=== PATIENT | female | born 1945 | race Caucasian/White ===

== ENCOUNTER 2023-06-22 08:15 | Outpatient (RCR) | payer MEDICARE, SELFPAY | END 2023-06-23 16:17 | disposition home or self-care (01) | LOC: PT 08:15 | PROVIDERS: PCP Family Medicine; Visit Provider Family Medicine | DX: H81.319 Aural vertigo, unspecified ear (principal); R26.89 Other abnormalities of gait and mobility; R26.9 Unspecified abnormalities of gait and mobility | CPT/HCPCS: 97110; 97162 ==

== ENCOUNTER 2023-10-08 06:45 | Emergency (ER) | payer MEDICARE, SELFPAY ==
[2023-10-08 06:48] VITALS: BP 158/71; PULSE 85; TEMP 36.8; O2SAT 97; BMI 28.3
--- OUTSIDE RECORDS SUMMARY | 2023-10-08 07:00 | XMS_ITS | CCD ---
Author Organization [facility] Inform ion Partnership [facility] Care Team Providers Care Project Intern Name Role Phone DR TIARRA GARY Primary Care Unavailable DEIDRA GARCIA Attending DEIDRA Martin Consulting DEIDRA Martin Admitting Unavailable Tiarra GARY Primary Care Physician Deidra Garcia Primary Care Physician [phone] JULIO RANKIN Attending Unavailable JULIO RANKIN Attending Unavailable Tiarra GARY Attending MD Deidra Martin Attending MD Deidra Martin Attending Unavailable MD Deidra Garcia Attending Unavailable MD Deidra Garcia Attending Unavailable MD Deidra Garcia Attending Unavailable MD Deidra Garcia Attending Unavailable Tiarra GARY Attending Unavailable Tiarra GARY Attending Unavailable Tiarra GARY Attending Unavailable Tiarra GARY Admitting Unavailable Ananda Samaniego Attending Unavailable Ananda Samaniego Admitting Unavailable Shawn Wu Attending Unavailable Allergies Allergy Classification Reported Allergen(s) Allergy Type Date of Onset Reaction(s) Facility (2 sources) Ciprofloxacin; Translations: [Cipro] Drug Allergy 6 [facility] Repository (2 sources) Codeine; Translations: [codeine] Drug Allergy 4 [facility] Rep[facility] (16 sources) Latex; Translations: [Latex] Drug allergy (disorder) 3 Eruption of skin (disorder) [facility] Rep[facility] (2 sources) metroNIDAZOLE; Translations: [Flagyl] Drug Allergy 6 [facility] Repository (1 source) Penicillins Drug allergy (disorder) 3 [facility] Rep[facility] (1 source) Sulfonamides (Antibiotic) Drug allergy (disorder) 3 [facility] Rep[facility] (15 sources) Adhesive Tape; Translations: [Tape] Drug allergy rash [facility] (15 sources) Amoxicillin; Translations: [amoxicillin] Drug Allergy Weal (disorder) [facility] (14 sources) Ciprofloxacin; Translations: [ciprofloxacin] Drug Allergy unknown [facility] (14 sources) Codeine; Translations: [codeine] Drug Allergy Pharyngeal swelling (finding) [facility] (14 sources) metroNIDAZOLE; Translations: [metronidazole] Drug Allergy unknown [facility] (15 sources) Morphine; Translations: [morphine] Drug Allergy unknown [facility] (15 sources) Penicillin; Translations: [Penicillin -class of antibiotic- (product)] Drug Allergy Weal (disorder) [facility] (15 sources) Sulfamethoxazole; Translations: [sulfamethoxazole] Drug Allergy Blister (morphologic abnormality) [facility] (15 sources) Sulfamethoxazole / Trimethoprim; Translations: [sulfamethoxazole-tr imethoprim] Drug Allergy Blister (morphologic abnormality) [facility] Medications Current Medications Medication Drug Class(es) Dates Sig (Normalized) Sig (Original) acetaminophen 325 mg / oxyCODONE hydrochloride 5 mg oral tablet (1 source) Opioid Agonist Start: 02-19-2023 End: 02-22-2023 Percocet 5 mg-325 mg oral tablet 1 tab(s), Oral, q6hr as needed for pain for 3 day(s), 15 tab(s), Refill(s) 0, [id number], 160, cm, 02/19/23 9:31:00 EST, Height/Length Dosing, 76.1, kg, 02/19/23 9:31:00 EST, Weight Dosing Start Date: 02/19/23 Stop Date: 02/22/23 Status: Ordered amLODIPine 5 mg oral tablet (14 sources) Dihydropyridine Calcium Channel Jeanna Start: 02-15-2023 take 1 tablet by mouth once daily Norvasc 5 mg Tab 5 mg = 1 tab(s), Oral, Daily, # 90 tab(s), Refills(s) 3, [facility], 160, cm, 02/15/23 8:05:00 EST, Height/Length Dosing, 74.6, kg, 02/15/23 8:05:00 EST, Weight Dosing Start Date: 02/15/23 Status: Ordered Start: 01-11-2022 take 1 tablet by leana th once daily Norvasc 5 mg Tab 5 mg = 1 tab(s), Oral, Daily, # 90 tab(s), Refills(s) 3, Pharmacy: [facility]), 160, cm, 01/11/22 10:59:00 EST, Height/Length Dosing, 72.4, kg, 01/11/22 10:59:00 EST, Weight Dosing Start Date: 01/11/22 Status: Ordered Start: 12-08-2020 take 1 tablet by leana th once daily Norvasc 5 mg Tab 5 mg = 1 tab(s), Oral, Daily, # 90 tab(s), Refills(s) 3, Pharmacy: [facility], 159, cm, 11/30/20 10:50:00 EDT, Height/Length Dosing, 78.8, kg, 11/30/20 10:50:00 EDT, Weight Dosing Start Date: 12/08/20 Status: Ordered aspirin 81 mg oral tablet (14 sources) Platelet Aggregation Inhibitor, Nonsteroidal Anti-inflammatory Drug Start: 07-29-2019 take 1 tablet by mouth once daily aspirin 81 mg oral tablet 81 mg = 1 tab(s), Oral, Daily, Refills(s) 0 Start Date: 07/29/19 Status: Ordered gemfibrozil 600 mg oral tablet (6 sources) Peroxisome Proliferator Receptor alpha Agonist Start: 05-31-2021 End: 05-26-2022 take 1 tablet by mouth twice daily gemfibrozil 600 mg Tab 600 mg = 1 tab(s), Oral, BID, X 90 day(s), # 180 tab(s), Refills(s) 3, Pharmacy: [id number], 160, cm, 05/31/21 12:59:00 EDT, Height/Length Dosing, 74, kg, 05/31/21 12:59:00 EDT, Weight Dosing Start Date: 05/31/21 Stop Date: 05/26/22 Status: Ordered losartan potassium 100 mg oral tablet (14 sources) Angiotensin 2 Receptor Jeanna Start: 02-15-2023 take 1 tablet by mouth once daily losartan 100 mg Tab 100 mg = 1 tab(s), Oral, Daily, # 90 tab(s), Refills(s) 3, Pharmacy: [facility], 160, cm, 02/15/23 8:05:00 EST, Height/Length Dosing, 74.6, kg, 02/15/23 8:05:00 EST, Weight Dosing Start Date: 02/15/23 Status: Ordered Start: 10-18-2022 take 1 tablet by leana th once daily losartan 100 mg Tab 100 mg = 1 tab(s), Oral, Daily, # 90 tab(s), Refills(s) 3, Pharmacy: [facility] ([facility]), 160, cm, 09/18/22 15:42:00 EDT, Height/Length Dosing, 73.6, kg, 09/18/22 15:42:00 EDT, Weight Dosing Start Date: 10/18/22 Status: Ordered Start: 11-07-2021 take 1 tablet by leana th once daily losartan 100 mg Tab 100 mg = 1 tab(s), Oral, Daily, # 90 tab(s), Refills(s) 3, Pharmacy: [facility] ([facility]), 160, cm, 09/13/21 11:11:00 EDT, Height/Length Dosing, 72.9, kg, 09/13/21 11:11:00 EDT, Weight Dosing Start Date: 11/07/21 Status: Ordered Start: 07-06-2020 take 1 tablet by leana once daily losartan 100 mg Tab 100 mg = 1 tab(s), Oral, Daily, # 90 tab(s), Refills(s) 3, [facility], 157, cm, 03/10/20 11:57:00 EST, Height/Length Dosing, 79.3, kg, 03/10/20 11:57:00 EST, Weight Dosing Start Date: 07/06/20 Status: Ordered 24 hr metoprolol succinate 25 mg extended release oral tablet (14 sources) beta-Adrenergic Jeanna Start: 02-15-2023 End: 02-10-2024 take 1 tablet by mouth once daily Toprol XL 25 mg Tab-ER 25 mg = 1 tab(s), Oral, Daily, X 90 day(s), # 90 tab(s), Refills(s) 3, Pharmacy: [facility], 160, cm, 02/15/23 8:05:00 EST, Height/Length Dosing, 74.6, kg, 02/15/23 8:05:00 EST, Weight Dosing Start Date: 02/15/23 Stop Date: 02/10/24 Status: Ordered Start: 05-04-2021 End: 01-06-2023 take 1 tablet by mouth once daily Toprol XL 25 mg Tab-ER 25 mg = 1 tab(s), Oral, Daily, X 90 day(s), # 90 tab(s), Refills(s) 3, Pharmacy: [facility] ([facility]), 160, cm, 01/11/22 10:59:00 EST, Height/Length Dosing, 72.4, kg, 01/11/22 10:59:00 EST, Weight Dosing Start Date: 01/11/22 Stop Date: 01/06/23 Status: Ordered predniSONE 20 mg oral tablet (2 sources) Start: 02-19-2023 End: 02-26-2023 take 3 tablets by mouth once daily predniSONE 20 mg Tab 60 mg = 3 tab(s), Oral, Daily, X 7 day(s), # 21 tab(s), Refills(s) 0, Pharmacy: [id number], 160, cm, 02/19/23 9:31:00 EST, Height/Length Dosing, 76.1, kg, 02/19/23 9:31:00 EST, Weight Dosing Start Date: 02/19/23 Stop Date: 02/26/23 Status: Ordered Start: 09-18-2022 End: 09-23-2022 take 2 tablets by mouth once daily predniSONE 20 mg Tab 40 mg = 2 tab(s), Oral, Daily, X 5 day(s), # 10 tab(s), Refills(s) 0, Pharmacy: [id number], 160, cm, 09/18/22 15:42:00 EDT, Height/Length Dosing, 73.6, kg, 09/18/22 15:42:00 EDT, Weight Dosing Start Date: 09/18/22 Stop Date: 09/23/22 Status: Ordered Problems Problem Classification Problem Date Documented Date Episodic/Chronic Anxiety disorders (17 sources) Generalized anxiety disorder; Translations: [Generalized anxiety disorder] Onset: 08-12-2021 12-09-2019 Chronic Cancer; other and unspecified primary (14 sources) H/O Malignant melanoma 07-12-2020 Episodic Cardiac dysrhythmias (20 sources) Palpitations; Translations: [Sinus tachycardia] Onset: 04-11-2022 07-12-2020 Episodic Chronic kidney disease (20 sources) Chronic kidney disease stage 3; Translations: [Chronic kidney disease, stage 3 (moderate)] Onset: 08-12-2021 03-10-2020 Chronic Comment on above: Added per outpatient CDI policy. Diabetes mellitus without complication (19 sources) Hyperglycemia; Translations: [Hyperglycemia, unspecified] Onset: 09-13-2021 03-10-2020 Episodic Disorders of lipid metabolism (20 sources) Hyperlipidemia; Translations: [Hyperlipidemia, unspecified] Onset: 08-12-2021 03-10-2020 Chronic Esophageal disorders (15 sources) Gastroesophageal reflux disease; Translations: [Gastroesophageal reflux disease without esophagitis] Onset: 07-17-2022 07-22-2018 Chronic Essential hypertension (19 sources) Hypertensive disorder; Translations: [Essential hypertension] Onset: 08-12-2021 03-10-2020 Chronic Heart valve disorders (16 sources) Aortic valve regurgitation; Translations: [Aortic incompetence, non-rheumatic ] Onset: 09-13-2021 12-09-2019 Chronic Heart valve disorders (3 sources) Heart murmur 07-22-2018 Episodic Hypertension with complications and secondary hypertension (2 sources) Chronic kidney disease due to hypertension; Translations: [Hypertensive chronic kidney disease with stage 1 through stage 4 chronic kidney disease, or unspecified chronic kidney disease] Onset: 04-10-2022 Chronic Immunizations and screening for infectious disease (4 sources) Encounter for immunization; Translations: [ENCOUNTER FOR IMMUNIZATION] Onset: 12-29-2020 Episodic Nutritional deficiencies (8 sources) Vitamin D deficiency; Translations: [Vitamin D deficiency, unspecified] Onset: 07-17-2022 Chronic Osteoarthritis (17 sources) Osteoarthritis of knee; Translations: [Bilateral primary osteoarthritis of knee] Onset: 09-13-2021 07-22-2018 Chronic Other bone disease and musculoskeletal deformities (14 sources) Osteopenia 07-22-2018 Episodic Other bone disease and musculoskeletal deformities (1 source) Disorder of bone; Translations: [Other specified disorders of bone density and structure, unspecified site] Onset: 08-12-2021 Episodic Other circulatory disease (14 sources) Respiratory crackles 12-09-2019 Episodic Other nervous system disorders (1 source) Carpal tunnel syndrome of left wrist; Translations: [Carpal tunnel syndrome, left upper limb] Onset: 09-18-2022 Chronic Other nutritional; endocrine; and metabolic disorders (20 sources) Body mass index 30+ - obesity 12-09-2019 Chronic Other nutritional; endocrine; and metabolic disorders (1 source) Obese class I; Translations: [Body mass index (BMI) 30.0-30.9, adult] Onset: 08-12-2021 Chronic Other nutritional; endocrine; and metabolic disorders (1 source) Obesity; Translations: [Other obesity due to excess calories] Onset: 08-12-2021 Chronic Other nutritional; endocrine; and metabolic disorders (5 sources) Overweight in adulthood with body mass index of 25 or more but less than 30; Translations: [Body mass index (BMI) 28.0-28.9, adult] Onset: 09-13-2021 Episodic Other screening for suspected conditions (not mental disorders or infectious disease) (2 sources) Encounter for screening mammogram for malignant neoplasm of breast; Translations: [Screening for malignant neoplasm done] Onset: 08-12-2021 Episodic Other upper respiratory disease (14 sources) Allergic rhinitis 07-22-2018 Chronic Spondylosis; intervertebral disc disorders; other back problems (3 sources) Backache; Translations: [Dorsalgia, unspecified] Onset: 02-19-2023 Episodic Unclassified (14 sources) Patient encounter status 07-12-2020 Results Test Name Value Interpretation Reference Range Facil ity Discharge Note - PTon 2023 Discharge Note - PT [id number] 0D#[id number] Normal [facility] Plan of Care - PT/OT/Speecho n 06-25-2023 Plan of Care - PT/OT/Speech [id number]#1.00TIFF Normal [facility] Ambulatory Visit Summaryon 0 06-21-2023 Ambulatory Visit Summary SHAMA HART :1945 Visit Date:06/21/2023 Ambulatory Visit Instructions Your Diagnosis Dizziness Leg pain Back pain BMI 29.0-29.9,adult Overweight Former smoker Your Care Team Attending Physician - Deidra Garcia MD Primary Care Physician - Deidra Garcia MD This Is Your Medications List Contact prescribing physician if questions or concerns amlodipine (Norvasc 5 mg Tab) aspirin (aspirin 81 mg oral tablet) losartan (losartan 100 mg Tab) metoprolol (Toprol XL 25 mg Tab-ER) Procedures Performed Injection (09/2022), Bilateral extraction of cataracts (2015), Melanoma (2015), splinter removed from bottom left foot (2005), Biopsy of breast (1993), left knee scope, squamous cell cancer removed, Tubal ligation. Discharge Vitals Temperature (Temporal Artery) 37.1 ?C Heart Rate (Peripheral) 76 Respiratory Rate 16 Blood Pressure 118/74 Height 160 cm Height 63 in Weight 75.2 kg Weight 165.44 lb BMI 29.38 What to do next Scheduled Follow-Up Appointments 2023 10:15 AM EDT With: Deidra Garcia MD Where: [facility] [address] [place] [address]- \.br\ Medications\.br\ What How Much When Instructions\.br\ Unchanged amlodipine (Norvasc 5 mg Tab) 1 Tablets By Mouth Every day Contact prescribing physician if questions or concerns \.br\ Unchanged aspirin (aspirin 81 mg oral tablet) 1 Tablets By Mouth Every day Contact prescribing physician if questions or concerns \.br\ Unchanged losartan (losartan 100 mg Tab) 1 Tablets By Mouth Every day Contact prescribing physician if questions or concerns \.br\ Unchanged metoprolol (Toprol XL 25 mg Tab-ER) 1 Tablets By Mouth Every day Duration: 90 Days Contact prescribing physician if questions or concerns \.br\ Allergies\.br\ Bactrim (Blisters)\.br\ Cipro (unknown)\.br\ Flagyl (unknown)\.br\ Latex (Rash)\.br\ Penicillin (Hives)\.br\ Tape (rash)\.br\ amoxicillin (Hives)\.br\ codeine (Swelling of throat)\.br\ morphine (unknown)\.br\ sulfamethoxazole (Blisters)\.br\ Problems\.br\ Ongoing - Any problem that you are currently receiving treatment for.\.br\ Allergic rhinitis\.br\ Aortic insufficiency\.br\ Back pain\.br\ Benign hypertension with chronic kidney disease, stage III\.br\ CKD (chronic kidney disease), stage III\.br\ Dizziness\.br\ Generalized anxiety disorder\.br\ GERD (gastroesophageal reflux disease)\.br\ History of melanoma\.br\ HLD (hyperlipidemia)\. br\ Hyperglycemia\.br\ Leg pain\.br\ Osteoarthritis of knees, bilateral\.br\ Osteopenia\.br\ Palpitations\.br\ Primary hypertension\.br\ Rales\.br\ Screening mammogram, encounter for\.br\ Sinus tachycardia\.br\ Vitamin D deficiency\.br\ Historical - Any problem that you are no longer receiving treatment for.\.br\ BMI 30.0-30.9,adult\.b r\ BMI 31.0-31.9,adult\.b r\ Patient Survey\.br\ You may receive a survey via text or e-mail asking about your office visit. Please share your experience with us by completing your survey. We appreciate your feedback and thank you for choosing us for your care.\.br\ \.br\ [facility] Family Medicine Office/Clini c Noteon 06-21-2023 Family Medicine Office/Clinic Note HPI Staff Shama Yeh is an 78 year old female presenting for acute visit Acute: Bilateral leg pain and this isn't so bad thinks it was more from sitting all winter, now that she's up and moving things are better. but had a dizzy spell last week and has some problems with balance Would like to see if can do the PT for this Pain characteristics: Pain location: legs worse in the morning Intensity:3/10 Onset: couple months ago Medication used: tylenol and stretching and ice History of Present Illness Here because of pain. - Pt states she is starting to feel better with stretching. - Still has some pain. - See staff HPI with dizziness. Review of Systems PHQ Score Initial Depression Screen Score: 0 SCORE Physical Exam Vitals & Measurements T: 37.1 ?C(Temporal Artery) HR: 76(Peripheral) RR: 16 BP: 118/74 SpO2: 97% HT: 63 in HT: 160 cm WT: 75.2 kg WT: 165.44 lb BMI: 29.38 General: alert, no acute distress ENMT: oral mucosa moist, Cardiovascular: regular rate and rhythm, normal peripheral perfusion Respiratory: Lungs CTA, respirations non labored Extremities: no deformity, no trauma Neurological: oriented x 4, LOC appropriate for age, CN II-XII intact, motor strength equal & normal bilaterally, speech normal Abdomen: Soft, Nontender, Non-distended, + BS Assessment/Plan 1. Dizziness (R42: Dizziness and giddiness) - Will do vestibular rehab - Discussed hydration. - Follow up PRN Ordered: methylPREDNISolone, = 1 packet(s), Oral, As Directed, as directed on package labeling, X 6 day(s), # 21 tab(s), Refills(s) 0, [id number], 160, cm, 06/21/23 10:30:00 EDT, Height/Length Dosing, 75.2, kg, 06/21/23 10:30:00 EDT, Weight Dosing 2. Leg pain (M79.606: Pain in leg, unspecified) - Improving. - Trying to get moving more - Will do a steroid diallo if pain does not improve Ordered: methylPREDNISolone, = 1 packet(s), Oral, As Directed, as directed on package labeling, X 6 day(s), # 21 tab(s), Refills(s) 0, [id number], 160, cm, 06/21/23 10:30:00 EDT, Height/Length Dosing, 75.2, kg, 06/21/23 10:30:00 EDT, Weight Dosing 3. Back pain (M54.9: Dorsalgia, unspecified) - Improving. - Will treat as above. - Stretching recommended after the dizziness has gone away. Ordered: methylPREDNISolone, = 1 packet(s), Oral, As Directed, as directed on package labeling, X 6 day(s), # 21 tab(s), Refills(s) 0, Pharmacy: [id number], 160, cm, 06/21/23 10:30:00 EDT, Height/Length Dosing, 75.2, kg, 06/21/23 10:30:00 EDT, Weight Dosing 4. BMI 29.0-29.9,adult (Z68.29: Body mass index [BMI] 29.0-29.9, adult) - BMI education given Ordered: methylPREDNISolone, = 1 packet(s), Oral, As Directed, as directed on package labeling, X 6 day(s), # 21 tab(s), Refills(s) 0, [id number], 160, cm, 06/21/23 10:30:00 EDT, Height/Length Dosing, 75.2, kg, 06/21/23 10:30:00 EDT, Weight Dosing Body Mass Index (BMI) documented 3008F Current tobacco non-user 1036F Depression Screening Negative 3352F Influenza immunization administered or previously received 4274F Most recent diastolic blood pressure <80 mm Hg 3078F Patient screen for fall risk: no falls in last year or 1 fall with no injury in last year 1101F Systolic BP <130 mm Hg (Most Recent) 3074F 5. Overweight (E66.3: Overweight) - Diet and exercise advised Ordered: methylPREDNISolone, = 1 packet(s), Oral, As Directed, as directed on package labeling, X 6 day(s), # 21 tab(s), Refills(s) 0, [id number], 160, cm, 06/21/23 10:30:00 EDT, Height/Length Dosing, 75.2, kg, 06/21/23 10:30:00 EDT, Weight Dosing Body Mass Index (BMI) documented 3008F Current tobacco non-user 1036F Depression Screening Negative 3352F Influenza immunization administered or previously received 4274F Most recent diastolic blood pressure <80 mm Hg 3078F Patient screen for fall risk: no falls in last year or 1 fall with no injury in last year 1101F Systolic BP <130 mm Hg (Most Recent) 3074F 6. Former smoker (Z87.891: Personal history of nicotine dependence) - Please continue to not smoke Ordered: methylPREDNISolone, = 1 packet(s), Oral, As Directed, as directed on package labeling, X 6 day(s), # 21 tab(s), Refills(s) 0, Pharmacy: [id number], 160, cm, 06/21/23 10:30:00 EDT, Height/Length Dosing, 75.2, kg, 04/18/24 10:30:00 EDT, Weight Dosing Body Mass Index (BMI) documented 3008F Current tobacco non-user 1036F Depression Screening Negative 3352F Influenza immunization administered or previously received 4274F Most recent diastolic blood pressure <80 mm Hg 3078F Patient screen for fall risk: no falls in last year or 1 fall with no injury in last year 1101F Systolic BP <130 mm Hg (Most Recent) 3074F 7. Primary hypertension (I10: Essential (primary) hypertension) - At goal - Continue meds as before. Ordered: methylPREDNISolone, = 1 packet(s), Oral, As Directed, as directed on package labeling, X 6 day(s), # 21 (more content not included)... [facility] Comment on above: Result Comment: Elec tronically Signed By: Arsen LIU, Deidra Rajput\.br\Date and Time Signed: 06/21/23 11:00 EDT Patient Educationon 06-21-19 Patient Education Nutrition BMI for Adults What is BMI? Body mass index (BMI) is a number that is calculated from a person's weight and height. BMI can help estimate how much of a person's weight is composed of fat. BMI does not measure body fat directly. Rather, it is an alternative to procedures that directly measure body fat, which can be difficult and expensive. BMI can help identify people who may be at higher risk for certain medical problems. What are BMI measurements used for? BMI is used as a screening tool to identify possible weight problems. It helps determine whether a person is obese, overweight, a healthy weight, or underweight. BMI is useful for: ? Identifying a weight problem that may be related to a medical condition or may increase the risk for medical problems. ? Promoting changes, such as changes in diet and exercise, to help reach a healthy weight. BMI screening can be repeated to see if these changes are working. How is BMI calculated? BMI involves measuring your weight in relation to your height. Both height and weight are measured, and the BMI is calculated from those numbers. This can be done either in [place] or metric measurements. Note that charts and online BMI calculators are available to help you find your BMI quickly and easily without having to do these calculations yourself. To calculate your BMI in [place] measurements: 1. Measure your weight in pounds (lb). 2. Multiply the number of pounds by 703. ? For example, for a person who weighs 180 lb, multiply that number by 703, which equals 126,540. 3. Measure your height in inches. Then multiply that number by itself to get a measurement called inches squared. ? For example, for a person who is 70 inches tall, the inches squared measurement is 70 inches x 70 inches, which equals 4,900 inches squared. 4. Divide the total from step 2 (number of lb x 703) by the total from step 3 (inches squared): 126,540 ? 4,900 = 25.8. This is your BMI. To calculate your BMI in metric measurements: 1. Measure your weight in kilograms (kg). 2. Measure your height in meters (m). Then multiply that number by itself to get a measurement called meters squared. ? For example, for a person who is 1.75 m tall, the meters squared measurement is 1.75 m x 1.75 m, which is equal to 3.1 meters squared. 3. Divide the number of kilograms (your weight) by the meters squared number. In this example: 70 ? 3.1 = 22.6. This is your BMI. What do the results mean? BMI charts are used to identify whether you are underweight, normal weight, overweight, or obese. The following guidelines will be used: ? Underweight: BMI less than 18.5. ? Normal weight: BMI between 18.5 and 24.9. ? Overweight: BMI between 25 and 29.9. ? Obese: BMI of 30 or above. Keep these notes in mind: ? Weight includes both fat and muscle, so someone with a muscular build, such as an athlete, may have a BMI that is higher than 24.9. In cases like these, BMI is not an accurate measure of body fat. ? To determine if excess body fat is the cause of a BMI of 25 or higher, further assessments may need to be done by a health care provider. ? BMI is usually interpreted in the same way for men and women. Where to find more information For more information about BMI, including tools to quickly calculate your BMI, go to these websites: ? Centers for Disease Control and Prevention: www.cdc.gov ? [place] [employer]: www.heart.org ? National Heart, Lung, and [employer]: www.nhlbi.nih.gov Summary ? Body mass index (BMI) is a number that is calculated from a person's weight and height. ? BMI may help estimate how much of a person's weight is composed of fat. BMI can help identify those who may be at higher risk for certain medical problems. ? BMI can be measured using [place] measurements or metric measurements. ? BMI charts are used to identify whether you are underweight, normal weight, overweight, or obese. This information is not intended to replace advice given to you by your health care provider. Make sure you discuss any questions you have with your health care provider. Document Revised: 11/12/2019 Document Reviewed: 09/19/2019 [employer] Patient Education ? 2022 [employer]. [facility] Physician Orderon 06-21-2023 Physician Order [id number] [facility] Pre-Visit Planningon 024 Pre-Visit Planning -- From: Luciana Goins To: Arsen LIU, Deidra Rajput; Sent: 06/20/2023 13:40:19 EDT Subject: Pre-Visit Planning Due Date/Time: 06/20/2023 13:40:00 EDT Caller Name: SHAMA HART; Caller Number: , Ne Dr. Garcia. During a pre-visit planning chart review, I noted the following documentation in the medical record: Current Problem List: HTN, HLD, and Hyperglycemia. Current Medication List: amlodipine, aspirin, losartan, and metoprolol. 05/25/2021 Echo Transthoracic Complete: The aorta is mildly dilated. Aortic root measuring 4.3 cm. Based on your medical judgment, can you please clarify which, if any, of the following conditions are present? I can update the Chronic Problem List with your response if you would like. -Dilated aortic root -Other (please specify): In responding to this request, please exercise your independent professional judgement. The fact that a question is asked does not imply that any particular answer is desired or expected. If you have any questions, please feel free to contact me at extension [phone]. Thank you! Luciana Goins LPN -- From: Deidra Garcia MD To: Briseida Luciana Sharp; Sent: 06/21/2023 12:33:06 EDT Subject: RE: Pre-Visit Planning Caller Name: SHAMA HART; Caller Number: Martha , Dilated aortic root Normal [address] [place] [address] Pre-Visit Planning -- From: Laxmi Goinsissa Aron To: Deidra Garcia MD; Sent: 06/20/2023 12:57:28 EDT Subject: Pre-Visit Planning Due Date/Time: 06/20/2023 12:57:00 EDT Caller Name: SHAMA HART; Caller Number: Martha , Ne Dr. Garcia. During a pre-visit planning chart review, I noted the following documentation in the medical record: Current Problem List: Chronic kidney disease, stage 3. Glomerular filtration rate (GFR): Based on your medical judgment, can you please clarify which, if any, of the following conditions are present? I can update the Chronic Problem List with your response if you would like. -Chronic Kidney Disease Stage 3a (GFR 45-59) -Other (please specify): In responding to this request, please exercise your independent professional judgment. The fact that a question is asked does not imply that any particular answer is desired or expected. If you have any questions, please feel free to contact me at extension [phone]. Thank you! Luciana Goins LPN -Chronic Kidney Disease Stage 3a (GFR 45-59) -- From: Deidra Garcia MD To: Luciana oGins; Sent: 06/21/2023 12:32:26 EDT Subject: RE: Pre-Visit Planning Caller Name: SHAMA HART; Caller Number: , M Normal [address] [facility] CHEMISTRYOrdered By: SYSTEM SYSTEM on 05-01-2023 Albumin [Mass/Vol] 4.1 g/dL Normal 3.3 - 5.0 gm/dL R emisol Chem Anion gap [Moles/Vol] 12 mmol/L Normal 6 - 16 mEq/L Remisol Chem Calcium [Mass/Vol] 9.8 mg/dL Normal 8.9 - 11.1 mg/dL Remisol Chem Chloride [Moles/Vol] 104 mmol/L Normal 101 - 111 mmol/L Remisol Chem CO2 [Moles/Vol] 27 mmol/L Normal 21 - 31 mmol/L Remis ol Chem Creatinine [Mass/Vol] 1.2 mg/dL Normal 0.5 - 1.3 mg/dL Remisol Chem eGFR 46 mL/min/1.73 m2 Low >=59mL/min/1.73 m2 Remisol Chem Glucose [Mass/Vol] 81 mg/dL Normal 55 - 199 mg/dL Re misol Chem Phosphate [Mass/Vol] 3.3 mg/dL Normal 1.9 - 4.6 mg/dL Remisol Chem Potassium [Moles/Vol] 4.8 mmol/L Normal 3.5 - 5.3 mmol/L Remisol Chem Sodium [Moles/Vol] 138 mmol/L Normal 135 - 145 mmol/L Remisol Chem Urea nitrogen [Mass/Vol] 21 mg/dL Normal 5 - 21 mg/dL Remisol Chem Urea nitrogen/Creatinine [Mass ratio] 18 mg/mg Normal 10 - 20 Remisol Chem Consent for Treatmenton 04-06 Consent for Treatment [id number] Normal [facility] Physician Orderon 05-01-2023 Physician Order [id number] Normal [facility] Renal Panelon 05-01-2023 Albumin [Mass/Vol] 4.1 g/dL Normal 3.3-5.0 [facility] Comment on above: Performed By: #### 1 [id number], [id number] #### [facility] [address] [place] [address] Anion gap [Moles/Vol] 12 mmol/L Normal 6-16 [facility] Comment on above: Performed By: #### 1 [id number], [id number] #### [facility] [address] [place] [address] BUN/Creat Ratio 18 No Units Normal 10-20 [facility] Comment on above: Performed By: #### 1 [id number], [id number] #### [facility] [address] [place] [address] Calcium [Mass/Vol] 9.8 mg/dL Normal 8.9-11.1 [facility] Comment on above: Performed By: #### 1 [id number], [id number] #### [facility] [address] [place] [address] Chloride [Moles/Vol] 104 mmol/L Normal 101-111 [facility] Comment on above: Performed By: #### 1 [id number], [id number] #### [facility] [address] [place] [address] CO2 [Moles/Vol] 27 mmol/L Normal 21-31 [facility] Comment on above: Performed By: #### 1 [id number], [id number] #### [facility] [address] [place] [address] Creatinine [Mass/Vol] 1.2 mg/dL Normal 0.5-1.3 [facility] Comment on above: Performed By: #### 1 [id number], [id number] #### [facility] [address] [place] [address] Glucose [Mass/Vol] 81 mg/dL Normal 55-199 [facility] Comment on above: Performed By: #### 1 [id number], [id number] #### [facility] [address] [place] [address] Phosphate [Mass/Vol] 3.3 mg/dL Normal 1.9-4.6 [facility] Comment on above: Performed By: #### 1 [id number], [id number] #### [facility] [address] [place] [address] Potassium [Moles/Vol] 4.8 mmol/L Normal 3.5-5.3 [facility] Comment on above: Performed By: #### 1 [id number], [id number] #### [facility] [address] [place] [address] Sodium [Moles/Vol] 138 mmol/L Normal 135-145 [facility] Comment on above: Performed By: #### 1 [id number], [id number] #### [facility] [address] [place] [address] Urea nitrogen [Mass/Vol] 21 mg/dL Normal 5-21 [facility] Comment on above: Performed By: #### 1 [id number], [id number] #### [facility] [address] [place] [address] eGFRon 05-01-2023 eGFR 46 mL/min/1.73 m2 Low >=59 [facility] Comment on above: Order Comment: Order added by Discern Expert. Performed By: #### 1 [id number], [id number] #### [facility] [address] [place] [address] Family Medicine Office/Clini c Noteon 02-21-2023 Family Medicine Office/Clinic Note Chief Complaint ER follow up (02/19)-for back pain HPI Staff Shama Yeh is a 78 year old presenting for ER follow up ER followup: Patient went to ER 02/19 for back pain [place] [facility] [place] date: 02/19/23 Symptoms the patient presented with: back pain and couldn't walk CT done showed lumbar spondylosis and DDD Current concerns: flu: UTD History of Present Illness Shama Hart is a 78-year-old female who presents today for a follow-up evaluation of back pain. On 02/19/2023, the patient presented to the emergency department due to back pain. A CT scan was performed and a prescription for oxycodone was issued. However, the pharmacist did not dispense the oxycodone due to the patient's documented allergy to CODEINE, which manifests as throat swelling and ocular erythema and edema. The patient has a history of analgesic use, but could not recall the specific medications. She has been self-medicating with Aleve, which has provided some relief. The patient denies experiencing pain today. However, she reported an incident on 02/19/2023 where her knees gave way upon arising from bed, nearly causing a fall. She described the pain as severe. She has a scheduled appointment at a pain management clinic on 03/08/2023, and they have requested a copy of her x-ray results to be faxed to their office. Despite her back pain, she has been able to reposition herself in bed at night. She initiated a steroid regimen on 02/19/2023, with instructions to take 3 doses at 3 in the morning. Today is the first day in 2 weeks that she feels able to engage in activities. Review of Systems PHQ Score Initial Depression Screen Score: 0 SCORE Physical Exam Vitals & Measurements T: 36.7 ?C(Temporal Artery) HR: 80(Peripheral) RR: 18 BP: 142/78 SpO2: 99% HT: 63 in HT: 160 cm WT: 75.0 kg WT: 165 lb BMI: 29.3 General: alert, no acute distress Cardiovascular: regular rate and rhythm, normal peripheral perfusion Respiratory: Lungs CTA, respirations non labored Extremities: no deformity, no trauma Neurological: oriented x 4, LOC appropriate for age, CN II-XII intact, motor strength equal & normal bilaterally, speech normal Assessment/Plan 1. Primary hypertension (I10: Essential (primary) hypertension) Patient initially had elevated blood pressure. We will have the patient rest and relax and see if the blood pressure comes down as the patient's blood pressure improves. No further changes needed. If the patient's blood pressure does not improve, we will increase the Norvasc to 10 mg. Patient will need to follow up in the next month for blood pressure check. 2. Back pain (M54.9: Dorsalgia, unspecified) Resolved at this time. Continue taking the Medrol and if patient wants to get the Percocet, patient can get the Percocet. Discussed the concerns for cross reactivity with codeine and morphine, but patient has had pain meds before without any issues. 3. Hyperglycemia (R73.9: Hyperglycemia, unspecified) There is a concern for the use of steroids. Discussed in detail. We will follow up as needed at her next visit. 4. Overweight with body mass index (BMI) 25.0-29.9 (E66.3: Overweight) BMI education given. Diet and exercise advised. Advised patient. She will follow up with pain management as well for the back pain. Portions of this record may have been created with voice recognition artificial intelligence software, specifically [employer], [employer] and or [employer]. Substitutions may have occurred due to the inherent limitations of voice recognition and artificial intelligence software. ATTESTATION: Documentation services were performed after patient or guardian consented to allow [employer] to record this visit. CECILIA unemployment specialist and provider reviewed before signing. CECILIA: Ling Meza. Follow-up No qualifying data available Patient Education Acute Back Pain, Adult Problem List/Past Medical History Ongoing Allergic rhinitis Aortic insufficiency Back pain Benign hypertension with chronic kidney disease, stage III CKD (chronic kidney disease), stage III Generalized anxiety disorder GERD (gastroesophageal reflux disease) History of melanoma HLD (hyperlipidemia) Hyperglycemia Osteoarthritis of knees, bilateral Osteopenia Palpitations Primary hypertension Rales Screening mammogram, encounter for Sinus tachycardia Vitamin D deficiency Historical BMI 30.0-30.9,adult BMI 31.0-31.9,adult Procedure/Surgical History Injection (09/2022), Bilateral extraction of cataracts (2015), Melanoma (2015), splinter removed from bottom left foot (2005), Biopsy of breast (1993), left knee scope, squamous cell cancer removed, Tubal ligation. Medications aspirin 81 mg oral tablet, 81 mg= 1 tab(s), Oral, Daily losartan 100 mg Tab, 100 mg= 1 tab(s), Oral, Daily, 3 refills Norvasc 5 mg Tab, 5 mg= 1 tab(s), Oral, Daily, 3 refills predniSONE 20 mg Tab, 60 mg= 3 tab(s), Oral, Daily Toprol XL 25 mg Ta (more content not included)... Normal [facility] Comment on above: Result Comment: Elec tronically Signed By: Deidra Garcia MD\.br\Date and Time Signed: 02/21/23 17:22 EST\.br\Electronically Co-Signed By: Ling Meza\.br\Date and Time Co-Signed: 02/20/23 16:57 EST Family Medicine Office/Clinic Note HPI Staff Shama Yeh is an 78 year old female presenting to establish care Establish Care: History: CKD, GERD, HTN, VETO, aortic insuff Last provider: Cookie Last OV; 4 months ago History of any specialists: Dr Ryanne Cerna Any recent labs: 10/20/22 Health Maintenance UTD: Colonoscopy: aged out ( last one with Dr Santos) Mamms: doesn't do them Pap/pelvic: no longer does these flu: given today Acute: having a back problem, has seen dr reece for this in past, had PT for it at [facility] in [place] and once in [place]. was told pinches nerve but not really sure, stretching does help in the mornings for her Current issues/complaints: History of Present Illness Shama Hart is a 78-year-old female who presents today for an evaluation of back pain. The patient indicates overall well-being. His gastroesophageal reflux disease has been stable. He was diagnosed with Vitamin D deficiency by Dr Gary. The patient presents with a history of back pain, previously diagnosed as a radiculopathy. She reports exacerbation of pain in the mornings, making it difficult to get out of bed and walk. She indicates that performing stretches and light walking helps alleviate the pain. Upon waking, she rates her pain as 10 on a scale of 10, which decreases to 5 on the same scale after performing her routine. She also reports taking an aspirin this morning. Past treatments include physical and occupational therapy. She was informed of a pelvic misalignment and recalls needing x-rays during her first to ensure her pelvis had sufficiently opened for natural childbirth. She experienced complications during all 3 of her pregnancies, with each child being born posterior. She attends a senior center in [place] weekly, where she participates in chair exercises that she finds beneficial. She enjoys walking and incorporates it into her daily routine by navigating through her multi-level home, especially during colder weather when she prefers to stay indoors. She has not yet had a Medicare wellness visit and dementia screening this year. Review of Systems PHQ Score Initial Depression Screen Score: 1 SCORE Physical Exam Vitals & Measurements T: 37.2 ?C(Temporal Artery) HR: 62(Peripheral) RR: 14 BP: 122/70 SpO2: 99% HT: 63 in HT: 160 cm WT: 74.6 kg WT: 164.12 lb BMI: 29.14 General: alert, no acute distress Cardiovascular: regular rate and rhythm, normal peripheral perfusion Respiratory: Lungs CTA, respirations non labored Extremities: no deformity, no trauma Neurological: oriented x 4, LOC appropriate for age, CN II-XII intact, motor strength equal & normal bilaterally, speech normal Musculoskeletal: Right lower lumbar paraspinal muscle is very tender to palpation. Assessment/Plan Total time spent preparing for the encounter, evaluating and assessing the patient, documenting the visit, and ordering appropriate follow-up work was 40 minutes. 1. CKD (chronic kidney disease), stage III (N18.3: Chronic kidney disease, stage 3 (moderate)) The patient is stable for last laboratory tests, but we will recheck in 6 months. 2. GERD (gastroesophageal reflux disease) (K21.9: Gastro-esophageal reflux disease without esophagitis) Doing well. No issues at this time. Intermittent. Not on medication at this time. 3. Generalized anxiety disorder (F41.1: Generalized anxiety disorder) This is stable. No concerns at this time. Not on medication. We will continue to monitor. 4. Hypertension (I10: Essential (primary) hypertension) The patient is at goal. We will refill the patient's medications through my name so that patient continues to get medication and refills through me. 5. BMI 29.0-29.9,adult (Z68.29: Body mass index [BMI] 29.0-29.9, adult) BMI education given. 6. Overweight (E66.3: Overweight) Diet and exercise advised. 7. Vitamin D deficiency (E55.9: Vitamin D deficiency, unspecified) The patient takes an over the counter supplement of vitamin D. We will recheck at next laboratory testing. 8. Back pain (M54.9: Dorsalgia, unspecified) Discussed multiple options with the patient. The patient is requesting pain management. We will do pain management to help and if no improvement, we will do physical therapy. We will follow up in 6 months or sooner if back pain is not improving. Encounter for immunization (Z23: Encounter for immunization) ATTESTATION: Portions of this record may have been created with voice recognition artificial intelligence software, specifically [employer], [employer] and or [employer]. Substitutions may have occurred due to the inherent limitations of voice recognition and artificial intelligence software. Documentation services were performed after patient or guardian consented to allow [employer] to record this visit. CECILIA unemployment specialist and provider reviewed before signing. CECILIA: Yanci Sullivan. Follow-up No qualifying data available Patient Education Acute Back Pain, Adul (more content not included)... Normal [facility] Comment on above: Result Comment: Elec tronically Signed By: Deidra Garcia MD\.br\Date and Time Signed: 02/21/23 10:33 EST\.br\Electronically Co-Signed By: Yanci Sullivan\.br\Date and Time Co-Signed: 02/15/23 12:11 EST Family Medicine Office/Clinic Note Chief Complaint Subsequent Medicare Wellness Visit History of Present Illness I was in the office and available for consultation and to provide direct supervision at the time of this visit. I have provided supervision of the care team and have reviewed this chart and office note and agree with the plan of care. Covid-19, MERS, Ebola Screen *Contact With Person With Highly Contagious Disease Like Ebola/MERS/COVID-19 AND Have One or More of the Symptoms Below : Yes *Travel to a Country With Wide-Spread Ebola/MERS/COVID-19 in the Past 21 Days AND Have One or More of the Symptoms Below : Yes Patient Reported Covid-19 Testing : No *Verify Droplet, Contact Precautions for Ebola (Reference for CDC) : Yes *Verify Airborne, Droplet Precautions for MERS/COVID-19 : Yes Jamie Jessu 02/15/2023 9:05 EST Medicare/Medicaid Summary Chief Complaint : Subsequent Medicare Wellness Visit Patient Counseled : Nutrition, Physical activity Height/Length Measured : 160 cm(Converted to: 5 ft 3 in, 62.99 in) Weight Measured : 74.6 kg(Converted to: 164 lb 7 Ounces, 164.465 lb) Body Mass Index Measured : 29.14 kg/m2 Height in Inches : 63 in Weight in Pounds : 164.12 lb Waist Measurement : 94 cm(Converted to: 37 in) Systolic Blood Pressure : 122 mmHg Diastolic Blood Pressure : 70 mmHg Blood Pressure Location : Left arm Blood Pressure Position : Sitting O2 Sat Resting/Exertion Alpha : Resting Peripheral Pulse Rate : 62 bpm SpO2 : 99 % Numeric Rating Pain Score : 5 Jamie Jesus - 02/15/2023 9:28 EST Pain Present : Yes actual or suspected pain Numeric Rating Pain Scale : 5 = Moderate pain Primary Pain Location : Back Jamie Jesus R - 02/15/2023 9:05 EST Patient Preferred Method of Communication Phone Call Hearing and Vision Screening FT FT Whisper Test Comments : no issues or concerns Jamie Jesus R - 02/15/2023 9:05 EST Vision Screen Comments : wears corrective lenses, follows [facility] elizondo Jamie Jesus R - 02/15/2023 9:28 EST Advance Directive FT Advance Directive : Yes Type of Advance Directive : Living will, Medical durable power of defense attorney Patient Wishes to Receive Further Information on Advance Directives : No Organ Donation Consent : No Jamie Jesus R 02/15/2023 9:05 EST Procedures / Surgeries FT - Procedure History (As Of: 02/15/2023 09:32:35 EST) Procedure Dt/Tm: 2015 ; Anesthesia Minutes: 0 ; Procedure Name: Melanoma ; Procedure Minutes: 0 ; Comments: 10/21/2018 17:12 Rafaela aNva RN removed from back region ; Last Reviewed Dt/Tm: 02/15/2023 09:29:40 EST Procedure Dt/Tm: 2005 ; Anesthesia Minutes: 0 ; Procedure Name: splinter removed from bottom left foot ; Procedure Minutes: 0 ; Comments: 10/21/2018 17:14 Rafaela Nava RN 1.5 inch splinter ; Last Reviewed Dt/Tm: 02/15/2023 09:29:40 EST Anesthesia Minutes: 0 ; Procedure Name: squamous cell cancer removed ; Procedure Minutes: 0 ; Comments: 10/21/2018 17:11 Rafaela Nava RN from face ; Last Reviewed Dt/Tm: 02/15/2023 09:29:40 EST Anesthesia Minutes: 0 ; Procedure Name: Tubal ligation ; Procedure Minutes: 0 ; Last Reviewed Dt/Tm: 02/15/2023 09:29:40 EST Procedure Dt/Tm: 1993 ; Anesthesia Minutes: 0 ; Procedure Name: Biopsy of breast ; Procedure Minutes: 0 ; Comments: 10/21/2018 17:13 Rafaela Nava RN benign ; Last Reviewed Dt/Tm: 02/15/2023 09:29:40 EST Procedure Dt/Tm: 2016 ; Anesthesia Minutes: 0 ; Procedure Name: Bilateral extraction of cataracts ; Procedure Minutes: 0 ; Last Reviewed Dt/Tm: 02/15/2023 09:29:40 EST Anesthesia Minutes: 0 ; Procedure Name: left knee scope ; Procedure Minutes: 0 ; Last Reviewed Dt/Tm: 02/15/2023 09:29:40 EST Procedure Dt/Tm: 09/2022 ; Anesthesia Minutes: 0 ; Procedure Name: injection in left hand ; Procedure Minutes: 0 ; Last Reviewed Dt/Tm: 02/15/2023 09:29:40 EST Family History Family History (As Of: 02/15/2023 09:32:35 EST) Father: Relation: Father ; Gender: Male ; ; Age at : 69 Years ; Cause of : [place] Nomenclature: Hyperlipidemia ; Value: Positive Nomenclature: Hypertension ; Value: Positive Nomenclature: Cardiac arrest ; Value: Positive Nomenclature: Heart disease ; Value: Positive Mother: Relation: Mother ; Gender: Female ; ; Age at : 78 Years Nomenclature: Hypertension ; Value: Positive Nomenclature: Stroke ; Value: Positive Nomenclature: Acute myocardial infarction ; Value: Positive Medicare/Medicaid Social History FT Social History (As Of: 02/15/2023 09:32:35 EST) Alcohol: Low Risk 1-2 times per year, 1 drinks/episode average. 2.00 drinks/episode maximum. Household alcohol concerns: No. Comments: 08/12/2021 9:39 - Maribel Donahue LPN: drinks alcohol less then monthly 1-2 drinks 06/29/2020 8:28 - Maribel Donahue LPN: has a drink less then monthly (Last Updated: 02/15/2023 09:08:27 EST by Jamie Jesus) Tobacco: Denies Tobacco Use (more content not included)... Normal [facility] Comment on above: Result Comment: Elec tronically Signed By: Deidra Garcia MD\.br\Date and Time Signed: 02/21/23 10:13 EST\.br\Electronically Co-Signed By: Jamie Jesus\.br\Date and Time Co-Signed: 02/15/23 09:55 EST Physician Referralon 023 Physician Referral [id number] [facility] Ambulatory Visit Summaryon 1 04-23-2022 Ambulatory Visit Summary SHAMA HART :1945 Visit Date:02/20/2023 Ambulatory Visit Instructions Your Diagnosis Primary hypertension Back pain Hyperglycemia Overweight with body mass index (BMI) 25.0-29.9 Your Care Team Attending Physician - Deidra Garcia MD Primary Care Physician - Deidra Garcia MD This Is Your Medications List Contact prescribing physician if questions or concerns amlodipine (Norvasc 5 mg Tab) aspirin (aspirin 81 mg oral tablet) losartan (losartan 100 mg Tab) metoprolol (Toprol XL 25 mg Tab-ER) predniSONE (predniSONE 20 mg Tab) [Image Removed: STOP]Stop taking these medications acetaminophen-oxyco done (Percocet 5 mg-325 mg oral tablet) Procedures Performed Injection (09/2022), Bilateral extraction of cataracts (2015), Melanoma (2015), splinter removed from bottom left foot (2005), Biopsy of breast (1993), left knee scope, squamous cell cancer removed, Tubal ligation. Discharge Vitals Temperature (Temporal Artery) 36.7 ?C Heart Rate (Peripheral) 80 Respiratory Rate 18 Blood Pressure 152/78 Height 160 cm Height 63 in Weight 75.0 kg Weight 165 lb BMI 29.3 What to do next Scheduled Follow-Up Appointments 2023 8:00 AM EDT With: Deidra Garcia MD Where: [facility] Normal [address] [place], [place] [id number]- \.br\ Medications\.br\ What How Much When Instructions\.br\ Unchanged amlodipine (Norvasc 5 mg Tab) 1 Tablets By Mouth Every day Contact prescribing physician if questions or concerns \.br\ Unchanged aspirin (aspirin 81 mg oral tablet) 1 Tablets By Mouth Every day Contact prescribing physician if questions or concerns \.br\ Unchanged losartan (losartan 100 mg Tab) 1 Tablets By Mouth Every day Contact prescribing physician if questions or concerns \.br\ Unchanged metoprolol (Toprol XL 25 mg Tab-ER) 1 Tablets By Mouth Every day Duration: 90 Days Contact prescribing physician if questions or concerns \.br\ Unchanged predniSONE (predniSONE 20 mg Tab) 3 Tablets By Mouth Every day Duration: 7 Days Contact prescribing physician if questions or concerns \.br\ \.br\ What How Much When Why Comments\.br\ Stop Taking acetaminophen-oxyc odone (Percocet 5 mg-325 mg oral tablet) 1 Tablets By Mouth Every 6 hours as needed for as needed for pain Back pain Duration: 3 Days\.br\ Allergies\.br\ Bactrim (Blisters)\.br\ Cipro (unknown)\.br\ Flagyl (unknown)\.br\ Latex (Rash)\.br\ Penicillin (Hives)\.br\ Tape (rash)\.br\ amoxicillin (Hives)\.br\ codeine (Swelling of throat)\.br\ morphine (unknown)\.br\ sulfamethoxazole (Blisters)\.br\ Problems\.br\ Ongoing - Any problem that you are currently receiving treatment for.\.br\ Allergic rhinitis\.br\ Aortic insufficiency\.br\ Back pain\.br\ Benign hypertension with chronic kidney disease, stage III\.br\ CKD (chronic kidney disease), stage III\.br\ Generalized anxiety disorder\.br\ GERD (gastroesophageal reflux disease)\.br\ History of melanoma\.br\ HLD (hyperlipidemia)\. br\ Hyperglycemia\.br\ Osteoarthritis of knees, bilateral\.br\ Osteopenia\.br\ Palpitations\.br\ Primary hypertension\.br\ Rales\.br\ Screening mammogram, encounter for\.br\ Sinus tachycardia\.br\ Vitamin D deficiency\.br\ Historical - Any problem that you are no longer receiving treatment for.\.br\ BMI 30.0-30.9,adult\.b r\ BMI 31.0-31.9,adult\.b r\ Patient Survey\.br\ You may receive a survey via text or e-mail asking about your office visit. Please share your experience with us by completing your survey. We appreciate your feedback and thank you for choosing us for your care.\.br\ Education Materials\.br\ Acute Back Pain, Adult\.br\ Acute back pain is sudden and usually short-lived. It is often caused by an injury to the muscles and tissues in the back. The injury may result from:\.br\ ? \.br\ A muscle, tendon, or ligament getting overstretched or torn. Ligaments are tissues that connect bones to each other. Lifting something improperly can cause a back strain.\.br\ ? \.br\ Wear and tear (degeneration) of the spinal disks. Spinal disks are circular tissue that provide cushioning between the bones of the spine (vertebrae).\.br\ ? \.br\ Twisting motions, such as while playing sports or doing yard work.\.br\ ? \.br\ A hit to the back.\.br\ ? \.br\ Arthritis.\.br\ You may have a physical exam, lab tests, and imaging tests to find the cause of your pain. Acute back pain usually goes away with rest and home care.\.br\ Follow these instructions at home:\.br\ Managing pain, stiffness, and swelling\.br\ ? \.br\ Take iezs-pzw-xbiutrd and prescription medicines only as told by your health care provider. Treatment may include medicines for pain and inflammation that are taken by mouth or applied to the skin, or muscle relaxants.\.br\ ? \.br\ Your health care provider may recommend applying ice during the first 24?48 hours after your pain starts. To do this:\.br\ ? \.br\ Put ice in a plastic bag.\.br\ ? \.br\ Place a towel between your skin and the bag.\.br\ ? \.br\ Leave the ice on for 20 minutes, 2?3 times a day.\.br\ ? \.br\ Remove the ice if your skin turns bright red. This is very important. If you cannot feel pain, heat, or cold, you have a greater risk of damage to the area.\.br\ ? \.br\ If directed, apply heat to the affected area as often as told by your health care provider. Use the heat source that your health care provider recommends, such as a moist heat pack or a heating pad.\.br\ ? \.br\ Place a towel between your skin and the heat source.\.br\ ? \.br\ Leave the heat on for 20?30 minutes.\.br\ ? \.br\ Remove the heat if your skin turns bright red. This is especially important if you are unable to feel pain, heat, or cold. You have a greater risk of getting burned.\.br\ Activity\.br\ \.br\ ? \.br\ Do not stay in bed. Staying in bed for more than 1?2 days can delay your recovery.\.br\ ? \.br\ Sit up and stand up straight. Avoid leaning forward when you sit or hunching over when you stand.\.br\ ? \.br\ If you work at a desk, sit close to it so you do not need to lean over. Keep your chin tucked in. Keep your neck drawn back, and keep your elbows bent at a 90-degree angle (right angle).\.br\ ? \.br\ Sit high and close to the steering wheel when you drive. Add lower back (lumbar) support to your car seat, if needed.\.br\ ? \.br\ Take short walks on even surfaces as soon as you are able. Try to increase the length of time you walk each day.\.br\ ? \.br\ Do not sit, drive, or roof cement and paint maker helper one place for more than 30 minutes at a time. Sitting or standing for long periods of time can put stress on your back.\.br\ ? \.br\ Do not drive or use heavy machinery while taking prescription pain medicine.\.br\ ? \.br\ Use proper lifting techniques. When you bend and lift, use positions that put less stress on your back:\.br\ ? \.br\ Bend your knees.\.br\ ? \.br\ Keep the load close to your body.\.br\ ? \.br\ Avoid twisting.\.br\ ? \.br\ Exercise regularly as told by your health care provider. Exercising helps your back heal faster and helps prevent back injuries by keeping muscles strong and flexible.\.br\ ? \.br\ Work with a physical therapist to make a safe exercise program, as recommended by your health care provider. Do any exercises as told by your physical therapist.\.br\ Lifestyle\.br\ ? \.br\ Maintain a healthy weight. Extra weight puts stress on your back and makes it difficult to have good posture.\.br\ ? \.br\ Avoid activities or situations that make you feel anxious or stressed. Stress and anxiety increase muscle tension and can make back pain worse. Learn ways to manage anxiety and stress, such as through exercise.\.br\ General instructions\.br\ ? \.br\ Sleep on a firm mattress in a comfortable position. Try lying on your side with your knees slightly bent. If you lie on your back, put a pillow under your knees.\.br\ ? \.br\ Keep your head and neck in a straight line with your spine (neutral position) when using electronic equipment like smartphones or pads. To do this:\.br\ ? \.br\ Raise your smartphone or pad to look at it instead of bending your head or neck to look down.\.br\ ? \.br\ Put the smartphone or pad at the level of your face while looking at the screen.\.br\ ? \.br\ Follow your treatment plan as told by your health care provider. This may include:\.br\ ? \.br\ Cognitive or behavioral therapy.\.br\ ? \.br\ Acupuncture or massage therapy.\.br\ ? \.br\ Meditation or yoga.\.br\ Contact a health care provider if:\.br\ ? \.br\ You have pain that is not relieved with rest or medicine.\.br\ ? \.br\ You have increasing pain going down into your legs or buttocks.\.br\ ? \.br\ Your pain hodges [facility] ED Note-Physicianon 02-21-20 ED Note-Physician Basic Information Time Seen: Mani Ayala PA-C 02/19/2023 09:34 Chief Complaint pt reports left lower back pain that radiates into both legs. Pt reports pain has been present for one month, saw PCP who was going to refer to pain mgmt. Has done PT twice and pain keeps re-occuring. no new injuries. History of Present Illness 6-year-old female comes to the ED for evaluation of back pain. The patient states she has been dealing with progressive back pain over the last couple of months. No known trauma to the area. She complains of pain across the low back that time radiates into the hips. No acute weakness. No abdominal pain. No difficulty with bladder or bowel function. No fever, chills, nausea, vomiting. She has seen her PCP and did physical therapy. She is currently moving process of refer to pain management. Review of Systems A 10 point review of systems is negative except as noted above. Medical and Surgical History: Reviewed and noted Social history: Lives at home Tobacco: Denies Physical Exam Vitals & Measurements T: 36.9 ?C(Oral) HR: 63(Monitored) RR: 15 BP: 154/83 SpO2: 96% HT: 160 cm WT: 76.1 kg BMI: 29.73 Nurses notes and vital signs reviewed and patient is not hypoxic. General: The patient appears well, resting comfortably. Skin: Warm, dry. Head: Atraumatic. Neck: No JVD. Eye: Normal conjunctiva. Ears, Nose, Mouth, and Throat: Moist mucous membranes. Cardiovascular: Strong distal pulses. Chest wall: Respiratory: Respirations are nonlabored. Back: Diffuse tenderness over the lumbar region. No bony instability or step-offs. No swelling, ecchymosis or erythema. No area of point tenderness. Full range of motion. No evidence of lower extremity neurovascular compromise. No CVA tenderness noted bilaterally. Musculoskeletal: Normal ROM with no gross deformity. Patient able to ambulate without any significant difficulty. Gastrointestinal: Soft and nontender. Urological: Neurological: Awake and alert. No focal deficits. Follows commands. Psychiatric: Cooperative. Medical Decision Making Patient generalized lumbar back tenderness. She has no evidence of neurovascular compromise. CT scan was obtained, degenerative changes. No acute findings. This is discussed the patient. She is treated prednisone, Percocet, discharged home to follow-up with her PCP. They are currently in process of setting up with pain management for further evaluation and treatment. Patient was encouraged to return to the ED if symptoms worsen or change. Assessment/Plan Back pain (M54.9: Dorsalgia, unspecified) Ordered: acetaminophen-oxyco done, 1 tab(s), Oral, q6hr as needed for pain for 3 day(s), 15 tab(s), Refill(s) 0, [id number], 160, cm, 02/19/23 9:31:00 EST, Height/Length Dosing, 76.1, kg, 02/19/23 9:31:00 EST, Weight Dosing Orders: predniSONE, 60 mg = 3 tab(s), Oral, Daily, X 7 day(s), # 21 tab(s), Refills(s) 0, Pharmacy: [id number], 160, cm, 02/19/23 9:31:00 EST, Height/Length Dosing, 76.1, kg, 02/19/23 9:31:00 EST, Weight Dosing CT Spine Lumbar w/o Contrast Disposition Plan Patient Discharge Condition Disposition: Discharged home Condition: Improved and stable Counseled: Patient and/or family were counseled to workup, results, treatment plan and follow-up recommendations Discharge Prescription List Prescriptions Percocet 5 mg-325 mg oral tablet, 1 tab(s), Oral, q6hr, PRN predniSONE 20 mg Tab, 60 mg= 3 tab(s), Oral, Daily Follow-up With When Contact Information Deidra Garcia In 3 days 02/22/2023 EST Additional Instructions: Patient Education Acute Back Pain, Adult Attestation Patient seen and evaluated by the physician assistant art director. Attending physician was present in the emergency department and supervised care. This visit was performed by both the physician and an APC. I performed all aspects of the MDM as documented. This report was transcribed using voice recognition software. Every effort was made to ensure accuracy, however, inadvertently computerized rail flaw detector operator mistakes may be present. Appropriate healthcare PPE was used in evaluating this patient. The patient was placed in a mask. The healthcare provider was wearing mask, gloves, and utilizing proper hand hygiene. All equipment was properly cleansed. Problem List/Past Medical History Ongoing Allergic rhinitis Aortic insufficiency Back pain Benign hypertension with chronic kidney disease, stage III CKD (chronic kidney disease), stage III Generalized anxiety disorder GERD (gastroesophageal reflux disease) History of melanoma HLD (hyperlipidemia) Hyperglycemia Hypertension Osteoarthritis of knees, bilateral Osteopenia Palpitations Rales Screening mammogram, encounter for Sinus tachycardia Vitamin D deficiency Historical BMI 30.0-30.9,adult BMI 31.0-31.9,adult Procedure/Surgical History Injection (09/2022), Bilateral extraction of cataracts (2015), Melanoma (2016), splinter removed from bottom l (more content not included)... [facility] Comment on above: Result Comment: Elec tronically Signed By: Mani Ayala PA-C\.br\Date and Time Signed: 02/19/23 11:37 EST\.br\Electronically Co-Signed By: Tiarra Redmond DO\.br\Date and Time Co-Signed: 02/20/23 07:14 EST Patient Educationon 02-21-20 23 Patient Education Orthopedics Acute Back Pain, Adult Acute back pain is sudden and usually short-lived. It is often caused by an injury to the muscles and tissues in the back. The injury may result from: ? A muscle, tendon, or ligament getting overstretched or torn. Ligaments are tissues that connect bones to each other. Lifting something improperly can cause a back strain. ? Wear and tear (degeneration) of the spinal disks. Spinal disks are circular tissue that provide cushioning between the bones of the spine (vertebrae). ? Twisting motions, such as while playing sports or doing yard work. ? A hit to the back. ? Arthritis. You may have a physical exam, lab tests, and imaging tests to find the cause of your pain. Acute back pain usually goes away with rest and home care. Follow these instructions at home: Managing pain, stiffness, and swelling ? Take dbgz-agg-mxnjmha and prescription medicines only as told by your health care provider. Treatment may include medicines for pain and inflammation that are taken by mouth or applied to the skin, or muscle relaxants. ? Your health care provider may recommend applying ice during the first 24?48 hours after your pain starts. To do this: ? Put ice in a plastic bag. ? Place a towel between your skin and the bag. ? Leave the ice on for 20 minutes, 2?3 times a day. ? Remove the ice if your skin turns bright red. This is very important. If you cannot feel pain, heat, or cold, you have a greater risk of damage to the area. ? If directed, apply heat to the affected area as often as told by your health care provider. Use the heat source that your health care provider recommends, such as a moist heat pack or a heating pad. ? Place a towel between your skin and the heat source. ? Leave the heat on for 20?30 minutes. ? Remove the heat if your skin turns bright red. This is especially important if you are unable to feel pain, heat, or cold. You have a greater risk of getting burned. Activity ? Do not stay in bed. Staying in bed for more than 1?2 days can delay your recovery. ? Sit up and stand up straight. Avoid leaning forward when you sit or hunching over when you stand. ? If you work at a desk, sit close to it so you do not need to lean over. Keep your chin tucked in. Keep your neck drawn back, and keep your elbows bent at a 90-degree angle (right angle). ? Sit high and close to the steering wheel when you drive. Add lower back (lumbar) support to your car seat, if needed. ? Take short walks on even surfaces as soon as you are able. Try to increase the length of time you walk each day. ? Do not sit, drive, or roof cement and paint maker helper one place for more than 30 minutes at a time. Sitting or standing for long periods of time can put stress on your back. ? Do not drive or use heavy machinery while taking prescription pain medicine. ? Use proper lifting techniques. When you bend and lift, use positions that put less stress on your back: ? Bend your knees. ? Keep the load close to your body. ? Avoid twisting. ? Exercise regularly as told by your health care provider. Exercising helps your back heal faster and helps prevent back injuries by keeping muscles strong and flexible. ? Work with a physical therapist to make a safe exercise program, as recommended by your health care provider. Do any exercises as told by your physical therapist. Lifestyle ? Maintain a healthy weight. Extra weight puts stress on your back and makes it difficult to have good posture. ? Avoid activities or situations that make you feel anxious or stressed. Stress and anxiety increase muscle tension and can make back pain worse. Learn ways to manage anxiety and stress, such as through exercise. General instructions ? Sleep on a firm mattress in a comfortable position. Try lying on your side with your knees slightly bent. If you lie on your back, put a pillow under your knees. ? Keep your head and neck in a straight line with your spine (neutral position) when using electronic equipment like smartphones or pads. To do this: ? Raise your smartphone or pad to look at it instead of bending your head or neck to look down. ? Put the smartphone or pad at the level of your face while looking at the screen. ? Follow your treatment plan as told by your health care provider. This may include: ? Cognitive or behavioral therapy. ? Acupuncture or massage therapy. ? Meditation or yoga. Contact a health care provider if: ? You have pain that is not relieved with rest or medicine. ? You have increasing pain going down into your legs or buttocks. ? Your pain does not improve after 2 weeks. ? You have pain at night. ? You lose weight without trying. ? You have a fever or chills. ? You develop nausea or vomiting. ? You develop abdominal pain. Get help right away if: ? You develop new bowel or bladder control problems. ? You have unusual weakness or numbness in your arms or legs. ? You feel faint. These sym (more content not included)... 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 NOTHING ACUTE OR DESTRUCTIVE IDENTIFIED. EXAM: CT Spine Lumbar w/o Contrast DATE: 02/19/2023 9:47 AM CLINICAL HISTORY: Low back pain extending into both lower extremities. COMPARISON: None available. TECHNIQUE: Spiral imaging was obtained of the lumbar spine, with routine multiplanar reconstructions performed. All CT scans at this facility use dose modulation, iterative reconstruction, and/or weight based dosing when appropriate to reduce radiation dose to as low as reasonably achievable. FINDINGS: The spine is visualized from the T12 through S2 levels, assuming no transitional vertebrae. There is no compression, fracture, worrisome bone destruction, or acute paraspinal soft tissue abnormalities identified. Multilevel degenerative disc disease and hypertrophic facet changes are present, with approximately 3 to 4 mm of retrolisthesis of L1 over L2 and anterolisthesis of L2 over L3. T12-L1: L1-2: Moderate to marked disc space narrowing, mild diffuse disc bulging and mild hypertrophic facet and ligamentum flavum changes, which results in borderline central spinal stenosis and neural foraminal narrowing. L2-3: Moderate to marked disc space narrowing, moderate diffuse disc bulging, and moderate hypertrophic facet and ligamentum flavum changes, which results in moderate to marked central spinal stenosis and neural foraminal narrowing. L3-4: Marked disc space narrowing, mild to moderate posterolateral endplate osteophytosis with associated broad-based disc protrusion, and mild to moderate hypertrophic facet and ligamentum flavum changes, which results in moderate central spinal stenosis and neural foraminal narrowing. Report L4-5: Moderate to marked disc space narrowing, mild posterolateral endplate osteophytosis with associated broad-based disc protrusion, and moderate hypertrophic facet and ligamentum flavum changes, which results in moderate to marked central spinal stenosis and neural foraminal narrowing. L5-1: Mild diffuse disc bulging and moderate hypertrophic facet and ligamentum flavum changes, without central spinal stenosis or neural foraminal narrowing. Visualized sacrum, iliac bodies, and sacroiliac joints: Unremarkable Ordering Provider: Mani Ayala FINAL REPORT Dictated: 02/19/2023 10:27 am Vince Palacios MD Signed (Electronic Signature): 02/19/2023 10:27 am Signed by: Vince Palacios MD Transcribed by: VANITA Technologist: ROYCE [facility] Consent for Treatmenton 02-02 Consent for Treatment [id number] [facility] Discharge Instructionson Discharge Instructions [id number] [facility] ED Clinical Summaryon 2022 ED Clinical Summary [place] [id number] ED Clinical Summary Person Information Name: SHAMA HART ANN Anay/[facility] Age: 78 Years : 1945 Sex: Female Language: Rwandan PCP: Deidra Garcia MD Marital Status: Phone: [phone] Visit Id: Visit Reason: Leg pain-swelling; Back pain; BACK PAIN Speciality: Acuity: 3 Enc Type: Emergency Med Service: Emergency Arrival: 02/19/2023 09:24:07 Discharge: 02/19/2023 11:13:36 LOS: 000 01:49 Checkin: 02/19/2023 09:24:07 Checkout: 02/19/2023 11:13:36 Dispo Type: Home (Routine DC) EVENTS: Event Name Event Status Request Date/Time Start Date/Time Complete Date/Time Arrive Complete 02/19/2023 09:24:07 02/19/2023 09:24:07 02/19/2023 09:24:07 Document Home Meds Request 02/19/2023 09:24:07 Triage Complete 02/19/2023 09:24:07 02/19/2023 09:31:21 02/19/2023 09:31:21 Bed Assign Complete 02/19/2023 09:26:45 02/19/2023 09:26:45 02/19/2023 09:26:45 Dr Exam Complete 02/19/2023 09:26:45 02/19/2023 09:34:36 02/19/2023 09:34:36 RN Exam Complete 02/19/2023 09:26:45 02/19/2023 09:35:31 02/19/2023 09:35:31 Registration Complete 02/19/2023 09:27:24 02/19/2023 09:27:24 02/19/2023 09:27:24 Reg Complete Request 02/19/2023 09:27:24 Reg Bed Request Complete 02/19/2023 09:27:24 02/19/2023 09:27:24 02/19/2023 09:27:24 Registration Request 02/19/2023 09:34:36 Dr Exam Complete 02/19/2023 09:44:23 02/19/2023 09:44:23 02/19/2023 09:44:23 CT Complete 02/19/2023 09:44:32 02/19/2023 09:47:42 02/19/2023 09:59:58 Discharge Complete 02/19/2023 10:57:19 02/19/2023 11:13:40 02/19/2023 11:13:40 Transfer Complete 02/19/2023 11:13:40 02/19/2023 11:13:40 02/19/2023 11:13:40 ADDRESS: [facility] [address] [place] [phone] PHYS DOC NOTES: MEDICAL INFORMATION: Prescriptions Given: New Medications [id number], [address], [place] [phone], [phone] acetaminophen-oxyco done (Percocet 5 mg-325 mg oral tablet) 1 Tablets By Mouth every 6 hours as needed as needed for pain for 3 Days. Refills: 0. predniSONE (predniSONE 20 mg Tab) 3 Tablets By Mouth every day for 7 Days. Refills: 0. Medications to Continue with No Changes Other Medications amlodipine (Norvasc 5 mg Tab) 1 Tablets By Mouth every day. Refills: 3. aspirin (aspirin 81 mg oral tablet) 1 Tablets By Mouth every day. losartan (losartan 100 mg Tab) 1 Tablets By Mouth every day. Refills: 3. metoprolol (Toprol XL 25 mg Tab-ER) 1 Tablets By Mouth every day for 90 Days. Refills: 3. PATIENT EDUCATION INFORMATION: Instructions: Acute Back Pain, Adult Follow up: With: Address: When: Deidra Garcia In 3 days 02/22/2023 DIAGNOSIS: Back pain [facility] ED Patient Education Noteon 02-19-2023 ED Patient Education Note Orthopedics Acute Back Pain, Adult Acute back pain is sudden and usually short-lived. It is often caused by an injury to the muscles and tissues in the back. The injury may result from: ? A muscle, tendon, or ligament getting overstretched or torn. Ligaments are tissues that connect bones to each other. Lifting something improperly can cause a back strain. ? Wear and tear (degeneration) of the spinal disks. Spinal disks are circular tissue that provide cushioning between the bones of the spine (vertebrae). ? Twisting motions, such as while playing sports or doing yard work. ? A hit to the back. ? Arthritis. You may have a physical exam, lab tests, and imaging tests to find the cause of your pain. Acute back pain usually goes away with rest and home care. Follow these instructions at home: Managing pain, stiffness, and swelling ? Take jukz-kih-urclium and prescription medicines only as told by your health care provider. Treatment may include medicines for pain and inflammation that are taken by mouth or applied to the skin, or muscle relaxants. ? Your health care provider may recommend applying ice during the first 24?48 hours after your pain starts. To do this: ? Put ice in a plastic bag. ? Place a towel between your skin and the bag. ? Leave the ice on for 20 minutes, 2?3 times a day. ? Remove the ice if your skin turns bright red. This is very important. If you cannot feel pain, heat, or cold, you have a greater risk of damage to the area. ? If directed, apply heat to the affected area as often as told by your health care provider. Use the heat source that your health care provider recommends, such as a moist heat pack or a heating pad. ? Place a towel between your skin and the heat source. ? Leave the heat on for 20?30 minutes. ? Remove the heat if your skin turns bright red. This is especially important if you are unable to feel pain, heat, or cold. You have a greater risk of getting burned. Activity ? Do not stay in bed. Staying in bed for more than 1?2 days can delay your recovery. ? Sit up and stand up straight. Avoid leaning forward when you sit or hunching over when you stand. ? If you work at a desk, sit close to it so you do not need to lean over. Keep your chin tucked in. Keep your neck drawn back, and keep your elbows bent at a 90-degree angle (right angle). ? Sit high and close to the steering wheel when you drive. Add lower back (lumbar) support to your car seat, if needed. ? Take short walks on even surfaces as soon as you are able. Try to increase the length of time you walk each day. ? Do not sit, drive, or roof cement and paint maker helper one place for more than 30 minutes at a time. Sitting or standing for long periods of time can put stress on your back. ? Do not drive or use heavy machinery while taking prescription pain medicine. ? Use proper lifting techniques. When you bend and lift, use positions that put less stress on your back: ? Bend your knees. ? Keep the load close to your body. ? Avoid twisting. ? Exercise regularly as told by your health care provider. Exercising helps your back heal faster and helps prevent back injuries by keeping muscles strong and flexible. ? Work with a physical therapist to make a safe exercise program, as recommended by your health care provider. Do any exercises as told by your physical therapist. Lifestyle ? Maintain a healthy weight. Extra weight puts stress on your back and makes it difficult to have good posture. ? Avoid activities or situations that make you feel anxious or stressed. Stress and anxiety increase muscle tension and can make back pain worse. Learn ways to manage anxiety and stress, such as through exercise. General instructions ? Sleep on a firm mattress in a comfortable position. Try lying on your side with your knees slightly bent. If you lie on your back, put a pillow under your knees. ? Keep your head and neck in a straight line with your spine (neutral position) when using electronic equipment like smartphones or pads. To do this: ? Raise your smartphone or pad to look at it instead of bending your head or neck to look down. ? Put the smartphone or pad at the level of your face while looking at the screen. ? Follow your treatment plan as told by your health care provider. This may include: ? Cognitive or behavioral therapy. ? Acupuncture or massage therapy. ? Meditation or yoga. Contact a health care provider if: ? You have pain that is not relieved with rest or medicine. ? You have increasing pain going down into your legs or buttocks. ? Your pain does not improve after 2 weeks. ? You have pain at night. ? You lose weight without trying. ? You have a fever or chills. ? You develop nausea or vomiting. ? You develop abdominal pain. Get help right away if: ? You develop new bowel or bladder control problems. ? You have unusual weakness or numbness in your arms or legs. ? You feel faint. These sym (more content not included)... [facility] ED Patient Summaryon 023 ED Patient Summary [place] [id number] Patient Discharge Instructions Person Information Name: SHAMA HART Age: 78 Years Arrival Date: 02/19/2023 09:24:07 Discharge Diagnosis: Back pain Primary Care Physician: Deidra Garcia MD Provider Information Primary Provider: Tiarra Redmond DO Advanced Needle Maker:Mani Ayala PA-C The exam and treatment you received in the Emergency Department were for an urgent problem and are not intended as complete care. It is important that you follow up with a doctor, nurse practitioner, or physician?s assistant art director for ongoing care. If your symptoms become worse or you do not improve as expected and you are unable to reach your usual health care provider, you should return to the Emergency Department. We are available 24 hours a day. SHAMA HART has been given the following list of patient education materials, prescriptions and follow-up instructions: Follow-up Instructions: With: Address: When: Deidra Garcia In 3 days 02/22/2023 In the event that this physician does not participate in your insurance network, please consult with your insurance company to find a nearby participating provider. Patient Education Materials: Acute Back Pain, Adult A MESSAGE TO ALL PATIENTS REGARDING OPIOIDS PRESCRIPTION OPIOIDS: WHAT YOU NEED TO KNOW Prescription opioids can be used to help relieve ioaebtik-px-fkckao pain and are often prescribed following a surgery or injury, or for certain health conditions. These medications can be an important part of the treatment but also come with serious risks. It is important to work with your healthcare provider to make sure you are getting the safest, most effective care. WHAT ARE THE RISKS AND SIDE EFFECTS OF OPIOID USE? Prescription opioids carry serious risks of addiction and overdose, especially with prolonged use. An opioid overdose, often marked by slowed breathing, can cause sudden . The use of prescription opioids can have a number of side effects as well, even when taken as directed: ? Tolerance?meaning you might need to take more of the medication for the same pain relief ? Physical dependence?meaning you have symptoms of withdrawal when a medication is stopped ? Increased sensitivity to pain ? Constipation ? Nausea, vomiting, and dry mouth ? Sleepiness and dizziness ? Confusion ? Depression ? Low levels of testosterone that can result in lower sex drive, energy, and strength ? Itching and sweating RISKS ARE GREATER WITH: ? History of drug misuse, substance use disorder, or overdose ? Mental health conditions (such as depression or anxiety) ? Sleep apnea ? Older age (65 years and older) ? Avoid alcohol while taking prescription opioids. Also, unless specifically advised by your health care provider, medications to avoid include: ? Benzodiazepines (such as Xanax or Valium) ? Muscle relaxants (such as Soma or Flexeril) ? Hypnotics (such as Ambien or Lunesta) ? Other prescription opioids KNOW YOUR OPTIONS Talk to your health care provider about ways to manage your pain that don?t involve prescription opioids. Some of these options may actually work better and have fewer risks and side effects. Options may include: ? Pain relievers such as acetaminophen, ibuprofen, and naproxen ? Some medication that are also used for depression or seizures ? Physical therapy and exercise ? Cognitive behavioral therapy, a psychological, goal-directed approach, in which patients learn how to modify physical, behavioral, and emotional triggers of pain and stress. IF YOU ARE PRESCRIBED OPIOIDS FOR PAIN: ? Never take opioids in greater amounts or more often than prescribed. ? Follow up with your primary health care provider. o Work together to create a plan on how to manage your pain. o Talk about ways to help manage your pain that don?t involve prescription opioids. o Talk about any and all concerns and side effects. ? Help prevent misuse and abuse o Never sell or share prescription opioids. o Never use another person?s prescription opioids. ? Store prescription opioids in a secure place and out of reach of others (this may include visitors, children, friends, and family). ? Safely dispose of unused prescription opioids: Find your community drug take-back program or your pharmacy mail-back program, or flush them down the toilet, following guidance from the Food and Drug Administration (www.fda.gov/Drugs/ ResourcesForYou). ? Visit www.cdc.gov/drugove rdose to learn about the risks of opioids abuse and overdose. ? If you believe you may be struggling with addiction, tell your health body care manager and ask for guidance or call [facility] National Helpline at 3-335-123-AYWH. a Source: [place] Department of Health and Human Services/Center for Disease Control & Prevention [place] (more content not included)... [facility] Ambulatory Visit Summaryon 1 04-18-2022 Ambulatory Visit Summary SHAMA HART :1945 Visit Date:02/15/2023 Ambulatory Visit Instructions Your Diagnosis Annual visit for general adult medical examination without abnormal findings GERD (gastroesophageal reflux disease) Generalized anxiety disorder HLD (hyperlipidemia) Osteopenia Hypertension CKD (chronic kidney disease), stage III Vitamin D deficiency Tests Performed BD Bone Density DEXA -- Results Pending -- Please visit your patient portal for your results or contact your primary care physician. Your Care Team Attending Physician - Deidra Garcia MD Primary Care Physician - Deidra Garcia MD This Is Your Medications List amlodipine (Norvasc 5 mg Tab) aspirin (aspirin 81 mg oral tablet) losartan (losartan 100 mg Tab) metoprolol (Toprol XL 25 mg Tab-ER) Procedures Performed Injection (09/2022), Bilateral extraction of cataracts (2016), Melanoma (2016), splinter removed from bottom left foot (2005), Biopsy of breast (1993), left knee scope, squamous cell cancer removed, Tubal ligation. Discharge Vitals Heart Rate (Peripheral) 62 Blood Pressure 122/70 Height 160 cm Height 63 in Weight 74.6 kg Weight 164.12 lb BMI 29.14 What to do next Scheduled Follow-Up Appointments 2023 8:00 AM EDT With: Deidra Garcia MD Where: [facility] Invalid Interpretation Code [address] [place] [address]- \.br\ You Need to Complete the Following\.br\ Comprehensive Metabolic Panel, Blood, Routine collect, 02/15/23, Order for future visit, Lab Collect, Hypertension [facility] Ambulatory Visit Summary SHAMA HART ANN :1945 Visit Date:02/15/2023 Ambulatory Visit Instructions Your Diagnosis CKD (chronic kidney disease), stage III GERD (gastroesophageal reflux disease) Generalized anxiety disorder Hypertension BMI 29.0-29.9,adult Overweight Vitamin D deficiency Back pain Your Care Team Attending Physician - Deidra Garcia MD. Primary Care Physician - Deidra Garcia MD This Is Your Medications List amlodipine (Norvasc 5 mg Tab) aspirin (aspirin 81 mg oral tablet) losartan (losartan 100 mg Tab) metoprolol (Toprol XL 25 mg Tab-ER) Procedures Performed Injection (09/2022), Bilateral extraction of cataracts (2016), Melanoma (2016), splinter removed from bottom left foot (2005), Biopsy of breast (1993), left knee scope, squamous cell cancer removed, Tubal ligation. Discharge Vitals Temperature (Temporal Artery) 37.2 ?C Heart Rate (Peripheral) 62 Respiratory Rate 14 Blood Pressure 122/70 Height 160 cm Height 63 in Weight 74.6 kg Weight 164.12 lb BMI 29.14 What to do next Scheduled Follow-Up Appointments 2023 8:00 AM EDT With: Deidra Garcia MD Where: [facility] Consent for Flu Vaccineon Consent for Flu Vaccine [id number] #[id number] [facility] Patient Educationon 02-16-20 23 Patient Education Caregiving Fall Prevention in the Home, Adult Falls can cause injuries and affect people of all ages. There are many simple things that you can do to make your home safe and to help prevent falls. Ask for help when making these changes, if needed. What actions can I take to prevent falls? General instructions ? Use good lighting in all rooms. Replace any light bulbs that burn out, turn on lights if it is dark, and use night-lights. ? Place frequently used items in npck-ab-gzymj places. Lower the shelves around your home if necessary. ? Set up furniture so that there are clear paths around it. Avoid moving your furniture around. ? Remove throw rugs and other tripping hazards from the floor. ? Avoid walking on wet floors. ? Fix any uneven floor surfaces. ? Add color or contrast paint or tape to grab bars and handrails in your home. Place contrasting color strips on the first and last steps of staircases. ? When you use a stepladder, make sure that it is completely opened and that the sides and supports are firmly locked. Have someone hold the ladder while you are using it. Do not climb a closed stepladder. ? Know where your pets are when moving through your home. What can I do in the bathroom? ? Keep the floor dry. Immediately clean up any water that is on the floor. ? Remove soap buildup in the tub or shower regularly. ? Use nonskid mats or decals on the floor of the tub or shower. ? Attach bath mats securely with double-sided, nonslip rug tape. ? If you need to sit down while you are in the shower, use a plastic, nonslip stool. ? Install grab bars by the toilet and in the tub and shower. Do not use towel bars as grab bars. What can I do in the bedroom? ? Make sure that a bedside light is easy to reach. ? Do not use oversized bedding that reaches the floor. ? Have a firm chair that has side arms to use for getting dressed. What can I do in the kitchen? ? Clean up any spills right away. ? If you need to reach for something above you, use a sturdy step stool that has a grab bar. ? Keep electrical cables out of the way. ? Do not use floor faroese or wax that makes floors slippery. If you must use wax, make sure that it is non-skid floor wax. What can I do with my stairs? ? Do not leave any items on the stairs. ? Make sure that you have a light switch at the top and the bottom of the stairs. Have them installed if you do not have them. ? Make sure that there are handrails on both sides of the stairs. Fix handrails that are broken or loose. Make sure that handrails are as long as the staircases. ? Install non-slip stair treads on all stairs in your home. ? Avoid having throw rugs at the top or bottom of stairs, or secure the rugs with carpet tape to prevent them from moving. ? Choose a carpet design that does not hide the edge of steps on the stairs. ? Check any carpeting to make sure that it is firmly attached to the stairs. Fix any carpet that is loose or worn. What can I do on the outside of my home? ? Use bright outdoor lighting. ? Regularly repair the edges of walkways and driveways and fix any cracks. ? Remove high doorway thresholds. ? Trim any shrubbery on the main path into your home. ? Regularly check that handrails are securely fastened and in good repair. Both sides of all steps should have handrails. ? Install guardrails along the edges of any raised decks or porches. ? Clear walkways of debris and clutter, including tools and rocks. ? Have leaves, snow, and ice cleared regularly. ? Use sand or salt on walkways during winter months. ? In the garage, clean up any spills right away, including grease or oil spills. What other actions can I take? ? Wear closed-toe shoes that fit well and support your feet. Wear shoes that have rubber soles or low heels. ? Use mobility aids as needed, such as canes, walkers, scooters, and crutches. ? Review your medicines with your health care provider. Some medicines can cause dizziness or changes in blood pressure, which increase your risk of falling. Talk with your health care provider about other ways that you can decrease your risk of falls. This may include working with a physical therapist or certified athletic trainer to improve your strength, balance, and endurance. Where to find more information ? Centers for Disease Control and Prevention, [place]: www.cdc.gov ? National Crane on Aging: www.blanco.nih.gov Contact a health care provider if: ? You are afraid of falling at home. ? You feel weak, drowsy, or dizzy at home. ? You fall at home. Summary ? There are many simple things that you can do to make your home safe and to help prevent falls. ? Ways to make your home safe include removing tripping hazards and installing grab bars in the bathroom. ? Ask for help when making these changes in your home. This information is not intended to replace advice given to you by your health ca (more content not included)... [facility] Patient Education Nutrition BMI for Adults What is BMI? Body mass index (BMI) is a number that is calculated from a person's weight and height. BMI can help estimate how much of a person's weight is composed of fat. BMI does not measure body fat directly. Rather, it is an alternative to procedures that directly measure body fat, which can be difficult and expensive. BMI can help identify people who may be at higher risk for certain medical problems. What are BMI measurements used for? BMI is used as a screening tool to identify possible weight problems. It helps determine whether a person is obese, overweight, a healthy weight, or underweight. BMI is useful for: ? Identifying a weight problem that may be related to a medical condition or may increase the risk for medical problems. ? Promoting changes, such as changes in diet and exercise, to help reach a healthy weight. BMI screening can be repeated to see if these changes are working. How is BMI calculated? BMI involves measuring your weight in relation to your height. Both height and weight are measured, and the BMI is calculated from those numbers. This can be done either in [place] ([place] or metric measurements. Note that charts and online BMI calculators are available to help you find your BMI quickly and easily without having to do these calculations yourself. To calculate your BMI in [place] measurements: 1. Measure your weight in pounds (lb). 2. Multiply the number of pounds by 703. ? For example, for a person who weighs 180 lb, multiply that number by 703, which equals 126,540. 3. Measure your height in inches. Then multiply that number by itself to get a measurement called inches squared. ? For example, for a person who is 70 inches tall, the inches squared measurement is 70 inches x 70 inches, which equals 4,900 inches squared. 4. Divide the total from step 2 (number of lb x 703) by the total from step 3 (inches squared): 126,540 ? 4,900 = 25.8. This is your BMI. To calculate your BMI in metric measurements: 1. Measure your weight in kilograms (kg). 2. Measure your height in meters (m). Then multiply that number by itself to get a measurement called meters squared. ? For example, for a person who is 1.75 m tall, the meters squared measurement is 1.75 m x 1.75 m, which is equal to 3.1 meters squared. 3. Divide the number of kilograms (your weight) by the meters squared number. In this example: 70 ? 3.1 = 22.6. This is your BMI. What do the results mean? BMI charts are used to identify whether you are underweight, normal weight, overweight, or obese. The following guidelines will be used: ? Underweight: BMI less than 18.5. ? Normal weight: BMI between 18.5 and 24.9. ? Overweight: BMI between 25 and 29.9. ? Obese: BMI of 30 or above. Keep these notes in mind: ? Weight includes both fat and muscle, so someone with a muscular build, such as an athlete, may have a BMI that is higher than 24.9. In cases like these, BMI is not an accurate measure of body fat. ? To determine if excess body fat is the cause of a BMI of 25 or higher, further assessments may need to be done by a health care provider. ? BMI is usually interpreted in the same way for men and women. Where to find more information For more information about BMI, including tools to quickly calculate your BMI, go to these websites: ? Centers for Disease Control and Prevention: www.cdc.gov ? [place] Heart Association: www.heart.org ? National Heart, Lung, and Blood Crane: www.nhlbi.nih.gov Summary ? Body mass index (BMI) is a number that is calculated from a person's weight and height. ? BMI may help estimate how much of a person's weight is composed of fat. BMI can help identify those who may be at higher risk for certain medical problems. ? BMI can be measured using [place] measurements or metric measurements. ? BMI charts are used to identify whether you are underweight, normal weight, overweight, or obese. This information is not intended to replace advice given to you by your health care provider. Make sure you discuss any questions you have with your health care provider. Document Revised: 11/12/2019 Document Reviewed: 09/19/2019 [employer] Patient Education ? 2022 [employer] Orthopedics Acute Back Pain, Adult Acute back pain is sudden and usually short-lived. It is often caused by an injury to the muscles and tissues in the back. The injury may result from: ? A muscle, tendon, or ligament getting overstretched or torn. Ligaments are tissues that connect bones to each other. Lifting something improperly can cause a back strain. ? Wear and tear (degeneration) of the spinal disks. Spinal disks are circular tissue that provide cushioning between the bones of the spine (vertebrae). ? Twisting motions, such as while playing sports or doing yard work. ? A hit to the back. ? Arthritis. You may have a physical exam, lab tests, and imaging tests to find t (more content not included)... [facility] Ambulatory Visit Summaryon 0 10-24-2022 Ambulatory Visit Summary SHAMA HART :1945 Visit Date:10/24/2022 Ambulatory Visit Instructions Your Diagnosis Benign hypertension with chronic kidney disease, stage III CKD (chronic kidney disease), stage III HLD (hyperlipidemia) Hyperglycemia Generalized anxiety disorder Vitamin D deficiency BMI 29.0-29.9,adult Your Care Team Attending Physician - Tiarra GARY MD Primary Care Physician - Tiarra GARY MD This Is Your Medications List Contact prescribing physician if questions or concerns amlodipine (Norvasc 5 mg Tab) aspirin (aspirin 81 mg oral tablet) losartan (losartan 100 mg Tab) metoprolol (Toprol XL 25 mg Tab-ER) Procedures Performed Injection (09/2022), Bilateral extraction of cataracts (2015), Melanoma (2015), splinter removed from bottom left foot (2005), Biopsy of breast (1993), left knee scope, squamous cell cancer removed, Tubal ligation. Discharge Vitals Heart Rate (Peripheral) 64 Respiratory Rate 18 Blood Pressure 150/86 Height 63 in Height 160 cm Weight 164.12 lb Weight 74.6 kg BMI 29.14 What to do next Scheduled Follow-Up Appointments Sunday 9:30 AM EDT With: Where: [facility] Invalid Interpretation Code [address], [place] [address]- \.br\ You Need to Schedule the Following Appointments\.br\ Follow Up with COOKIE LIU, ERIKA Hines When: In 3 months\.br\ Where:\.br\ [facility] [address], [address]br\ [place] [address].br\ \.br\ You Need to Complete the Following\.br\ CBC w/ Auto Diff, Blood, Routine collect, 10/24/22, Order for future visit, Lab Collect, Benign hypertension with chronic kidney disease, stage III [facility] Family Medicine Office/Clini c Noteon 10-24-2022 Family Medicine Office/Clinic Note Chief Complaint 3 month f/u meds --- Pt comes in for 3 month f/u. Pt offers up no complaints at this time. Is seeing Dr. Chavez for her left hand. History of Present Illness Here for med follow up She is feeling well. No concerns today. She has htn and denies CP or SOB. She has CKD and avoids NSAIDs Review of Systems PHQ Score Initial Depression Screen Score: 1 Physical Exam Vitals & Measurements HR: 64(Peripheral) RR: 18 BP: 150/86 SpO2: 97% HT: 63 in HT: 160 cm WT: 74.6 kg WT: 164.12 lb BMI: 29.14 General: Well developed, well nourished, in no acute distress Eyes: Pupils equal, round, and reactive to light. Conjunctivae and sclerae normal, and extraocular movements intact Ears: TM clear, grossly normal hearing Nose: No deformity, discharge, inflammation, or lesions Mouth: MMM. Oropharynx and posterior pharynx without lesions or exudates. Tongue WNL Neck: Neck supple. No lymphadenopathy. Trachea midline. No thyroid, masses, tenderness, or enlargement noted. No bruit. Lungs: Normal respiratory effort and clear to auscultation Cardio: RRR, 2/6 murmur Abdomen: Soft, non-distended, non-tender Musculoskeletal: No joint swelling or synovitis noted Extremity: No clubbing, cyanosis or edema. Neurologic: CN 2-12 intact, no focal motor or sensory defects noted. Skin: No rashes, ulcerations, or suspicious lesions Mental Status: Alert and oriented x3. Normal mood and affect Assessment/Plan 1. Benign hypertension with chronic kidney disease, stage III (I12.9: Hypertensive chronic kidney disease with stage 1 through stage 4 chronic kidney disease, or unspecified chronic kidney disease) stay on amlodipine, losartan and metoprolol BP is high today will hold on any change for now Ordered: CBC w/ Auto Diff 2. CKD (chronic kidney disease), stage III (N18.3: Chronic kidney disease, stage 3 (moderate)) lab is stable avoid NSAIDs Ordered: CBC w/ Auto Diff Comprehensive Metabolic Panel 3. HLD (hyperlipidemia) (E78.5: Hyperlipidemia, unspecified) She does not want Rx 4. Hyperglycemia (R73.9: Hyperglycemia, unspecified) glucose 98 keep on diet 5. Generalized anxiety disorder (F41.1: Generalized anxiety disorder) improved 6. Vitamin D deficiency (E55.9: Vitamin D deficiency, unspecified) stay on D 3 Ordered: Vitamin D 25 Hydroxy 7. BMI 29.0-29.9,adult (Z68.29: Body mass index [BMI] 29.0-29.9, adult) The standard range for ages 18 and older is >=18.5 and < 25 kg/m2. Your BMI today was above this range, this falls in the overweight to obese category and there are medical benefits to weight loss. We can offer counselling, referral, and/or medical support in addressing this problem. Your BMI and weight management will be followed at subsequent visits. Follow-up With When Contact Information COOKIE LIU, ERIKA Hines In 3 months [facility] [address], [place] [address]- Additional Instructions: Patient Education Hypertension, Adult, [id number] Problem List/Past Medical History Ongoing Allergic rhinitis Aortic insufficiency Benign hypertension with chronic kidney disease, stage III CKD (chronic kidney disease), stage III Generalized anxiety disorder GERD (gastroesophageal reflux disease) History of melanoma HLD (hyperlipidemia) Hyperglycemia Hypertension Osteoarthritis of knees, bilateral Osteopenia Palpitations Rales Screening mammogram, encounter for Sinus tachycardia Vitamin D deficiency Historical BMI 30.0-30.9,adult BMI 31.0-31.9,adult Procedure/Surgical History Injection (09/2022), Bilateral extraction of cataracts (2015), Melanoma (2015), splinter removed from bottom left foot (2005), Biopsy of breast (1993), left knee scope, squamous cell cancer removed, Tubal ligation. Medications aspirin 81 mg oral tablet, 81 mg= 1 tab(s), Oral, Daily losartan 100 mg Tab, 100 mg= 1 tab(s), Oral, Daily, 3 refills Norvasc 5 mg Tab, 5 mg= 1 tab(s), Oral, Daily, 3 refills Toprol XL 25 mg Tab-ER, 25 mg= 1 tab(s), Oral, Daily, 3 refills Allergies Bactrim (Blisters) Cipro (unknown) Flagyl (unknown) Latex (Rash) Penicillin (Hives) Tape (rash) amoxicillin (Hives) codeine (Swelling of throat) morphine (unknown) sulfamethoxazole (Blisters) Social History Alcohol - Low Risk, 08/12/2021 Substance Abuse - Denies Substance Abuse, 06/29/2020 Tobacco - Denies Tobacco Use, 10/22/2018 Former smoker, quit more than 30 days ago Tobacco Use:. Never Smokeless Tobacco Use:. Cigarettes, 10/24/2022 Family History Acute myocardial infarction: Mother. Cardiac arrest: Father. Heart disease: Father. Hyperlipidemia: Father. Hypertension: Mother and Father. Stroke: Mother. Immunizations Vaccine Date Status Comments influenza virus vaccine, inactivated 2022 Recorded influenza virus vaccine, inactivated 2021 Given SARS-CoV-2 (COVID-19) mRNA-[id number] vaccine 12/29/2020 Recorded SARS-CoV-2 (C (more content not included)... Normal [facility] Comment on above: Result Comment: Elec tronically Signed By: COOKIE LIU, Tiarra Walls.sherri\Date and Time Signed: 10/24/22 15:17 EDT Patient Educationon 10-25-19 Patient Education Cardiovascular Hypertension, Adult Hypertension is another name for high blood pressure. High blood pressure forces your heart to work harder to pump blood. This can cause problems over time. There are two numbers in a blood pressure reading. There is a top number (systolic) over a bottom number (diastolic). It is best to have a blood pressure that is below 120/80. What are the causes? The cause of this condition is not known. Some other conditions can lead to high blood pressure. What increases the risk? Some lifestyle factors can make you more likely to develop high blood pressure: ? Smoking. ? Not getting enough exercise or physical activity. ? Being overweight. ? Having too much fat, sugar, calories, or salt (sodium) in your diet. ? Drinking too much alcohol. Other risk factors include: ? Having any of these conditions: ? Heart disease. ? Diabetes. ? High cholesterol. ? Kidney disease. ? Obstructive sleep apnea. ? Having a family history of high blood pressure and high cholesterol. ? Age. The risk increases with age. ? Stress. What are the signs or symptoms? High blood pressure may not cause symptoms. Very high blood pressure (hypertensive crisis) may cause: ? Headache. ? Fast or uneven heartbeats (palpitations). ? Shortness of breath. ? Nosebleed. ? Vomiting or feeling like you may vomit (nauseous). ? Changes in how you see. ? Very bad chest pain. ? Feeling dizzy. ? Seizures. How is this treated? ? This condition is treated by making healthy lifestyle changes, such as: ? Eating healthy foods. ? Exercising more. ? Drinking less alcohol. ? Your doctor may prescribe medicine if lifestyle changes do not help enough and if: ? Your top number is above 130. ? Your bottom number is above 80. ? Your personal target blood pressure may vary. Follow these instructions at home: Eating and drinking ? If told, follow the DASH eating plan. To follow this plan: ? Fill one half of your plate at each meal with fruits and vegetables. ? Fill one fourth of your plate at each meal with whole grains. Whole grains include whole-wheat pasta, brown rice, and whole-grain bread. ? Eat or drink low-fat dairy products, such as skim milk or low-fat yogurt. ? Fill one fourth of your plate at each meal with low-fat (lean) proteins. Low-fat proteins include fish, chicken without skin, eggs, beans, and tofu. ? Avoid fatty meat, cured and processed meat, or chicken with skin. ? Avoid pre-made or processed food. ? Limit the amount of salt in your diet to less than 1,500 mg each day. ? Do not drink alcohol if: ? Your doctor tells you not to drink. ? You are , may be , or are planning to become . ? If you drink alcohol: ? Limit how much you have to: ? 0?1 drink a day for women. ? 0?2 drinks a day for men. ? Know how much alcohol is in your drink. In the [place] one drink equals one 12 oz bottle of beer (355 mL), one 5 oz glass of wine (148 mL), or one 1? oz glass of hard liquor (44 mL). Lifestyle ? Work with your doctor to stay at a healthy weight or to lose weight. Ask your doctor what the best weight is for you. ? Get at least 30 minutes of exercise that causes your heart to beat faster (aerobic exercise) most days of the week. This may include walking, swimming, or biking. ? Get at least 30 minutes of exercise that strengthens your muscles (resistance exercise) at least 3 days a week. This may include lifting weights or doing Pilates. ? Do not smoke or use any products that contain nicotine or tobacco. If you need help quitting, ask your doctor. ? Check your blood pressure at home as told by your doctor. ? Keep all follow-up visits. Medicines ? Take [id number] and prescription medicines only as told by your doctor. Follow directions carefully. ? Do not skip doses of blood pressure medicine. The medicine does not work as well if you skip doses. Skipping doses also puts you at risk for problems. ? Ask your doctor about side effects or reactions to medicines that you should watch for. Contact a doctor if: ? You think you are having a reaction to the medicine you are taking. ? You have headaches that keep coming back. ? You feel dizzy. ? You have swelling in your ankles. ? You have trouble with your vision. Get help right away if: ? You get a very bad headache. ? You start to feel mixed up (confused). ? You feel weak or numb. ? You feel faint. ? You have very bad pain in your: ? Chest. ? Belly (abdomen). ? You vomit more than once. ? You have trouble breathing. These symptoms may be an emergency. Get help right away. Call 911. ? Do not wait to see if the symptoms will go away. ? Do not drive yourself to the hospital. Summary ? Hypertension is another name for high blood pressure. ? High blood pressure forces your heart to work harder to pump blood. ? For m (more content not included)... Normal [facility] CHEMISTRYOrdered By: SYSTEM SYSTEM on 10-20-2022 Albumin [Mass/Vol] 3.8 g/dL Normal 3.3 - 5.0 gm/dL [facility] Albumin/Globulin [Mass ratio] 1.1 {ratio} Normal 1.1 - 2.2 [facility] ALP [Catalytic activity/Vol] 70 [iU]/d Normal 21 - 98 Int._Unit/L [facility] ALT No additional P-5'-P [Catalytic activity/Vol] 15 [iU]/d Normal 6 - 46 Int._Unit/L [facility] Anion gap [Moles/Vol] 10 mmol/L Normal 6 - 16 mEq/L [facility] AST [Catalytic activity/Vol] 20 [iU]/d Normal 5 - 43 Int._Unit/L [facility] Bilirubin [Mass/Vol] 0.8 mg/dL Normal 0.0 - 1.1 mg/dL [facility] Calcium [Mass/Vol] 9.4 mg/dL Normal 8.9 - 11.1 mg/dL [facility] Chloride [Moles/Vol] 105 mmol/L Normal 101 - 111 mmol/L [facility] CO2 [Moles/Vol] 28 mmol/L Normal 21 - 31 mmol/L [facility] Creatinine [Mass/Vol] 1.1 mg/dL Normal 0.5 - 1.3 mg/dL [facility] GFR/1.73 sq M.predicted among non-blacks MDRD (S/P/Bld) [Vol rate/Area] 51 mL/min/1.73 m2 Low >=59mL/min/1.73 m2 [facility] [place] S Globulin (S) [Mass/Vol] 3.4 g/dL Normal 1.4 - 4.0 gm/dL [facility] [place] [facility] Glucose [Mass/Vol] 98 mg/dL Normal 55 - 199 mg/dL [facility] Potassium [Moles/Vol] 4.0 mmol/L Normal 3.5 - 5.3 mmol/L [facility] Protein [Mass/Vol] 7.2 g/dL Normal 6.0 - 7.8 gm/dL [facility] Remisol Sodium [Moles/Vol] 139 mmol/L Normal 135 - 145 mmol/L [facility] Urea nitrogen [Mass/Vol] 24 mg/dL High 5 - 21 mg/dL [facility] Urea nitrogen/Creatinine [Mass ratio] 22 mg/mg High 10 - 20 [facility] CMPon 10-20-2022 Albumin [Mass/Vol] 3.8 g/dL Normal 3.3-5.0 [facility] Comment on above: Performed By: #### 2 [id number] #### [facility] [address] [place] [address] Albumin/Globulin (S) [Mass conc ratio] 1.1 Normal 1.1-2.2 [facility] Comment on above: Performed By: #### 2 [id number], [id number] #### [facility] [address] [place] [address] ALP [Catalytic activity/Vol] 70 Int._Unit/L Normal 21-98 [facility] Comment on above: Performed By: #### 2 [id number], [id number] #### [facility] [address] [place] [address] ALT No additional P-5'-P [Catalytic activity/Vol] 15 Int._Unit/L Normal 6-46 [facility] Comment on above: Performed By: #### 2 [id number], [id number] #### [facility] [address] [place] [address] Anion gap [Moles/Vol] 10 mmol/L Normal 6-16 [facility] Comment on above: Performed By: #### 2 [id number], [id number] #### [facility] [address] [place] [address] AST [Catalytic activity/Vol] 20 Int._Unit/L Normal 5-43 [facility] Comment on above: Performed By: #### 2 [id number], [id number] #### [facility] [address] [place] [address] Bilirubin [Mass/Vol] 0.8 mg/dL Normal 0.0-1.1 [facility] Comment on above: Performed By: #### 2 [id number], [id number] #### [facility] [address] [place] [address] Calcium [Mass/Vol] 9.4 mg/dL Normal 8.9-11.1 [facility] Comment on above: Performed By: #### 2 [id number], [id number] #### [facility] [address] [place] [address] Chloride [Moles/Vol] 105 mmol/L Normal 101-111 [facility] Comment on above: Performed By: #### 2 [id number], [id number] #### [facility] [address] [place] [address] CO2 [Moles/Vol] 28 mmol/L Normal 21-31 [facility] Comment on above: Performed By: #### 2 [id number], [id number] #### [facility] [address] [place] [address] Creatinine [Mass/Vol] 1.1 mg/dL Normal 0.5-1.3 [facility] Comment on above: Performed By: #### 2 [id number], [id number] #### [facility] [address] [place] [address] Globulin (S) [Mass/Vol] 3.4 g/dL Normal 1.4-4.0 [facility] Comment on above: Performed By: #### 2 [id number], [id number] #### [facility] [address] [place] [address] Glucose [Mass/Vol] 98 mg/dL Normal 55-199 [facility] Comment on above: Result Comment: If t his glucose result represents a fasting glucose, interpretation should refer to the following reference range: 55-99 mg/dL Performed By: #### 2 [id number], [id number] #### [facility] [address] [place] [address] Potassium [Moles/Vol] 4.0 mmol/L Normal 3.5-5.3 [facility] Comment on above: Performed By: #### 2 [id number], [id number] #### [facility] [address] [place] [address] Protein [Mass/Vol] 7.2 g/dL Normal 6.0-7.8 [facility] Comment on above: Performed By: #### 2 [id number], [id number] #### [facility] [address] [place] [address] Sodium [Moles/Vol] 139 mmol/L Normal 135-145 [facility] Comment on above: Performed By: #### 2 [id number], [id number] #### [facility] [address] [place] [address] Urea nitrogen [Mass/Vol] 24 mg/dL High 5-21 [facility] Comment on above: Performed By: #### 2 [id number], [id number] #### [facility] [address] [place] [address] Urea nitrogen/Creatinine [Mass ratio] 22 No Units High 10-20 [facility] Comment on above: Performed By: #### 2 [id number], [id number] #### [facility] [address] [place] [address] Consent for Treatmenton 10-03 Consent for Treatment [id number] Normal [facility] eGFRon 10-20-2022 GFR/1.73 sq M.predicted among non-blacks MDRD (S/P/Bld) [Vol rate/Area] 51 mL/min/1.73 m2 Low >=59 [facility] Comment on above: Order Comment: Order added by Discern Expert. Result Comment: Patient Financial Counselor vignesh kidney disease could be indicated at eGFR's of less than 60 mL/min/1.73m2. Kidney failure is indicated at less than 15 mL/min/1.73m2. Performed By: #### 2 [id number], [id number] #### [facility] [address] [place] [address] Laboratory - Chemistry and C hemistry - challengeOrdered By: SYSTEM SYSTEM on 01-17-2022 Albumin [Mass/Vol] 4.3 g/dL Normal 3.3 - 5.0 gm/dL [facility] Albumin/Globulin [Mass ratio] 1.3 {ratio} Normal 1.1 - 2.2 [facility] ALP [Catalytic activity/Vol] 80 [iU]/d Normal 21 - 98 Int._Unit/L [facility] ALT No additional P-5'-P [Catalytic activity/Vol] 16 [iU]/d Normal 6 - 46 Int._Unit/L [facility] Anion gap [Moles/Vol] 11 mmol/L Normal 6 - 16 mEq/L [facility] AST [Catalytic activity/Vol] 17 [iU]/d Normal 5 - 43 Int._Unit/L [facility] Bilirubin [Mass/Vol] 1.1 mg/dL Normal 0.0 - 1.1 mg/dL [facility] Calcium [Mass/Vol] 9.3 mg/dL Normal 8.9 - 11.1 mg/dL [facility] Chloride [Moles/Vol] 105 mmol/L Normal 101 - 111 mmol/L [facility] Cholesterol [Mass/Vol] 237 mg/dL High 120 - 200 mg/dL [facility] Cholesterol in HDL [Mass/Vol] 64 mg/dL Invalid Interpretation Code [facility] Cholesterol in LDL [Mass/Vol] 139 mg/dL High <=129mg/dL [facility] Cholesterol in VLDL [Mass/Vol] 26 mg/dL Normal 7 - 40 mg/dL [facility] CO2 [Moles/Vol] 27 mmol/L Normal 21 - 31 mmol/L [facility] Creatinine [Mass/Vol] 1.2 mg/dL Normal 0.5 - 1.3 mg/dL [facility] GFR/1.73 sq M.predicted among blacks MDRD (S/P/Bld) [Vol rate/Area] 53 mL/min/1.73 m2 Low >=59mL/min/1.73 m2 [facility] Chem S GFR/1.73 sq M.predicted among non-blacks MDRD (S/P/Bld) [Vol rate/Area] 43 mL/min/1.73 m2 Low >=59mL/min/1.73 m2 [facility] [place] S Globulin (S) [Mass/Vol] 3.2 g/dL Normal 1.4 - 4.0 gm/dL [facility] Glucose [Mass/Vol] 97 mg/dL Normal 55 - 199 mg/dL [facility] Potassium [Moles/Vol] 4.4 mmol/L Normal 3.5 - 5.3 mmol/L [facility] Protein [Mass/Vol] 7.5 g/dL Normal 6.0 - 7.8 gm/dL F [facility] Remisol Sodium [Moles/Vol] 139 mmol/L Normal 135 - 145 mmol/L [facility] Triglyceride [Mass/Vol] 130 mg/dL Normal <=149mg/dL [facility] Urea nitrogen [Mass/Vol] 26 mg/dL High 5 - 21 mg/dL [facility] Urea nitrogen/Creatinine [Mass ratio] 22 mg/mg High 10 - 20 [facility] Laboratory - Hematology and Cell countsOrdered By: SYSTEM SYSTEM on 01-17-2022 Basophils/100 WBC (Bld) 1.2 % Normal 0.0 - 2.0 % [facility] Basophils/Leukocyte s Auto (Bld) [Pure # fraction] 0.1 E9/L Normal 0.0 - 0.2 E9/L [facility] Eosinophils/100 WBC (Bld) 3.4 % Normal 0.0 - 8.0 % [facility] Eosinophils/Leukocy karla Auto (Bld) [Pure # fraction] 0.2 E9/L Normal 0.0 - 0.5 E9/L [facility] Lymphocytes/100 WBC (Bld) 31.1 % Normal 14.0 - 50.0 % [facility] Lymphocytes/Leukocy karla Auto (Bld) [Pure # fraction] 1.7 E9/L Normal 1.0 - 4.0 E9/L [facility] Monocytes/100 WBC (Bld) 6.5 % Normal 4.0 - 14.0 % [facility] Monocytes/Leukocyte s Auto (Bld) [Pure # fraction] 0.4 E9/L Normal 0.2 - 1.0 E9/L [facility] Neutrophils/100 WBC (Bld) 57.8 % Normal 36.0 - 75.0 % [facility] Neutrophils/Leukocy karla Auto (Bld) [Pure # fraction] 3.3 E9/L Normal 2.0 - 7.5 E9/L [facility] [place] [place] [facility] Laboratory - Hematology and Cell countsOrdered By: Domonique Reno on 01-17-2022 Erythrocyte distribution width (RBC) [Ratio] 13.9 % Normal 10.9 - 14.2 % [facility] Hematocrit (Bld) [Volume fraction] 40.8 % Normal 34.0 - 46.0 % [facility] Hemoglobin (Bld) [Mass/Vol] 13.7 g/dL Normal 12.0 - 16.0 gm/dL [facility] MCH (RBC) [Entitic mass] 29.2 pg Normal 27.0 - 34.0 pg [facility] MCHC (RBC) [Mass/Vol] 33.5 g/dL Normal 31.4 - 36.0 gm/dL [facility] MCV (RBC) [Entitic vol] 87.1 fL Normal 80.0 - 100.0 fL [facility] Platelet mean volume (Bld) [Entitic vol] 8.3 fL Normal 6.4 - 10.8 fL [facility] Platelets (Bld) [#/Vol] 218.0 E9/L Normal 150.0 - 500.0 E9/L [facility] RBC (Bld) [#/Vol] 4.7 E12/L Normal 4.3 - 5.9 E12/L [facility] WBC corrected for nucl RBC Auto (Bld) [#/Vol] 5.6 E9/L Normal 4.0 - 11.0 E9/L [facility] [place] [facility] - Hematology and Cell countsOrdered By: aGbriela Mirza on 01-17-2022 HbA1c (Bld) [Mass fraction] 5.7 % Normal <=5.9% [facility] [place] CHEMISTRYOrdered By: SYSTEM SYSTEM on 07-14-2021 Albumin [Mass/Vol] 3.7 g/dL Normal 3.3 - 5.0 gm/dL [facility] Remisol Anion gap [Moles/Vol] 10 mmol/L Normal 6 - 16 mEq/L [facility] [place] Calcium [Mass/Vol] 9.1 mg/dL Normal 8.9 - 11.1 mg/dL [facility] Remisol Chloride [Moles/Vol] 106 mmol/L Normal 101 - 111 mmol/L [facility] [place] Remisol CO2 [Moles/Vol] 24 mmol/L Normal 21 - 31 mmol/L [facility] [place] [place] Remisol Creatinine [Mass/Vol] 1.3 mg/dL Normal 0.5 - 1.3 mg/dL [facility] Remisol GFR/1.73 sq M.predicted among blacks MDRD (S/P/Bld) [Vol rate/Area] 48 mL/min/1.73 m2 Low >=59mL/min/1.73 m2 [facility] [place] [place] Chem S GFR/1.73 sq M.predicted among non-blacks MDRD (S/P/Bld) [Vol rate/Area] 40 mL/min/1.73 m2 Low >=59mL/min/1.73 m2 [facility] [place] Chem S Glucose [Mass/Vol] 101 mg/dL Normal 55 - 199 mg/dL [facility] Remisol Phosphate [Mass/Vol] 3.3 mg/dL Normal 1.9 - 4.6 mg/dL [facility] Potassium [Moles/Vol] 4.2 mmol/L Normal 3.5 - 5.3 mmol/L [facility] Sodium [Moles/Vol] 136 mmol/L Normal 135 - 145 mmol/L [facility] [place] [place] [facility] Urea nitrogen [Mass/Vol] 21 mg/dL Normal 5 - 21 mg/dL [facility] [place] Urea nitrogen/Creatinine [Mass ratio] 16 mg/mg Normal 10 - 20 [facility] Vital Signs Date Time Vital Sign Value Performing Clinician Facility 02-19-2023 10:33-0500 Diastolic blood pressure 83 mm[Hg] [facility] 02-19-2023 10:33-0500 Heart rate 63 /min [facility] 02-19-2023 10:33-0500 Mean blood pressure 107 mm[Hg] [facility] 02-19-2023 10:33-0500 Respiratory rate 15 /min [facility] 02-19-2023 10:33-0500 SaO2% (BldA) [Mass fraction] 96 % [facility] 02-19-2023 10:33-0500 Systolic blood pressure 154 mm[Hg] [facility] 02-19-2023 09:28-0500 Body temperature 98.42 [degF] [facility] 02-19-2023 09:28-0500 Diastolic blood pressure 88 mm[Hg] [facility] 02-19-2023 09:28-0500 Heart rate 71 /min [facility] 02-19-2023 09:28-0500 Respiratory rate 16 /min [facility] 02-19-2023 09:28-0500 SaO2% (BldA) [Mass fraction] 99 % [facility] 02-19-2023 09:28-0500 Systolic blood pressure 167 mm[Hg] [facility] 10-24-2022 14:52-0400 Diastolic blood pressure 86 mm[Hg] Tiarra GARY [facility] 10-24-2022 14:52-0400 Mean blood pressure 107 mm[Hg] Tiarra GARY [facility] 10-24-2022 14:52-0400 Systolic blood pressure 150 mm[Hg] Tiarra GARY [facility] 10-24-2022 14:41-0400 Blood Pressure Location Tiarra GARY [facility] 10-24-2022 14:41-0400 Diastolic blood pressure 92 mm[Hg] Tiarra GARY [facility] 10-24-2022 14:41-0400 Heart rate 64 /min Tiarra GARY [facility] 10-24-2022 14:41-0400 Respiratory rate 18 /min Tiarra GARY [facility] 10-24-2022 14:41-0400 SaO2% (BldA) [Mass fraction] 97 % Tiarra GARY [facility] 10-24-2022 14:41-0400 Systolic blood pressure 160 mm[Hg] Tiarra GARY [facility] 09-18-2022 15:36-0400 Blood Pressure Location Adrienjohn Rose [facility] 09-18-2022 15:36-0400 Body temperature 98.06 [degF] Adrien Rose [facility] 09-18-2022 15:36-0400 Diastolic blood pressure 62 mm[Hg] Adrien Rose [facility] 09-18-2022 15:36-0400 Heart rate 64 /min Adrien Rose [facility] 09-18-2022 15:36-0400 Respiratory rate 16 /min Adrien Rose [facility] 09-18-2022 15:36-0400 SaO2% (BldA) [Mass fraction] 96 % Adrien Rose [facility] 09-18-2022 15:36-0400 Systolic blood pressure 128 mm[Hg] Adrien Rose [facility] 07-17-2022 15:28-0400 Blood Pressure Location Tiarra GARY [facility] 07-17-2022 15:28-0400 Body temperature 97.88 [degF] Tiarra COOKIE [facility] 07-17-2022 15:28-0400 Diastolic blood pressure 76 mm[Hg] Tiarra GARY [facility] 07-17-2022 15:28-0400 Heart rate 70 /min Tiarra GARY [facility] 07-17-2022 15:28-0400 Systolic blood pressure 138 mm[Hg] Tiarra GARY [facility] 04-11-2022 14:04-0500 Blood Pressure Location Tiarra COOKIE [facility] 04-11-2022 14:04-0500 Body temperature 98.06 [degF] Tiarra GARY [facility] 04-11-2022 14:04-0500 Diastolic blood pressure 82 mm[Hg] Tiarra GARY [facility] 04-11-2022 14:04-0500 Heart rate 68 /min Tiarra GARY [facility] 04-11-2022 14:04-0500 SaO2% (BldA) [Mass fraction] 98 % Tiarra GARY [facility] 04-11-2022 14:04-0500 Systolic blood pressure 132 mm[Hg] Tiarra GARY [facility] 01-11-2022 11:00-0500 Diastolic blood pressure 76 mm[Hg] Tiarra GARY [facility] 01-11-2022 11:00-0500 Mean blood pressure 102 mm[Hg] Tiarra GARY [facility] 01-11-2022 10:53-0500 Blood Pressure Location Tiarra GARY [facility] 01-11-2022 10:53-0500 Body temperature 98.24 [degF] Tiarra GARY [facility] 01-11-2022 10:53-0500 Diastolic blood pressure 80 mm[Hg] Tiarra GARY [facility] 01-11-2022 10:53-0500 Heart rate 54 /min Tiarra GARY [facility] 01-11-2022 10:53-0500 SaO2% (BldA) [Mass fraction] 99 % Tiarra GARY [facility] 01-11-2022 10:53-0500 Systolic blood pressure 154 mm[Hg] Tiarra GARY [facility] 09-13-2021 11:03-0400 Blood Pressure Location Tiarra GARY [facility] 09-13-2021 11:03-0400 Body temperature 98.06 [degF] Tiarra GARY [facility] 09-13-2021 11:03-0400 Diastolic blood pressure 78 mm[Hg] Tiarra GARY [facility] 09-13-2021 11:03-0400 Heart rate 65 /min Tiarra GARY [facility] 09-13-2021 11:03-0400 SaO2% (BldA) [Mass fraction] 96 % Tiarra GARY [facility] 09-13-2021 11:03-0400 Systolic blood pressure 138 mm[Hg] Tiarra GARY [facility] 08-12-2021 08:18-0400 Blood Pressure Location Tiarra GARY [facility] 08-12-2021 08:18-0400 Body temperature 97.88 [degF] Tiarra GARY [facility] 08-12-2021 08:18-0400 Diastolic blood pressure 80 mm[Hg] Tiarra GARY [facility] 08-12-2021 08:18-0400 Heart rate 61 /min Tiarra GARY [facility] 08-12-2021 08:18-0400 Systolic blood pressure 130 mm[Hg] Tiarra GARY [facility] 05-31-2021 12:58-0400 Blood Pressure Location Miguel Angel Cerna [facility] 05-31-2021 12:58-0400 Diastolic blood pressure 69 mm[Hg] Miguel Angel Cerna [facility] 05-31-2021 12:58-0400 Heart rate 65 /min Miguel Angel Cerna [facility] 05-31-2021 12:58-0400 Respiratory rate 18 /min Miguel Angel Cerna [facility] 05-31-2021 12:58-0400 SaO2% (BldA) [Mass fraction] 98 % Miguel Angel Cerna [facility] 05-31-2021 12:58-0400 Systolic blood pressure 113 mm[Hg] Miguel Angel Cerna [facility] Encounters Encounter Date Encounter Type Care Provider Facility Start: 06-21-2023 End: 06-21-2023 ambulatory MD Deidra Garcia [facility] Start: 05-23-2023 End: 05-23-2023 ambulatory JULIOWILBER RANKIN Not Available Start: 05-01-2023 End: 05-01-2023 ambulatory Ananda [place] [place]: 05-01-2023 End: 05-01-2023 Patient encounter procedure Ananda Taoa [facility] Start: 02-20-2023 End: 02-20-2023 ambulatory MD Deidra Garcia [facility] Start: 02-19-2023 End: 02-19-2023 Emergency department patient visit Shawn Wu [facility] Start: 02-15-2023 End: 02-15-2023 ambulatory MD Deidra Garcia Facility[facility] Start: 02-15-2023 End: 02-15-2023 ambulatory MD Deidra Garcia Facility:[facility] Start: 01-31-2023 End: 01-31-2023 ambulatory JULIO RANKIN Not Available Start: 11-29-2022 ambulatory Tiarra GARY Facility: [facility] Start: 11-10-2022 ambulatory Tiarra GARY Facility:[facility] Start: 10-24-2022 End: 10-24-2022 ambulatory Tiarra GARY Facility:[facility] Start: 10-24-2022 End: 10-24-2022 Patient encounter procedure Tiarra GARY [facility] Start: 10-20-2022 End: 10-20-2022 ambulatory Tiarra GARY [place] [place]: 10-20-2022 End: 10-20-2022 Patient encounter procedure Tiarra GARY [facility] Start: 09-18-2022 End: 09-18-2022 Patient encounter procedure Adrien Rose [facility] Start: 07-17-2022 End: 07-17-2022 Patient encounter procedure Tiarra GARY [facility] Start: 04-11-2022 End: 04-11-2022 Patient encounter procedure Tiarra GARY [facility] Start: 01-17-2022 End: 01-17-2022 Patient encounter procedure Tiarra GARY [facility] Start: 01-11-2022 End: 01-11-2022 Patient encounter procedure Tiarra GARY [facility] Start: 09-13-2021 End: 09-13-2021 Patient encounter procedure Tiarra GARY [facility] Start: 08-12-2021 End: 08-12-2021 Patient encounter procedure Tiarra GARY [facility] Start: 08-12-2021 End: 08-12-2021 Well adult monitoring check done Tiarra GARY [facility] Start: 07-14-2021 End: 07-14-2021 Patient encounter procedure Ananda Samaniego [facility] Start: 05-31-2021 End: 05-31-2021 Patient encounter procedure Miguel Angel Cerna [facility] Start: 12-29-2020 End: 12-30-[address] TIARRA GARY Facility:[facility] Procedures Date Procedure Procedure Detail Performing Clinician Start: 09-02-2022 Injection - action (qualifier value) Tiarra GARY Start: 03-05-2015 Bilateral extraction of cataracts Miguel Angel Nehemiah Start: 03-05-2015 Malignant melanoma, 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) Miguel Angel Nehemiah Comment on above: removed from back re gion Start: 03-05-2005 splinter removed fro m bottom left foot 2 Miguel Angel Nehemiah Comment on above: 1.5 inch splinter Start: 03-05-1993 Biopsy of breast Miguel Angel Nehemiah Comment on above: benign left knee scope Miguel Angel kwon 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 Miguel Angel Nehemiah Comment on above: from face Plan of Treatment Date Care Activity Detail Author Start: 02-19-2024 ambulatory Ambulatory Facility:[facility] Start: 12-20-2023 ambulatory Ambulatory Facility:[facility] Immunizations Immunization Date Immunization Notes Care Provider Fa jessie 02-15-2023 influenza, injectabl e, quadrivalent, preservative free Astrit Bryce [facility] 2022 influenza virus vacc ine, unspecified formulation Adrien oRse [facility] 2021 influenza, high dose seasonal, preservative-free Miguel Angel Nehemiah [facility] 12-29-2020 SARS-CoV-2 (COVID-19 ) mRNA-1273 vaccine Tiarra GARY [facility] 04-28-2020 COVID-19, mRNA, LNP- S, PF, 100 mcg or 50 mcg dose; Translations: [Moderna COVID-19 Vaccine] Miguel Angel Cerna [facility] Comment on above: Reason for Medicatio n: Other (see comment) 03-31-2020 COVID-19, mRNA, LNP- S, PF, 100 mcg or 50 mcg dose; Translations: [Moderna COVID-19 Vaccine] Miguel Angel Cerna [facility] Comment on above: Reason for Medicatio n: Other (see comment) 12-09-2019 influenza, high dose seasonal, preservative-free Miguel Angel Cerna [facility] 12-24-2018 influenza virus vacc ine, unspecified formulation Tiarra GARY [facility] 12-21-2018 influenza virus vacc ine, unspecified formulation Miguel Angel Cerna [facility] 01-01-2018 influenza virus vacc ine, unspecified formulation Miguel Angel Cerna [facility] 06-26-2017 pneumococcal polysaccharide vaccine, 23 valent Miguel Angel Cerna [facility] 12-14-2016 influenza virus vacc ine, unspecified formulation Tiarra GARY [facility] 03-06-2016 pneumococcal conjuga te vaccine, 13 valent Miguel Angel Cerna [facility] 03-01-2016 pneumococcal polysaccharide vaccine, 23 valent Tiarra GARY [facility] 12-28-2015 influenza virus vacc ine, unspecified formulation Tiarra GARY [facility] Payers Date Payer Category Payer Unknown [id number] 2008 Medicare [id number] 1959 Self-pay 1943 Unknown [id number] 2.16.84 [id number] 1943 Unknown [id number] 1943 Unknown [id number] 2.16.8 [id number] 1943 Unknown [id number] 2.16.8 [id number] 1943 Unknown [id number] 2.16.8 [id number] 1943 Unknown [id number] 2.16.8 [id number] 1943 Unknown [id number] 2.16.8 [id number] 1943 Unknown [id number] 2.16.8 [id number] 1943 Unknown [id number] 2.16.8 [id number] 1943 Unknown [id number] 2.16.8 [id number] 1943 Unknown [id number] 2.16.8 [id number] 1943 Unknown [id number] 2.16.8 [id number] 1943 Unknown [id number] 2.16.8 [id number] 1943 Unknown [id number] 2.16.8 [id number] Unknown [id number] 2.16.84 [id number] Social History Date Type Detail Facility Start: 05-24-2021 End: 02-15-2023 Tobacco smoking status Ex-smoker (finding) [facility] Comment on above: quit 35yrs. ago quit about 30 yrs ag o quit in 1989 Tobacco smoking status Never [facility] Comment on above: quit 35yrs. ago quit about 30 yrs ag o quit in 1989 Sex Assigned At Female [facility] Functional Status Date Assessment Result Facility 02-19-2023 Functional Status N/A [facility] 10-24-2022 Functional Status N/A [facility] 09-18-2022 Functional Status N/A [facility] 07-17-2022 Functional Status N/A [facility] 04-11-2022 Functional Status N/A [facility] 01-11-2022 Functional Status N/A [facility] 09-13-2021 Functional Status N/A [facility] Clinical Notes 08-12-2021 to 02-19-2023 LaboratoryLaboratoryRadiologyLaboratoryRadiologyLaboratoryRadiologyLaboratoryRad iologyLaboratoryRadiologyLaboratoryRadiologyLaboratoryLaboratoryLaboratoryLabora tory Note Date & Type Note Facility 02-19-2023 Hospital Discharge instructions Patient Education 02/19/2023 11:13:41 Acute Back Pain, Adult Acute Back Pain, Adult Acute back pain is sudden and usually short-lived. It is often caused by an injury to the muscles and tissues in the back. The injury may result from: A muscle, tendon, or ligament getting overstretched or torn. Ligaments are tissues that connect bones to each other. Lifting something improperly can cause a back strain. Wear and tear (degeneration) of the spinal disks. Spinal disks are circular tissue that provide cushioning between the bones of the spine (vertebrae). Twisting motions, such as while playing sports or doing yard work. A hit to the back. Arthritis. You may have a physical exam, lab tests, and imaging tests to find the cause of your pain. Acute back pain usually goes away with rest and home care. Follow these instructions at home: Managing pain, stiffness, and swelling Take vzdb-pcf-xnkhuva and prescription medicines only as told by your health care provider. Treatment may include medicines for pain and inflammation that are taken by mouth or applied to the skin, or muscle relaxants. Your health care provider may recommend applying ice during the first 24 48 hours after your pain starts. To do this: ?Put ice in a plastic bag. ?Place a towel between your skin and the bag. ?Leave the ice on for 20 minutes, 2 3 times a day. ?Remove the ice if your skin turns bright red. This is very important. If you cannot feel pain, heat, or cold, you have a greater risk of damage to the area. If directed, apply heat to the affected area as often as told by your health care provider. Use the heat source that your health care provider recommends, such as a moist heat pack or a heating pad. ?Place a towel between your skin and the heat source. ?Leave the heat on for 20 30 minutes. ?Remove the heat if your skin turns bright red. This is especially important if you are unable to feel pain, heat, or cold. You have a greater risk of getting burned. Activity Do not stay in bed. Staying in bed for more than 1 2 days can delay your recovery. Sit up and stand up straight. Avoid leaning forward when you sit or hunching over when you stand. ?If you work at a desk, sit close to it so you do not need to lean over. Keep your chin tucked in. Keep your neck drawn back, and keep your elbows bent at a 90-degree angle (right angle). ?Sit high and close to the steering wheel when you drive. Add lower back (lumbar) support to your car seat, if needed. Take short walks on even surfaces as soon as you are able. Try to increase the length of time you walk each day. Do not sit, drive, or roof cement and paint maker helper one place for more than 30 minutes at a time. Sitting or standing for long periods of time can put stress on your back. Do not drive or use heavy machinery while taking prescription pain medicine. Use proper lifting techniques. When you bend and lift, use positions that put less stress on your back: ?Bend your knees. ?Keep the load close to your body. ?Avoid twisting. Exercise regularly as told by your health care provider. Exercising helps your back heal faster and helps prevent back injuries by keeping muscles strong and flexible. Work with a physical therapist to make a safe exercise program, as recommended by your health care provider. Do any exercises as told by your physical therapist. Lifestyle Maintain a healthy weight. Extra weight puts stress on your back and makes it difficult to have good posture. Avoid activities or situations that make you feel anxious or stressed. Stress and anxiety increase muscle tension and can make back pain worse. Learn ways to manage anxiety and stress, such as through exercise. General instructions Sleep on a firm mattress in a comfortable position. Try lying on your side with your knees slightly bent. If you lie on your back, put a pillow under your knees. Keep your head and neck in a straight line with your spine (neutral position) when using electronic equipment like smartphones or pads. To do this: ?Raise your smartphone or pad to look at it instead of bending your head or neck to look down. ?Put the smartphone or pad at the level of your face while looking at the screen. Follow your treatment plan as told by your health care provider. This may include: ?Cognitive or behavioral therapy. ?Acupuncture or massage therapy. ?Meditation or yoga. Contact a health care provider if: You have pain that is not relieved with rest or medicine. You have increasing pain going down into your legs or buttocks. Your pain does not improve after 2 weeks. You have pain at night. You lose weight without trying. You have a fever or chills. You develop nausea or vomiting. You develop abdominal pain. Get help right away if: You develop new bowel or bladder control problems. You have unusual weakness or numbness in your arms or legs. You feel faint. These symptoms may represent a serious problem that is an emergency. Do not wait to see if the symptoms will go away. Get medical help right away. Call your local emergency services (911 in the [place] Do not drive yourself to the hospital. Summary Acute back pain is sudden and usually short-lived. Use proper lifting techniques. When you bend and lift, use positions that put less stress on your back. Take hgkg-oah-tjeafnn and prescription medicines only as told by your health care provider, and apply heat or ice as told. This information is not intended to replace advice given to you by your health care provider. Make sure you discuss any questions you have with your health care provider. Document Revised: 05/13/2021 Document Reviewed: 05/13/2021 [employer] Patient Education 2022 [employer]. Follow Up Care 02/19/2023 09:25:55 With:Deidra Garcia Address:Unknown When:02/22/2023 10:57:15 [facility] 10-24-2022 Hospital Discharge instructions Patient Education 10/24/2022 15:05:51 Hypertension, Adult, Luht-ef-Ljuk Hypertension, Adult Hypertension is another name for high blood pressure. High blood pressure forces your heart to work harder to pump blood. This can cause problems over time. There are two numbers in a blood pressure reading. There is a top number (systolic) over a bottom number (diastolic). It is best to have a blood pressure that is below 120/80. What are the causes? The cause of this condition is not known. Some other conditions can lead to high blood pressure. What increases the risk? Some lifestyle factors can make you more likely to develop high blood pressure: Smoking. Not getting enough exercise or physical activity. Being overweight. Having too much fat, sugar, calories, or salt (sodium) in your diet. Drinking too much alcohol. Other risk factors include: Having any of these conditions: ?Heart disease. ?Diabetes. ? High cholesterol. ?Kidney disease. ?Obstructive sleep apnea. Having a family history of high blood pressure and high cholesterol. Age. The risk increases with age. Stress. What are the signs or symptoms? High blood pressure may not cause symptoms. Very high blood pressure (hypertensive crisis) may cause: Headache. Fast or uneven heartbeats (palpitations). Shortness of breath. Nosebleed. Vomiting or feeling like you may vomit (nauseous). Changes in how you see. Very bad chest pain. Feeling dizzy. Seizures. How is this treated? This condition is treated by making healthy lifestyle changes, such as: ?Eating healthy foods. ?Exercising more. ?Drinking less alcohol. Your doctor may prescribe medicine if lifestyle changes do not help enough and if: ?Your top number is above 130. ?Your bottom number is above 80. Your personal target blood pressure may vary. Follow these instructions at home: Eating and drinking If told, follow the DASH eating plan. To follow this plan: ?Fill one half of your plate at each meal with fruits and vegetables. ?Fill one fourth of your plate at each meal with whole grains. Whole grains include whole-wheat pasta, brown rice, and whole-grain bread. ?Eat or drink low-fat dairy products, such as skim milk or low-fat yogurt. ?Fill one fourth of your plate at each meal with low-fat (lean) proteins. Low-fat proteins include fish, chicken without skin, eggs, beans, and tofu. ?Avoid fatty meat, cured and processed meat, or chicken with skin. ?Avoid pre-made or processed food. Limit the amount of salt in your diet to less than 1,500 mg each day. Do not drink alcohol if: ?Your doctor tells you not to drink. ?You are , may be , or are planning to become . If you drink alcohol: ?Limit how much you have to: ?0 1 drink a day for women. ?0 2 drinks a day for men. ?Know how much alcohol is in your drink. In the [place] one drink equals one 12 oz bottle of beer (355 mL), one 5 oz glass of wine (148 mL), or one 1 oz glass of hard liquor (44 mL). Lifestyle Work with your doctor to stay at a healthy weight or to lose weight. Ask your doctor what the best weight is for you. Get at least 30 minutes of exercise that causes your heart to beat faster (aerobic exercise) most days of the week. This may include walking, swimming, or biking. Get at least 30 minutes of exercise that strengthens your muscles (resistance exercise) at least 3 days a week. This may include lifting weights or doing Pilates. Do not smoke or use any products that contain nicotine or tobacco. If you need help quitting, ask your doctor. Check your blood pressure at home as told by your doctor. Keep all follow-up visits. Medicines Take iwwy-ltk-qgygexy and prescription medicines only as told by your doctor. Follow directions carefully. Do not skip doses of blood pressure medicine. The medicine does not work as well if you skip doses. Skipping doses also puts you at risk for problems. Ask your doctor about side effects or reactions to medicines that you should watch for. Contact a doctor if: You think you are having a reaction to the medicine you are taking. You have headaches that keep coming back. You feel dizzy. You have swelling in your ankles. You have trouble with your vision. Get help right away if: You get a very bad headache. You start to feel mixed up (confused). You feel weak or numb. You feel faint. You have very bad pain in your: ?Chest. ?Belly (abdomen). You vomit more than once. You have trouble breathing. These symptoms may be an emergency. Get help right away. Call 911. Do not wait to see if the symptoms will go away. Do not drive yourself to the hospital. Summary Hypertension is another name for high blood pressure. High blood pressure forces your heart to work harder to pump blood. For most people, a normal blood pressure is less than 120/80. Making healthy choices can help lower blood pressure. If your blood pressure does not get lower with healthy choices, you may need to take medicine. This information is not intended to replace advice given to you by your health care provider. Make sure you discuss any questions you have with your health care provider. Document Revised: 12/08/2021 Document Reviewed: 12/08/2021 [employer] Patient Education 2022 [employer]. Follow Up Care 07/17/2022 16:04:34 With:COOKIE LIU, Tiarra Tate, [facility] Address: [facility] [address] [place] [address], [place] [address]- When:Within 3 Month(s) [facility] 09-18-2022 Hospital Discharge instructions Patient Education 09/18/2022 16:14:38 Carpal Tunnel Syndrome, Oxvx-rz-Vmmh Carpal Tunnel Syndrome Carpal tunnel syndrome is a condition that causes pain, weakness, and numbness in your hand and arm. Numbness is when you cannot feel an area in your body. The carpal tunnel is a narrow area that is on the palm side of your wrist. Repeated wrist motion or certain diseases may cause swelling in the tunnel. This swelling can pinch the main nerve in the wrist. This nerve is called the median nerve. What are the causes? This condition may be caused by: Moving your hand and wrist over and over again while doing a task. Injury to the wrist. Arthritis. A sac of fluid (cyst) or abnormal growth (tumor) in the carpal tunnel. Fluid buildup during . Use of tools that vibrate. Sometimes the cause is not known. What increases the risk? The following factors may make you more likely to have this condition: Having a job that makes you do these things: ?Move your hand over and over again. ?Work with tools that vibrate, such as drills or zavala. Being a woman. Having diabetes, obesity, thyroid problems, or kidney failure. What are the signs or symptoms? Symptoms of this condition include: A tingling feeling in your fingers. Tingling or loss of feeling in your hand. Pain in your entire arm. This pain may get worse when you bend your wrist and elbow for a long time. Pain in your wrist that goes up your arm to your shoulder. Pain that goes down into your palm or fingers. Weakness in your hands. You may find it hard to grab and hold items. You may feel worse at night. How is this treated? This condition may be treated with: Lifestyle changes. You will be asked to stop or change the activity that caused your problem. Doing exercises and activities that make bones, muscles, and tendons stronger (physical therapy). Learning how to use your hand again (occupational therapy). Medicines for pain and swelling. You may have injections in your wrist. A wrist splint or brace. Surgery. Follow these instructions at home: If you have a splint or brace: Wear the splint or brace as told by your doctor. Take it off only as told by your doctor. Loosen the splint if your fingers: ?Tingle. ?Become numb. ?Turn cold and blue. Keep the splint or brace clean. If the splint or brace is not waterproof: ?Do not let it get wet. ?Cover it with a watertight covering when you take a bath or a shower. Managing pain, stiffness, and swelling If told, put ice on the painful area: If you have a removable splint or brace, remove it as told by your doctor. Put ice in a plastic bag. Place a towel between your skin and the bag. Leave the ice on for 20 minutes, 2 3 times per day. Do not fall asleep with the cold pack on your skin. Take off the ice if your skin turns bright red. This is very important. If you cannot feel pain, heat, or cold, you have a greater risk of damage to the area. Move your fingers often to reduce stiffness and swelling. General instructions Take tszr-hqp-pxbjsjo and prescription medicines only as told by your doctor. Rest your wrist from any activity that may cause pain. If needed, talk with your boss at work about changes that can help your wrist heal. Do exercises as told by your doctor, physical therapist, or occupational therapist. Keep all follow-up visits. Contact a doctor if: You have new symptoms. Medicine does not help your pain. Your symptoms get worse. Get help right away if: You have very bad numbness or tingling in your wrist or hand. Summary Carpal tunnel syndrome is a condition that causes pain in your hand and arm. It is often caused by repeated wrist motions. Lifestyle changes and medicines are used to treat this problem. Surgery may help in very bad cases. Follow your doctor's instructions about wearing a splint, resting your wrist, keeping follow-up visits, and calling for help. This information is not intended to replace advice given to you by your health care provider. Make sure you discuss any questions you have with your health care provider. Document Revised: 07/01/2020 Document Reviewed: 07/01/2020 [employer] Patient Education 2022 [employer]. Follow Up Care 09/18/2022 14:23:53 With:COOKIE LIU, Tiarra Tate, MED Address: [facility] [address], [place] [address]- When: Unknown [facility] 07-17-2022 Hospital Discharge instructions Patient Education 07/17/2022 15:54:47 Hypertension, Adult, Hbvk-wu-Brun Hypertension, Adult Hypertension is another name for high blood pressure. High blood pressure forces your heart to work harder to pump blood. This can cause problems over time. There are two numbers in a blood pressure reading. There is a top number (systolic) over a bottom number (diastolic). It is best to have a blood pressure that is below 120/80. What are the causes? The cause of this condition is not known. Some other conditions can lead to high blood pressure. What increases the risk? Some lifestyle factors can make you more likely to develop high blood pressure: Smoking. Not getting enough exercise or physical activity. Being overweight. Having too much fat, sugar, calories, or salt (sodium) in your diet. Drinking too much alcohol. Other risk factors include: Having any of these conditions: ?Heart disease. ?Diabetes. ? High cholesterol. ?Kidney disease. ?Obstructive sleep apnea. Having a family history of high blood pressure and high cholesterol. Age. The risk increases with age. Stress. What are the signs or symptoms? High blood pressure may not cause symptoms. Very high blood pressure (hypertensive crisis) may cause: Headache. Fast or uneven heartbeats (palpitations). Shortness of breath. Nosebleed. Vomiting or feeling like you may vomit (nauseous). Changes in how you see. Very bad chest pain. Feeling dizzy. Seizures. How is this treated? This condition is treated by making healthy lifestyle changes, such as: ?Eating healthy foods. ?Exercising more. ?Drinking less alcohol. Your doctor may prescribe medicine if lifestyle changes do not help enough and if: ?Your top number is above 130. ?Your bottom number is above 80. Your personal target blood pressure may vary. Follow these instructions at home: Eating and drinking If told, follow the DASH eating plan. To follow this plan: ?Fill one half of your plate at each meal with fruits and vegetables. ?Fill one fourth of your plate at each meal with whole grains. Whole grains include whole-wheat pasta, brown rice, and whole-grain bread. ?Eat or drink low-fat dairy products, such as skim milk or low-fat yogurt. ?Fill one fourth of your plate at each meal with low-fat (lean) proteins. Low-fat proteins include fish, chicken without skin, eggs, beans, and tofu. ?Avoid fatty meat, cured and processed meat, or chicken with skin. ?Avoid pre-made or processed food. Limit the amount of salt in your diet to less than 1,500 mg each day. Do not drink alcohol if: ?Your doctor tells you not to drink. ?You are , may be , or are planning to become . If you drink alcohol: ?Limit how much you have to: ?0 1 drink a day for women. ?0 2 drinks a day for men. ?Know how much alcohol is in your drink. In the [place] one drink equals one 12 oz bottle of beer (355 mL), one 5 oz glass of wine (148 mL), or one 1 oz glass of hard liquor (44 mL). Lifestyle Work with your doctor to stay at a healthy weight or to lose weight. Ask your doctor what the best weight is for you. Get at least 30 minutes of exercise that causes your heart to beat faster (aerobic exercise) most days of the week. This may include walking, swimming, or biking. Get at least 30 minutes of exercise that strengthens your muscles (resistance exercise) at least 3 days a week. This may include lifting weights or doing Pilates. Do not smoke or use any products that contain nicotine or tobacco. If you need help quitting, ask your doctor. Check your blood pressure at home as told by your doctor. Keep all follow-up visits. Medicines Take wefg-fxo-oozrsih and prescription medicines only as told by your doctor. Follow directions carefully. Do not skip doses of blood pressure medicine. The medicine does not work as well if you skip doses. Skipping doses also puts you at risk for problems. Ask your doctor about side effects or reactions to medicines that you should watch for. Contact a doctor if: You think you are having a reaction to the medicine you are taking. You have headaches that keep coming back. You feel dizzy. You have swelling in your ankles. You have trouble with your vision. Get help right away if: You get a very bad headache. You start to feel mixed up (confused). You feel weak or numb. You feel faint. You have very bad pain in your: ?Chest. ?Belly (abdomen). You vomit more than once. You have trouble breathing. These symptoms may be an emergency. Get help right away. Call 911. Do not wait to see if the symptoms will go away. Do not drive yourself to the hospital. Summary Hypertension is another name for high blood pressure. High blood pressure forces your heart to work harder to pump blood. For most people, a normal blood pressure is less than 120/80. Making healthy choices can help lower blood pressure. If your blood pressure does not get lower with healthy choices, you may need to take medicine. This information is not intended to replace advice given to you by your health care provider. Make sure you discuss any questions you have with your health care provider. Document Revised: 12/08/2021 Document Reviewed: 12/08/2021 [employer] Patient Education 2022 [employer]. Follow Up Care 04/11/2022 14:31:46 With:COOKIE LIU, ERIKA Hines Address: [facility] [address], [place] [address]- When:Within 3 Month(s) [facility] 04-11-2022 Hospital Discharge instructions Patient Education 04/11/2022 14:21:13 Hypertension, Adult, Unwq-fy-Lubi Hypertension, Adult Hypertension is another name for high blood pressure. High blood pressure forces your heart to work harder to pump blood. This can cause problems over time. There are two numbers in a blood pressure reading. There is a top number (systolic) over a bottom number (diastolic). It is best to have a blood pressure that is below 120/80. Healthy choices can help lower your blood pressure, or you may need medicine to help lower it. What are the causes? The cause of this condition is not known. Some conditions may be related to high blood pressure. What increases the risk? Smoking. Having type 2 diabetes mellitus, high cholesterol, or both. Not getting enough exercise or physical activity. Being overweight. Having too much fat, sugar, calories, or salt (sodium) in your diet. Drinking too much alcohol. Having long-term (chronic) kidney disease. Having a family history of high blood pressure. Age. Risk increases with age. Race. You may be at higher risk if you are . Gender. Men are at higher risk than women before age 45. After age 65, women are at higher risk than men. Having obstructive sleep apnea. Stress. What are the signs or symptoms? High blood pressure may not cause symptoms. Very high blood pressure (hypertensive crisis) may cause: ?Headache. ?Feelings of worry or nervousness (anxiety). ?Shortness of breath. ?Nosebleed. ?A feeling of being sick to your stomach (nausea). ?Throwing up (vomiting). ?Changes in how you see. ?Very bad chest pain. ?Seizures. How is this treated? This condition is treated by making healthy lifestyle changes, such as: ?Eating healthy foods. ?Exercising more. ?Drinking less alcohol. Your health care provider may prescribe medicine if lifestyle changes are not enough to get your blood pressure under control, and if: ?Your top number is above 130. ?Your bottom number is above 80. Your personal target blood pressure may vary. Follow these instructions at home: Eating and drinking If told, follow the DASH eating plan. To follow this plan: ?Fill one half of your plate at each meal with fruits and vegetables. ?Fill one fourth of your plate at each meal with whole grains. Whole grains include whole-wheat pasta, brown rice, and whole-grain bread. ?Eat or drink low-fat dairy products, such as skim milk or low-fat yogurt. ?Fill one fourth of your plate at each meal with low-fat (lean) proteins. Low-fat proteins include fish, chicken without skin, eggs, beans, and tofu. ?Avoid fatty meat, cured and processed meat, or chicken with skin. ?Avoid pre-made or processed food. Eat less than 1,500 mg of salt each day. Do not drink alcohol if: ?Your doctor tells you not to drink. ?You are , may be , or are planning to become . If you drink alcohol: ?Limit how much you use to: ?0 1 drink a day for women. ?0 2 drinks a day for men. ?Be aware of how much alcohol is in your drink. In the [place] one drink equals one 12 oz bottle of beer (355 mL), one 5 oz glass of wine (148 mL), or one 1 oz glass of hard liquor (44 mL). Lifestyle Work with your doctor to stay at a healthy weight or to lose weight. Ask your doctor what the best weight is for you. Get at least 30 minutes of exercise most days of the week. This may include walking, swimming, or biking. Get at least 30 minutes of exercise that strengthens your muscles (resistance exercise) at least 3 days a week. This may include lifting weights or doing Pilates. Do not use any products that contain nicotine or tobacco, such as cigarettes, e-cigarettes, and chewing tobacco. If you need help quitting, ask your doctor. Check your blood pressure at home as told by your doctor. Keep all follow-up visits as told by your doctor. This is important. Medicines Take ichx-mqa-riaeipa and prescription medicines only as told by your doctor. Follow directions carefully. Do not skip doses of blood pressure medicine. The medicine does not work as well if you skip doses. Skipping doses also puts you at risk for problems. Ask your doctor about side effects or reactions to medicines that you should watch for. Contact a doctor if you: Think you are having a reaction to the medicine you are taking. Have headaches that keep coming back (recurring). Feel dizzy. Have swelling in your ankles. Have trouble with your vision. Get help right away if you: Get a very bad headache. Start to feel mixed up (confused). Feel weak or numb. Feel faint. Have very bad pain in your: ?Chest. ?Belly (abdomen). Throw up more than once. Have trouble breathing. Summary Hypertension is another name for high blood pressure. High blood pressure forces your heart to work harder to pump blood. For most people, a normal blood pressure is less than 120/80. Making healthy choices can help lower blood pressure. If your blood pressure does not get lower with healthy choices, you may need to take medicine. This information is not intended to replace advice given to you by your health care provider. Make sure you discuss any questions you have with your health care provider. Document Released: 08/07/2008 Document Revised: 10/30/2018 Document Reviewed: 10/30/2018 [employer] Patient Education 2020 [employer]. Follow Up Care 01/11/2022 11:18:36 With:COOKIE LIU, Tiarra Tate, MED Address: [facility] [address], [place] [address]- When:Within 3 Month(s) [facility] 01-11-2022 Hospital Discharge instructions Patient Education 01/11/2022 11:10:30 Hypertension, Adult, Ztoj-cw-Kigh Hypertension, Adult Hypertension is another name for high blood pressure. High blood pressure forces your heart to work harder to pump blood. This can cause problems over time. There are two numbers in a blood pressure reading. There is a top number (systolic) over a bottom number (diastolic). It is best to have a blood pressure that is below 120/80. Healthy choices can help lower your blood pressure, or you may need medicine to help lower it. What are the causes? The cause of this condition is not known. Some conditions may be related to high blood pressure. What increases the risk? Smoking. Having type 2 diabetes mellitus, high cholesterol, or both. Not getting enough exercise or physical activity. Being overweight. Having too much fat, sugar, calories, or salt (sodium) in your diet. Drinking too much alcohol. Having long-term (chronic) kidney disease. Having a family history of high blood pressure. Age. Risk increases with age. Race. You may be at higher risk if you are . Gender. Men are at higher risk than women before age 45. After age 65, women are at higher risk than men. Having obstructive sleep apnea. Stress. What are the signs or symptoms? High blood pressure may not cause symptoms. Very high blood pressure (hypertensive crisis) may cause: ?Headache. ?Feelings of worry or nervousness (anxiety). ?Shortness of breath. ?Nosebleed. ?A feeling of being sick to your stomach (nausea). ?Throwing up (vomiting). ?Changes in how you see. ?Very bad chest pain. ?Seizures. How is this treated? This condition is treated by making healthy lifestyle changes, such as: ?Eating healthy foods. ?Exercising more. ?Drinking less alcohol. Your health care provider may prescribe medicine if lifestyle changes are not enough to get your blood pressure under control, and if: ?Your top number is above 130. ?Your bottom number is above 80. Your personal target blood pressure may vary. Follow these instructions at home: Eating and drinking If told, follow the DASH eating plan. To follow this plan: ?Fill one half of your plate at each meal with fruits and vegetables. ?Fill one fourth of your plate at each meal with whole grains. Whole grains include whole-wheat pasta, brown rice, and whole-grain bread. ?Eat or drink low-fat dairy products, such as skim milk or low-fat yogurt. ?Fill one fourth of your plate at each meal with low-fat (lean) proteins. Low-fat proteins include fish, chicken without skin, eggs, beans, and tofu. ?Avoid fatty meat, cured and processed meat, or chicken with skin. ?Avoid pre-made or processed food. Eat less than 1,500 mg of salt each day. Do not drink alcohol if: ?Your doctor tells you not to drink. ?You are , may be , or are planning to become . If you drink alcohol: ?Limit how much you use to: ?0 1 drink a day for women. ?0 2 drinks a day for men. ?Be aware of how much alcohol is in your drink. In the [place] one drink equals one 12 oz bottle of beer (355 mL), one 5 oz glass of wine (148 mL), or one 1 oz glass of hard liquor (44 mL). Lifestyle Work with your doctor to stay at a healthy weight or to lose weight. Ask your doctor what the best weight is for you. Get at least 30 minutes of exercise most days of the week. This may include walking, swimming, or biking. Get at least 30 minutes of exercise that strengthens your muscles (resistance exercise) at least 3 days a week. This may include lifting weights or doing Pilates. Do not use any products that contain nicotine or tobacco, such as cigarettes, e-cigarettes, and chewing tobacco. If you need help quitting, ask your doctor. Check your blood pressure at home as told by your doctor. Keep all follow-up visits as told by your doctor. This is important. Medicines Take edkd-xww-beizqel and prescription medicines only as told by your doctor. Follow directions carefully. Do not skip doses of blood pressure medicine. The medicine does not work as well if you skip doses. Skipping doses also puts you at risk for problems. Ask your doctor about side effects or reactions to medicines that you should watch for. Contact a doctor if you: Think you are having a reaction to the medicine you are taking. Have headaches that keep coming back (recurring). Feel dizzy. Have swelling in your ankles. Have trouble with your vision. Get help right away if you: Get a very bad headache. Start to feel mixed up (confused). Feel weak or numb. Feel faint. Have very bad pain in your: ?Chest. ?Belly (abdomen). Throw up more than once. Have trouble breathing. Summary Hypertension is another name for high blood pressure. High blood pressure forces your heart to work harder to pump blood. For most people, a normal blood pressure is less than 120/80. Making healthy choices can help lower blood pressure. If your blood pressure does not get lower with healthy choices, you may need to take medicine. This information is not intended to replace advice given to you by your health care provider. Make sure you discuss any questions you have with your health care provider. Document Released: 08/07/2008 Document Revised: 10/30/2018 Document Reviewed: 10/30/2018 [employer] Patient Education 2020 [employer] Follow Up Care 09/13/2021 11:30:16 With:COOKIE LIU, Tiarra Tate, ERIKA Address: [facility] [address] [facility] [address] [place] [address]- When:Within 3 Month(s) [facility] 09-13-2021 Hospital Discharge instructions Patient Education 09/13/2021 11:21:57 Hypertension, Adult, Wesm-jq-Ufjm Hypertension, Adult Hypertension is another name for high blood pressure. High blood pressure forces your heart to work harder to pump blood. This can cause problems over time. There are two numbers in a blood pressure reading. There is a top number (systolic) over a bottom number (diastolic). It is best to have a blood pressure that is below 120/80. Healthy choices can help lower your blood pressure, or you may need medicine to help lower it. What are the causes? The cause of this condition is not known. Some conditions may be related to high blood pressure. What increases the risk? Smoking. Having type 2 diabetes mellitus, high cholesterol, or both. Not getting enough exercise or physical activity. Being overweight. Having too much fat, sugar, calories, or salt (sodium) in your diet. Drinking too much alcohol. Having long-term (chronic) kidney disease. Having a family history of high blood pressure. Age. Risk increases with age. Race. You may be at higher risk if you are . Gender. Men are at higher risk than women before age 45. After age 65, women are at higher risk than men. Having obstructive sleep apnea. Stress. What are the signs or symptoms? High blood pressure may not cause symptoms. Very high blood pressure (hypertensive crisis) may cause: ?Headache. ?Feelings of worry or nervousness (anxiety). ?Shortness of breath. ?Nosebleed. ?A feeling of being sick to your stomach (nausea). ?Throwing up (vomiting). ?Changes in how you see. ?Very bad chest pain. ?Seizures. How is this treated? This condition is treated by making healthy lifestyle changes, such as: ?Eating healthy foods. ?Exercising more. ?Drinking less alcohol. Your health care provider may prescribe medicine if lifestyle changes are not enough to get your blood pressure under control, and if: ?Your top number is above 130. ?Your bottom number is above 80. Your personal target blood pressure may vary. Follow these instructions at home: Eating and drinking If told, follow the DASH eating plan. To follow this plan: ?Fill one half of your plate at each meal with fruits and vegetables. ?Fill one fourth of your plate at each meal with whole grains. Whole grains include whole-wheat pasta, brown rice, and whole-grain bread. ?Eat or drink low-fat dairy products, such as skim milk or low-fat yogurt. ?Fill one fourth of your plate at each meal with low-fat (lean) proteins. Low-fat proteins include fish, chicken without skin, eggs, beans, and tofu. ?Avoid fatty meat, cured and processed meat, or chicken with skin. ?Avoid pre-made or processed food. Eat less than 1,500 mg of salt each day. Do not drink alcohol if: ?Your doctor tells you not to drink. ?You are , may be , or are planning to become . If you drink alcohol: ?Limit how much you use to: ?0 1 drink a day for women. ?0 2 drinks a day for men. ?Be aware of how much alcohol is in your drink. In the [place] one drink equals one 12 oz bottle of beer (355 mL), one 5 oz glass of wine (148 mL), or one 1 oz glass of hard liquor (44 mL). Lifestyle Work with your doctor to stay at a healthy weight or to lose weight. Ask your doctor what the best weight is for you. Get at least 30 minutes of exercise most days of the week. This may include walking, swimming, or biking. Get at least 30 minutes of exercise that strengthens your muscles (resistance exercise) at least 3 days a week. This may include lifting weights or doing Pilates. Do not use any products that contain nicotine or tobacco, such as cigarettes, e-cigarettes, and chewing tobacco. If you need help quitting, ask your doctor. Check your blood pressure at home as told by your doctor. Keep all follow-up visits as told by your doctor. This is important. Medicines Take jlds-nwt-yuwygrb and prescription medicines only as told by your doctor. Follow directions carefully. Do not skip doses of blood pressure medicine. The medicine does not work as well if you skip doses. Skipping doses also puts you at risk for problems. Ask your doctor about side effects or reactions to medicines that you should watch for. Contact a doctor if you: Think you are having a reaction to the medicine you are taking. Have headaches that keep coming back (recurring). Feel dizzy. Have swelling in your ankles. Have trouble with your vision. Get help right away if you: Get a very bad headache. Start to feel mixed up (confused). Feel weak or numb. Feel faint. Have very bad pain in your: ?Chest. ?Belly (abdomen). Throw up more than once. Have trouble breathing. Summary Hypertension is another name for high blood pressure. High blood pressure forces your heart to work harder to pump blood. For most people, a normal blood pressure is less than 120/80. Making healthy choices can help lower blood pressure. If your blood pressure does not get lower with healthy choices, you may need to take medicine. This information is not intended to replace advice given to you by your health care provider. Make sure you discuss any questions you have with your health care provider. Document Released: 08/07/2008 Document Revised: 10/30/2018 Document Reviewed: 10/30/2018 [employer] Patient Education 2020 [employer]. Follow Up Care 05/24/2021 12:23:59 With:COOKIE LIU, Tiarra Tate, MED Address: [facility] [address] [facility] [address] [place] [address]- When:Within 3 Month(s) [facility] 08-12-2021 Hospital Discharge instructions Patient Education 08/12/2021 09:50:43 Mammogram Mammogram A mammogram is a low energy X-ray of the breasts that is done to check for abnormal changes. This procedure can screen for and detect any changes that may indicate breast cancer. Mammograms are regularly done on women. A man may have a mammogram if he has a lump or swelling in his breast. A mammogram can also identify other changes and variations in the breast, such as: Inflammation of the breast tissue (mastitis). An infected area that contains a collection of pus (abscess). A fluid-filled sac (cyst). Fibrocystic changes. This is when breast tissue becomes denser, which can make the tissue feel rope-like or uneven under the skin. Tumors that are not cancerous (benign). Tell a health care provider: About any allergies you have. If you have breast implants. If you have had previous breast disease, biopsy, or surgery. If you are . If you are younger than age 25. If you have a family history of breast cancer. Whether you are or may be . What are the risks? Generally, this is a safe procedure. However, problems may occur, including: Exposure to radiation. Radiation levels are very low with this test. The results being misinterpreted. The need for further tests. The inability of the mammogram to detect certain cancers. What happens before the procedure? Schedule your test about 1 2 weeks after your menstrual period if you are still menstruating. This is usually when your breasts are the least tender. If you have had a mammogram done at a different facility in the past, get the mammogram X-rays or have them sent to your current exam facility. The new and old images will be compared. Wash your breasts and underarms on the day of the test. Do not wear deodorants, perfumes, lotions, or powders anywhere on your body on the day of the test. Remove any jewelry from your neck. Wear clothes that you can change into and out of easily. What happens during the procedure? You will undress from the waist up and put on a gown that opens in the front. You will roof cement and paint maker helper front of the X-ray machine. Each breast will be placed between two plastic or glass plates. The plates will compress your breast for a few seconds. Try to stay as relaxed as possible during the procedure. This does not cause any harm to your breasts and any discomfort you feel will be very brief. X-rays will be taken from different angles of each breast. The procedure may vary among health care providers and hospitals. What happens after the procedure? The mammogram will be examined by a specialist (radiologist). You may need to repeat certain parts of the test, depending on the quality of the images. This is commonly done if the radiologist needs a better view of the breast tissue. You may resume your normal activities. It is up to you to get the results of your procedure. Ask your health care provider, or the department that is doing the procedure, when your results will be ready. Summary A mammogram is a low energy X-ray of the breasts that is done to check for abnormal changes. A man may have a mammogram if he has a lump or swelling in his breast. If you have had a mammogram done at a different facility in the past, get the mammogram X-rays or have them sent to your current exam facility in order to compare them. Schedule your test about 1 2 weeks after your menstrual period if you are still menstruating. For this test, each breast will be placed between two plastic or glass plates. The plates will compress your breast for a few seconds. Ask when your test results will be ready. Make sure you get your test results. This information is not intended to replace advice given to you by your health care provider. Make sure you discuss any questions you have with your health care provider. Document Released: 02/16/2001 Document Revised: 10/10/2018 Document Reviewed: 10/10/2018 [employer] Patient Education 2020 [employer]. 08/12/2021 09:50:35 Osteopenia Osteopenia Osteopenia is a loss of thickness (density) inside of the bones. Another name for osteopenia is low bone mass. Mild osteopenia is a normal part of aging. It is not a disease, and it does not cause symptoms. However, if you have osteopenia and continue to lose bone mass, you could develop a condition that causes the bones to become thin and break more easily (osteoporosis). You may also lose some height, have back pain, and have a stooped posture. Although osteopenia is not a disease, making changes to your lifestyle and diet can help to prevent osteopenia from developing into osteoporosis. What are the causes? Osteopenia is caused by loss of calcium in the bones. Bones are constantly changing. Old bone cells are continually being replaced with new bone cells. This process builds new bone. The mineral calcium is needed to build new bone and maintain bone density. Bone density is usually highest around age 35. After that, most people's bodies cannot replace all the bone they have lost with new bone. What increases the risk? You are more likely to develop this condition if: You are older than age 50. You are a woman who went through menopause early. You have a long illness that keeps you in bed. You do not get enough exercise. You lack certain nutrients (malnutrition). You have an overactive thyroid gland (hyperthyroidism). You smoke. You drink a lot of alcohol. You are taking medicines that weaken the bones, such as steroids. What are the signs or symptoms? This condition does not cause any symptoms. You may have a slightly higher risk for bone breaks (fractures), so getting fractures more easily than normal may be an indication of osteopenia. How is this diagnosed? Your health care provider can diagnose this condition with a special type of X-ray exam that measures bone density (dual-energy X-ray absorptiometry, DEXA). This test can measure bone density in your hips, spine, and wrists. Osteopenia has no symptoms, so this condition is usually diagnosed after a routine bone density screening test is done for osteoporosis. This routine screening is usually done for: Women who are age 65 or older. Men who are age 70 or older. If you have risk factors for osteopenia, you may have the screening test at an earlier age. How is this treated? Making dietary and lifestyle changes can lower your risk for osteoporosis. If you have severe osteopenia that is close to becoming osteoporosis, your health care provider may prescribe medicines and dietary supplements such as calcium and vitamin D. These supplements help to rebuild bone density. Follow these instructions at home: Take yexz-[id number] and prescription medicines only as told by your health care provider. These include vitamins and supplements. Eat a diet that is high in calcium and vitamin D. ?Calcium is found in dairy products, beans, salmon, and leafy green vegetables like spinach and broccoli. ?Look for foods that have vitamin D and calcium added to them (fortified foods), such as orange juice, cereal, and bread. Do 30 or more minutes of a weight-bearing exercise every day, such as walking, jogging, or playing a sport. These types of exercises strengthen the bones. Take precautions at home to lower your risk of falling, such as: ?Keeping rooms well-lit and free of clutter, such as cords. ?Installing safety rails on stairs. ?Using rubber mats in the bathroom or other areas that are often wet or slippery. Do not use any products that contain nicotine or tobacco, such as cigarettes and e-cigarettes. If you need help quitting, ask your health care provider. Avoid alcohol or limit alcohol intake to no more than 1 drink a day for non women and 2 drinks a day for men. One drink equals 12 oz of beer, 5 oz of wine, or 1 oz of hard liquor. Keep all follow-up visits as told by your health care provider. This is important. Contact a health care provider if: You have not had a bone density screening for osteoporosis and you are: ?A woman, age 65 or older. ?A man, age 70 or older. You are a postmenopausal woman who has not had a bone density screening for osteoporosis. You are older than age 50 and you want to know if you should have bone density screening for osteoporosis. Summary Osteopenia is a loss of thickness (density) inside of the bones. Another name for osteopenia is low bone mass. Osteopenia is not a disease, but it may increase your risk for a condition that causes the bones to become thin and break more easily (osteoporosis). You may be at risk for osteopenia if you are older than age 50 or if you are a woman who went through early menopause. Osteopenia does not cause any symptoms, but it can be diagnosed with a bone density screening test. Dietary and lifestyle changes are the first treatment for osteopenia. These may lower your risk for osteoporosis. This information is not intended to replace advice given to you by your health care provider. Make sure you discuss any questions you have with your health care provider. Document Released: 11/28/2017 Document Revised: 02/01/2018 Document Reviewed: 11/28/2017 [employer] Patient Education 2020 [employer] 08/12/2021 09:50:30 High Cholesterol High Cholesterol High cholesterol is a condition in which the blood has high levels of a white, waxy, fat-like substance (cholesterol). The human body needs small amounts of cholesterol. The liver makes all the cholesterol that the body needs. Extra (excess) cholesterol comes from the food that we eat. Cholesterol is carried from the liver by the blood through the blood vessels. If you have high cholesterol, deposits (plaques) may build up on the henson of your blood vessels (arteries). Plaques make the arteries narrower and stiffer. Cholesterol plaques increase your risk for heart attack and stroke. Work with your health care provider to keep your cholesterol levels in a healthy range. What increases the risk? This condition is more likely to develop in people who: Eat foods that are high in animal fat (saturated fat) or cholesterol. Are overweight. Are not getting enough exercise. Have a family history of high cholesterol. What are the signs or symptoms? There are no symptoms of this condition. How is this diagnosed? This condition may be diagnosed from the results of a blood test. If you are older than age 20, your health care provider may check your cholesterol every 4 6 years. You may be checked more often if you already have high cholesterol or other risk factors for heart disease. The blood test for cholesterol measures: Bad cholesterol (LDL cholesterol). This is the main type of cholesterol that causes heart disease. The desired level for LDL is less than 100. Good cholesterol (HDL cholesterol). This type helps to protect against heart disease by cleaning the arteries and carrying the LDL away. The desired level for HDL is 60 or higher. Triglycerides. These are fats that the body can store or burn for energy. The desired number for triglycerides is lower than 150. Total cholesterol. This is a measure of the total amount of cholesterol in your blood, including LDL cholesterol, HDL cholesterol, and triglycerides. A healthy number is less than 200. How is this treated? This condition is treated with diet changes, lifestyle changes, and medicines. Diet changes This may include eating more whole grains, fruits, vegetables, nuts, and fish. This may also include cutting back on red meat and foods that have a lot of added sugar. Lifestyle changes Changes may include getting at least 40 minutes of aerobic exercise 3 times a week. Aerobic exercises include walking, biking, and swimming. Aerobic exercise along with a healthy diet can help you maintain a healthy weight. Changes may also include quitting smoking. Medicines Medicines are usually given if diet and lifestyle changes have failed to reduce your cholesterol to healthy levels. Your health care provider may prescribe a statin medicine. Statin medicines have been shown to reduce cholesterol, which can reduce the risk of heart disease. Follow these instructions at home: Eating and drinking If told by your health care provider: Eat chicken (without skin), fish, veal, shellfish, ground turkey breast, and round or loin cuts of red meat. Do not eat fried foods or fatty meats, such as hot dogs and salami. Eat plenty of fruits, such as apples. Eat plenty of vegetables, such as broccoli, potatoes, and carrots. Eat beans, peas, and lentils. Eat grains such as barley, rice, couscous, and bulgur wheat. Eat pasta without cream sauces. Use skim or nonfat milk, and eat low-fat or nonfat yogurt and cheeses. Do not eat or drink whole milk, cream, ice cream, egg yolks, or hard cheeses. Do not eat stick margarine or tub margarines that contain trans fats (also called partially hydrogenated oils). Do not eat saturated tropical oils, such as coconut oil and palm oil. Do not eat cakes, cookies, crackers, or other baked goods that contain trans fats. General instructions Exercise as directed by your health care provider. Increase your activity level with activities such as gardening, walking, and taking the stairs. Take cdwy-rzh-mrgkwcv and prescription medicines only as told by your health care provider. Do not use any products that contain nicotine or tobacco, such as cigarettes and e-cigarettes. If you need help quitting, ask your health care provider. Keep all follow-up visits as told by your health care provider. This is important. Contact a health care provider if: You are struggling to maintain a healthy diet or weight. You need help to start on an exercise program. You need help to stop smoking. Get help right away if: You have chest pain. You have trouble breathing. This information is not intended to replace advice given to you by your health care provider. Make sure you discuss any questions you have with your health care provider. Document Released: 02/19/2006 Document Revised: 02/22/2018 Document Reviewed: 08/19/2016 [employer] Patient Education 2020 [employer] 08/12/2021 09:50:29 High Triglycerides Eating Plan High Triglycerides Eating Plan Triglycerides are a type of fat in the blood. High levels of triglycerides can increase your risk of heart disease and stroke. If your triglyceride levels are high, choosing the right foods can help lower your triglycerides and keep your heart healthy. Work with your health care provider or a diet and retrieval specialist (dietitian) to develop an eating plan that is right for you. What are tips for following this plan? General guidelines Lose weight, if you are overweight. For most people, losing 5 10 lbs (2 5 kg) helps lower triglyceride levels. A weight-loss plan may include. ?30 minutes of exercise at least 5 days a week. ?Reducing the amount of calories, sugar, and fat you eat. Eat a wide variety of fresh fruits, vegetables, and whole grains. These foods are high in fiber. Eat foods that contain healthy fats, such as fatty fish, nuts, seeds, and olive oil. Avoid foods that are high in added sugar, added salt (sodium), saturated fat, and trans fat. Avoid low-fiber, refined carbohydrates such as white bread, crackers, noodles, and white rice. Avoid foods with partially hydrogenated oils (trans fats), such as fried foods or stick margarine. Limit alcohol intake to no more than 1 drink a day for non women and 2 drinks a day for men. One drink equals 12 oz of beer, 5 oz of wine, or 1 oz of hard liquor. Your health care provider may recommend that you drink less depending on your overall health. Reading food labels Check food labels for the amount of saturated fat. Choose foods with no or very little saturated fat. Check food labels for the amount of trans fat. Choose foods with no trans fat. Check food labels for the amount of cholesterol. Choose foods low in cholesterol. Ask your dietitian how much cholesterol you should have each day. Check food labels for the amount of sodium. Choose foods with less than 140 milligrams (mg) per serving. Shopping Buy dairy products labeled as nonfat (skim) or low-fat (1%). Avoid buying processed or prepackaged foods. These are often high in added sugar, sodium, and fat. Cooking Choose healthy fats when cooking, such as olive oil or canola oil. Cook foods using lower fat methods, such as baking, broiling, boiling, or grilling. Make your own sauces, dressings, and marinades when possible, instead of buying them. Store-bought sauces, dressings, and marinades are often high in sodium and sugar. Meal planning Eat more home-cooked food and less restaurant, buffet, and fast food. Eat fatty fish at least 2 times each week. Examples of fatty fish include salmon, trout, mackerel, tuna, and crisostomo. If you eat whole eggs, do not eat more than 3 egg yolks per week. What foods are recommended? The items listed may not be a complete list. Talk with your dietitian about what dietary choices are best for you. Grains Whole wheat or whole grain breads, crackers, cereals, and pasta. Unsweetened oatmeal. Bulgur. Barley. Quinoa. Brown rice. Whole wheat flour tortillas. Vegetables Fresh or frozen vegetables. Low-sodium canned vegetables. Fruits All fresh, canned (in natural juice), or frozen fruits. Meats and other protein foods Skinless chicken or turkey. Ground chicken or turkey. Lean cuts of pork, trimmed of fat. Fish and seafood, especially salmon, trout, and crisostomo. Egg whites. Dried beans, peas, or lentils. Unsalted nuts or seeds. Unsalted canned beans. Natural peanut or almond butter. Dairy Low-fat dairy products. Skim or low-fat (1%) milk. Reduced fat (2%) and low-sodium cheese. Low-fat ricotta cheese. Low-fat cottage cheese. Plain, low-fat yogurt. Fats and oils Tub margarine without trans fats. Light or reduced-fat mayonnaise. Light or reduced-fat salad dressings. Avocado. Safflower, olive, sunflower, soybean, and canola oils. What foods are not recommended? The items listed may not be a complete list. Talk with your dietitian about what dietary choices are best for you. Grains White bread. White (regular) pasta. White rice. Cornbread. Bagels. Pastries. Crackers that contain trans fat. Vegetables Creamed or fried vegetables. Vegetables in a cheese sauce. Fruits Sweetened dried fruit. Canned fruit in syrup. Fruit juice. Meats and other protein foods Fatty cuts of meat. Ribs. Chicken wings. Mancuso. Sausage. Bologna. Salami. Chitterlings. Fatback. Hot dogs. Bratwurst. Packaged lunch meats. Dairy Whole or reduced-fat (2%) milk. Jsyx-[id number]. Cream cheese. Full-fat or sweetened yogurt. Full-fat cheese. Nondairy creamers. Whipped toppings. Processed cheese or cheese spreads. Cheese curds. Beverages Alcohol. Sweetened drinks, such as soda, lemonade, fruit drinks, or punches. Fats and oils Butter. Stick margarine. Lard. Shortening. Ghee. Mancuso fat. Tropical oils, such as coconut, palm kernel, or palm oils. Sweets and desserts Keshena syrup. Sugars. Honey. Molasses. Candy. Jam and jelly. Syrup. Sweetened cereals. Cookies. Pies. Cakes. Donuts. Muffins. Ice cream. Condiments Store-bought sauces, dressings, and marinades that are high in sugar, such as ketchup and barbecue sauce. Summary High levels of triglycerides can increase the risk of heart disease and stroke. Choosing the right foods can help lower your triglycerides. Eat plenty of fresh fruits, vegetables, and whole grains. Choose low-fat dairy and lean meats. Eat fatty fish at least twice a week. Avoid processed and prepackaged foods with added sugar, sodium, saturated fat, and trans fat. If you need suggestions or have questions about what types of food are good for you, talk with your health care provider or a dietitian. This information is not intended to replace advice given to you by your health care provider. Make sure you discuss any questions you have with your health care provider. Document Released: 12/07/2004 Document Revised: 02/01/2018 Document Reviewed: 04/24/2017 [employer] Patient Education 2020 [employer] 08/12/2021 09:50:09 DASH Eating Plan DASH Eating Plan DASH stands for Dietary Approaches to Stop Hypertension. The DASH eating plan is a healthy eating plan that has been shown to reduce high blood pressure (hypertension). It may also reduce your risk for type 2 diabetes, heart disease, and stroke. The DASH eating plan may also help with weight loss. What are tips for following this plan? General guidelines Avoid eating more than 2,300 mg (milligrams) of salt (sodium) a day. If you have hypertension, you may need to reduce your sodium intake to 1,500 mg a day. Limit alcohol intake to no more than 1 drink a day for non women and 2 drinks a day for men. One drink equals 12 oz of beer, 5 oz of wine, or 1 oz of hard liquor. Work with your health care provider to maintain a healthy body weight or to lose weight. Ask what an ideal weight is for you. Get at least 30 minutes of exercise that causes your heart to beat faster (aerobic exercise) most days of the week. Activities may include walking, swimming, or biking. Work with your health care provider or diet and retrieval specialist (dietitian) to adjust your eating plan to your individual calorie needs. Reading food labels Check food labels for the amount of sodium per serving. Choose foods with less than 5 percent of the Daily Value of sodium. Generally, foods with less than 300 mg of sodium per serving fit into this eating plan. To find whole grains, look for the word whole as the first word in the ingredient list. Shopping Buy products labeled as low-sodium or no salt added. Buy fresh foods. Avoid canned foods and premade or frozen meals. Cooking Avoid adding salt when cooking. Use salt-free seasonings or herbs instead of table salt or sea salt. Check with your health care provider or pharmacist before using salt substitutes. Do not cassidy foods. Cook foods using healthy methods such as baking, boiling, grilling, and broiling instead. Cook with heart-healthy oils, such as olive, canola, soybean, or sunflower oil. Meal planning Eat a balanced diet that includes: ?5 or more servings of fruits and vegetables each day. At each meal, try to fill half of your plate with fruits and vegetables. ?Up to 6 8 servings of whole grains each day. ?Less than 6 oz of lean meat, poultry, or fish each day. A 3-oz serving of meat is about the same size as a deck of cards. One egg equals 1 oz. ?2 servings of low-fat dairy each day. ?A serving of nuts, seeds, or beans 5 times each week. ?Heart-healthy fats. Healthy fats called Malinta-3 fatty acids are found in foods such as flaxseeds and coldwater fish, like sardines, salmon, and mackerel. Limit how much you eat of the following: ?Canned or prepackaged foods. ?Food that is high in trans fat, such as fried foods. ?Food that is high in saturated fat, such as fatty meat. ?Sweets, desserts, sugary drinks, and other foods with added sugar. ?Full-fat dairy products. Do not salt foods before eating. Try to eat at least 2 vegetarian meals each week. Eat more home-cooked food and less restaurant, buffet, and fast food. When eating at a restaurant, ask that your food be prepared with less salt or no salt, if possible. What foods are recommended? The items listed may not be a complete list. Talk with your dietitian about what dietary choices are best for you. Grains Whole-grain or whole-wheat bread. Whole-grain or whole-wheat pasta. Brown rice. Oatmeal. Quinoa. Bulgur. Whole-grain and low-sodium cereals. Michelle bread. Low-fat, low-sodium crackers. Whole-wheat flour tortillas. Vegetables Fresh or frozen vegetables (raw, steamed, roasted, or grilled). Low-sodium or reduced-sodium tomato and vegetable juice. Low-sodium or reduced-sodium tomato sauce and tomato paste. Low-sodium or reduced-sodium canned vegetables. Fruits All fresh, dried, or frozen fruit. Canned fruit in natural juice (without added sugar). Meat and other protein foods Skinless chicken or turkey. Ground chicken or turkey. Pork with fat trimmed off. Fish and seafood. Egg whites. Dried beans, peas, or lentils. Unsalted nuts, nut butters, and seeds. Unsalted canned beans. Lean cuts of beef with fat trimmed off. Low-sodium, lean deli meat. Dairy Low-fat (1%) or fat-free (skim) milk. Fat-free, low-fat, or reduced-fat cheeses. Nonfat, low-sodium ricotta or cottage cheese. Low-fat or nonfat yogurt. Low-fat, low-sodium cheese. Fats and oils Soft margarine without trans fats. Vegetable oil. Low-fat, reduced-fat, or light mayonnaise and salad dressings (reduced-sodium). Canola, safflower, olive, soybean, and sunflower oils. Avocado. Seasoning and other foods Herbs. Spices. Seasoning mixes without salt. Unsalted popcorn and pretzels. Fat-free sweets. What foods are not recommended? The items listed may not be a complete list. Talk with your dietitian about what dietary choices are best for you. Grains Baked goods made with fat, such as croissants, muffins, or some breads. Dry pasta or rice meal packs. Vegetables Creamed or fried vegetables. Vegetables in a cheese sauce. Regular canned vegetables (not low-sodium or reduced-sodium). Regular canned tomato sauce and paste (not low-sodium or reduced-sodium). Regular tomato and vegetable juice (not low-sodium or reduced-sodium). Pickles. Olives. Fruits Canned fruit in a light or heavy syrup. Fried fruit. Fruit in cream or butter sauce. Meat and other protein foods Fatty cuts of meat. Ribs. Fried meat. Mancuso. Sausage. Bologna and other processed lunch meats. Salami. Fatback. Hotdogs. Bratwurst. Salted nuts and seeds. Canned beans with added salt. Canned or smoked fish. Whole eggs or egg yolks. Chicken or turkey with skin. Dairy Whole or 2% milk, cream, and [id number]. Whole or full-fat cream cheese. Whole-fat or sweetened yogurt. Full-fat cheese. Nondairy creamers. Whipped toppings. Processed cheese and cheese spreads. Fats and oils Butter. Stick margarine. Lard. Shortening. Ghee. Mancuso fat. Tropical oils, such as coconut, palm kernel, or palm oil. Seasoning and other foods Salted popcorn and pretzels. Onion salt, garlic salt, seasoned salt, table salt, and sea salt. Worcestershire sauce. Tartar sauce. Barbecue sauce. Teriyaki sauce. Soy sauce, including reduced-sodium. Steak sauce. Canned and packaged gravies. Fish sauce. Oyster sauce. Cocktail sauce. Horseradish that you find on the shelf. Ketchup. Mustard. Meat flavorings and tenderizers. Bouillon cubes. Hot sauce and Tabasco sauce. Premade or packaged marinades. Premade or packaged taco seasonings. Relishes. Regular salad dressings. Where to find more information: National Heart, Lung, and Blood [employer]: www.nhlbi.nih.gov [place] Heart Association: www.heart.org Summary The DASH eating plan is a healthy eating plan that has been shown to reduce high blood pressure (hypertension). It may also reduce your risk for type 2 diabetes, heart disease, and stroke. With the DASH eating plan, you should limit salt (sodium) intake to 2,300 mg a day. If you have hypertension, you may need to reduce your sodium intake to 1,500 mg a day. When on the DASH eating plan, aim to eat more fresh fruits and vegetables, whole grains, lean proteins, low-fat dairy, and heart-healthy fats. Work with your health care provider or diet and retrieval specialist (dietitian) to adjust your eating plan to your individual calorie needs. This information is not intended to replace advice given to you by your health care provider. Make sure you discuss any questions you have with your health care provider. Document Released: 02/08/2012 Document Revised: 02/01/2018 Document Reviewed: 02/12/2017 [employer] Patient Education 2020 [employer]. 08/12/2021 09:50:07 BMI for Adults BMI for Adults Body mass index (BMI) is a number that is calculated from a person's weight and height. BMI may help to estimate how much of a person's weight is composed of fat. BMI can help identify those who may be at higher risk for certain medical problems. How is BMI used with adults? BMI is used as a screening tool to identify possible weight problems. It is used to check whether a person is obese, overweight, healthy weight, or underweight. How is BMI calculated? BMI measures your weight and compares it to your height. This can be done either in [place] or metric measurements. Note that charts are available to help you find your BMI quickly and easily without having to do these calculations yourself. To calculate your BMI in [place] measurements, your health care provider will: 1.Measure your weight in pounds (lb). 2.Multiply the number of pounds by 703. For example, for a person who weighs 180 lb, multiply that number by 703, which equals 126,540. 3.Measure your height in inches (in). Then multiply that number by itself to get a measurement called inches squared. For example, for a person who is 70 in tall, the inches squared measurement is 70 in x 70 in, which equals 4900 inches squared. 4.Divide the total from Step 2 (number of lb x 703) by the total from Step 3 (inches squared): 126,540 4900 = 25.8. This is your BMI. To calculate your BMI in metric measurements, your health care provider will: 1.Measure your weight in kilograms (kg). 2.Measure your height in meters (m). Then multiply that number by itself to get a measurement called meters squared. For example, for a person who is 1.75 m tall, the meters squared measurement is 1.75 m x 1.75 m, which is equal to 3.1 meters squared. 3.Divide the number of kilograms (your weight) by the meters squared number. In this example: 70 3.1 = 22.6. This is your BMI. How is BMI interpreted? To interpret your results, your health care provider will use BMI charts to identify whether you are underweight, normal weight, overweight, or obese. The following guidelines will be used: Underweight: BMI less than 18.5. Normal weight: BMI between 18.5 and 24.9. Overweight: BMI between 25 and 29.9. Obese: BMI of 30 and above. Please note: Weight includes both fat and muscle, so someone with a muscular build, such as an athlete, may have a BMI that is higher than 24.9. In cases like these, BMI is not an accurate measure of body fat. To determine if excess body fat is the cause of a BMI of 25 or higher, further assessments may need to be done by a health care provider. BMI is usually interpreted in the same way for men and women. Why is BMI a useful tool? BMI is useful in two ways: Identifying a weight problem that may be related to a medical condition, or that may increase the risk for medical problems. Promoting lifestyle and diet changes in order to reach a healthy weight. Summary Body mass index (BMI) is a number that is calculated from a person's weight and height. BMI may help to estimate how much of a person's weight is composed of fat. BMI can help identify those who may be at higher risk for certain medical problems. BMI can be measured using [place] measurements or metric measurements. To interpret your results, your health care provider will use BMI charts to identify whether you are underweight, normal weight, overweight, or obese. This information is not intended to replace advice given to you by your health care provider. Make sure you discuss any questions you have with your health care provider. Document Released: 10/31/2004 Document Revised: 02/01/2018 Document Reviewed: 01/02/2018 [employer] Patient Education [employer]. [facility] Primary Care Evaluation + Plan note Future Appointments Appointment Date:08/12/2021 09:30:00 AM Scheduled Provider: Location:[facility] Appointment Type:FM Medicare Wellness Subsequent Appointment Date:09/13/2021 11:00:00 AM Scheduled Provider:Tiarra GARY MD Location:[facility] Appointment Type:FM Open Appointment Date:12/01/2021 01:30:00 PM Scheduled Provider:Radha ESPITIA CNP [facility] Type:Cardiology Follow Up ([facility]) Future Scheduled TestsLipid Panel 05/04/21Lipid Panel 06/27/21 [facility] Evaluation + Plan note Future Appointments Appointment Date:09/13/2021 11:00:00 AM Scheduled Provider:Tiarra GARY MD Location:[facility] Appointment Type:FM Open Appointment Date:12/01/2021 01:30:00 PM Scheduled Provider:Radha ESPITIA CNP [facility] Appointment Type:Cardiology Follow Up (FT) Appointment Date:08/04/2022 09:30:00 AM Scheduled Provider: Location:[facility] Appointment Type:FM Medicare Wellness Subsequent Future Scheduled TestsLipid Panel 05/04/Lipid Panel 06/27/21BD Bone Density DEXA 08/12/21MA Mamm Screen w/CAD if perf and 3D Kalyan 08/12/21 [facility] Primary Care Evaluation + Plan note Future Appointments Appointment Date:12/01/2021 01:30:00 PM Scheduled Provider:Radha ESPITIA CNP [facility] Appointment Type:Cardiology Follow Up (FT) Appointment Date:12/26/2021 03:20:00 PM Scheduled Provider:Tiarra GARY MD Location:[facility] Appointment Type: Open Appointment Date:08/04/2022 09:30:00 AM Scheduled Provider: Location:[facility] Appointment Type: Medicare Wellness Subsequent Future Scheduled [id number] 7CBC w/ Auto Diff 09/13/21Comprehensive Metabolic Panel 7/22Lipid Panel 3/2/22Lipid Panel 7/02/23Lipid Panel 4/22BD Bone Density DEXA 08/12/21MA Mamm Screen w/CAD if perf and 3D Kalyan 08/12/21 [facility] Evaluation + Plan note Future Appointments Appointment Date:04/11/2022 02:00:00 PM Scheduled Provider:Tiarra GARY MD Location:[facility] Appointment Type: Open Appointment Date:08/04/2022 09:30:00 AM Scheduled Provider: Location:[facility] Appointment Type: Medicare Wellness Subsequent Future Scheduled [id number] 09/13/21CBC w/ Auto Diff 09/13/21Comprehensive Metabolic Panel 7/22Lipid Panel 3/2/22Lipid Panel 7/02/23Lipid Panel 4BD Bone Density DEXA 08/12/21MA Mamm Screen w/CAD if perf and 3D Kalyan 08/12/21 [facility] Primary Care Evaluation + Plan note Future Appointments Appointment Date:04/11/2022 02:00:00 PM Scheduled Provider:Tiarra GARY MD Location:[facility] Appointment Type: Open Appointment Date:08/04/2022 09:30:00 AM Scheduled Provider: Location:[facility] Appointment Type: Medicare Wellness Subsequent Future Scheduled TestsLipid Panel 3/2/22Lipid Panel 4//22BD Bone Density DEXA 08/12/21MA Mamm Screen w/CAD if perf and 3D Kalyan 08/12/21 [facility] Evaluation + Plan note Future Appointments Appointment Date:07/17/2022 03:20:00 PM Scheduled Provider:Tiarra GARY MD Location:[facility] Appointment Type: Open Appointment Date:08/04/2022 09:30:00 AM Scheduled Provider: Location:[facility] Appointment Type: Medicare Wellness Subsequent Future Scheduled [id number] 04/11/22PTH Intact 04/11/22Urinalysis 04/11/22Vitamin D 25 Hydroxy 04/11/22CBC w/ Auto Diff 04/11/22Comprehensive Metabolic Panel 04/11/22Lipid Panel 05/04/21Lipid Panel 06/27/21Lipid Panel 04/11/22Phosphorus Level 04/11/22BD Bone Density DEXA 08/12/21MA Mamm Screen w/CAD if perf and 3D Kalyan 08/12/21 [facility] Evaluation + Plan note Future Appointments Appointment Date:08/04/2022 09:30:00 AM Scheduled Provider: Location:[facility] Appointment Type: Medicare Wellness Subsequent Appointment Date:10/24/2022 02:40:00 PM Scheduled Provider:Tiarra GARY MD Location:[facility] Appointment Type: Open Future Scheduled TestsComprehensive Metabolic Panel 07/17/22BD Bone Density DEXA 08/12/21MA Mamm Screen w/CAD if perf and 3D Kalyan 08/12/21 [facility] Primary Care Evaluation + Plan note Future Appointments Appointment Date:10/24/2022 02:40:00 PM Scheduled Provider:Tiarra GARY MD Location:[facility] Appointment Type: Open Future Scheduled TestsComprehensive Metabolic Panel 07/17/22 [facility] Evaluation + Plan note Future Appointments Appointment Date:10/24/2022 02:40:00 PM Scheduled Provider:Tiarra GARY MD Location:[facility] Appointment Type:FM Open Appointment Date:11/29/2022 09:30:00 AM Scheduled Provider: Location:[facility] Appointment Type: Medicare Wellness Subsequent [facility] Evaluation + Plan note Future Appointments Appointment Date:11/29/2022 09:30:00 AM Scheduled Provider: Location:[facility] Appointment Type: Medicare Wellness Subsequent Appointment Date:02/15/2023 08:40:00 AM Scheduled Provider:Tiarra GARY MD Location:[facility] Appointment Type: Open Future Scheduled TestsVitamin D 25 Hydroxy 822/23CBC w/ Auto Diff 10/24/22Comprehensive Metabolic Panel 10/24/22 [facility] Evaluation + Plan note Future Appointments Appointment Date:02/20/2023 03:40:00 PM Scheduled Provider:Deidra Garcia MD Location:[facility] Appointment Type: ER/Hospital Follow Up Appointment Date:08/23/2023 08:00:00 AM Scheduled Provider:Deidra Garcia MD Location:[facility] Appointment Type: Open Appointment Date:02/19/2024 11:00:00 AM Scheduled Provider: Location:[facility] Appointment Type: Medicare Wellness Subsequent Future Scheduled TestsVitamin D 25 Hydroxy 02/15/23Vitamin D 25 Hydroxy 8/22/23CBC w/ Auto Diff 10/24/22Comprehensive Metabolic Panel 02/15/23Comprehensive Metabolic Panel 10/24/22 [facility] Evaluation + Plan note Future Appointments Appointment Date:08/23/2023 10:15:00 AM Scheduled Provider:Deidra Garcia MD Location:[facility] Appointment Type: Open Appointment Date:02/19/2024 11:00:00 AM Scheduled Provider: Location:[facility] Appointment Type:FM Medicare Wellness Subsequent Future Scheduled TestsVitamin D 25 Hydroxy 02/15/23Vitamin D 25 Hydroxy 8/22/23CBC w/ Auto Diff 10/24/Comprehensive Metabolic Panel 02/15/23Comprehensive Metabolic Panel 10/24/22 [facility] Hospital course Narrative No data available for this section [facility] Hospital Discharge instructions No data available for this section [facility] Progress note No data available for this section [facility] Reason for referral (narrative) Referred by: Tiarra GARY MD [facility] Reason for referral (narrative) , Pt has seen Dr. Reece in the past for hip pain/arthritis Referred by: Milton NUNES, Adrien Salinas [facility] Summary Purpose Family History No Family History Records Found No data available for this section No data available for this section No Family History Records FoundNo Family History Records Found Advance Directives No Advanced Directives Records FoundNo Advanced Directives Records FoundNo Advanced Directives Records Found Additional Source Comments INFORMATION SOURCE (unrecogn ized section and content) DATE CREATED AUTHOR 01/17/2021 [facility] DATE CREATED AUTHOR AUTHOR'S ORGANIZ ATION 05/24/2023 [facility] EPIC DATE CREATED AUTHOR AUTHOR'S ORGANIZ ATION 10/04/2023 [facility] Care Team (unrecognized sect ion and content) Personnel Name: Tiarra GARY MD Address[address] Personnel Name: Tiarra GARY MD Address: Address: [place] [address], [address] Personnel Name: Tiarra GARY MD Address: Address: [place] [address] Personnel Name: Tiarra GARY MD Address: [facility] [place] [address] [facility] [address] Personnel Name: Tiarra GARY MD Address: Address[facility] [place] [address] [facility] [address] Personnel Name: Tiarra GARY MD Address: Address: [place] [address], [facility] A [address] Personnel Name: Tiarra GARY MD Address: Address: [place] [address], [facility] A [address] Personnel Name: Tiarra GARY MD Address: Address: [place] [address], [facility] A [address] Personnel Name: Tiarra GARY MD Address: Address: [address] Personnel Name: Deidra Garcia MD Address: Address: [facility] [place], [place] [address] Personnel Name: Deidra Garcia MD Address: Address[facility] FOR RECORDS PERTAINING TO PATIENTS WHO ARE OR HAVE BEEN ENROLLED IN A CHEMICAL DEPENDENCY/SUBSTANCEABUSE PROGRAM, SOME INFORMATION MAY BE OMITTED. This clinical summary was aggregated from multiple sources. Caution should be exercised in using it in the provision of clinical care. This summary normalizes information from multiple sources, and as a consequence, information in this document may materially change the coding, format and clinical context of patient data. In addition, data may be omitted in some cases. CLINICAL DECISIONS SHOULD BE BASED ON THE PRIMARY CLINICAL RECORDS. [facility] [employer] [facility]. provides no warranty or guarantee of the accuracy or completeness of information in this document.
--- NOTE | 2023-10-08 07:16 | ED_ITS ---
HPI HPI - General Adult General Chief complaint: Extremity Problem, Nontraumatic Stated complaint: RT HAND FINGER SWELLING Time Seen by Provider: 10/08/23 07:01 Source: patient Mode of arrival: walk-in History of Present Illness HPI narrative: 78-year-old female to the emergency department chief complaint of infection in her third digit on the right hand. Patient reports she gets her nails done every 6 weeks. She got them done approximately 2 weeks ago. After that she noticed some pain and some swelling in the lateral nail fold. She reports no discharge. She now has a small growth in the nail fold which is painful and occasionally bleeds. Related Data Home Medications ?Medication ?Instructions ?Recorded ?Confirmed amlodipine 5 mg tablet 5 mg PO DAILY 10/08/23 10/08/23 losartan 100 mg tablet 100 mg PO DAILY 10/08/23 10/08/23 meloxicam 7.5 mg tablet 7.5 mg PO DAILY 10/08/23 10/08/23 metoprolol succinate 25 mg 25 mg PO Q12H 10/08/23 10/08/23 tablet,extended release 24 hr Previous Rx's ?Medication ?Instructions ?Recorded doxycycline monohydrate 100 mg 100 mg PO BID 7 days #14 caps 10/08/23 capsule Allergies Allergy/AdvReac Type Severity Reaction Status Date / Time Latex, Natural Rubber AdvReac Severe Rash Verified 10/08/23 06:52 Penicillins AdvReac Severe Anaphylaxis Verified 10/08/23 06:51 Sulfa (Sulfonamide AdvReac Severe UNKNOWN Verified 10/08/23 06:52 Antibiotics) Opioid HPI Opioid Management Most Recent Opioid Data: No Data to Display Review of Systems ROS Status of ROS 10 or more systems reviewed and unremark able except as noted in history and below Exam Narrative Exam Narrative: VITALS: I have reviewed the triage vital signs. GENERAL: Well developed, well appearing adult in no acute distress. NEURO: Alert and oriented. Moves all extremities. Face is symmetric and expressive. Right hand: Skin is similar color and temperature to contralateral extremity. Radial pulses intact. The lateral fold of the fourth digit has a small pyogenic granuloma. There is no swelling about the finger otherwise, redness or warmth. There is no discrete abscess paronychia or felon appreciated. She does have an artificial nail in place SKIN: Warm and dry. Normal turgor. No rash or lesions appreciated. PSYCH: Mood, affect, and interaction is appropriate to the setting. Constitutional Vital Signs, click to edit/add: Last Vital Signs Temp 98.3 F 10/08/23 06:48 Pulse 85 10/08/23 06:48 Resp 16 10/08/23 06:48 BP 158/71 H 10/08/23 06:48 Pulse Ox 97 10/08/23 06:48 O2 Del Method Room Air 10/08/23 06:48 Course Vital Signs Vital signs: Vital Signs Temperature 98.3 F 10/08/23 06:48 Pulse Rate 85 10/08/23 06:48 Respiratory Rate 16 10/08/23 06:48 Blood Pressure 158/71 H 10/08/23 06:48 Pulse Oximetry 97 10/08/23 06:48 Oxygen Delivery Method Room Air 10/08/23 06:48 Temperature 98.3 F 10/08/23 06:48 Pulse Rate 85 10/08/23 06:48 Respiratory Rate 16 10/08/23 06:48 Blood Pressure 158/71 H 10/08/23 06:48 Pulse Oximetry 97 10/08/23 06:48 Oxygen Delivery Method Room Air 10/08/23 06:48 Medical Decision Making MDM Narrative Medical decision making narrative: 78-year-old female to the emergency department chief complaint of nail fold lesion. She has pyogenic granuloma, likely reactive to a subacute or chronic infectious process; complication of manicure. Patient reports that she has many allergies but does not keep a list with her. After review of what she can remember we will choose doxycycline. She is given a follow-up with a hand surgeon to excise the pyogenic granuloma. Return precautions were discussed. All questions were answered. The patient was discharged home. Medical Records Medical records reviewed: Yes I reviewed the patient's medical records Discharge Plan Discharge Stand Alone Forms: Portal Instructions Chief Complaint: Extremity Problem, Nontraumatic Clinical Impression: Granuloma, pyogenic Patient Disposition: Home, Self-Care Time of Disposition Decision: 07:12 Condition: Good Mode of Transportation: Private Vehicle Prescriptions / Home Meds: New doxycycline monohydrate 100 mg capsule 100 mg PO BID 7 Days Qty: 14 0RF No Action amlodipine 5 mg tablet 5 mg PO DAILY meloxicam 7.5 mg tablet 7.5 mg PO DAILY metoprolol succinate 25 mg tablet extended release 24 hr 25 mg PO Q12H losartan 100 mg tablet 100 mg PO DAILY Print Language: Armenian Instructions: Janeth (ED) Additional Instructions: Call the office of your primary care doctor to arrange for follow-up within the above-stated timeframe. Your ED visit was focused on your acute issue and does not replace primary care. You should review your labs, imaging, and diagnoses from this ED visit with your primary care physician. There may be non-emergent/ incidental findings that need further evaluation. You should review your vital signs including blood pressure with your PCP. If you were prescribed medications you should discuss possible side-effects and drug interactions with your pharmacist. Call 911 or go to the nearest Emergency Department if you develop any new or worsening symptoms. Referrals: CHERELLE HUNG [Physician] - 1 week (hand surgeon for evaluation of nail fold pyogenic granuloma) DEIDRA GARCIA [Primary Care Provider] - 1 week
== END 2023-10-08 07:21 | disposition home or self-care (01) ==
PROVIDERS: Emergency Provider Student in an Organized Health Care Education/Training Program; PCP Family Medicine
DX: L98.0 Pyogenic granuloma (principal)
CPT/HCPCS: 99283

== ENCOUNTER 2024-02-09 07:10 | Emergency (ER) | payer MEDICARE, SELFPAY ==
[2024-02-09 07:14] VITALS: BP 152/88; PULSE 100; TEMP 36.7; O2SAT 97; BMI 28.3
--- NOTE | 2024-02-09 07:24 | XR_ITS ---
The [address] [address] Patient Name: HARJIT HART MRN: [id number] date: 1945 Sex: F Assigned Patient Location: ER Current Patient Location: Accession/Order Number: [id number] Exam Date: 02/09/2024 07:45 Report Date: 02/09/2024 08:49 At the request of: MARIAH ANGELO Procedure: XR chest 1V EXAMINATION: XR chest 1V REASON FOR EXAM: Cough, shortness of breath. COMPARISON: 06/09/2016. TECHNIQUE: Single projection. FINDINGS: Heart size and mediastinal contours are stable and within normal limits. There is atherosclerotic calcification of thoracic aortic arch. No pneumothorax, edema, focal infiltrate or pleural effusion. XR/XR chest 1V IMPRESSION: No acute or focal cardiopulmonary findings. Electronically authenticated by: SHONNA OCAMPO Date: 02/09/2024 08:49
[2024-02-09 07:35] VITALS: O2SAT 95
--- NOTE | 2024-02-09 07:40 | ED_ITS ---
HPI - URI/Sore Throat General Chief Complaint: Upper Respiratory Infection Stated Complaint: URTI COMPLAINTS Time Seen by Provider: 02/09/24 07:17 History of Present Illness HPI Narrative: 79-year-old female presents to the emergency department for a 6-day history of cough. She has been coughing up a small amount of yellow phlegm. No known fever and no hemoptysis. She was not getting better and it got worse in the last 2 days so she came in here. She quit smoking 40 years ago and has no history of asthma or COPD. Related Data Home Medications ?Medication ?Instructions ?Recorded ?Confirmed amlodipine 5 mg tablet 5 mg PO DAILY 10/08/23 10/08/23 losartan 100 mg tablet 100 mg PO DAILY 10/08/23 10/08/23 meloxicam 7.5 mg tablet 7.5 mg PO DAILY 10/08/23 10/08/23 metoprolol succinate 25 mg 25 mg PO Q12H 10/08/23 10/08/23 tablet,extended release 24 hr Previous Rx's ?Medication ?Instructions ?Recorded doxycycline monohydrate 100 mg 100 mg PO BID 7 days #14 caps 10/08/23 capsule azithromycin 250 mg tablet See Rx Instructions PO .COMPLEX #6 02/09/24 (Zithromax Z-Amos) tabs benzonatate 100 mg capsule 100 mg PO TID PRN cough #20 caps 02/09/24 Allergies Allergy/AdvReac Type Severity Reaction Status Date / Time Latex, Natural Rubber AdvReac Severe Rash Verified 02/09/24 07:18 Penicillins AdvReac Severe Anaphylaxis Verified 02/09/24 07:18 Sulfa (Sulfonamide AdvReac Severe UNKNOWN Verified 02/09/24 07:18 Antibiotics) Review of Systems ROS Narrative A ten point review of systems is negative except as noted above. PFSH PFSH Social History Little interest or pleasure in doing things: not at all Feeling down, depressed, or hopeless: not at all Exam Narrative Exam Narrative: Nurses note and vital signs reviewed and patient is not hypoxic. General: The patient appears well and in no apparent distress. Patient is resting comfortably on cart. Skin: Warm, dry, no pallor noted. There is no rash noted. Head: Normocephalic, atraumatic Eye: Normal conjunctiva, no drainage Ears, Nose, Mouth, and Throat: oral mucosa is moist. Nares patent. Cardiovascular: Regular Rate and Rhythm Respiratory: Patient is in no distress, no accessory muscle use, lungs are clear to auscultation, no wheezing, rales or rhonchi. Good air movement present Back: non-tender GI: Soft and nontender Musculoskeletal: The patient has no evidence of calf tenderness, no pitting edema, symmetrical pulses noted bilaterally Neurological: A&O, normal speech Psychiatric: Cooperative Constitutional Vital Signs, click to edit/add: Last Vital Signs Temp 98.1 F 02/09/24 07:14 Pulse 100 H 02/09/24 07:14 Resp 20 02/09/24 07:14 BP 152/88 H 02/09/24 07:14 Pulse Ox 95 02/09/24 07:35 O2 Del Method Room Air 02/09/24 07:35 Course Vital Signs Vital signs: Vital Signs Temperature 98.1 F 02/09/24 07:14 Pulse Rate 100 H 02/09/24 07:14 Respiratory Rate 20 02/09/24 07:14 Blood Pressure 152/88 H 02/09/24 07:14 Pulse Oximetry 97 02/09/24 07:14 Oxygen Delivery Method Room Air 02/09/24 07:14 Temperature 98.1 F 02/09/24 07:14 Pulse Rate 100 H 02/09/24 07:14 Respiratory Rate 20 02/09/24 07:14 Blood Pressure 152/88 H 02/09/24 07:14 Pulse Oximetry 95 02/09/24 07:35 Oxygen Delivery Method Room Air 02/09/24 07:35 MDM - URI/Sore Throat MDM Narrative Medical decision making narrative: Chest x-ray, COVID, and influenza test are negative. She is prescribed Z ithromax and Tessalon. Treatment diagnosis and follow-up were discussed with the patient. This patient is at risk for pneumonia. Differential Diagnosis Differential diagnosis: Likely upper respiratory infection, viral infection, influenza and other (COVID, pneumonia) Lab Data Attestation: I reviewed the patient's lab results. Labs: Lab Results 02/09/24 Range/Units 07:30 Influenza Type A Ag Negative Influenza Type B Ag Negative SARS-CoV-2 Ag (CV2AG) Negative (NEGATIVE) Imaging Data Chest x-ray: Radiologist's impression: ITS Impressions Chest X-Ray 02/09/24 07:24 IMPRESSION: No acute or focal cardiopulmonary findings Electronically authenticated by: SHONNA OCAMPO Date: 02/09/2024 08:22 Discharge Plan Discharge Chief Complaint: Upper Respiratory Infection Clinical Impression: Upper respiratory infection Patient Disposition: Home, Self-Care Time of Disposition Decision: 08:30 Condition: Good Mode of Transportation: Private Vehicle Prescriptions / Home Meds: New azithromycin [Zithromax Z-Amos] 250 mg tablet See Rx Instructions .ROUTE .COMPLEX Qty: 6 0RF Rx Instructions: For 250 mg dose pack: take 500 mg today (day 1), then 250 mg for 4 days (days 2-5) benzonatate 100 mg capsule 100 mg PO TID PRN (Reason: cough) Qty: 20 0RF No Action amlodipine 5 mg tablet 5 mg PO DAILY meloxicam 7.5 mg tablet 7.5 mg PO DAILY metoprolol succinate 25 mg tablet extended release 24 hr 25 mg PO Q12H losartan 100 mg tablet 100 mg PO DAILY doxycycline monohydrate 100 mg capsule 100 mg PO BID 7 Days Qty: 14 0RF Print Language: Mongolian Instructions: Upper Respiratory Infection (ED) Referrals: DEIDRA GARCIA [Primary Care Provider] - 1 week
[2024-02-09 08:20] LABS: Influenza Virus A Antigen Negative; Influenza Virus B Antigen Negative; Internal Control Within Normal Limits; SARS-CoV-2 Ag NEGATIVE (NEGATIVE)
== END 2024-02-09 08:40 | disposition home or self-care (01) ==
PROVIDERS: Emergency Provider Emergency Medicine; PCP Family Medicine
DX: J06.9 Acute upper respiratory infection, unspecified (principal); Z87.891 Personal history of nicotine dependence
CPT/HCPCS: 71045; 87804; 87811; 99284

== ENCOUNTER 2025-03-02 12:18 | Outpatient (OUT) | payer MEDICARE, SELFPAY ==
--- OUTSIDE RECORDS SUMMARY | 2025-03-02 12:23 | XMS_ITS | Continuity of Care Document ---
Author Organization [facility] Address [address] [place] [address] Phone [phone] Problems Active Problems Provider Date Hypertensive heart and chron ic kidney disease without heart failure, with stage 1 through stage 4 chronic kidney disease, or unspecified chronic kidney disease Ananda Samaniego MD Onset: 09/19/2017 Chronic kidney disease stage 3 Ananda Samaniego MD Onset: 09/19/2017 Acquired renal cystic disease Ananda Samaniego MD O nset: 03/08/2018 Chronic kidney disease stage 3A Fabiola Montgomery Onset: 07/19/2021 Family History Date Family Member(s) Observation Comments Father Hypertension Father due to GA ( ) Father 69 Father Hyperlipidemia Father Heart Disease Mother due to CVA,GA (Dece ased) Mother Hypertension Mother 78 Mother CVA - Cerebrovas cular Accident Due To Cerebral Artery Occlusion Social History Type Date Description Comments Sex Female Occupation Retired ETOH Use Denies alcohol use Tobacco Use Start: Unknown End: Unknown Patient is a former smoker Recreational Drug Use Denies Drug Use Smoking Status Reviewed: 05/26/24 Patient is a former smoker Results Test Acquired Date Facility Test Result H/L Range N ote .Hemoglobin And Hematocrit 02/18/2025 [facility] [address] [place] [address] [phone].Hemoglobin Blood14.6.Mcnhgmvwaz22.6.Urine Protein/Creat. Random 02/18/2025[facility] [phone].Urine Protein Qfzaoq44.7.Urine Creatinine Jcptfs22.8.Urine Prot/Creat Ratio12.60.Renal Panel-lab moo/quest02/18/2025[facility] [address] [place] [address] [phone].Albumin4.4.Calcium9.6.Carbon Itsmpuk61.Rwuonjyi142.Phosphorus3.0 .Potassium4.4.Lqbcsr877.BUN20.OPH11Bgfy66.Creatinine-LC1.2.Chgzdflxz64/17/[address] [address] [phone].Magnesium2.3.Hemoglobin And Lnfffqrxyi63/22/2025[address] [address]22 [phone].Hemoglobin Blood14.1.Vopxcbxzrc37.0.Sowoxjqzd93/22/20[address] [address] [phone].Magnesium2.2.Renal Panel (FT)10/24/20[address] [address] [phone].Albumin4.1.Calcium9.2.Ujxxlfxq547.Jekali542.Potassium4.5Carbon Dioxide-Unspec Boxb84Ednorqqoch QN Serum/Plasma4.0BUN - Urea Nitrogen Mol/Vol26 .Creatinine-LC1.4Urine Protein+Creatinine W/Rat10/24/20[address] [address] [phone] Protein Random W/O Creat5.3Urine Creatine QN Smtbwk39.6 .Otbyldsvz98/12/[address] [address] [phone].Magnesium2.2.Renal Panel-lab moo/quest05/14/20[address] [address] [phone].Albumin4.3.Calcium9.4.Carbon Txmxphr13.Ammbvrus402.Phosphorus3.2 .Potassium4.6.Pjztmg020.BUN26.GFR Tckixipja82Ohcn47.Creatinine-LC1.3.Urine Protein/Creat. Vmqmiy7705/14/20[address] [address] [phone].Urine Protein Random4.6.Urine Creatinine Qmuhhu96.4.Urine Prot/Creat Ratio9.90.Urine Protein/Creat. Zxosva4311/08/2023[facility] [phone].Urine Protein Random6.7.Urine Creatinine Wneiub50.3.Urine Prot/Creat Ratio12.80.Ua11/08/2023[facility] [phone] AppearanceclearUa Bilirubin-Ua Blood-Ua Colorlt yellowUa Glucose-Ua Ketones-Ua Leuko-Ua Nitrite-Ua PH Test Strip6.0Ua Protein-Ua Source clean catchUa Specific Gravity1.014Ua Urobilinogen-.Hemoglobin And Hematocrit 11/08/2023[facility] [phone].Hemoglobin Blood13.0.Uicciijnmt64.4.Renal Panel11/08/2023[facility] [phone].Albumin4.0.Calcium9.4.Carbon Qrqwjqm36.Lgclyqbg577.Phosphorus3.2 .Potassium4.4.Xkcxte784.BUN27.GFR Pilqssmge84.Creatinine-LC1.2.Renal Panel 05/01/20[address] [address] [phone].Albumin4.1.Calcium9.8.Carbon Mlcamgo05.Dfruehkd915.Phosphorus3.3 .Potassium4.8.Wcumne088.BUN21.Creatinine-LC1.2.GFR Hnrpwmcgx73Clfw72.Renal Panel 06/20/[address] [address] [phone].Albumin3.9.Calcium9.3.Carbon Unixzok97.Rualcrwd745.Phosphorus3.2 .Potassium4.4.Qixcdm769.BUN19.Creatinine-LC1.2.GFR Urrvwhwpk19Egvt79.Renal Panel 07/14/202[address] [address] [phone].Albumin3.7.Calcium9.1.Carbon Lvpwxze76.Nwpmaing426.Phosphorus3.3 .Potassium4.2.Juhtfn199.BUN21.Creatinine-LC1.3Creatinine Ser1.3.CHO71Osrc37JWN 05/19/2020[facility] [address] [place] [address] [phone]:MCNC:PT:BLD:QN:101 mg/vT17-4751Sfsj Nitrogen:MCNC:PT:Ser/Plas:QN:19 mg/dL5-21Creatinine:MCNC:PT:Ser/Plas:QN:1.1 mg/dL0.5-1.3Urea Nitrogen/Creatinine:Mrto:PT:Ser/Plas:QN:17 XqGduxh95-95 Calcium:MCNC:PT:Ser/Plas:QN:9.6 mg/dL8.9-11.1Sodium:SCNC:PT:Ser/Plas:QN:139 mmol/F163-293Vzodonujc:SCNC:PT:Ser/Plas:QN:4.1 mmol/L3.5-5.3 Chloride:SCNC:PT:Ser/Plas:QN:108 mmol/L023-036Lmjdqx Dioxide:SCNC:PT:Ser/Plas:QN:23 mmol/U43-78Xghkw Gap:SCNC:PT:Ser/Plas:QN:12 mEq/L 6-48Tdkv6305/19/[address] [address] [phone] Filtration Rate/1.73 SQ M.Predicted.Non Black:Arvrat:PT:Ser/Plas/BLD:QN:Creatinine-BasedFormula (MDRD)48 mL/min/1.73m2 Low>=592Glomerular Filtration Rate/1.73 SQ M.Predicted.Black:Arvrat:PT:Ser/Plas/BLD:QN:Creatinine-Based Formula (MDRD)58 mL/min/1.41h3Bla>=984Yxqmnoj09/17/2021[facility] [address] [place] [address] [phone] gm/dL3.3-5.36Oevsbmcqrj12/17/[address] [address] [phone] mg/dL1.9-4.65.Renal Panel10/13/[address] 320[address]85 [phone].Albumin3.7.Calcium8.9.Carbon Gugpzto56.Osrvpyfi928.Creatinine-LC 1.3.Phosphorus3.0.Hvejvb612.BUN20.GFR-OC02Agsm54.Potassium4.1.Renal Panel 04/08/[address] [address] [phone].Albumin3.8.Calcium8.9.Carbon Bevggwd84.Eynabgot048.Creatinine-LC 1.1.Phosphorus3.6.Wekljl354.BUN29.GFR-FP03Idzc46.Potassium4.0.Renal Panel 10/04/[address] [address] [phone].Albumin3.9.Calcium9.2.Carbon Vfodjhb40.Ctazumds846.Creatinine-LC 1.3.Phosphorus2.8.Tqnidl998.BUN20.GFR-GO61Mmpe36.Potassium4.4.Creatinine-MC 03/01/[address] [address] [phone].Creatinine-LC1.1.GFR Ejzvcbpqr86Bpwz59.Renal Panel - 03/01/[address] [address] [phone].Albumin3.7.Calcium9.0.Carbon Xusglmj74.Phosphorus3.4.Potassium4.4 .Fzjycr040.BUN25.Acypttes161Zphc53/05/[address] [address] [phone] Renal Retroperitonealno hydronephrosisRenal Panel09/14/[address] [address] [phone].Albumin3.9.Calcium9.1.Carbon Ghcmoqo93.Rcailjth848.Creatinine-LC 1.1.Phosphorus3.6.Potassium3.9.Fbkqxs085.BUN23.GFR-AW01Exyy97.Urinalysis-Routine 09/14/[address] [address] [phone] Specific Gravity1.020Ua PH Test Strip5.5Ua ColorYELLOWUa AppearanceCLEARUa WBC0-5Ua ProteinNEGUa GlucoseNEGUa KetonesNEGUa BilirubinNEGUa Urobilinogen0.2Ua NitriteNEGUa Occult BloodNEG.Free Light Gchcse3509/14/[address] [address] [phone] Light Chains QN Ser17.4Lambda Light Chain QN Ser13.2.Urine Protein/Creat. Wfmdfq2009/14/[address] [address] [phone].Urine Protein Random<6.0.Urine Creatinine Gqzubk932.5.Complement Total (CH50)09/14/[address] [address] [phone].Complement Total (CH50)>60.Complement C309/14/[address] [address] [phone].Complement C3142.Lyzz-Jsfxzkgrvt-9 AB09/14/[address] [address] [phone].Esyk-Noftzifzxm-5 AB<3.5.Anti-Myeloperoxidase Abs09/14/[address] [address] [phone].Anti-Myeloperoxidase Abs<9.0.Immunofixation-Urine09/14/[address] [address] [phone].Immunofixation-UrineNO MONOCLONALITC.Immunofixation-Serum 09/14/[address] [address] [phone].Immunofixation-SerumNO MONOCLONALITC.Complement C409/14/2017 [facility] [address] [place] [address] [phone].Complement C425.Mxewldbxi33/13/2018[facility] [address] [place] [address] [phone].Rfdxmhdri97Xazn82/28/2018[facility]ound, RenalBILAT CORTICAL ATROP.Complement C405/18/2017[facility] [phone].Complement C424.Complement Total (CH50)05/18/2017[facility] [phone].Complement Total (CH50)>60.CRP (High Sensitivity)05/18/2017 [facility] [phone].CRP (High Sensitivity)<0.5.Kaitlynn AB Screen-Screen Only-lc05/18/2017 [facility] [phone].Kaitlynn AB Screen-Screen Only-lcNEG.CMP05/18/2017[facility] [phone].Albumin3.9.Alt17.Calcium9.5.Carbon Hxywdpr92.Jhoijkdj546 .Creatinine-LC1.2.Glucose Serum97.Alkaline Phos87.Potassium4.6.Protein-Total7.6 .Ghtvrh089.Ast20.BUN22.GFR Bslgqhuqh76Rmkx02.Hemoglobin And Wtzbekaekz38/16/2018 [facility] [phone].Hemoglobin Blood13.9.Rwwxdoiawk25.7.Complement C305/18/2017 [facility] [phone].Complement C3143.Hepatitis C03[facility] [phone].Hepatitis CNEG.GFR Fbgwysmym93/20/2017[facility] [phone].GFR Ibguvqbye92Olyi01.GFR Bmjeekvjq55/11/2017[facility] [phone].GFR Wrezwgqch67Tdsv64.CMP11/05/2013[facility] [phone].Albumin4.1.Alt28.Calcium9.4.Carbon Ismkkis57.0.Supnxqra271 .Creatinine-LC1.00.Glucose Reitd085.Alkaline Phos95.Potassium4.5.Protein-Total 7.4.Sjbrun971.Ast28.BUN22.0.GFR Cbksuwnmy08Jykn23 1 If this glucose resu lt represents a fasting glucose, interpretation should refer to the following reference range: 55-99 mg/dL 2Chronic kidney disease could be indicated at eGFR's of less than 60 mL/min/1.73m2. Kidney failure is indicated at less than 15 mL/min/1.73m2. 3eGFR is race adjusted. AA=. [facility] [address] [place] [address] 5[facility] [address] [place] [address] Encounters Type Date Location Provider Dx Diagnosis Office Visit 02/24/2025 10:00a [facility] Sandra Barton NP I13.10 Hyp hrt & chr k dny dis w/o hrt fail, w stg 1-4/unsp chr kdny N18.32 Chronic kidney disea se, stage 3b Office Visit 05/26/2024 3:00p [facility] Fransisca Kimball NP-C I13.10 Hyp hrt & chr kdny dis w/o hrt fail, w stg 1-4/unsp chr kdny N18.32 Chronic kidney disea se, stage 3b Office Visit 11/16/2023 1:40p [facility] Fransisca Kimball, STEPHANE-C I13.10 Hyp hrt & chr kdny dis w/o hrt fail, w stg 1-4/unsp chr kdny N18.31 Chronic kidney disea se, stage 3a Office Visit 05/04/2023 2:30p [facility] Fransisca Kimball, STEPHANE-C I13.10 Hyp hrt & chr kdny dis w/o hrt fail, w stg 1-4/unsp chr kdny N18.31 Chronic kidney disea se, stage 3a Office Visit 06/26/2022 2:30p [facility] Fabiola Montgomery I13.10 Hyp hrt & chr kdny dis w/o hrt fail, w stg 1-4/unsp chr kdny N18.32 Chronic kidney disea se, stage 3b Office Visit 07/19/2021 9:30a [facility] Fabiola Montgomery I13.10 Hyp hrt & chr kdny dis w/o hrt fail, w stg 1-4/unsp chr kdny N18.31 Chronic kidney disea se, stage 3a Office Visit 05/26/2020 1:00p [facility] Ananda smith MD I13.10 Hyp hrt & chr kdny dis w/o hrt fail, w stg 1-4/unsp chr kdny N18.31 Chronic kidney disea se, stage 3a Office Visit 10/16/2019 3:20p [facility] Aron Ordonez I13.10 Hyp hrt & chr kdny dis w/o hrt fail, w stg 1-4/unsp chr kdny N18.3 Chronic kidney disea se, stage 3 (moderate) Office Visit 04/10/2019 2:40p [facility] Aron Ordonez I13.10 Hyp hrt & chr kdny dis w/o hrt fail, w stg 1-4/unsp chr kdny N18.3 Chronic kidney disea se, stage 3 (moderate) Office Visit 10/11/2018 2:20p [facility] Aron Ordonez I13.10 Hyp hrt & chr kdny dis w/o hrt fail, w stg 1-4/unsp chr kdny N18.3 Chronic kidney disea se, stage 3 (moderate) Office Visit 03/08/2018 10:20a [facility] Ananda Samaniego MD I13.10 Hyp hrt & chr kdny dis w/o hrt fail, w stg 1-4/unsp chr kdny N18.3 Chronic kidney disea se, stage 3 (moderate) Office Visit 09/19/2017 3:10p [facility] Aron Ordonez I13.10 Hyp hrt & chr kdny dis w/o hrt fail, w stg 1-4/unsp chr kdny N18.3 Chronic kidney disea se, stage 3 (moderate) N28.1 Cyst of kidney, acqu ired Office Visit 07/31/2017 2:40p [facility] Aron Ordonez I13.10 Hyp hrt & chr kdny dis w/o hrt fail, w stg 1-4/unsp chr kdny N18.3 Chronic kidney disea se, stage 3 (moderate) Assessments Date Code Description Provider 02/24/2025 I13.10 Hypertensive hea rt and chronic kidney disease without heart failure, with stage 1 through stage 4 chronic kidney disease, or unspecified chronic kidney disease Sandra Barton, STEPHANE 02/24/2025 N18.32 Chronic kidney disease, lena dawson 3b Sandra Barton, STEPHANE 05/26/2024 I13.10 Hypertensive hea rt and chronic kidney disease without heart failure, with stage 1 through stage 4 chronic kidney disease, or unspecified chronic kidney disease Zara Kimball NP-C 05/26/2024 N18.32 Chronic kidney disease, lena dawson 3b Zara Kimball NP-C 11/16/2023 I13.10 Hypertensive hea rt and chronic kidney disease without heart failure, with stage 1 through stage 4 chronic kidney disease, or unspecified chronic kidney disease Zara Kimball NP-C 11/16/2023 N18.31 Chronic kidney disease, lena dawson 3a Zara Kimball NP-C 05/04/2023 I13.10 Hypertensive hea rt and chronic kidney disease without heart failure, with stage 1 through stage 4 chronic kidney disease, or unspecified chronic kidney disease Zara Kimball NP-C 05/04/2023 N18.31 Chronic kidney disease, lena dawson 3a Zara Kimball NP-C 06/26/2022 I13.10 Hypertensive hea rt and chronic kidney disease without heart failure, with stage 1 through stage 4 chronic kidney disease, or unspecified chronic kidney disease Fabiola Montgomery 06/26/2022 N18.32 Chronic kidney disease, lena e 3b Fabiola Montgomery 07/19/2021 I13.10 Hypertensive hea rt and chronic kidney disease without heart failure, with stage 1 through stage 4 chronic kidney disease, or unspecified chronic kidney disease Fabiola Montgomery 07/19/2021 N18.31 Chronic kidney disease, lena e 3a Fabiola Montgomery 05/26/2020 I13.10 Hypertensive hea rt and chronic kidney disease without heart failure, with stage 1 through stage 4 chronic kidney disease, or unspecified chronic kidney disease Ananda Samaniego MD 05/26/2020 N18.31 Chronic kidney disease, basil Samaniego MD 10/16/2019 I13.10 Hypertensive hea rt and chronic kidney disease without heart failure, with stage 1 through stage 4 chronic kidney disease, or unspecified chronic kidney disease Ananda Samaniego MD 10/16/2019 N18.3 Chronic kidney disease, stag e 3 (moderate) Ananda Samaniego MD 04/10/2019 I13.10 Hypertensive hea rt and chronic kidney disease without heart failure, with stage 1 through stage 4 chronic kidney disease, or unspecified chronic kidney disease Ananda Samaniego MD 04/10/2019 N18.3 Chronic kidney disease, stag e 3 (moderate) Ananda Samaniego MD 10/11/2018 I13.10 Hypertensive hea rt and chronic kidney disease without heart Ananda Samaniego MD 10/11/2018 N18.3 Chronic kidney disease, stag e 3 (moderate) Ananda Samaniego MD 03/08/2018 I13.10 Hypertensive hea rt and chronic kidney disease without heart Ananda Samaniego MD 03/08/2018 N18.3 Chronic kidney disease, stag e 3 (moderate) Ananda Samaniego MD 09/19/2017 I13.10 Hypertensive hea rt and chronic kidney disease without heart failure, with stage 1 through stage 4 chronic kidney disease, or unspecified chronic kidney disease Ananda Samaniego MD 09/19/2017 N18.3 Chronic kidney disease, stag e 3 (moderate) Ananda Samaniego MD 09/19/2017 N28.1 Cyst of kidney, acquired Meka Samaniego MD 07/31/2017 I13.10 Hypertensive hea rt and chronic kidney disease without heart failure, with stage 1 through stage 4 chronic kidney disease, or unspecified chronic kidney disease Ananda Samaniego MD 07/31/2017 N18.3 Chronic kidney disease, stag e 3 (moderate) Ananda Samaniego MD
--- OUTSIDE RECORDS SUMMARY | 2025-03-02 12:23 | XMS_ITS | Clinical Summary ---
Author Organization [facility] Address [address] [place] [address] Care Team Providers Care Medical Insurance Coder Name Role Phone Trevon Gary MD Primary Care Provider [phone] Allergies Active AllergyReactionsCriticalityNoted EifuWhoaiyajGjjbrydzfhn14/15/2025 Other Reaction(s): Hives Ppiklnwgbtzgc08/15/2025 Other Reaction(s): unknown Yqjffoj2709/22/2022 Other Reaction(s): Unknown Other Reaction(s): Swelling of throat GhynhArqxLhp86/21/2023 Other Reaction(s): Unknown Oyjgcivrhbbnp23/15/2025 Other Reaction(s): unknown Dgymncpx46/15/2025 Other Reaction(s): unknown Penicillin G003/19/2024 Other Reaction(s): Hives Pifzaaeqrte91/21/2023 Other Reaction(s): Unknown Sulfa Ewecnjyugri29/21/2023 Other Reaction(s): Unknown Sulfamethoxazole-Jltbxnnraorm37/15/2025 Other Reaction(s): Blisters Wound Dressing Oikxnpby83/15/2025 Other Reaction(s): rash Medications MedicationSigDispense QuantityRefillsLast FilledStart DateEnd DateStatus amLODIPine (Norvasc) 5 MG tablet 08/17/2022ctive losartan (Cozaar) 100 MG tablet 08/17/2022ctive metoprolol succinate XL (Toprol-XL) 25 MG 24 hr tablet 08/17/2022ctive Active Problems ProblemNoted DateDiagnosed DateOsteoarthritis of knee09/22/2022 Encounters DateTypeDepartmentCare AevyEcdnnzvmepx21/05/2025 1:15 PM ESTOffice Visit [facility] [address] [place] [id number] RyanneBrandan, DO Primary osteoarthritis of left knee (Primary Dx)01/07/2025amboo flowsheet [facility] [address] [place] [address] AlexusBrandan louisDO 01/07/2025Travelfrom Last 3 Months Family History Medical HistoryRelationNameCommentsHeart diseaseFatherHeart diseaseMotherStroke MotherMelanomaNeg HxRelationNameStatusCommentsFatherDeceasedMotherDeceased Social History Tobacco UseTypesPacks/DayYears UsedDateSmoking Tobacco: FormerCigarettes Smokeless Tobacco: NeverAlcohol UseStandard Drinks/WeekCommentsNot Currently0 (1 standard drink = 0.6 oz pure alcohol)caffeine: 1-2 cups per dayComments UnknownSex and Gender InformationValueDate RecordedSex Assigned at BirthNot on fileLegal VshTvxzxy72/15/2023 6:44 PM EDTGender IdentityNot on fileSexual OrientationNot on file Last Filed Vital Signs Vital SignReadingTime TakenCommentsBlood Eqvzflhh773/8202 12:00 PM EST Pulse--Efxliybjgwj48.6 ??C (97.9 ??F)11/03/2022 9:25 AM EDTRespiratory Rate-- Oxygen Saturation--Inhaled Oxygen Concentration--Ixuvut19.5 kg (162 lb) 01/07/2025 1:16 PM KGMMsidje730 cm (5' 3 )01/07/2025 1:16 PM ESTBody Mass Index 28.7103/09/2024 1:16 PM EST Plan of Treatment DateTypeDepartmentCare Team (Latest Contact Info)Icipavaafqu79/13/2026 2:20 PM ESTOffice Visit [facility] [address] [place] [address] Ning Denney MD [address] [place] [address] Health MaintenanceDue DateLast DoneCommentsPneumococcal Vaccine: 65+ Years Xanuxrpsu77/24/2018, 03/06/2016, 03/01/2016Influenza WwccwddEmyhhbejo88/26/2025, 11/20/2023, 02/15/2023, Additional history exists Insurance Care Teams Team MemberRelationshipSpecialtyStart DateEnd Date Trevon Gary MD [address] [place] [address] PCP - GeneralInternal Medicine09/22/22
--- OUTSIDE RECORDS SUMMARY | 2025-03-02 12:33 | XMS_ITS | CCD ---
Author Organization [facility] CliniSywv Care Team Providers Care Glove Tagger Name Role Phone DR TIARRA GARY Primary Care Unavailable DEIDRA GARCIA Attending Unavailable DEIDRA GARCIA Consulting Unavailable DEIDRA GARCIA Admitting Unavailable Tiarra GARY Primary Care Physician Deidra Garcia Primary Care Physician Akkina, Ananda Attending Unavailable Akkina, Ananda Admitting Unavailable Akkina, Ananda Attending Unavailable Akkina, Ananda Admitting Unavailable Deidra Garcia Attending Unavailable Deidra Garcia Attending Unavailable Deidra Garcia Attending Unavailable Deidra Garcia Attending Unavailable STEVEABRAHAM HUTTON Attending Unavailable Akkina, Ananda Attending Unavailable Akkina, Ananda Admitting Unavailable Tiarra Gary MD Primary Care Provider [phone] Deidra Garcia Admitting Unavailable Deidra Garcia Attending Unavailable Deidra Garcia Attending Unavailable STEVEABRAHAM Attending Unavailable Akkina, Ananda Attending Unavailable Akkina, Ananda Admitting Unavailable Deidra Garcia Attending Unavailable Deidra Garcia Admitting Unavailable Deidra Garcia Attending Unavailable Deidra Garcia Attending Unavailable Akkina, Ananda Attending Unavailable Akkina, Ananda Admitting Unavailable Akkina, Ananda Attending Unavailable Akkina, Ananda Admitting Unavailable Akkina, Ananda Attending Unavailable Akkina, Ananda Admitting Unavailable ABRAHAM WILSON Attending Unavailable Tiarra Gary MD Primary Care Provider [phone] SRAVAN NICHOLAS Attending Unavailable POCOSJOHN Referring Unavailable POCOS, JOHN Santiago Attending Unavailable POCOSJOHN Referring Unavailable POCOS, JOHN Santiago Attending Unavailable POCOSJOHN Referring Unavailable POCOS, JOHN Santiago Attending Unavailable POCOS, JOHN Santiago Referring Unavailable POCOS, JOHN Santiago Attending Unavailable CHUCHO, LULI L Attending Unavailable JOHN PARIS Attending Unavailable JOHN PARIS Referring Unavailable Allergies Allergy ClassificationReported Allergen(s)Allergy TypeDate of OnsetReaction(s) Facility (5 sources)Ciprofloxacin; Translations: [Cipro]Drug Jqianyq52-03-7196Eeg [facility] Repository (5 sources)Codeine; Translations: [codeine]Drug Nzrzccs69-43-7969Ydv [facility] Repository (20 sources)Latex; Translations: [Latex]Drug allergy (disorder)01-23-2013 Eruption of skin (disorder)[facility] Repository (5 sources)metroNIDAZOLE; Translations: [Flagyl]Drug Nbpmlcp18-09-8115Smd [facility] Repository (1 source)PenicillinsDrug allergy (disorder)76-69-8495Bjq [facility] Repository (1 source)Sulfonamides (Antibiotic)Drug allergy (disorder)51-87-5961Ata [facility] Repository (20 sources)Adhesive Tape; Translations: [Tape]Drug allergyAden[facility] ([facility])Amoxicillin; Translations: [amoxicillin]Drug Aorazre08-02-6007Wwpb (disorder)[facility] (20 sources)Ciprofloxacin; Translations: [ciprofloxacin]Drug Avpeksd62-84-1305 [facility] (20 sources)Codeine; Translations: [codeine]Drug Zuiqpda66-23-1962Dpkakjotiw swelling (finding)[facility] (20 sources)metroNIDAZOLE; Translations: [metronidazole]Drug Xwjykeq12-10-6853 [facility] (20 sources)Morphine; Translations: [morphine]Drug Tklqeuw56-24-4755xoijagq [facility] (20 sources)Penicillin; Translations: [Penicillin -class of antibiotic- (product)]Drug AllergyWeal (disorder)[facility] (20 sources)Sulfamethoxazole; Translations: [sulfamethoxazole]Drug Allergy Blister (morphologic abnormality)[facility] (20 sources)Sulfamethoxazole / Trimethoprim; Translations: [sulfamethoxazole-trimethoprim]Drug Vkynkxb32-07-0829Iclsfhd (morphologic abnormality)[facility] (18 sources)LatexAllergy to ynxjpzidq89-40-4514[facility] (18 sources)PenicillinsDrug Ebstepe54-08-8277HJGB [facility] (18 sources)Sulfonamides (Antibiotic)Drug Vcwbhfr40-12-1577FWQQ [facility] (17 sources)Penicillin GDrug Ngbersi36-59-9114UQPI [facility] (17 sources)Wound Dressing AdhesiveDrug Uodbsxy76-82-1825LHBL [facility] Medications Current Medications MedicationDrug Class(es)DatesSig (Normalized)Sig (Original)acetaminophen 325 mg / oxyCODONE hydrochloride 5 mg oral tablet (1 source)Opioid AgonistStart: 02-19-2023 End: 22-54-6445Ymibxljs 5 mg-325 mg oral tablet 1 tab(s), Oral, q6hr as needed for pain for 3 day(s), 15 tab(s), Refill(s) 0, [facility]/pharmacy #[id number], 160, cm, 02/19/23 9:31:00 EST, Height/Length Dosing, 76.1, kg, 02/19/23 9:31:00 EST, Weight Dosing Start Date: 02/19/23 Stop Date: 02/22/23 Status: OrderedamLODIPine 5 mg oral tablet (20 sources)Dihydropyridine Calcium Channel BlockerStart: 54-71-0424tuRKKMVauz (Norvasc) 5 MG tablet 08/17/2022 ActiveStart: 16-78-6450itkk 1 tablet by mouth once dailyNorvasc 5 mg Tab 5 mg = 1 tab(s), Oral, Daily, # 90 tab(s), Refills(s) 3, Pharmacy: [facility], 159, cm, 11/30/20 10:50:00 EDT, Height/Length Dosing, 78.8, kg, 11/30/20 10:50:00 EDT, WeightDosing Start Date: 12/08/20 Status: Orderedaspirin 81 mg oral tablet (17 sources)Platelet Aggregation Inhibitor, Nonsteroidal Anti-inflammatory Drug Start: 91-02-5795gana 1 tablet by mouth once dailyaspirin 81 mg oral tablet 81 mg = 1 tab(s), Oral, Daily, Refills(s) 0 Start Date: 07/29/19 Status: Ordered doxycycline monohydrate 100 mg oral capsule (1 source)Tetracycline-class DrugStart: 17-63-6173vbyd 1 capsule by mouth twice dailydoxycycline monohydrate 100 mg oral capsule TAKE 1 CAPSULE BY MOUTH TWICE A DAY FOR 7 DAYS Start Date: 10/11/23 Status: Orderedfluticasone propionate 0.05 mg/actuat metered dose nasal spray (1 source)CorticosteroidStart: 99-43-9200cepqofvehnb Nasal 0.05 mg/inh [place] See Instructions, 48 mL, Refill(s) 1, SPRAY 2 SPRAYS INTO EACH NOSTRIL DAILY, [facility], 160, cm, 02/19/24 11:02:00 EST, Height/Length Dosing, 73.7, kg, 02/19/24 11:02:00 EST, Weight Dosing Start Date: 03/12/24 Status: Ordered gemfibrozil 600 mg oral tablet (6 sources)Peroxisome Proliferator Receptor alpha AgonistStart: 05-31-2021 End: 87-98-7986puas 1 tablet by mouth twice dailygemfibrozil 600 mg Tab 600 mg = 1 tab(s), Oral, BID, X 90 day(s), # 180 tab(s), Refills(s) 3, Pharmacy: [facility]/pharmacy #[id number], 160, cm, 05/31/21 12:59:00 EDT, Height/Length Dosing, 74, kg, 05/31/21 12:59:00 EDT, Weight Dosing Start Date: 05/31/21 Stop Date: 05/26/22 Status: Orderedlosartan potassium 100 mg oral tablet (20 sources)Angiotensin 2 Receptor BlockerStart: 66-08-0322oozlibmf (Cozaar) 100 MG tablet 08/17/2022 ActiveStart: 56-88-9122umgn 1 tablet by mouth once daily losartan 100 mg Tab 100 mg = 1 tab(s), Oral, Daily, # 90 tab(s), Refills(s) 3, Pharmacy: [facility], 157, cm, 03/10/20 11:57:00 EST, Height/Length Dosing, 79.3, kg, 03/10/20 11:57:00 EST, Weight Dosing Start Date: 07/06/20 Status: Dyiekhu73 hr metoprolol succinate 25 mg extended release oral tablet (20 sources)beta-Adrenergic BlockerStart: 02-15-2023 End: 55-76-8235euce 1 tablet by mouth once dailyToprol XL 25 mg Tab-ER 25 mg = 1 tab(s), Oral, Daily, X 90 day(s), # 90 tab(s), Refills(s) 3, Pharmacy: [facility], 160, cm, 10/11/23 13:51:00 EDT, Height/Length Dosing, 74.1, kg, 10/11/23 13:51:00 EDT, Weight Dosing Start Date: 12/10/23 Stop Date: 12/04/24 Status: OrderedStart: 15-94-3511ryavdoyqzi succinate XL (Toprol-XL) 25 MG 24 hr tablet 08/17/2022 ActiveStart: 05-04-2021 End: 61-80-1426kbjm 1 tablet by mouth once dailyToprol XL 25 mg Tab-ER 25 mg = 1 tab(s), Oral, Daily, X 90 day(s), # 90 tab(s), Refills(s) 3, Pharmacy: [facility] ([facility]), 160, cm, 01/11/22 10:59:00 EST, Height/Length Dosing, 72.4, kg, 01/11/22 10:59:00 EST, Weight Dosing Start Date: 01/11/22 Stop Date: 01/06/23 Status: OrderedpredniSONE 20 mg oral tablet (10 sources)Start: 02-19-2023 End: 46-95-7900cplt 3 tablets by mouth once dailypredniSONE 20 mg Tab 60 mg = 3 tab(s), Oral, Daily, X 7 day(s), # 21 tab(s), Refills(s) 0, Pharmacy: [facility]/pharmacy #[id number], 160, cm, 02/19/23 9:31:00 EST, Height/Length Dosing, 76.1, kg, 02/19/23 9:31:00 EST, Weight Dosing Start Date: 02/19/23 Stop Date: 02/26/23 Status: OrderedStart: 09-18-2022 End: 88-09-1358iuzl 2 tablets by mouth once dailypredniSONE 20 mg Tab 40 mg = 2 tab(s), Oral, Daily, X 5 day(s), # 10 tab(s), Refills(s) 0, Pharmacy: [facility]/pharmacy #[id number], 160, cm, 09/18/22 15:42:00 EDT, Height/Length Dosing, 73.6, kg, 09/18/22 15:42:00 EDT, Weight Dosing Start Date: 09/18/22 Stop Date: 09/23/22 Status: Ordered End: 03-21-1201akxgagVXEK (Deltasone) 20 MG tablet Take by mouth. 09/17/2024 Discontinued (Therapy completed) Completed/Discontinued Medications MedicationDrug Class(es)DatesSig (Normalized)Sig (Original)betamethasone 3 mg/ml / betamethasone acetate 3 mg/ml injectable suspension (4 sources)CorticosteroidStart: 09-17-2024 End: 04-83-5792yxcrplxybwjhv acetate-betamethasone sodium phosphate (Celestone) injection 1 mLStart: 09-17-2024 End: mL, Intra-articular, Once PRN Procedure, Starting on Sun09/17/24 at 0958, For 1 dose2 ml sodium hyaluronate 8.4 mg/ml prefilled syringe (8 sources)Start: 11-26-2024 End: 86-99-7926plxysl hyaluronate (Gelsyn-3) injection 2 mLStart: 11-26-2024 End: mL, Intra-articular, Once PRN Procedure, Starting on Sun11/26/24 at 1316, For 1 doseStart: 11-19-2024 End: 50-70-4636flfvlm hyaluronate (Gelsyn-3) injection 2 mLStart: 11-19-2024 End: mL, Intra-articular, Once PRN Procedure, Starting on Sun11/19/24 at 1255, For 1 doseStart: 11-12-2024 End: 89-03-9771tukbaj hyaluronate (Gelsyn-3) injection 2 mLStart: 11-12-2024 End: mL, Intra-articular, Once PRN Procedure, Starting on Sun11/12/24 at 1054, For 1 dosemeloxicam 7.5 mg oral tablet (8 sources)Nonsteroidal Anti-inflammatory DrugStart: 09-23-2021 End: 58-71-7858tbitxciwx (Mobic) 7.5 MG tablet 1 (one) time each day at the same time. 09/23/2021 09/17/2024 Discontinued (Therapy completed) Problems Problem ClassificationProblemDateDocumented DateEpisodic/ChronicAnxiety disorders (20 sources)Generalized anxiety disorder; Translations: [Generalized anxiety disorder]Onset: 698060-17-2879YtkwjlzOsjkcp; peripheral; and visceral artery aneurysms (3 sources)Aortic root ybtewjkafe48-95-5383QknikjhLbnxxh; other and unspecified primary (17 sources)H/O Malignant ofcuyrpz01-58-1203LopfqztnJkjtdte dysrhythmias (20 sources)Palpitations; Translations: [Sinus tachycardia]Onset: 04-11-2022 61-81-3034BsquqdhkCgjhowt kidney disease (20 sources)Chronic kidney disease stage 3; Translations: [Chronic kidney disease, stage 3 (moderate)]Onset: 452548-52-9718MrxpncbJuebanh on above: Added per outpatient CDI policy.added per 06/20/2023 query response.Conditions associated with dizziness or vertigo (3 sources)Eswyzsmiv77-04-7895SmxdvpndSdfxzlpw mellitus without complication (20 sources)Hyperglycemia; Translations: [Hyperglycemia, unspecified]Onset: 655790-06-3385FuekiheiZhczbhqeq of lipid metabolism (20 sources)Hyperlipidemia; Translations: [Hyperlipidemia, unspecified]Onset: 868123-69-3777LraoghbZmlpqkioch disorders (18 sources)Gastroesophageal reflux disease; Translations: [Gastroesophageal reflux disease without esophagitis]Onset: 404266-59-6941AqtxbulFnfwtcobs hypertension (20 sources)Hypertensive disorder; Translations: [Essential hypertension]Onset: 074885-36-0593WcwkntrQuhwo valve disorders (19 sources)Aortic valve regurgitation; Translations: [Aortic incompetence, non- rheumatic ]Onset: 661969-98-4868JqsadlpWiibi valve disorders (3 sources)Heart nqjjyx30-00-4275JerfhymnCowfywyurnuh with complications and secondary hypertension (2 sources)Chronic kidney disease due to hypertension; Translations: [Hypertensive chronic kidney disease withstage 1 through stage 4 chronic kidney disease, or unspecified chronic kidney disease]Onset: 82-25-7074Czpnfyk Immunizations and screening for infectious disease (4 sources)Encounter for immunization; Translations: [ENCOUNTER FOR IMMUNIZATION]Onset: 11-21-1337UykwosqpYthmsdatw of skin (4 sources)History of malignant melanoma of the skin; Translations: [Personal history of malignant melanoma ofskin]61-28-6934ObbkbeerEeqybkzeh of unspecified nature or uncertain behavior (2 sources)Neoplastic disease; Translations: [Neoplasm of unspecified behavior of bone, soft tissue, and skin]15-32-7653RqldizkkUvdnjobvtuj deficiencies (11 sources)Vitamin D deficiency; Translations: [Vitamin D deficiency, unspecified]Onset: 29-64-8049AjdgaboRsiifblmtnwweg (20 sources)Osteoarthritis of knee; Translations: [Bilateral primary osteoarthritis of knee]Onset: 433941-82-3894IiipiyoUcymh and unspecified benign neoplasm (2 sources)Melanocytic nevus of trunk; Translations: [Melanocytic nevi of trunk] 82-85-9085MifklufbKesah and unspecified benign neoplasm (2 sources)Senile angioma; Translations: [Hemangioma of skin and subcutaneous tissue]47-83-7830IoxzzmdlBuwot bone disease and musculoskeletal deformities (17 sources)Lykpdmqxrv52-17-9413XjiiiwxjXwxnb bone disease and musculoskeletal deformities (1 source)Disorder of bone; Translations: [Other specified disorders of bone density and structure, unspecified site]Onset: 65-39-9135JegpqilsLjotq circulatory disease (14 sources)Respiratory hfgvlpqa35-99-1372XfpojqjeZgjvb connective tissue disease (3 sources)Pain in lower bioz00-87-5791PwksiwzhDvoxq nervous system disorders (1 source)Carpal tunnel syndrome of left wrist; Translations: [Carpal tunnel syndrome, left upper limb]Onset: 93-01-3197JvsluteKzixj non-epithelial cancer of skin (4 sources)History of squamous cell carcinoma of skin; Translations: [Personal history of other malignant neoplasm of skin]04-80-8254OpgtbbrxMwodx non- traumatic joint disorders (2 sources)Pain in right knee; Translations: [Pain in joint, lower leg] 67-37-2418WpsmyqwaPhfyn non-traumatic joint disorders (4 sources)Pain in left knee; Translations: [Pain in joint, lower leg]09-17-2024 EpisodicOther nutritional; endocrine; and metabolic disorders (20 sources)Body mass index 30+ - oznlirn82-73-7701XjiereyIqqmm nutritional; endocrine; and metabolic disorders (1 source)Obese class I; Translations: [Body mass index (BMI) 30.0-30.9, adult] Onset: 85-18-5203ZjxrvexGrvsi nutritional; endocrine; and metabolic disorders (1 source)Obesity; Translations: [Other obesity due to excess calories]Onset: 57-48-3614YzgmgkvIhndn nutritional; endocrine; and metabolic disorders (6 sources)Overweight in adulthood with body mass index of 25 or more but less than 30; Translations: [Body mass index (BMI) 28.0-28.9, adult]Onset: 09-13-2021 EpisodicOther screening for suspected conditions (not mental disorders or infectious disease) (2 sources)Encounter for screening mammogram for malignant neoplasm of breast; Translations: [Screening for malignant neoplasm done]Onset: 22-00-7957Cmfvitjc Other skin disorders (2 sources)Inflamed seborrheic keratosis; Translations: [Inflamed seborrheic keratosis]18-26-6217DtwiulrrKgbhj skin disorders (4 sources)Seborrheic keratosis; Translations: [Other seborrheic keratosis] 23-14-8649MhzgbmpgFhesh skin disorders (4 sources)Lentiginosis; Translations: [Other melanin hyperpigmentation] 41-22-3379RllizssbKnopa skin disorders (2 sources)Actinic keratosis; Translations: [Actinic keratosis]09-09-2024 EpisodicOther upper respiratory disease (17 sources)Allergic egmdbaxn71-95-8390PpbpygxMukvsognhbx; intervertebral disc disorders; other back problems (6 sources)Backache; Translations: [Dorsalgia, unspecified]Onset: 02-19-2023 EpisodicUnclassified (17 sources)Patient encounter aoectu39-27-0703Ozzxuorqtbyx (2 sources)Right knee pain, unspecified xjqlhzikev38-96-2243 Results Test NameValueInterpretationReference RangeFacilityL Inj/Asp: L kneeon 06-53-7435Jqrda A Pocos, DO 11/28/2024 7:52 AM L Inj/Asp: L knee on 11/26/2024 1:16 PM Indications: pain Details: 22 G needle Medications: 2 mL sodium hyaluronate 16.8 MG/2ML [facility] HealthcareNOMS HealthcareL Inj/Asp: L kneeon 78-99-0134Pzrnz A Pocos, DO 11/19/2024 1:17 PM L Inj/Asp: L knee on 11/19/2024 12:55 PM Indications: pain Details: 22 G needle Medications: 2 mL sodium hyaluronate 16.8 MG/2ML [facility] HealthcareNo Panel Informationon 54-08-8597Zauknd Uhl, [place] 11/17/2024 7:35 AM L Inj/Asp: L knee on 11/12/2024 10:54 AM Indications: pain Details: 22 G needle Medications: 2 mL sodium hyaluronate 16.8 MG/2ML [facility] HealthcareHct & Hgbon 52-22-5079Rfjofdczhu (Bld) [Volume fraction]42.0 %Vwizdg32.0-46.0[facility] HospitalComment on above: Performed By: #### [id number] #### [facility] [address] [place] [address]Dosyxqawnp (Bld) [Mass/Vol]14.1 g/jZSwyude88.0-16.0[facility] HospitalComment on above:Performed By: #### [id number] #### [facility] [address], [place] [address]Bcgqefirpnp 90-26-4910Boccvbyhb [Mass/Vol]2.2 mg/dLNormal 1.3-2.4FFairfield Medical CenterComment on above:Performed By: #### [id number] #### [facility] [address], [place] [address]Yvcpq Panelon 15-86-3631Qclgitinw [Mass/Vol]4.0 mg/dLNormal 1.9-4.6FFairfield Medical CenterComment on above:Performed By: #### [id number] #### [facility] [address], [place] [address]Ypeaalv [Mass/Vol]4.1 g/dLNormal3.3-5.0[facility]'S HospitalComment on above:Performed By: #### [id number] #### [facility] [address], [place] [address]Bfkdy gap [Moles/Vol]13 mmol/LNormal6-16[facility]S HospitalComment on above:Performed By: #### [id number] #### [facility] [address], [place] [address]NUH/Creat Ratio19 No MhpbgJyjrae01-63XhgpfgDayton Children'S HospitalComment on above:Performed By: #### [id number] #### [facility] [address], [place] [address]Ywtyhua [Mass/Vol]9.2 mg/dLNormal8.9-11.1FFairfield Medical CenterComment on above:Performed By: #### [id number] #### [facility] [address], [place] [address]Uzparmhq [Moles/Vol]106 mmol/YTnbqop591-745ZcbiodDayton Children'S HospitalComment on above:Performed By: #### [id number] #### [facility] [address], [place] [address]SP6 [Moles/Vol]25 mmol/UJiihmu14-74IpijsoDayton Children'S Hospital Comment on above:Performed By: #### [id number] #### [facility] [address], [place] [address]Nmgygyzwta [Mass/Vol]1.4 mg/dLHigh0.5-1.3FFairfield Medical CenterComment on above:Performed By: #### [id number] #### [facility] [address], [place] [address]Qauvwxg [Mass/Vol]99 mg/pCWlbobp17-751IufaisDayton Children'S HospitalComment on above:Performed By: #### [id number] #### [facility] [address], [place] [address]Nleodhdog [Moles/Vol]4.5 mmol/LNormal3.5-5.3[facility] HospitalComment on above:Performed By: #### [id number] #### [facility] [address], [place] [address]Tswoby [Moles/Vol]139 mmol/QJzbblx603-888FjltxwDayton Children'S HospitalComment on above:Performed By: #### [id number] #### [facility] [address], [place] [address]Xzds nitrogen [Mass/Vol]26 mg/dLHigh5-21Day[facility]'S HospitalComment on above:Performed By: #### [id number] #### [facility] [address], [place] [address]A Protein/Creat Ratioon 10-24-2024U Skdtftzzqe25.6 mg/dLInvalid Interpretation CodeDayton Children'S HospitalComment on above:Performed By: #### [id number] #### [facility] [address], [place] [address]B Prot/Creat Ratio8.70 mg/gm CrNormal.00-200.00[facility]'S HospitalComment on above:Performed By: #### [id number] #### [facility] [address], [place] [address]Ci Total Protein5.3 mg/dLInvalid Interpretation [facility] HospitalComment on above:Performed By: #### [id number] #### [facility] [address], [place] [address]dZORip 90-86-7545eFWR29 mL/min/1.73 m2Low>=59Day[facility] Children'S HospitalComment on above:Order Comment: Order added by Discern Expert. Performed By: #### [id number] #### [facility] [address], [place] [address]Sk Panel Informationon 62-38-0109Wqtjvp Uhl, [place] 09/18/2024 3:59 PM L Inj/Asp: R knee on 09/17/2024 9:58 AM Indications: pain Details: 22 G needle Medications: 1 mL betamethasone acetate-betamethasone sodium phosphate 6 (3-3) MG/ML [facility]No Panel Informationon 54-67-1843HPZLEastern [facility] Type of biopsy: tangential Informed consent: discussed and consent obtained Informed consent comment: The risks and benefits of the biopsy were discussed. Risks include but are not limited to bleeding, infection, scarring, pain, and nerve damage. An opportunity to ask questions prior to the procedure was permitted and all questions were answered. Patient was prepped and draped in usual sterile fashion: area cleansed with alcohol. Anesthesia: the lesion was anesthetized in a standard fashion Anesthetic: 1% lidocaine w/ epinephrine 1-100,000 buffered w/ 8.4% NaHCO3 Instrument used: DermaBlade Hemostasis achieved with: electrodesiccation Outcome: patient tolerated procedure well Outcome comment: The specimen was placed in a prelabeled formalin container to be sent for pathology Post-procedure details: sterile dressing applied and wound care instructions given Post-procedure details comment: Emphasized need to contact clinic for any signs of infection, uncontrollable bleeding, or complications. Dressing type: bandage Additional details: Photo taken Amount of lidocaine used: 2.0 [facility] HospitalAmbulatory Visit Summaryon 20-18-8639Ukjjvgjuek Visit SummaryAmbulatory Visit Summary SHAMA HART :1945 Visit Date:06/19/2024 Ambulatory Visit Instructions Your Diagnosis Stage 3a chronic kidney disease (CKD) Allergic rhinitis GERD (gastroesophageal reflux disease) Primary hypertension Overweight (BMI 25.0-29.9) Former smoker BMI 29.0-29.9,adult Your Care Team Attending Physician - Deidra Garcia MD Primary Care Physician - Deidra Garcia MD This Is Your Medications List amlodipine (Norvasc 5 mg Tab) aspirin (aspirin 81 mg oral tablet) fluticasone nasal (fluticasone Nasal 0.05 mg/inh [place]) losartan (losartan 100 mg Tab) metoprolol (Toprol XL 25 mg Tab-ER) Procedures Performed Injection (09/2022), Bilateral extraction of cataracts (2015), Melanoma (2015), splinter removed from bottom left foot (2005), Biopsy of breast (1993), left knee scope, squamous cell cancer removed, Tubal ligation. Discharge Vitals Temperature (Tympanic) 36.8 ???C Heart Rate (Peripheral) 74 Respiratory Rate 18 Blood Pressure 114/72 Height 160 cm Height 63 in Weight 74.8 kg Weight 164.906 lb BMI 29.22 What to do next Scheduled Follow-Up Appointments 2024 7:00 AM EDT With: Arsen LIU, Deidra Rajput Where: [address] [id number]- Sunday 8:00 AM EST With: Where: [address] [address]- Medications What How Much When Instructions Unchanged amlodipine (Norvasc 5 mg Tab) 1 Tablets By Mouth Every day Unchanged aspirin (aspirin 81 mg oral tablet) 1 Tablets By Mouth Every day Unchanged fluticasone nasal (fluticasone Nasal 0.05 mg/ inh [place]) See instructions SPRAY 2 SPRAYS INTO EACH NOSTRIL DAILY Unchanged losartan (losartan 100 mg Tab) 1 Tablets By Mouth Every day Unchanged metoprolol (Toprol XL 25 mg Tab-ER) 1 Tablets By Mouth Every day Duration: 90 Days Allergies Bactrim (Blisters) Cipro (unknown) Flagyl (unknown) Latex (Rash) Penicillin (Hives) Tape (rash) amoxicillin (Hives) codeine (Swelling of throat) morphine (unknown) sulfamethoxazole (Blisters) Problems Ongoing - Any problem that you are currently receiving treatment for. Allergic rhinitis Aortic insufficiency Back pain Benign hypertension with chronic kidney disease, stage III BMI 29.0-29.9,adult Dilated aortic root Dizziness Former smoker Generalized anxiety disorder GERD (gastroesophageal reflux disease) History of melanoma HLD (hyperlipidemia) Hyperglycemia Leg pain Osteoarthritis of knees, bilateral Osteopenia Overweight (BMI 25.0-29.9) Palpitations Primary hypertension Screening mammogram, encounter for Sinus tachycardia Stage 3a chronic kidney disease (CKD) Vitamin D deficiency Historical - Any problem that you are no longer receiving treatment for. BMI 30.0-30.9,adult BMI 31.0-31.9,adult CKD (chronic kidney disease), stage III Patient Survey You may receive a survey via text or e-mail asking about your office visit. Please share your experience with us by completing your survey. We appreciate your feedback and thank you for choosing us for your care. Education Materials BMI for Adults Body mass index (BMI) is a number found using a person's weight and height. BMI can help tell how much of a person's weight is made up of fat. BMI does not measure body fat directly. It is used instead of tests that directly measure body fat, which can be difficult and expensive. What are BMI measurements used for? BMI is useful to: ??? Find out if your weight puts you at higher risk for medical problems. ??? Help recommend changes, such as in diet and exercise. This can help you reach a healthy weight. BMIscreening can be done again to see if these changes are working. How is BMI calculated? Your height and weight are measured. The BMI is found from those numbers. This can be done with U.S. or metric measurements. Note that charts and online BMI calculators are available to help you findyour BMI quickly and easily without doing these calculations. To calculate your BMI in U.S. measurements: 1. Measure your weight in pounds (lb). 2. Multiply the number of pounds by 703. ??? So, for an adult who weighs 150 lb, multiply that number by 703: 150 x 703, which equals 105,450. 3. Measure your height in inches. Then multiply that number by itself to get a measurement called inches squared. ??? So, for an adult who is 70 inches tall, the inches squared measurement is 70 inches x 70 inches, which equals 4,900 inches squared. 4. Divide the total from step 2 (number of lb x 703) by the total from step 3 (inches squared): 105,450 ??? 4,900 = 21.5. This is your BMI. To calculate your BMI in metric measurements: 1. Measure your weight in kilograms (kg). ?? (more content not included)...[facility] Medicine Office/Clinic Noteon [id number] Medicine Office/Clinic NoteFaathol hospital Medicine Office/Clinic Note Chief Complaint 6m follow up The patient presents for follow-up of chronic kidney disease and hypertension management. HPI Staff 6m follow up Patient is here for follow up on hypertension. How often are you checking your blood pressure? _ occasionally What are your average readings? _ 135/88 Yearly BMP: _ BUN: 26 mg/dL High (05/14/24 11:24:00) Calcium Lvl: 9.4 mg/dL (05/14/24:24:00) Chloride: 104 mmol/L (05/14/24:24:00) CO2: 27 mmol/L (05/14/24:24:00) Creatinine: 1.3 mg/dL (05/14/24:24:00) eGFR: 41 mL/min/1.73 m2 Low (05/14/24::) Glucose Lvl: 95 mg/dL (05/14/24:24:00) Potassium Lvl: 4.6 mmol/L (05/14/24:24:) Sodium Lvl: 138 mmol/L (05/14/24:24:00) No refills needed at this time. History of Present Illness - The patient is an 79-year-old female presenting with follow-up for CKD and hypertension. - Renal function declined from stage IIIA to IIIB possibly due to dehydration. - Regular ship's captain visits with normal urine sample evaluations. - Blood pressure lower than typical, possibly requiring medication adjustment. - History as a former smoker; currently no cholesterol management needed. - Regular follow-ups with ship's captain approximately every six months. - Monitoring of blood pressure with potential for medication adjustment. - Discussion of personal health management regarding past smoking habits. Review of Systems PHQ Score Initial Depression Screen Score: 0 SCORE Physical Exam Vitals & Measurements T: 36.8 ???C(Tympanic) HR: 74(Peripheral) RR: 18 BP: 114/72 SpO2: 98% HT: 160 cm HT: 63 in WT: 164.906 lb WT: 74.8 kg BMI: 29.22 General: alert, no acute distress ENMT: oral mucosa moist Cardiovascular: Regular rate and rhythm, normal peripheral perfusion Respiratory: Lungs clear to auscultation, respirations non labored Extremities: no deformity, no trauma, Neurological: oriented x 4, level of consciousness appropriate for age, CN II- XII intact, motor strength equal & normal bilaterally, speech normal Abdomen: Soft, Non-tender, Non-distended, + Bowel sounds Assessment/Plan 1. Stage 3a chronic kidney disease (CKD) (N18.31: Chronic kidney disease, stage 3a) - Monitor renal function; ensure hydration; follow ship's captain advice. Ordered: Body Mass Index (BMI) documented 3008F Current tobacco non-user 1036F Depression Screening Negative 3352F Discharge medications reconciled with current medications in outpatient record 1111F Influenza immunization status assessed 1030F Medication list documented in medical record 1159F Most recent diastolic blood pressure <80 mm Hg 3078F Patient screen for fall risk: no falls in last year or 1 fall with no injury in last year 1101F Review of all meds by a prescribing practitioner or clinical pharmacist documented in EHR 1160F Systolic BP <130 mm Hg (Most Recent) 3074F 2. Allergic rhinitis (J30.9: Allergic rhinitis, unspecified) - Continue Flonase as prescribed. 3. GERD (gastroesophageal reflux disease) (K21.9: Gastro-esophageal reflux disease without esophagitis) No issues. Well controlled with out meds 4. Primary hypertension (I10: Essential (primary) hypertension) - Regularly check blood pressure; consider medication adjustment if needed. 5. Overweight (BMI 25.0-29.9) (E66.3: Overweight) Diet and exercise advised 6. Former smoker (Z87.891: Personal history of nicotine dependence) Please continue to not smoke. 7. BMI 29.0-29.9,adult (Z68.29: Body mass index [BMI] 29.0-29.9, adult) BMI education added. Orders: losartan, 100 mg = 1 tab(s), Oral, Daily, # 90 tab(s), Refills(s) 3, Pharmacy: [facility],160, cm, 06/19/24 10:14:00 EDT, Height/Length Dosing, 74.8, kg, 06/19/24 10:14:00 EDT, Weight Dosing - 79-year-old female with history of CKD stage IIIA presenting for follow-up. - Renal function decline likely due to recent dehydration. - Hypertension adequately controlled; blood pressure lower than expected. During our visit, we reviewed the patient's recent lab results which indicated a decline in renal function, potentially attributed to dehydration. I discussed the importance of maintaining hydration and stressed regular follow-ups with her ship's captain, Dr. Gilbert, to monitor her CKD progress. We also reviewed her blood pressure readings, which have been lower than usual. I communicated a plan to keep track of these readings and mentioned the possibility of adjusting her antihypertensive medication if low readings persist. The patient has a history of smoking but is not currently concerned with cholesterol management or GERD symptoms. We also agreed on the continued use of Flonase for her allergic rhinitis. Follow-up No qualifying data available Patient Education BMI for Adults BMI for Adults Problem List/Past Medical History Ongoing Allergic rhinitis Aortic insufficiency Back pain Benign hypertension with chronic kidney (more content not included)...Normal [facility] HospitalComment on above:Result Comment: Electronically Signed By: Arsen LIU, Deidra Robledo.br\Date and Time Signed: 06/19/24 10:35 EDT CHEMISTRYOrdered By: SYSTEM SYSTEM on [id number]/Creatinine (U) [Ratio] 9.90 mg/gm CrNormal0.00 - 200.00 mg/gm CrRemisol ChemAlbumin [Mass/Vol]4.3 g/dL Normal3.3 - 5.0 gm/dLRemisol ChemAnion gap [Moles/Vol]12 mmol/LNormal6 - 16 mEq/LRemisol ChemCalcium [Mass/Vol]9.4 mg/dLNormal8.9 - 11.1 mg/dLRemisol Chem Chloride [Moles/Vol]104 mmol/LFizdky202 - 111 mmol/LRemisol ChemCO2 [Moles/Vol] 27 mmol/BSpfzgm48 - 31 mmol/LRemisol ChemCreatinine [Mass/Vol]1.3 mg/dLNormal0.5 - 1.3 mg/dLRemisol FpiqjNDK06 mL/min/1.73 m2Low>=59mL/min/1.73 r1Qhfcphg Chem Glucose [Mass/Vol]95 mg/aFXkibdh85 - 199 mg/dLRemisol ChemMagnesium [Mass/Vol] 2.2 mg/dLNormal1.3 - 2.4 mg/dLRemisol ChemPhosphate [Mass/Vol]3.2 mg/dLNormal1.9 - 4.6 mg/dLRemisol ChemPotassium [Moles/Vol]4.6 mmol/LNormal3.5 - 5.3 mmol/L Remisol ChemSodium [Moles/Vol]138 mmol/GIgvwlq897 - 145 mmol/LRemisol ChemUrea nitrogen [Mass/Vol]26 mg/dLHigh5 - 21 mg/dLRemisol ChemUrea nitrogen/Creatinine [Mass ratio]20 mg/caUccgze25 - 20Remisol ChemMagnesiumon 77-10-3057Usagscnis [Mass/Vol]2.2 mg/dLNormal1.3-2.4FFairfield Medical CenterComment on above: Performed By: #### [id number] #### [facility] [address], [place] [address]Os Panel InformationOrdered By: SYSTEM SYSTEM on 05-14-2024U Ojbjoxpyvv75.4 mg/dLInvalid Interpretation CodeRemisol ChemUr Total Protein4.6 mg/dLInvalid Interpretation CodeRemisol ChemRenal Panelon [id number] [Mass/Vol]4.3 g/dLNormal3.3-5.0[facility] HospitalComment on above: Performed By: #### [id number] #### [facility] [address], [place] [address]Ytwid gap [Moles/Vol]12 mmol/LNormal6-16[facility] HospitalComment on above:Performed By: #### [id number] #### [facility] [address], [place] [address]Hoykunp [Mass/Vol]9.4 mg/dLNormal8.9-11.1FFairfield Medical CenterComment on above:Performed By: #### [id number] #### [facility] [address], [place] [address]Ehnmwguw [Moles/Vol]104 mmol/MYplifh798-171ExnqzyDayton Children'S HospitalComment on above:Performed By: #### [id number] #### [facility] [address], [place] [address]WJ0 [Moles/Vol]27 mmol/VWuvnbi84-80KuskesDayton Children'S Hospital Comment on above:Performed By: #### [id number] #### [facility] [address], [place] [address]Phehelhufx [Mass/Vol]1.3 mg/dLNormal0.5-1.3FFairfield Medical CenterComment on above:Performed By: #### [id number] #### [facility] [address], [place] [address]Xzrugpi [Mass/Vol]95 mg/rOIrbjns63-302ThzvptDayton Children'S HospitalComment on above:Performed By: #### [id number] #### [facility] [address], [place] [address]Ubjskvcde [Mass/Vol]3.2 mg/dLNormal1.9-4.6FFairfield Medical CenterComment on above:Performed By: #### [id number] #### [facility] [address], [place] [address]Nbperkoyj [Moles/Vol]4.6 mmol/LNormal3.5-5.3FFairfield Medical CenterComment on above:Performed By: #### [id number] #### [facility] [address], [place] [address]Imdvtj [Moles/Vol]138 mmol/FBnymnw318-753KcqejiDayton Children'S HospitalComment on above:Performed By: #### [id number] #### [facility] [address], [place] [address]Gvky nitrogen [Mass/Vol]26 mg/dLHigh5-21[facility] HospitalComment on above:Performed By: #### [id number] #### [facility] [address], [place] [address]Netl nitrogen/Creatinine [Mass ratio]20 No EkvtgQinwmf35-82 [facility] HospitalComment on above:Performed By: #### [id number] #### [facility] [address], [place] [address]X Creatinineon 05-14-2024U Oifgeidlli49.4 mg/dLInvalid Interpretation CodeAtrium Health Carolinas Medical Centerus Medical CenterComment on above:Performed By: #### [id number] #### [facility] [address], [place] [address]Ecpmaigjh By: #### [id number] #### [facility] [address], [place] [address]I Proteinon 60-13-6027Jr Total Protein4.6 mg/dLInvalid Interpretation [facility] HospitalComment on above:Performed By: #### [id number] #### [facility] [address], [place] [address]Xfwthjrzs By: #### [id number] #### [facility] [address], [place] [address]K Protein/Creat Ratioon 37-29-4204Yperhlg/Creatinine (U) [Ratio]9.90 mg/gm CrNormal.00-200.00[facility]S HospitalComment on above: Performed By: #### [id number] #### [facility] [address], [place] [address]pEDFqv 86-80-0748uFOF45 mL/min/1.73 m2Low>=59Day[facility]'S HospitalComment on above:Order Comment: Order added by Discern Expert. Performed By: #### [id number] #### [facility] [address], [place] [address]Kv Panel Informationon 22-19-2070LCWX HealthcareAmbulatory Visit Summaryon 89-56-2199Xibelawkml Visit SummaryAmbulatory Visit Summary SHAMA HART :1945 Visit Date:02/19/2024 Ambulatory Visit Instructions Your Diagnosis Encounter for subsequent annual wellness visit (AWV) in Medicare patient Stage 3a chronic kidney disease (CKD) Dilated aortic root Benign hypertension with chronic kidney disease, stage III HLD (hyperlipidemia) Family history of diabetes mellitus Primary hypertension Overweight Your Care Team Attending Physician - Deidra Garcia MD Primary Care Physician - Deidra Garcia MD This Is Your Medications List amlodipine (Norvasc 5 mg Tab) aspirin (aspirin 81 mg oral tablet) fluticasone nasal (Flonase 0.05 mg/inh Derry) losartan (losartan 100 mg Tab) metoprolol (Toprol XL 25 mg Tab-ER) Procedures Performed Injection (09/2022), Bilateral extraction of cataracts (2015), Melanoma (2015), splinter removed from bottom left foot (2005), Biopsy of breast (1993), left knee scope, squamous cell cancer removed, Tubal ligation. Discharge Vitals Heart Rate (Peripheral) 67 Blood Pressure 138/76 Height 160.0 cm Height 63 in Weight 73.7 kg Weight 162.48 lb BMI 28.79 What to do next Scheduled Follow-Up Appointments 2024 10:15 AM EDT With: Arsen LIU, Deidra Rajput Where: [address] [id number]- Sunday 8:00 AM EST With: Where: [address] [address]- Medications What How Much When Why Instructions Unchanged amlodipine (Norvasc 5 mg Tab) 1 Tablets By Mouth Every day Unchanged aspirin (aspirin 81 mg oral tablet) 1 Tablets By Mouth Every day Unchanged fluticasone nasal (Flonase 0.05 mg/ inh Derry) 2 Sprays Nasal Inhalation Every day RecentURI each nostril Unchanged losartan (losartan 100 mg Tab) 1 Tablets By Mouth Every day Unchanged metoprolol (Toprol XL 25 mg Tab-ER) 1 Tablets By Mouth Every day Duration: 90 Days Allergies Bactrim (Blisters) Cipro (unknown) Flagyl (unknown) Latex (Rash) Penicillin (Hives) Tape (rash) amoxicillin (Hives) codeine (Swelling of throat) morphine (unknown) sulfamethoxazole (Blisters) Problems Ongoing - Any problem that you are currently receiving treatment for. Allergic rhinitis Aortic insufficiency Back pain Benign hypertension with chronic kidney disease, stage III BMI 28.0-28.9,adult Dilated aortic root Dizziness Generalized anxiety disorder GERD (gastroesophageal reflux disease) History of melanoma HLD (hyperlipidemia) Hyperglycemia Leg pain Osteoarthritis of knees, bilateral Osteopenia Palpitations Primary hypertension Screening mammogram, encounter for Sinus tachycardia Stage 3a chronic kidney disease (CKD) Vitamin D deficiency Historical - Any problem that you are no longer receiving treatment for. BMI 30.0-30.9,adult BMI 31.0-31.9,adult CKD (chronic kidney disease), stage III Patient Survey You may receive a survey via text or e-mail asking about your office visit. Please share your experience with us by completing your survey. We appreciate your feedback and thank you for choosing us for your care. Education Materials Exercising to Lose Weight Getting regular exercise is important for everyone. It is especially important if you are overweight. Being overweight increases your risk of heart disease, stroke, diabetes, high blood pressure, andseveral types of cancer. Exercising, and reducing the calories you consume, can help you lose weight and improve fitness and health. Exercise can be moderate or vigorous intensity. To lose weight, most people need to do a certain amount of moderate or vigorous-intensity exercise each week. How can exercise affect me? You lose weight when you exercise enough to burn more calories than you eat. Exercise also reduces body fat and builds muscle. The more muscle you have, the more calories you burn. Exercise also: ??? Improves mood. ??? Reduces stress and tension. ??? Improves your overall fitness, flexibility, and endurance. ??? Increases bone strength. Moderate-intensity exercise Moderate-intensity exercise is any activity that gets you moving enough to burn at least three times more energy (calories) than if you were sitting. Examples of moderate exercise include: ??? Walking a mile in 15 minutes. ??? Doing light yard work. ??? Biking at an easy pace. Most people should get at least 150 minutes of moderate-intensity exercise a week to maintain theirbody weight. Vigorous-intensity exercise Vigorous-intensity exercise is any activity that gets you moving enough to burn at least six times more calories than if you were sitting. When you exercise at this intensity, you should be working hard enough that you are not able to carry on a conversation. Examples (more content not included)...[facility] Medicine Office/Clinic Noteon [id number] Medicine Office/Clinic NoteFaathol hospital Medicine Office/Clinic Note Chief Complaint Subsequent Medicare Wellness Review of Systems PHQ Score Initial Depression Screen Score: 0 SCORE Physical Exam Vitals & Measurements HR: 67(Peripheral) BP: 138/76 SpO2: 97% HT: 160.0 cm HT: 63 in WT: 73.7 kg WT: 162.48 lb BMI: 28.79 Assessment/Plan 1. Encounter for subsequent annual wellness visit (AWV) in Medicare patient (Z00.00: Encounter for general adult medical examination without abnormal findings) The patient was given a customized and personalized print out of all the current AHRQ USPSTF???s recommendations for preventative services and all current CDC recommended immunizations, relevant riskrecommendations and the following patient brochures were given. Reviewed Medicare Prevention Services checklist. [facility] [place] Prevention and home safety screening reviewed. Patient denies any falls in last 12 months, voices no worry about falling. Exhibits no problems with sitting, standing or ambulation. Patient aware with keeping walk way area free of clutter to prevent tripping and/or falling. [place] Advance Directives reviewed. Documents are present in chart. Patient denies any problems with ADL???s and Instrumental ADL???s. Cognitive screening completed with memory and clock face drawing. Clock drawing not done correctly.Patient did recited 3/3 memory words correctly. Immunization record reviewed, discussed Shingrix vaccine with educational handout and availability.2 COVID vaccines have been administered, with 1 Booster received. Allergies and medications reviewed and up to date. No concerns with taking medication as prescribed. Reviewed OTC medications, medication list up to date. Blood tests were reviewed: Blood work is UTD. No concerns with bowel/ bladder. Colonoscopy screening is no longer done due to age. Reviewed pain symptoms: patient denies pain. Reviewed all outside providers that patient follows. Last visit summary notes available in chart and/or have been requested. Patient declines any signs or symptoms of depression at this time. 8 minutes spent with screening and documentation. PHQ2 screening score 0. Patient drinks alcohol monthly or less1-2 drinks, denies concerns. 8 minutes spent with screening and documentation. Audit score 1. Follow up scheduled with PCP,06/19/2024 AWV has been scheduled, 02/18/2025 Medicare provides yearly screening for alcohol and depression concerns. This is completed during our Medicare wellness visit for those who do not have a current diagnosis of depression or concerns with alcohol use. I spent a total of 17 minutes on this date of service which included preparing to see the patient, face to face patient care, completing clinical documentation, obtaining and/or reviewing separately obtained history, counseling and educating the patient with handouts. Explanations were provided with reviewing questionnaires. AUDIT risk assessment screening completed, risk score (1)with patient denying concerns with use. Completed PHQ-2 risk assessment for depression with risk score (0), negative findings. Patient has been reminded to notify the provider if there would be a change or concerns with symptoms with fear, unable to sleep, worrying too much or feeling down and/or sad with lost of interest with daily activities. Will continue to monitor with screening yearly during Medicare wellness visits. 2. Stage 3a chronic kidney disease (CKD) (N18.31: Chronic kidney disease, stage 3a) Reviewed health kidney nutritional handout with importance of preventing strain on the kidneys. Monitor sodium intake daily, educational handout reviewed and provided to assist the patient with a better understanding which types of food, including frozen foods, canned food and fast foods. Work towards a dietary intake with low potassium foods and limit protein intake. Reminded importance to avoidNSAID use and monitor for swelling in the body. Continue to monitor BP with importance of keeping under control with repeated blood work to be ordered as directed with PCP. 3. Dilated aortic root (I77.810: Thoracic aortic ectasia) Patient follows pcp as directed. 4. Benign hypertension with chronic kidney disease, stage III (I12.9: Hypertensive chronic kidney disease with stage 1 through stage 4 chronic kidney disease, or unspecified chronic kidney disease) see #7 and #2. 5. HLD (hyperlipidemia) (E78.5: Hyperlipidemia, unspecified) Reviewed healthy lifestyle with low fat diet and exercise regimen. When you are overweight our bodyproduces more lipids. Risk also increases with family history of hyperlipidemia and with monitoringalcohol use and avoid smoking. Pt voices understanding with importance of monitoring dietary intaketo reduce risk factors associated with CVA. Patient uses diet control. Will continue to follow up with office visits with updated labs as directed. 6. Family history of diabetes mellitus (Z83.3: Family history of diabetes mellitus) Patient screened for diabetes with (more content not included)...[facility] CenterComment on above:Result Comment: Electronically Signed By: Heena Peterson\.br\Date and Time Signed: 02/19/24 13:31 EST\.br\Electronically Co-Signed By: Augusta Hart.br\Date and Time Co-Signed: 02/19/24 13:03 ESTAmbulatory Visit Summaryon [id number] Visit Summary Ambulatory Visit Summary TANNERSHAMABLANE :1945 Visit Date:02/15/2024 Ambulatory Visit Instructions Your Diagnosis Recent URI Former smoker BMI 28.0-28.9,adult Overweight (BMI 25.0-29.9) Your Care Team Attending Physician - ABRAHAM WILSON CNP Primary Care Physician - Deidra Garcia MD [...] cancer removed, Tubal ligation. Discharge Vitals Temperature (Oral) 36.7 ???C Heart Rate (Peripheral) 72 Respiratory Rate 16 Blood Pressure 150/88 Height 160.0 cm Height 63 in Weight 74.1 kg Weight 163.362 lb BMI 28.95 What to do next Scheduled Follow-Up Appointments Sunday 11:00 AM EST With: Where: [address] [phone]- 2024 10:15 AM EDT With: Deidra Garcia MD Where: [address] [address]- Medications What How Much When Instructions Unchanged amlodipine (Norvasc 5 mg Tab) 1 Tablets By Mouth Every day Unchanged aspirin (aspirin 81 mg oral tablet) 1 Tablets By Mouth Every day Unchanged losartan (losartan 100 mg Tab) 1 Tablets By Mouth Every day Unchanged metoprolol (Toprol XL 25 mg Tab-ER) 1 Tablets By Mouth Every day Duration: 90 Days Allergies Bactrim (Blisters) Cipro (unknown) Flagyl (unknown) Latex (Rash) Penicillin (Hives) Tape (rash) amoxicillin (Hives) codeine (Swelling of throat) morphine (unknown) sulfamethoxazole (Blisters) Problems Ongoing - Any problem that you are currently receiving treatment for. Allergic rhinitis Aortic insufficiency Back pain Benign hypertension with chronic kidney disease, stage III Dilated aortic root Dizziness Generalized anxiety disorder GERD (gastroesophageal reflux disease) History of melanoma HLD (hyperlipidemia) Hyperglycemia Leg pain Osteoarthritis of knees, bilateral Osteopenia Palpitations Primary hypertension Screening mammogram, encounter for Sinus tachycardia Stage 3a chronic kidney disease (CKD) Vitamin D deficiency Historical - Any problem that you are no longer receiving treatment for. BMI 30.0-30.9,adult BMI 31.0-31.9,adult CKD (chronic kidney disease), stage III Patient Survey You may receive a survey via text or e-mail asking about your office visit. Please share your experience with us by completing your survey. We appreciate your feedback and thank you for choosing us for your care. [facility] Medicine Office/Clinic Noteon [phone] Medicine Office/Clinic NoteN[facility]/Clinic Note HPI Staff Blane is an 79 year old female presenting for ER follow up ER followup: Hospital: [place] Visit date: 02/09/24 Symptoms the patient presented with: cough for 6 days Dxed with URI, txed with zpak 250mg and tessalong perles 100mg- Finished Sunday Chest xray clear Current concerns: she still has her head cold but chest pain feels much better History of Present Illness 79 [address] patient of Dr. Garcia presents today for an ED f/u from 02/09/2024 where she was diagnosedwith a URI. She was prescribed a Z-pack and tessalon perles.She reports she feels 90% better. She completed the Z-Amos on Sunday as well as the Tessalon Perles. She is afebrile today in the office at 36.7. She reports she has been using Coricidin HBP for congestion. She has no additional concerns. Review of Systems PHQ Score Initial Depression Screen Score: 0 SCORE Constitutional: no fever, no chills, no sweats, no weakness Skin: no Jaundice, no rash, no lesions, nopetechiae ENMT: no ear pain, no sore throat, no congestion, no hoarseness Respiratory: no shortness of breath, no cough, no orthopnea, no wheezing Cardiovascular: no chest pain, no palpitations, no edema Gastrointestinal: no nausea, no vomiting, no diarrhea, no GI bleeding Genitourinary: no dysuria, no hematuria, no discharge, no pain Musculoskeletal: no back pain, no trauma Neurologic: no headache, no dizziness, no numbness, no weakness Psychiatric: no sleeping problems, no irritability, no mood swings/depression. Heme/Lymph: no bleeding tendency, no bruising tendency, no petechiae, no swollen nodes Allergy/Immunologic: no seasonal allergies, no food allergies, no recurrent infections, no impairedimmunity Additional ROS info: Except as noted in the above Review of Systems and in the History of Present Illness all other systems have been reviewed and are negative or noncontributory. Physical Exam Vitals & Measurements T: 36.7 ???C(Oral) HR: 72(Peripheral) RR: 16 BP: 150/88 SpO2: 98% HT: 63 in HT: 160.0 cm WT: 74.1 kg WT: 163.362 lb BMI: 28.95 General: alert, no acute distress ENMT: TM's clear, oral mucosa moist, no pharyngeal erythema or exudate; mild maxillary tenderness Cardiovascular: regular rate and rhythm, normal peripheral perfusion Respiratory: Lungs CTA, respirations non labored Extremities: no deformity, no trauma Neurological: oriented x 4, LOC appropriate for age, CN II-XII intact, motor strength equal & normal bilaterally, sensation equal & normal bilaterally, speech normal Assessment/Plan 1. Recent URI (J06.9: Acute upper respiratory infection, unspecified) Completed the Z-pack and tessalon perles Discussed with patient nasal congestion and cough can linger. Ordered: fluticasone nasal, 2 spray(s), Nasal, Daily, 16 gram, Refill(s) 0, each nostril, [facility]/pharmacy #[id number], 160, cm, 02/15/24 9:26:00 EST, Height/Length Dosing, 74.1, kg, 02/15/24 9:26:00 EST, Weight Dosing 2. Former smoker (Z87.891: Personal history of nicotine dependence) Encourage to continue with a non-smoker 3. BMI 28.0-28.9,adult (Z68.28: Body mass index [BMI] 28.0-28.9, adult) The standard range for ages 18 and older is >=18.5 and < 25 kg/m2. Your BMI today was above this range, this falls in the overweight to obese category and there are medical benefits to weight loss. We can offer counselling, referral, and/or medical support in addressing this problem. Your BMIand weight management will be followed at subsequent visits. 4. Overweight (BMI 25.0-29.9) (E66.3: Overweight) The standard range for ages 18 and older is >=18.5 and < 25 kg/m2. Your BMI today was above this range, this falls in the overweight to obese category and there are medical benefits to weight loss. We can offer counselling, referral, and/or medical support in addressing this problem. Your BMIand weight management will be followed at subsequent visits. Discussed CCM with patient- patient declined Follow-up No qualifying data available Patient Education Cough, Adult, Qleo-ar-Kxtl Problem List/Past Medical History Ongoing Allergic rhinitis Aortic insufficiency Back pain Benign hypertension with chronic kidney disease, stage III Dilated aortic root Dizziness Generalized anxiety disorder GERD (gastroesophageal reflux disease) History of melanoma HLD (hyperlipidemia) Hyperglycemia Leg pain Osteoarthritis of knees, bilateral Osteopenia Palpitations Primary hypertension Screening mammogram, encounter for Sinus tachycardia Stage 3a chronic kidney disease (CKD) Vitamin D deficiency Historical BMI 30.0-30.9,adult BMI 31.0-31.9,adult CKD (chronic kidney disease), stage III Procedure/Surgical History Injection (09/2022), Bilateral extraction of cataracts (2015), Melanoma (2015), splinter removed from bottom left foot (2005), Biopsy of breast (1993), left knee scope, squamous cell cancer removed, Tubal ligation. Medications aspiri (more content not included)...[facility] CenterComment on above:Result Comment: Electronically Signed By: ABRAHAM WILSON CNP\.sherri\Date and Time Signed: 02/15/24 10:32 ESTCHEMISTRYOrdered By: SYSTEM SYSTEM on [id number] [Mass/Vol]4.2 g/dLNormal3.3 - 5.0 gm/dLRemisol Chem Albumin/Globulin [Mass ratio]1.4 {ratio}Normal1.1 - 2.2Remisol ChemALP [Catalytic activity/Vol]87 [iU]/vTbxehy89 - 98 Int._Unit/LRemisol ChemALT No additional P-5'-P [Catalytic activity/Vol]13 [iU]/dNormal6 - 46 Int._Unit/L Remisol ChemAnion gap [Moles/Vol]13 mmol/LNormal6 - 16 mEq/LRemisol ChemAST [Catalytic activity/Vol]18 [iU]/dNormal5 - 43 Int._Unit/LRemisol ChemBilirubin [Mass/Vol]0.6 mg/dLNormal0.0 - 1.1 mg/dLRemisol ChemCalcium [Mass/Vol]9.8 mg/dL Normal8.9 - 11.1 mg/dLRemisol ChemChloride [Moles/Vol]105 mmol/JGmkbsp451 - 111 mmol/LRemisol ChemCholesterol [Mass/Vol]240 mg/wENmas566 - 200 mg/dLRemisol Chem Cholesterol in HDL [Mass/Vol]64 mg/dLInvalid Interpretation CodeRemisol Chem Comment on above:Result Comment: '>= 60 LOW RISK' '<= 40 HIGH RISK'Cholesterol in LDL [Mass/Vol]138 mg/dLHigh<=129mg/dLRemisol ChemCholesterol in VLDL [Mass/Vol]47 mg/dLHigh7 - 40 mg/dLRemisol ChemCO2 [Moles/Vol]25 mmol/XQpgoqu84 - 31 mmol/LRemisol ChemCreatinine [Mass/Vol]1.2 mg/dLNormal0.5 - 1.3 mg/dLRemisol WjncvUUH63 mL/min/1.73 m2Low>=59mL/min/1.73 m2 Remisol ChemGlobulin (S) [Mass/Vol]2.9 g/dLNormal1.4 - 4.0 gm/dLRemisol Chem Glucose [Mass/Vol]87 mg/mRBcsxff37 - 199 mg/dLRemisol ChemPotassium [Moles/Vol] 4.7 mmol/LNormal3.5 - 5.3 mmol/LRemisol ChemProtein [Mass/Vol]7.1 g/dLNormal6.0 - 7.8 gm/dLRemisol ChemSodium [Moles/Vol]138 mmol/POlzdpw670 - 145 mmol/LRemisol ChemTriglyceride [Mass/Vol]233 mg/dLHigh<=149mg/dLRemisol ChemUrea nitrogen [Mass/Vol]25 mg/dLHigh5 - 21 mg/dLRemisol ChemUrea nitrogen/Creatinine [Mass ratio]21 mg/haLqvu62 - 20Remisol ChemCHEMISTRYOrdered By: Law Nassar on 09-62-8052WsL6x (Bld) [Mass fraction]5.9 %Normal<=5.9%[facility] ChemAutoSSCMPon 03-39-6714Ppgbcpq [Mass/Vol]4.2 g/dLNormal3.3-5.0[facility] Comment on above:Performed By: #### [id number] #### [facility] [address], [place] [address]Uuawxwr/Globulin (S) [Mass conc ratio]1.6Zsaiyn8.1-2.2FFairfield Medical CenterComment on above:Performed By: #### [id number] #### [facility] [address], [place] [address]XLA [Catalytic activity/Vol]87 Int._Unit/SAsqhzf85-77DwuwvlDayton Children'S HospitalComment on above:Performed By: #### [id number] #### [facility] [address], [place] [address]CKV No additional P-5'-P [Catalytic activity/Vol]13 Int._Unit/L Normal6-46[facility]S HospitalComment on above:Performed By: #### [id number] #### [facility] [address], [place] [address]Ydifg gap [Moles/Vol]13 mmol/LNormal6-16[facility] HospitalComment on above:Performed By: #### [id number] #### [facility] [address], [place] [address]AKS [Catalytic activity/Vol]18 Int._Unit/LNormal5-43[facility] HospitalComment on above:Performed By: #### [id number] #### [facility] [address], [place] [address]Xfxtrrsqs [Mass/Vol]0.6 mg/dLNormal0.0-1.1FFairfield Medical CenterComment on above:Performed By: #### [id number] #### [facility] [address], [place] [address]Lgximro [Mass/Vol]9.8 mg/dLNormal8.9-11.1FFairfield Medical CenterComment on above:Performed By: #### [id number] #### [facility] [address], [place] [address]Wnhckjkf [Moles/Vol]105 mmol/ZHmmbdg461-015IbcvckDayton Children'S HospitalComment on above:Performed By: #### [id number] #### [facility] [address], [place] [address]EY8 [Moles/Vol]25 mmol/CChauqz73-57TrymoaDayton Children'S Hospital Comment on above:Performed By: #### [id number] #### [facility] [address], [place] [address]Eqzlelsoeu [Mass/Vol]1.2 mg/dLNormal0.5-1.3FFairfield Medical CenterComment on above:Performed By: #### [id number] #### [facility] [address], [place] [address]Pggbehna (S) [Mass/Vol]2.9 g/dLNormal1.4-4.0[facility] HospitalComment on above:Performed By: #### [id number] #### [facility] [address], [place] [address]Wnvpaga [Mass/Vol]87 mg/wHTwppot74-853HtfobmDayton Children'S HospitalComment on above:Performed By: #### [id number] #### [facility] [address], [place] [address]Hdrhmsewy [Moles/Vol]4.7 mmol/LNormal3.5-5.3FFairfield Medical CenterComment on above:Performed By: #### [id number] #### [facility] [address], [place] [address]Snmkulx [Mass/Vol]7.1 g/dLNormal6.0-7.8[facility] HospitalComment on above:Performed By: #### [id number] #### [facility] [address], [place] [address]Zfjkzy [Moles/Vol]138 mmol/IZtyueq544-409TxvcfzDayton Children'S HospitalComment on above:Performed By: #### [id number] #### [facility] [address], [place] [address]Kwpl nitrogen [Mass/Vol]25 mg/dLHigh5-21[facility] HospitalComment on above:Performed By: #### [id number] #### [facility] [address], [place] [address]Coxs nitrogen/Creatinine [Mass ratio]21 No JfvlgIvbk24-75ClonqxDayton Children'S HospitalComment on above:Performed By: #### [id number] #### [facility] [address], [place] [address]MfoI0lvf 73-91-7966NvT0u (Bld) [Mass fraction]5.9 %Normal<=5.9 [facility] HospitalComment on above:Performed By: #### [id number] #### [facility] [address], [place] [address]Jscol Panelon 96-66-6393Wtfuuusnmef [Mass/Vol]240 mg/dLHigh 120-200Day[facility]S HospitalComment on above:Performed By: #### [id number] #### [facility] [address], [place] [address]Btpdadmpbco in HDL [Mass/Vol]64 mg/dLInvalid Interpretation CodeDayton Children'S HospitalComment on above:Result Comment: '>= 60 LOW RISK' '<= 40 HIGH RISK'Performed By: #### [id number] #### [facility] [address], [place] [address]Kwcjqsefcpm in LDL [Mass/Vol]138 mg/dLHigh<=129Day[facility]'S HospitalComment on above:Performed By: #### [id number] #### [facility] [address], [place] [address]Tzypybzrkog in VLDL [Mass/Vol]47 mg/dLHigh7-40[facility]'S HospitalComment on above:Performed By: #### [id number] #### [facility] [address], [place] [address]Ixhqecmnovll [Mass/Vol]233 mg/dLHigh<=149Day[facility] Children'S HospitalComment on above:Performed By: #### [id number] #### [facility] [address], [place] [address]oRFHyf 26-12-0470kYLQ12 mL/min/1.73 m2Low>=59Day[facility] Children'S HospitalComment on above:Performed By: #### [id number] #### [facility] [address], [place] [address]Wypodrkleh Visit Summaryon 60-73-3230Uirrvlanpb Visit Summary Ambulatory Visit Summary SHAMA HART :1945 Visit Date:12/20/2023 Ambulatory Visit Instructions Your Diagnosis Primary hypertension Stage 3a chronic kidney disease (CKD) Dilated aortic root BMI 29.0-29.9,adult Over weight Former smoker Vitamin D deficiency Hyperglycemia HLD (hyperlipidemia) Generalized anxiety disorder Other specified disorders of bone density and structure, unspecified site Your Care Team Attending Physician - Deidra [...] cancer removed, Tubal ligation. Discharge Vitals Temperature (Oral) 36.7 ?C Heart Rate (Peripheral) 66 Respiratory Rate 16 Blood Pressure 122/82 Height 160 cm Height 63 in Weight 75.4 kg Weight 165.88 lb BMI 29.45 What to do next Scheduled Follow-Up Appointments Sunday 11:00 AM EST With: Where: [address] [address]24 10:15 AM EDT With: Arsen LIU, Deidra Rajput Where: [address] [address]- Medications What How Much When Instructions Unchanged amlodipine (Norvasc 5 mg Tab) 1 Tablets By Mouth Every day Unchanged aspirin (aspirin 81 mg oral tablet) 1 Tablets By Mouth Every day Unchanged losartan (losartan 100 mg Tab) 1 Tablets By Mouth Every day Unchanged metoprolol (Toprol XL 25 mg Tab-ER) 1 Tablets By Mouth Every day Duration: 90 Days Medications and Immunizations Administered Given influenza, unspecified formulation, Allergies Bactrim (Blisters) Cipro (unknown) Flagyl (unknown) Latex (Rash) Penicillin (Hives) Tape (rash) amoxicillin (Hives) codeine (Swelling of throat) morphine (unknown) sulfamethoxazole (Blisters) Problems Ongoing - Any problem that you are currently receiving treatment for. Allergic rhinitis Aortic insufficiency Back pain Benign hypertension with chronic kidney disease, stage III Dilated aortic root Dizziness Generalized anxiety disorder GERD (gastroesophageal reflux disease) History of melanoma HLD (hyperlipidemia) Hyperglycemia Leg pain Osteoarthritis of knees, bilateral Osteopenia Palpitations Primary hypertension Screening mammogram, encounter for Sinus tachycardia Stage 3a chronic kidney disease (CKD) Vitamin D deficiency Historical - Any problem that you are no longer receiving treatment for. BMI 30.0-30.9,adult BMI 31.0-31.9,adult CKD (chronic kidney disease), stage III Patient Survey You may receive a survey via text or e-mail asking about your office visit. Please share your experience with us by completing your survey. We appreciate your feedback and thank you for choosing us for your care. [facility] Medicine Office/Clinic Noteon [phone] Medicine Office/Clinic NoteNashoba [facility] Medicine Office/Clinic Note Chief Complaint The patient presents for routine evaluation and management of cardiovascular and metabolic conditions. HPI Staff Shama Hutton is an 78 year old female presenting for 6 month follow up htn, ckd Patient is here for follow up on hypertension. How often are you checking your blood pressure? occasionally What are your average readings? 125/80's Yearly BMP: 11/08/23 flu: done 11/20/23 questions/concerns: hasn't had yearly labs and wondered if you'd order those History of Present Illness The patient is an 78-year-old female presenting for an annual follow-up appointment to manage her chronic health conditions. She has a known history of a dilated aortic root, initially diagnosed approximately three years ago following a comprehensive cardiovascular evaluation. The condition was confirmed during a detailed cardiac investigation that included imaging studies, though specifics of the imaging (e.g., echocardiogram) were not explicitly mentioned in this visit. Her cardiovascular history includes essential hypertension, which is being managed with medications such as amlodipine, losartan, and metoprolol. During today's visit, she reports occasional palpitations with occurrences de scribed as brief and lasting only a few seconds. Evaluation of her palpitations previously includedextensive cardiovascular testing about three years ago. Psychiatrically, she has a past diagnosis of generalized anxiety disorder, which has improved over time, particularly after dealing with significant emotional events such as the loss of her spouse. She remains clinically stable in this regard. The patient also has a background of hyperlipidemia andVitamin D deficiency; both are managed pharmacologically, although specific medication details are not provided. She has osteopenia, for which she currently takes a multivitamin. Presently, she is not experiencing significant acid reflux symptoms due to dietary modifications. The patient quit smoking in the past and reports good compliance with her current medication regimen. She did not report any new symptoms directly related to her chronic conditions during this visit.Social history reveals that she travels frequently, recently visiting [place] with a family member. Lifestyle factors include moderating physical activities aligned with her age and maintaining a supportive family interaction network. Review of Systems PHQ Score Initial Depression Screen Score: 0 SCORE Physical Exam Vitals & Measurements T: 36.7 ?C(Oral) HR: 66(Peripheral) RR: 16 BP: 122/82 SpO2: 100% HT: 63 in HT: 160 cm WT: 75.4 kg WT: 165.88 lb BMI: 29.45 General: alert, no acute distress ENMT: oral mucosa moist Cardiovascular: Regular rate and rhythm, normal peripheral perfusion Respiratory: Lungs clear to auscultation, respirations non labored Extremities: no deformity, no trauma Neurological: oriented x 4, level of consciousness appropriate for age, CN II- XII intact, motor strength equal & normal bilaterally, speech normal Abdomen: Soft, Non-tender, Non-distended, + Bowel sounds Assessment/Plan 1. Primary hypertension (I10: Essential (primary) hypertension) Blood pressure control remains essential, with existing medications including amlodipine, losartan,and metoprolol. Regular monitoring and adjustment of treatment are advised based on routine assessments. Ordered: Body Mass Index (BMI) documented 3008F Comprehensive Metabolic Panel Current tobacco non-user 1036F Depression Screening Negative 3352F HgbA1c Influenza immunization administered or previously received 4274F Lipid Panel Most recent diastolic blood pressure 80-89 mm Hg 3079F Patient screen for fall risk: no falls in last year or 1 fall with no injury in last year 1101F Systolic BP <130 mm Hg (Most Recent) 3074F 2. Stage 3a chronic kidney disease (CKD) (N18.31: Chronic kidney disease, stage 3a) Will check. Labs ordered. Ordered: Body Mass Index (BMI) documented 3008F Comprehensive Metabolic Panel Current tobacco non-user 1036F Depression Screening Negative 3352F HgbA1c Influenza immunization administered or previously received 4274F Lipid Panel Most recent diastolic blood pressure 80-89 mm Hg 3079F Patient screen for fall risk: no falls in last year or 1 fall with no injury in last year 1101F Systolic BP <130 mm Hg (Most Recent) 3074F 3. Dilated aortic root (I77.810: Thoracic aortic ectasia) Continued monitoring of the aortic root dilation is advised. Past comprehensive cardiovascular assessment suggests periodic follow-up to monitor for any progression of the condition. Currently, no further intervention is needed based on stable symptomatology. Reviewed testing. Ordered: Body Mass Index (BMI) documented 3008F Comprehensive Metabolic Panel Current tobacco non-user 1036F Depression Screening Negative 3352F HgbA1c Influenza immunization administered or previously received 4274F Lipid Panel (more content not included)...[facility] Comment on above:Result Comment: Electronically Signed By: Arsen LIU, Deidra E.\.br\Date and Time Signed: 12/20/23 11:15 EDTPTH Intacton 11-09-2023 Parathyrin.intact [Mass/Vol]45 pg/mLInvalid Interpretation Kxxr52-69Luarfu [facility] HospitalComment on above:Result Comment: Performed at: [facility] [address] [id number] PhD Jose FernandezPerformed By: #### [id number] #### [facility] [address], [place] [address]GIMVIDSAGItajfdh By: SYSTEM SYSTEM on 00-97-592359- hydroxyvitamin D3 [Mass/Vol]26.3 ng/mLLow30.0 - 100.0 ng/mLRemisol ChemAlbumin [Mass/Vol]4.0 g/dLNormal3.3 - 5.0 gm/dLRemisol ChemAnion gap [Moles/Vol]11 mmol/LNormal6 - 16 mEq/LRemisol ChemCalcium [Mass/Vol]9.4 mg/dLNormal8.9 - 11.1 mg/dLRemisol ChemChloride [Moles/Vol]106 mmol/XIzdigi962 - 111 mmol/LRemisol ChemCO2 [Moles/Vol]26 mmol/SIlppbc46 - 31 mmol/LRemisol ChemCreatinine [Mass/Vol]1.2 mg/dLNormal0.5 - 1.3 mg/dLRemisol BimamKFB44 mL/min/1.73 m2Low >=59mL/min/1.73 x3Hbgxoch ChemGlucose [Mass/Vol]99 mg/eHItvtno94 - 199 mg/dL Remisol ChemPhosphate [Mass/Vol]3.2 mg/dLNormal1.9 - 4.6 mg/dLRemisol Chem Potassium [Moles/Vol]4.4 mmol/LNormal3.5 - 5.3 mmol/LRemisol ChemSodium [Moles/Vol]139 mmol/WRaglrr348 - 145 mmol/LRemisol ChemUrea nitrogen [Mass/Vol] 27 mg/dLHigh5 - 21 mg/dLRemisol ChemUrea nitrogen/Creatinine [Mass ratio]22 mg/ziCmsq32 - 20Remisol ChemProtein/Creatinine (U) [Ratio]12.80 mg/gm CrNormal 0.00 - 200.00 mg/gm CrRemisol ChemHEMATOLOGYOrdered By: SYSTEM SYSTEM on 76-33-3365Opepqnklaj (Bld) [Volume fraction]39.4 %Hjhxwt92.0 - 46.0 %Remisol HemeHemoglobin (Bld) [Mass/Vol]13.0 g/fGMdmuxa37.0 - 16.0 gm/dLRemisol HemeHct & Hgbon 13-59-2409Gbebtnwvfq (Bld) [Volume fraction]39.4 %Jkamlq16.0-46.0[facility] HospitalComment on above:Performed By: #### [id number] #### [facility] [address], [place] [address]Ebzzsmfcxf (Bld) [Mass/Vol]13.0 g/rYQcqdfr04.0-16.0[facility] HospitalComment on above:Performed By: #### [id number] #### [facility] [address], [place] [address]Gf Panel InformationOrdered By: SYSTEM SYSTEM on 11-08-2023U Tllhjfoygr67.3 mg/dLInvalid Interpretation CodeRemisol ChemUr Total Protein6.7 mg/dLInvalid Interpretation CodeRemisol ChemRenal Panelon 10-85-5525Ytgldkt [Mass/Vol]4.0 g/dLNormal3.3-5.0[facility] HospitalComment on above: Performed By: #### [id number] #### [facility] [address], [place] [address]Rywpy gap [Moles/Vol]11 mmol/LNormal6-16[facility] HospitalComment on above:Performed By: #### [id number] #### [facility] [address], [place] [address]Pkhqcqp [Mass/Vol]9.4 mg/dLNormal8.9-11.1FFairfield Medical CenterComment on above:Performed By: #### [id number] #### [facility] [address], [place] [address]Lvqrefrb [Moles/Vol]106 mmol/ZDzrrir797-462AsjtveDayton Children'S HospitalComment on above:Performed By: #### [id number] #### [facility] [address], [place] [address]MM8 [Moles/Vol]26 mmol/QNiabsx91-12AppfegDayton Children'S Hospital Comment on above:Performed By: #### [id number] #### [facility] [address], [place] [address]Wgyskvvutk [Mass/Vol]1.2 mg/dLNormal0.5-1.3FFairfield Medical CenterComment on above:Performed By: #### [id number] #### [facility] [address], [place] [address]Cnkbbjj [Mass/Vol]99 mg/fXTxkrvy97-138ZahqxjDayton Children'S HospitalComment on above:Performed By: #### [id number] #### [facility] [address], [place] [address]Mdsnbvzzd [Mass/Vol]3.2 mg/dLNormal1.9-4.6FFairfield Medical CenterComment on above:Performed By: #### [id number] #### [facility] [address], [place] [address]Dibfzjpoe [Moles/Vol]4.4 mmol/LNormal3.5-5.3FFairfield Medical CenterComment on above:Performed By: #### [id number] #### [facility] [address], [place] [address]Yuqias [Moles/Vol]139 mmol/ENltdxo868-985IunnzcDayton Children'S HospitalComment on above:Performed By: #### [id number] #### [facility] [address], [place] [address]Zrhm nitrogen [Mass/Vol]27 mg/dLHigh5-21[facility]S HospitalComment on above:Performed By: #### [id number] #### [facility] [address], [place] [address]Erpb nitrogen/Creatinine [Mass ratio]22 No CvmzpQthv73-79XbthsqDayton Children'S HospitalComment on above:Performed By: #### [id number] #### [facility] [address], [place] [address]U Protein/Creat Ratioon 29-96-9140Wisdlrf/Creatinine (U) [Ratio]12.80 mg/gm CrNormal.00-200.00[facility]'S HospitalComment on above:Performed By: #### [id number] #### [facility] [address], [place] [address]F Gviuaptnlh72.3 mg/dLInvalid Interpretation [facility] HospitalComment on above:Performed By: #### [id number] #### [facility] [address] [place] [id number] By: #### [id number] #### [facility] [address], [place] [address]Lg Total Protein6.7 mg/dLInvalid Interpretation [facility] HospitalComment on above:Performed By: #### [id number] #### [facility] [address], [place] [address]Kbxwaumsu By: #### [id number] #### [facility] [address] [place] [address]KE with Cult Rflxon [id number] Ql (U)NegativeNormal NegativeDayton Children'S HospitalComment on above:Performed By: #### [id number] #### [facility] [address], [place] [address]Wfblhqu (U)ClearNormalClearDayton Children'S HospitalComment on above:Performed By: #### [id number] #### [facility] [address], [place] [address]Lnmap (U)Light-YellowNormalYellowDayton Children'S Hospital Comment on above:Result Comment: Microscopic readings are only performed on those samples that meet specific criteria set forth by [facility].Performed By: #### [id number] #### [facility] [address], [place] [address]Gbqggkr Ql (U)NegativeNormalNegProMedica Toledo Hospital Comment on above:Performed By: #### [id number] #### [facility] [address] [place] [address]Ksoblslcqz Auto test strip (U) [Mass/Vol]NegativeNormalNegative [facility] HospitalComment on above:Performed By: #### [id number] #### [facility] [address] [place] [address]Scvjegr Auto test strip Ql (U)NegativeNormalNegProMedica Toledo HospitalComment on above:Performed By: #### [id number] #### [facility] [address] [place] [address]Ophachkix esterase Auto test strip Ql (U)NegativeNormalNegative [facility] HospitalComment on above:Performed By: #### [id number] #### [facility] [address] [place] [address]Rlgptdh Auto test strip Ql (U)NegativeNormalNegProMedica Toledo HospitalComment on above:Performed By: #### [id number] #### [facility] [address] [place] [address]21sW (U)6.0 [pH]Invalid Interpretation Code5.0-9.0[facility]'S HospitalComment on above:Performed By: #### [id number] #### [facility] [address], [place] [address]Emgphbv Ql (U)NegativeNormalNegProMedica Toledo Hospital Comment on above:Performed By: #### [id number] #### [facility] [address], [place] [address]Yhnwzbin gravity (U) [Rel density]1.014Invalid Interpretation Code1.005-1.030[facility]'S HospitalComment on above:Performed By: #### [id number] #### [facility] [address], [place] [address]Rlsllxwxfghf (U) [Mass/Vol]NegativeNormalNegativeDayton Children'S HospitalComment on above:Performed By: #### [id number] #### [facility] [address], [place] [address]Xdon of Urine collection methodClean CatchNormalDayton Children'S HospitalComment on above:Performed By: #### [id number] #### [facility] [address], [place] [address]GDCSAIFCEJDpvplui By: SYSTEM SYSTEM on 61-44-9343Jhpnlhbvq Ql (U)NegativeNormalNegativemg/dLTULSA SPINE & [facility] UA Auto SSClarity (U)Clear (11/08/23 11:25 AM)NormalClearFBRISTOW MEDICAL [facility]ENTER – [facility]OW UA Auto SSColor (U)Light-Yellow 1 (11/08/23 11:25 AM)NormalYellowTULSA SPINE & SPECIALTY [facility] [place] UA Auto SSComment on above:Interpretive Data: Microscopic readings are only performed on those samples that meet specific criteria set forth by [facility].Glucose Ql (U) NegativeNormalNegativemg/dLTULSA SPINE & SPECIALTY [facility] [place] UA Auto SSHemoglobin Auto test strip (U) [Mass/Vol]NegativeNormalNegativemg/dLFT UA Auto SSKetones Auto test strip Ql (U)NegativeNormalNegativemg/dLFT UA Auto SSLeukocyte esterase Auto test strip Ql (U)NegativeNormalNegativeLeu/uLFT UA Auto SSNitrite Auto test strip Ql (U) NegativeNormalNegativemg/dLTULSA SPINE & SPECIALTY [facility] [place] UA Auto SSpH (U)6.0 *NA* (11/08/23 11:25 AM)Invalid Interpretation Code5.0 - 9.0FT UA Auto SSProtein Ql (U)NegativeNormalNegativemg/dLFT UA Auto SSSpecific gravity (U) [Rel density] 1.014 *NA* (11/08/23 11:25 AM)Invalid Interpretation Code1.005 - 1.030FT UA Auto SS Urobilinogen (U) [Mass/Vol]NegativeNormalNegativemg/dLTULSA SPINE & SPECIALTY [facility] [place] UA Auto SSURINALYSIS Ordered By: Amina Arredondo on [id number] Spec DescClean Catch (11/08/23 11:25 AM)NormalTULSA SPINE & SPECIALTY HOSPITAL [facility] UA Auto SSVitamin D 25 Hydroxyon - hydroxyvitamin D3 [Mass/Vol]26.3 ng/mLLow30.0-100.0[facility] Comment on above:Performed By: #### [id number] #### [facility] [address], [place] [address]fRFQrv 13-15-7660tSAF97 mL/min/1.73 m2Low>=59Day[facility] Children'S HospitalComment on above:Order Comment: Order added by Discern Expert. Performed By: #### [id number] #### [facility] [address], [place] [address]Cqexlhogpc Visit Summaryon [id number] Visit Summary Ambulatory Visit Summary SHAMA HART :1945 Visit Date:10/11/2023 Ambulatory Visit Instructions Your Diagnosis Pyogenic granuloma Former smoker BMI 28.0-28.9,adult Your Care Team Attending Physician - ABRAHAM WILSON CNP Primary Care Physician - Deidra Garcia MD This Is Your Medications List amlodipine (Norvasc 5 mg Tab) aspirin (aspirin 81 mg oral tablet) doxycycline (doxycycline monohydrate 100 mg oral capsule) losartan (losartan 100 mg Tab) metoprolol (Toprol XL 25 mg Tab-ER) Procedures Performed Injection (09/2022), Bilateral extraction of cataracts (2015), Melanoma (2015), splinter removed from bottom left foot (2005), Biopsy of breast (1993), left knee scope, squamous cell cancer removed, Tubal ligation. Discharge Vitals Temperature (Temporal Artery) 36.4 ?C Heart Rate (Peripheral) 78 Respiratory Rate 18 Blood Pressure 122/84 Height 160.0 cm Height 63 in Weight 74.1 kg Weight 163.02 lb BMI 28.95 What to do next Scheduled Follow-Up Appointments 2023 10:15 AM EDT With: Deidra Garcia MD Where: [address] [address]- Sunday 11:00 AM EST With: Where: [address] [address]- Someone Will Contact You Regarding These Appointments [facility] External Ambulatory Referral, Service not offered at [facility], Other Referral, 10/11/23 14:19:00 EDT, Pyogenic granuloma Medications What How Much When Instructions Unchanged amlodipine (Norvasc 5 mg Tab) 1 Tablets By Mouth Every day Unchanged aspirin (aspirin 81 mg oral tablet) 1 Tablets By Mouth Every day Unchanged doxycycline (doxycycline monohydrate 100 mg oral capsule) TAKE 1 CAPSULE BY MOUTH TWICE ADAY FOR 7 DAYS Unchanged losartan (losartan 100 mg Tab) 1 Tablets By Mouth Every day Unchanged metoprolol (Toprol XL 25 mg Tab-ER) 1 Tablets By Mouth Every day Duration: 90 Days Allergies Bactrim (Blisters) Cipro (unknown) Flagyl (unknown) Latex (Rash) Penicillin (Hives) Tape (rash) amoxicillin (Hives) codeine (Swelling of throat) morphine (unknown) sulfamethoxazole (Blisters) Problems Ongoing - Any problem that you are currently receiving treatment for. Allergic rhinitis Aortic insufficiency Back pain Benign hypertension with chronic kidney disease, stage III Dilated aortic root Dizziness Generalized anxiety disorder GERD (gastroesophageal reflux disease) History of melanoma HLD (hyperlipidemia) Hyperglycemia Leg pain Osteoarthritis of knees, bilateral Osteopenia Palpitations Primary hypertension Screening mammogram, encounter for Sinus tachycardia Stage 3a chronic kidney disease (CKD) Vitamin D deficiency Historical - Any problem that you are no longer receiving treatment for. BMI 30.0-30.9,adult BMI 31.0-31.9,adult CKD (chronic kidney disease), stage III Patient Survey You may receive a survey via text or e-mail asking about your office visit. Please share your experience with us by completing your survey. We appreciate your feedback and thank you for choosing us for your care. Education Materials Pyogenic Granuloma Pyogenic granuloma is a growth (lesion) that forms on the skin or on the mucous membranes of the mouth. This type of lesion is a lump of very red tissue that bleeds easily, is usually a single lesion, and most often affects: ? The head and neck. ? The mucous membranes of the mouth or tongue. ? The upper body. ? The hands and feet. A pyogenic granuloma usually measures about 0.2 inches (0.5 cm), but lesions can be smaller or larger. This condition does not spread from person to person (is not contagious). The lesion is noncancerous (benign). What are the causes? The cause of pyogenic granulomas is unknown, but the lesions commonly occur after a minor injury, such as pricking your skin or biting your lip or tongue. A mound of tiny blood vessels (capillaries) forms to create a lesion. Sometimes the lesions occur without an injury. What increases the risk? You are more likely to develop this condition if: ? You are . ? You are a child or young adult. ? You take certain medicines, including: ? Medicines for acne. ? control pills. ? Some medicines used to treat cancer, HIV, or AIDS. What are the signs or symptoms? The main symptom of this condition is a raised or lumpy lesion that is very red. Your lesion may also: ? Have a crusty, broken, and irritated (ulcerated) surface. ? Bleed easily. ? Be slightly sore. How is this diagnosed? This condition is diagnosed based on your symptoms and medical history, especially if you recently had an injury. You may also have: ? A physical exam. ? A small piece of your granuloma removed (more content not included)...[facility] Medicine Office/Clinic Noteon 60-77-0945[facility] NoteN[facility] HPI Staff Blane is an 78 year old female presenting for ER follow up ER records requested 10/08 Arsen patient ER followup: Hospital: [place] Visit date: 10/08/23 Symptoms the patient presented with: infected finger Dxed with pyogenic granuloma, treated with doxycycline 100mg bid for 7 days. started this on Sundaywith no problems Current concerns: She just needs this looked at, still swollen,she said she needs a referral for a hand surgeon. History of Present Illness 78 [address] patient of Dr. Garcia presents today for f/u to ED for pyogenic granuloma. She was given a RX for doxycycline 100 mg one po BID x 7 days. She reports she has been taking the medication as prescribed. She states earlier today she used some antibiotic cream on the area and covered it with abandaid and it felt a lot better. She reports she will need a refill to a hand specialist or a general surgeon. She reports this is why she is here today. Review of Systems PHQ Score Initial Depression Screen Score: 0 SCORE Constitutional: no fever, no chills, no sweats, no weakness Skin: no Jaundice, no rash, no lesions, nopetechiae Respiratory: no shortness of breath, no cough, no orthopnea, no wheezing Cardiovascular: no chest pain, no palpitations, no edema Musculoskeletal: no back pain, no trauma Neurologic: no headache, no dizziness, no numbness, no weakness Psychiatric: no sleeping problems, no irritability, no mood swings/depression. Additional ROS info: Except as noted in the above Review of Systems and in the History of Present Illness all other systems have been reviewed and are negative or noncontributory. Physical Exam Vitals & Measurements T: 36.4 ?C(Temporal Artery) HR: 78(Peripheral) RR: 18 BP: 122/84 SpO2: 96% HT: 63 in HT: 160.0 cm WT: 74.1 kg WT: 163.02 lb BMI: 28.95 General: alert, no acute distress Skin: warm, dry Head: no trauma, normocephalic Neck: Trachea midline, no adenopathy, no tenderness Eye: normal conjunctiva, sclera clear Cardiovascular: regular rate and rhythm, normal peripheral perfusion Respiratory: Lungs CTA, respirations non labored Extremities: no deformity, no trauma; right hand ringer finger- area erythematous, and tender to palpation Neurological: oriented x 4, LOC appropriate for age speech normal Psychiatric: cooperative, affect appropriate for age, normal judgement, normal psychiatric thoughts. Assessment/Plan 1. Pyogenic granuloma (L98.0: Pyogenic granuloma) Encouraged to complete the antibiotic as ordered May soak the finger in epsom salt Referral sent for Dr. Domonique Glasgow at [facility]. Ordered: [facility] External Ambulatory Referral 2. Former smoker (Z87.891: Personal history of nicotine dependence) Encouraged to continue as a non-smoker 3. BMI 28.0-28.9,adult (Z68.28: Body mass index [BMI] 28.0-28.9, adult) The standard range for ages 18 and older is >=18.5 and < 25 kg/m2. Your BMI today was above this range, this falls in the overweight to obese category and there are medical benefits to weight loss. We can offer counselling, referral, and/or medical support in addressing this problem. Your BMIand weight management will be followed at subsequent visits. Follow-up No qualifying data available Patient Education Pyogenic Granuloma Problem List/Past Medical History Ongoing Allergic rhinitis Aortic insufficiency Back pain Benign hypertension with chronic kidney disease, stage III Dilated aortic root Dizziness Generalized anxiety disorder GERD (gastroesophageal reflux disease) History of melanoma HLD (hyperlipidemia) Hyperglycemia Leg pain Osteoarthritis of knees, bilateral Osteopenia Palpitations Primary hypertension Screening mammogram, encounter for Sinus tachycardia Stage 3a chronic kidney disease (CKD) Vitamin D deficiency Historical BMI 30.0-30.9,adult BMI 31.0-31.9,adult CKD (chronic kidney disease), stage III Procedure/Surgical History Injection (09/2022), Bilateral extraction of cataracts (2015), Melanoma (2015), splinter removed from bottom left foot (2005), Biopsy of breast (1993), left knee scope, squamous cell cancer removed, Tubal ligation. Medications aspirin 81 mg oral tablet, 81 mg= 1 tab(s), Oral, Daily doxycycline monohydrate 100 mg oral capsule losartan 100 mg Tab, 100 mg= 1 [...] Social History Alcohol - Low Risk, 08/12/2021 1-2 times per year, 1 drinks/episode average. 2.00 drinks/episode maximum. Household alcohol concerns: No., 02/15/2023 Substance Abuse - Denies Substance Abuse, 06/29/2020 Tobacc (more content not included)...[facility] CenterComment on above:Result Comment: Electronically Signed By: ABRAHAM WILSON CNP\.sherri\Date and Time Signed: 08/08/24 14:32 EDTDischarge Note - PTon 51-08-8460Msemwvtfv Note - [id number]#1.00TIFProMedica Fostoria Community HospitalPlan of Care - PT/OT/Speechon 31-88-3622Cczu of Care - PT/OT/[id number]#1.00TIFProMedica Fostoria Community HospitalAmbulatory Visit Summaryon [id number] Visit Summary SHAMA HART :1945 Visit Date:06/21/2023 [...] AM EDT With: Deidra Garcia MD Where: [facility] [address] [address]- \.br\ Medications\.br\ What How Much When Instructions\.br\ [...] (gastroesophageal reflux disease)\.br\ History of melanoma\.br\ HLD (hyperlipidemia)\.br\ Hyperglycemia\.br\ Leg pain\.br\ Osteoarthritis of knees, bilateral\.br\ Osteopenia\.br\ Palpitations\.br\ Primary hypertension\.br\ Rales\.br\ Screening mammogram, encounter for\.br\ Sinus tachycardia\.br\ Vitamin D deficiency\.br\ Historical - Any problem that you are no longer receiving treatment for.\.br\ BMI 30.0-30.9,adult\.br\ BMI 31.0-31.9,adult\.br\ Patient Survey\.br\ You may receive a survey via text or e-mail asking about your office visit. Please share your experience with us by completing your survey. We appreciate your feedback and thank you for choosing us for your care.\.br\ \.br\[facility] Medicine Office/Clinic Noteon [id number] Medicine Office/Clinic NoteHPI Staff Shama Hutton is an 78 year old female presenting [...] Pain location: legs worse in the morning Intensity:05/12 Onset: couple months ago Medication used: tylenol [...] day(s), # 21 tab(s), Refills(s) 0, Pharmacy: [facility]/pharmacy #[id number], 160, cm, 06/21/23 10:30:00 EDT, Height/Length Dosing, 75.2, kg, 06/21/23 10:30:00 EDT, Weight Dosing 2. Leg pain (M79.606: Pain in leg, unspecified) - Improving. - Trying to get moving more - Will do a steroid amos if pain does not improve Ordered: methylPREDNISolone, = 1 packet(s), Oral, As Directed, as directed on package labeling, X 6 day(s), # 21 tab(s), Refills(s) 0, Pharmacy: [facility]/pharmacy #[id number], 160, cm, 06/21/23 10:30:00 EDT, Height/Length Dosing, 75.2, kg, 06/21/23 10:30:00 EDT, Weight Dosing 3. Back pain (M54.9: Dorsalgia, unspecified) - Improving. - Will treat as above. - Stretching recommended after the dizziness has gone away. Ordered: methylPREDNISolone, = 1 packet(s), Oral, As Directed, as directed on package labeling, X 6 day(s), # 21 tab(s), Refills(s) 0, [id number] 160, cm, 06/21/23 10:30:00 EDT, Height/Length Dosing, 75.2, kg, 06/21/23 10:30:00 EDT, Weight Dosing 4. BMI 29.0-29.9,adult (Z68.29: Body mass index [BMI] 29.0-29.9, adult) - BMI education given Ordered: methylPREDNISolone, = 1 packet(s), Oral, As Directed, as directed on package labeling, X 6 day(s), # 21 tab(s), Refills(s) 0, Pharmacy: [facility]/pharmacy #[id number], 160, cm, 06/21/23 10:30:00 EDT, Height/Length [...] day(s), # 21 tab(s), Refills(s) 0, Pharmacy: [facility]/pharmacy #[id number], 160, cm, 06/21/23 10:30:00 EDT, Height/Length [...] day(s), # 21 tab(s), Refills(s) 0, Pharmacy: [facility]/pharmacy #[id number], 160, cm, 06/21/23 10:30:00 EDT, Height/Length [...] 6 day(s), # 21 (more content not included)...[facility] CenterComment on above:Result Comment: Electronically Signed By: Arsen LIU, Deidra Robledo.br\Date and Time Signed: 06/21/23 11:00 EDTPatient Educationon [id number] EducationNutrition BMI for Adults What is BMI? Body mass index (BMI) is a number that is calculated from a person's weight and height. BMI can help estimate how much of a person's weight is composed of fat. BMI does not measure body fat directly.Rather, it is an alternative to procedures that [...] your height. Both height and weight are measured,and the BMI is calculated from those numbers. This can be done either in [place] or metric measurements. Note that charts and online BMI calculators are available to help you find your BMI quickly and easily without having to do these calculations yourself. To calculate your BMI in [place] measurements: 1. Measure your weight in [...] meters squared number. In this example: 70 ?3.1 = 22.6. This is your BMI. What [...] for Disease Control and Prevention: www.cdc.gov ? [place] Heart Association: www.heart.org ? National Heart, Lung, and Blood [place]: www.nhlbi.nih.gov Summary ? Body mass index (BMI) is a number that is calculated from a person's weight and height. ? BMI may help estimate how much of a person's weight is composed of fat. BMI can help identify those who may be at higher risk for certain medical problems. ? BMI can be measured using [place] measurements or metric measurements. ? BMI charts are used to identify whether you are underweight, normal weight, overweight, or obese. This information is not intended to replace advice given to you by your health care provider. Make sure you discuss any questions you have with your health care provider. Document Revised: 11/12/2019 Document Reviewed: 09/19/2019 [employer] Patient Education ? 2022 [employer].[facility] Physician Orderon [id number] Order [id number]#1.00TIFFNoHolzer Medical Center – JacksonPre-Visit Planningon 55-91-4409Bjs-Visit Planning From: Luciana Goins To: Arsen LIU, Deidra Rajput; Sent: 06/20/2023 13:40:19 EDT Subject: Pre-Visit Planning Due Date/Time: 06/20/2023 13:40:00 EDT Caller Name: SHAMA HART; Caller Number: H , M Ri Dr. Garcia. During a pre-visit planning chart [...] feel free to contact me at extension [phone]. Thank you! Luciana Goins LPN From: Deidra Garcia MD To: Luciana Goins; Sent: 06/21/2023 12:33:06 EDT Subject: RE: Pre-Visit Planning Caller Name: SHAMA HART; Caller Number: H , M Dilated aortic [id number] [facility]Pre[facility] From: Luciana Goins To: Deidra Garcia MD; Sent: 06/20/2023 12:57:28 EDT Subject: Pre-Visit Planning Due Date/Time: 06/20/2023 12:57:00 EDT Caller Name: SHAMA HART; Caller Number: H , M Ri Dr. Garcia. During a pre-visit planning chart [...] feel free to contact me at extension [phone]. Thank you! Luciana Goins LPN -Chronic Kidney Disease Stage 3a (GFR 45-59) From: Arsen LIU, Deidra Rajput To: Luciana Goins; Sent: 06/21/2023 12:32:26 EDT Subject: RE: Pre-Visit Planning Caller Name: SHAMA HART; Caller Number: , [address]CHEMISTRYOrdered By: SYSTEM SYSTEM on [id number] [Mass/Vol]4.1 g/dLNormal3.3 - 5.0 gm/dLRemisol Chem Anion gap [Moles/Vol]12 mmol/LNormal6 - 16 mEq/LRemisol ChemCalcium [Mass/Vol] 9.8 mg/dLNormal8.9 - 11.1 mg/dLRemisol ChemChloride [Moles/Vol]104 mmol/LNormal 101 - 111 mmol/LRemisol ChemCO2 [Moles/Vol]27 mmol/PUmvgem89 - 31 mmol/LRemisol ChemCreatinine [Mass/Vol]1.2 mg/dLNormal0.5 - 1.3 mg/dLRemisol KtvmyOJH65 mL/min/1.73 m2Low>=59mL/min/1.73 w3Txhvmnn ChemGlucose [Mass/Vol]81 mg/dLNormal 55 - 199 mg/dLRemisol ChemPhosphate [Mass/Vol]3.3 mg/dLNormal1.9 - 4.6 mg/dL Remisol ChemPotassium [Moles/Vol]4.8 mmol/LNormal3.5 - 5.3 mmol/LRemisol Chem Sodium [Moles/Vol]138 mmol/LLnkiwn477 - 145 mmol/LRemisol ChemUrea nitrogen [Mass/Vol]21 mg/dLNormal5 - 21 mg/dLRemisol ChemUrea nitrogen/Creatinine [Mass ratio]18 mg/vnObpdeq46 - 20Remisol ChemConsent for Treatmenton [id number] for [id number]#1.00TIFProMedica Fostoria Community HospitalPhysician Orderon [id number] Order [id number]#1.00TIFProMedica Fostoria Community HospitalRenal Panelon 08-57-6186Nwpwldu [Mass/Vol]4.1 g/dLNormal3.3-5.0[facility] HospitalComment on above:Performed By: #### [id number], [id number] ####[facility] [address] [place], [place] [address]Vcoof gap [Moles/Vol]12 mmol/LNormal6-16[facility]S HospitalComment on above: Performed By: #### [id number], [id number] ####[facility] [address] [place], [place] [address]PUK/Creat Ratio18 No DqqagXvqmlx95-46 [facility] HospitalComment on above:Performed By: #### [id number], [id number] ####[facility] [address] [place], [place] [address]Wugvugk [Mass/Vol]9.8 mg/dLNormal8.9-11.1FFairfield Medical CenterComment on above:Performed By: #### [id number], [id number] ####[facility] [address] [place], [place] [address]Gvwanrlq [Moles/Vol]104 mmol/LNormal 101-111[facility]S HospitalComment on above:Performed By: #### [id number], [id number] ####[facility] [address] [place], [place] [address]SM3 [Moles/Vol]27 mmol/URqrwnm02-92TdzwrxDayton Children'S HospitalComment on above:Performed By: #### [id number], [id number] ####[address] [place], [place] [address]Vklmkhpxnr [Mass/Vol]1.2 mg/dLNormal 0.5-1.3FFairfield Medical CenterComment on above:Performed By: #### [id number], [id number] ####[address] [place], [place] [address]Yunvund [Mass/Vol]81 mg/gMHfqotv14-876CaiavyDayton Children'S HospitalComment on above:Performed By: #### [id number], [id number] ####[address] [address]Icydiluzx [Mass/Vol]3.3 mg/dLNormal 1.9-4.6FFairfield Medical CenterComment on above:Performed By: #### [id number], [id number] ####[address] [address]Vhdeixtzn [Moles/Vol]4.8 mmol/LNormal3.5-5.3FFairfield Medical Center Comment on above:Performed By: #### [id number], [id number] ####[address] [address]Jsoxzd [Moles/Vol]138 mmol/L Tdowwd368-912YlxqokDayton Children'S HospitalComment on above:Performed By: #### [id number], [id number] ####[address] [place], [place] [address]Nlok nitrogen [Mass/Vol]21 mg/dLNormal5-21Day[facility]'S HospitalComment on above:Performed By: #### [id number], [id number] ####[id number] [place], [place] [address]mCBPap [id number] mL/min/1.73 m2Low>=59Dayton Children'S HospitalComment on above:Order Comment: Order added by Discern Expert.Performed By: #### [id number], [id number] ####G[facility] [address] Wilkinson[facility] [place], [place] [address]Rmkwgh Medicine Office/Clinic Noteon [phone] Medicine Office/Clinic NoteChief Complaint ER follow up (02/19)-for back pain HPI Staff Shama Hutton is a 78 year old presenting for ER follow up ER followup: Patient went to ER 02/19 for back pain Hospital: [facility] Visit date: 02/19/23 Symptoms the patient presented [...] they have requested a copy of her x- ray results to be faxed to their office. [...] blood pressure improves. No further changes needed. Ifthe patient's blood pressure does not improve, we will increase the Norvasc to 10 mg. Patient will need to follow up in the next month for blood pressure check. 2. Back pain (M54.9: Dorsalgia, unspecified) Resolved at this time. Continue taking the Medrol and if patient wants to get the Percocet, patientcan get the Percocet. Discussed the concerns for cross reactivity with codeine and morphine, but patient has had pain meds before without any issues. 3. Hyperglycemia (R73.9: Hyperglycemia, unspecified) There is a concern for the use of steroids. Discussed in detail. We will follow up as needed at hernext visit. 4. Overweight with body mass index (BMI) 25.0-29.9 (E66.3: Overweight) BMI education given. Diet and exercise advised. Advised patient. She will follow up with pain management as well for the back pain. Portions of this record may have been created with voice recognition artificial intelligence software, specifically [employer], [employer] and or [employer]. Substitutions may have occurred due to the inherent limitations of voice recognition and artificial intelligence software. ATTESTATION: Documentation services were performed after patient or guardian consented to allow [employer] to record this visit. CECILIA automation controls specialist and provider reviewed before signing. CECILIA: Ling Rigor. Follow-up No qualifying data available Patient Education [...] XL 25 mg Ta (more content not included)...[facility] CenterComment on above:Result Comment: Electronically Signed By: Deidra Garcia MD\.br\Date and Time Signed: 02/21/23 17:22 EST\.br\Electronically Co-Signed By: Ling Meza\.br\Date and Time Co-Signed: 02/20/23 16:57 ESTPhysician Referralon [id number] Referral [id number] Hospitals Cleveland Medical CenterAmbulatory Visit Summaryon [id number] Visit Summary SHAMA HART :1945 Visit Date:02/20/2023 [...] Tab) [Image Removed: STOP]Stop taking these medications acetaminophen-oxycodone (Percocet 5 mg-325 mg oral tablet) Procedures Performed Injection (09/2022), Bilateral extraction of cataracts (2015), Melanoma (2016), splinter removed from bottom left [...] Follow-Up Appointments 2023 8:00 AM EDT With: Arsen LIU, Deidra Rajput Where: [facility] [id number]- \.br\ Medications\.br\ What How Much When Instructions\.br\ [...] if questions or concerns \.br\ Unchanged predniSONE (srzyndDBAD52 mg Tab) 3 Tablets By Mouth Every day Duration: 7 Days Contact prescribing physician if questionsor concerns \.br\ \.br\ What How Much When Why Comments\.br\ Stop Taking acetaminophen-oxycodone (Percocet 5 mg-325 mg oral tablet) 1 Tablets By Mouth Every 6 hours as needed for as needed for pain Back pain Duration: 3 Days\.br\ Allergies\.br\ Bactrim (Blisters)\.br\ Cipro (unknown)\.br\ Flagyl (un known)\.br\ Latex (Rash)\.br\ Penicillin (Hives)\.br\ Tape (rash)\.br\ amoxicillin (Hives)\.br\ codeine (Swelling of throat)\.br\ morphine (unknown)\.br\ sulfamethoxazole (Blisters)\.br\ Problems\.br\ Ongoing - Any problem that you are currently receiving treatment for.\.br\ Allergic rhinitis\.br\ Aortic insufficiency\.br\ Back pain\.br\ Benign hypertension with chronic kidney disease, stage III\.br\ CKD (chronic kidney disease), stage III\.br\ Generalized anxiety disorder\.br\ GERD (gastroesophageal reflux disease)\.br\ History of melanoma\.br\ HLD (hyperlipidemia)\.br\ Hyperglycemia\.br\ Osteoarthritis of knees, bilateral\.br\ Osteopenia\.br\ Palpitations\.br\ Primary hypertension\.br\ Rales\.br\ Screening mammogram, encounter for\.br\ Sinus tachycardia\.br\ Vitamin D deficiency\.br\ Historical - Any problem that you are no longer receiving treatment for.\.br\ BMI 30.0-30.9,adult\.br\BMI 31.0-31.9,adult\.br\ Patient Survey\.br\ You may receive a survey [...] ? \.br\ Wear and tear (degeneration) of thespinal disks. Spinal disks are circular tissue that provide cushioning between the bones of the spine (vertebrae).\.br\ ? \.br\ Twisting motions, such as while playing sports or doing yard work.\.br\? \.br\ A hit to the back.\.br\ ? \.br\ Arthritis.\.br\ You may have a physical exam, lab tests, and imaging tests to find the cause of your pain. Acute back pain usually goes away with rest and homecare.\.br\ Follow these instructions at home:\.br\ Managing pain, stiffness, and swelling\.br\ ? \.br\ Take dmke-ozt-ydrihiz and prescription medicines only as told by [...] Leave the ice on for 20 minutes, 2?3times a day.\.br\ ? \.br\ Remove the ice [...] a moist heat pack or a heating pad.\.br\? \.br\ Place a towel between your skin and the heat source.\.br\ ? \.br\ Leave the heat on for 20?30 minutes.\.br\ ? \.br\ Remove the heat if your skin turns bright red. This is especially importantif you are unable to feel pain, heat, or cold. You have a greater risk of getting burned.\.br\ Activity\.br\ \.br\ ? \.br\ Do not stay in bed. Staying in bed for more than 1?2 days candelay your recovery.\.br\ ? \.br\ Sit up and [...] ? \.br\ Do not sit, drive, or principal quality engineer one place for more than 30 minutes [...] and anxiety increase muscle tension and can makeback pain worse. Learn ways to manage anxiety and stress, such as through exercise.\.br\ General ins tructions\.br\ ? \.br\ Sleep on a firm mattress [...] with rest or medicine.\.br\ ? \.br\ You haveincreasing pain going down into your legs or buttocks.\.br\ ? \.br\ Your pain doeFisher [facility] Educationon [id number] EducationOrthopedics Acute Back Pain, Adult Acute back pain [...] Managing pain, stiffness, and swelling ? Take xnyy-xpc-tyowuim and prescription medicines only as told by your health care provider. Treatment may include medicines for pain and inflammation that are taken by mouth or applied to the skin,or muscle relaxants. ? Your health care provider may recommend applying ice during the first 24?48 hours after your painstarts. To do this: ? Put ice in [...] to lean over. Keep your chin tucked in.Keep your neck drawn back, and keep your elbows bent at a 90-degree angle (right angle). ? Sit high and close to the steering wheel when you drive. Add lower back (lumbar) support to your car seat, if needed. ? Take short walks on even surfaces as soon as you are able. Try to increase the length of time youwalk each day. ? Do not sit, drive, or principal quality engineer one place for more than 30 minutes at a time. Sitting or standing for long periods of time can put stress on your back. ? Do not drive or use heavy machinery while taking prescription pain medicine. ? Use proper lifting techniques. When you bend and lift, use positions that put less stress on yourback: ? Bend your knees. ? Keep the [...] feel faint. These sym (more content not included)...[facility] CHEMISTRYOrdered By: SYSTEM SYSTEM on [id number] [Mass/Vol]3.8 g/dLNormal 3.3 - 5.0 gm/dLFTMC RemisolAlbumin/Globulin [Mass ratio]1.1 {ratio}Normal1.1 - 2.2FT[facility] RemisolALP [Catalytic activity/Vol]70 [iU]/gCgngue70 - 98 Int._Unit/L [facility] RemisolALT No additional P-5'-P [Catalytic activity/Vol]15 [iU]/dNormal6 - 46 Int._Unit/LFTMC RemisolAnion gap [Moles/Vol]10 mmol/LNormal6 - 16 mEq/LFTMC RemisolAST [Catalytic activity/Vol]20 [iU]/dNormal5 - 43 Int._Unit/LFTMC Remisol Bilirubin [Mass/Vol]0.8 mg/dLNormal0.0 - 1.1 mg/dLFTMC RemisolCalcium [Mass/Vol] 9.4 mg/dLNormal8.9 - 11.1 mg/dLFTMC RemisolChloride [Moles/Vol]105 mmol/LNormal 101 - 111 mmol/LFTMC RemisolCO2 [Moles/Vol]28 mmol/HQrsofv22 - 31 mmol/LFTMC RemisolCreatinine [Mass/Vol]1.1 mg/dLNormal0.5 - 1.3 mg/dLFTMC RemisolGFR/1.73 sq M.predicted among non-blacks MDRD (S/P/Bld) [Vol rate/Area]51 mL/min/1.73 m2 Low>=59mL/min/1.73 m2FT Chem SGlobulin (S) [Mass/Vol]3.4 g/dLNormal1.4 - 4.0 gm/dLFTMC RemisolGlucose [Mass/Vol]98 mg/oMOmxghu55 - 199 mg/dLFTMC Remisol Potassium [Moles/Vol]4.0 mmol/LNormal3.5 - 5.3 mmol/LFTMC RemisolProtein [Mass/Vol]7.2 g/dLNormal6.0 - 7.8 gm/dLFT RemisolSodium [Moles/Vol]139 mmol/L Lxviar341 - 145 mmol/LFTMC RemisolUrea nitrogen [Mass/Vol]24 mg/dLHigh5 - 21 mg/dLFTMC RemisolUrea nitrogen/Creatinine [Mass ratio]22 mg/vmNcqc38 - 20FT[facility] RemisolLaboratory - Chemistry and Chemistry - challengeOrdered By: SYSTEM SYSTEM on 44-58-9639Wafdbwz [Mass/Vol]4.3 g/dLNormal3.3 - 5.0 gm/dLFTMC Remisol Albumin/Globulin [Mass ratio]1.3 {ratio}Normal1.1 - 2.2FT[facility] RemisolALP [Catalytic activity/Vol]80 [iU]/pCnvwvb74 - 98 Int._Unit/LFTMC RemisolALT No additional P-5'-P [Catalytic activity/Vol]16 [iU]/dNormal6 - 46 Int._Unit/LFTMC RemisolAnion gap [Moles/Vol]11 mmol/LNormal6 - 16 mEq/LFTMC RemisolAST [Catalytic activity/Vol]17 [iU]/dNormal5 - 43 Int._Unit/LFTMC RemisolBilirubin [Mass/Vol]1.1 mg/dLNormal0.0 - 1.1 mg/dLFTMC RemisolCalcium [Mass/Vol]9.3 mg/dL Normal8.9 - 11.1 mg/dLFT RemisolChloride [Moles/Vol]105 mmol/FYfzhur840 - 111 mmol/LFTMC RemisolCholesterol [Mass/Vol]237 mg/dIHyty724 - 200 mg/dLFT Remisol Cholesterol in HDL [Mass/Vol]64 mg/dLInvalid Interpretation CodeFT Remisol Cholesterol in LDL [Mass/Vol]139 mg/dLHigh<=129mg/dLFT RemisolCholesterol in VLDL [Mass/Vol]26 mg/dLNormal7 - 40 mg/dLTULSA [facility] RemisolCO2 [Moles/Vol]27 mmol/L Jcbigz44 - 31 mmol/LFTMC RemisolCreatinine [Mass/Vol]1.2 mg/dLNormal0.5 - 1.3 mg/dLFT RemisolGFR/1.73 sq M.predicted among blacks MDRD (S/P/Bld) [Vol rate/Area]53 mL/min/1.73 m2Low>=59mL/min/1.73 m2FT Chem SGFR/1.73 sq M.predicted among non-blacks MDRD (S/P/Bld) [Vol rate/Area]43 mL/min/1.73 m2Low >=59mL/min/1.73 m2[facility] Chem SGlobulin (S) [Mass/Vol]3.2 g/dLNormal1.4 - 4.0 gm/dLFT RemisolGlucose [Mass/Vol]97 mg/nBZfodxz17 - 199 mg/dLFT Remisol Potassium [Moles/Vol]4.4 mmol/LNormal3.5 - 5.3 mmol/LFTMC RemisolProtein [Mass/Vol]7.5 g/dLNormal6.0 - 7.8 gm/dLFT RemisolSodium [Moles/Vol]139 mmol/L Iqebpz636 - 145 mmol/LFTMC RemisolTriglyceride [Mass/Vol]130 mg/dLNormal <=149mg/dLFT RemisolUrea nitrogen [Mass/Vol]26 mg/dLHigh5 - 21 mg/dLFTMC RemisolUrea nitrogen/Creatinine [Mass ratio]22 mg/woOwor16 - 20FT[facility] Remisol Laboratory - Hematology and Cell countsOrdered By: [employer] SYSTEM on 01-17-2022 Basophils/100 WBC (Bld)1.2 %Normal0.0 - 2.0 %[facility] HemeAutoSSBasophils/Leukocytes Auto (Bld) [Pure # fraction]0.1 E9/LNormal0.0 - 0.2 E9/LFTMC HemeAutoSS Eosinophils/100 WBC (Bld)3.4 %Normal0.0 - 8.0 %[facility] HemeAutoSS Eosinophils/Leukocytes Auto (Bld) [Pure # fraction]0.2 E9/LNormal0.0 - 0.5 E9/L [facility] HemeAutoSSLymphocytes/100 WBC (Bld)31.1 %Rzrqur28.0 - 50.0 %[facility] HemeAutoSS Lymphocytes/Leukocytes Auto (Bld) [Pure # fraction]1.7 E9/LNormal1.0 - 4.0 E9/L [facility] HemeAutoSSMonocytes/100 WBC (Bld)6.5 %Normal4.0 - 14.0 %[facility] HemeAutoSS Monocytes/Leukocytes Auto (Bld) [Pure # fraction]0.4 E9/LNormal0.2 - 1.0 E9/L [facility] HemeAutoSSNeutrophils/100 WBC (Bld)57.8 %Whtaup96.0 - 75.0 %[facility] HemeAutoSS Neutrophils/Leukocytes Auto (Bld) [Pure # fraction]3.3 E9/LNormal2.0 - 7.5 E9/L [facility] HemeAutoSSLaboratory - Hematology and Cell countsOrdered By: Domonique Reno on 07-53-3000Ktdiwdtikcv distribution width (RBC) [Ratio]13.9 %Kowyxc27.9 - 14.2 %[facility] HemeAutoSSHematocrit (Bld) [Volume fraction]40.8 %Qdlzjs42.0 - 46.0 %[facility] HemeAutoSSHemoglobin (Bld) [Mass/Vol]13.7 g/pCGnyuin29.0 - 16.0 gm/dLFTMC HemeAutoSSMCH (RBC) [Entitic mass]29.2 xmWgeyhl06.0 - 34.0 pgFTMC HemeAutoSSMCHC (RBC) [Mass/Vol]33.5 g/yBKaufco14.4 - 36.0 gm/dLFTMC HemeAutoSSMCV (RBC) [Entitic vol]87.1 lIYkecvg09.0 - 100.0 fLFTMC HemeAutoSSPlatelet mean volume (Bld) [Entitic vol]8.3 fLNormal6.4 - 10.8 fLFTMC HemeAutoSSPlatelets (Bld) [#/Vol]218.0 E9/RGwywey885.0 - 500.0 E9/LFTMC HemeAutoSSRBC (Bld) [#/Vol]4.7 E12/LNormal4.3 - 5.9 E12/LFTMC HemeAutoSSWBC corrected for nucl RBC Auto (Bld) [#/Vol]5.6 E9/LNormal4.0 - 11.0 E9/LFTMC HemeAutoSSLaboratory - Hematology and Cell countsOrdered By: Gabriela Mirza on 11-72-7168ZgB2a (Bld) [Mass fraction]5.7 %Normal<=5.9%[facility] ChemAutoSSCHEMISTRYOrdered By: SYSTEM SYSTEM on 73-27-5513Kwwnros [Mass/Vol]3.7 g/dLNormal3.3 - 5.0 gm/dLFTMC RemisolAnion gap [Moles/Vol]10 mmol/LNormal6 - 16 mEq/LFTMC RemisolCalcium [Mass/Vol]9.1 mg/dL Normal8.9 - 11.1 mg/dLFTMC RemisolChloride [Moles/Vol]106 mmol/MWghjnc373 - 111 mmol/LFTMC RemisolCO2 [Moles/Vol]24 mmol/ULstuor51 - 31 mmol/LFTMC Remisol Creatinine [Mass/Vol]1.3 mg/dLNormal0.5 - 1.3 mg/dLFTMC RemisolGFR/1.73 sq M.predicted among blacks MDRD (S/P/Bld) [Vol rate/Area]48 mL/min/1.73 m2Low >=59mL/min/1.73 m2FT[facility] Chem SGFR/1.73 sq M.predicted among non-blacks MDRD (S/P/Bld) [Vol rate/Area]40 mL/min/1.73 m2Low>=59mL/min/1.73 m2[facility] Chem S Glucose [Mass/Vol]101 mg/qYRxlsxa02 - 199 mg/dLTULSA [facility] RemisolPhosphate [Mass/Vol] 3.3 mg/dLNormal1.9 - 4.6 mg/dLTULSA [facility] RemisolPotassium [Moles/Vol]4.2 mmol/LNormal 3.5 - 5.3 mmol/LFC RemisolSodium [Moles/Vol]136 mmol/DMmfyco951 - 145 mmol/L [facility] RemisolUrea nitrogen [Mass/Vol]21 mg/dLNormal5 - 21 mg/dLTULSA [facility] RemisolUrea nitrogen/Creatinine [Mass ratio]16 mg/ggIyycgo61 - 20[facility] Remisol Vital Signs Date TimeVital SignValuePerforming KuswfigxiEwacqvzi22-29-5205 13:16-0500Body urmxtg849 cmDavid Pocos DO Work Phone: [phone] [place], [place] 6786711-05-2025 13:16-0500Body mass index (BMI) [Ratio]28.7 kg/z3Fvfgk Pocos DO Work Phone: [phone] [place], [place] 6786711-05-2025 13:16-0500Body umsfgj68.48 kgDavid Pocos DO Work Phone: [phone] [place], [place] 6786709-24-2025 13:16-0400Body cm John Pocos DO Work Phone: [phone] [place], [place] 6786709-24-2025 13:16-0400Body mass index (BMI) [Ratio]28.7 kg/d7Lqetc Pocos DO Work Phone: [phone] [place] [address]-24-2025 13:16-0400Body yerizm78.48 kgDavid Pocos DO Work Phone: [phone] [place] [address]-17-2025 12:54-0400Body zfxxen345 cm John Pocos DO Work Phone: [phone] [place] [address]-17-2025 12:54-0400Body mass index (BMI) [Ratio]28.7 kg/e5Kggqg Pocos DO Work Phone: [phone] [place], [place] 6786709-17-2025 12:54-0400Body akndyi88.48 kgDavid Pocos DO Work Phone: [phone] [place], [place] 6786709-10-2025 09:52-0400Body oawhrt402 cm John Pocos DO Work Phone: [phone] [place], [place] 6786709-10-2025 09:52-0400Body mass index (BMI) [Ratio]28.7 kg/a9Xtvvi Pocos DO Work Phone: [phone] [place], [place] 6786709-10-2025 09:52-0400Body .48 kgDavid Pocos DO Work Phone: [phone] [place], [place] 6786707-16-2025 09:05-0400Body cm John Pocos DO Work Phone: [phone] [place], [place] 6786707-16-2025 09:05-0400Body mass index (BMI) [Ratio]28.7 kg/o2Anvax Pocos DO Work Phone: [phone] [place], [place] 6786707-16-2025 09:05-0400Body epaehd42.48 kgDavid Pocos DO Work Phone: [phone] [place], [place] 6786712-18-2023 10:33-0500Diastolic blood ddvvycfj88 mm[Hg][facility]12-18-2023 10:33-0500Heart rate63 /minWilson [facility] Hospital12-18-2023 10:33-0500Mean blood egsnqatq110 mm[Hg][facility]12-18-2023 10:33-0500Respiratory rate15 /minWilson [facility]12-18-2023 10:33-8423VuS5% (BldA) [Mass fraction]96 %[facility]12-18-2023 10:33-0500Systolic blood pressure 154 mm[Hg][facility]12-18-2023 09:28-0500Body urceolnwasq27.42 [degF][facility]12-18-2023 09:28-0500Diastolic blood dgfjykro35 mm[Hg][facility]12-18-2023 09:28-0500Heart rate71 /minWilson [facility]12-18-2023 09:28-0500Respiratory rate16 /minWilson [facility]12-18-2023 09:28-8330ShC5% (BldA) [Mass fraction]99 %[facility]12-18-2023 09:28-0500Systolic blood pressure 167 mm[Hg][facility]08-22-2023 14:52-0400 Diastolic blood uvaqggta83 mm[Hg]Tiarra GARY [address] [place], [place] 4104608-22-2023 14:52-0400Mean blood cmyslrwg423 mm[Hg]Tiarra GARY [address] [place], [place] 4104608-22-2023 14:52-0400Systolic blood kjvadvbe285 mm[Hg]Tiarra GARY [address] [place], [place] 4104608-22-2023 14:41-0400Blood Pressure LocationTiarra GARY 091-7475Ezgbcj-Kvhns[address] [place], [place] 0772408-22-2023 14:41-0400Diastolic blood audbakyz18 mm[Hg]Tiarra GARY 900-8880Vfgdiz-Ugfgj[address] [place], [place] 0772408-22-2023 14:41-0400Heart rate64 /Annia GARY 062-9125Ifrqkp-Ihwqt[address] [place], [place] 0772408-22-2023 14:41-0400Respiratory rate18 /Annia GARY 042-1540Qlflkz-Gwbdn[address] [place], [place] 0772408-22-2023 14:41-2569RwU2% (BldA) [Mass fraction]97 %Tiarra GARY 235-2499Rrqtgx-QwsywOur [facility]08-22-2023 14:41-0400Systolic blood skxyeivp719 mm[Hg]Tiarra GARY 801-3275Jcvubw-ZwudmOur [facility]07-17-2023 15:36-0400Blood Pressure LocationAdrien Silverpsey 066-4362Qehlwb-ZipedProtestant Hospital07-17-2023 15:36-0400Body .06 [degF]Adrien Moreauey 566-3056Whcgqe-SpzvfProtestant Hospital07-17-2023 15:36-0400Diastolic blood mm[Hg]Adrien Moreauey 740-1292Judujk-RfaoyProtestant Hospital07-17-2023 15:36-0400Heart rate64 /minJamie Milton 235-5925Ejjxkf-GzmwdProtestant Hospital07-17-2023 15:36-0400Respiratory rate16 /minJamie Milton 566-3295Tsocds-LjqsmProtestant Hospital07-17-2023 15:36-9628LxO4% (BldA) [Mass fraction]96 %Adrien Moreauey 979-5040Dtymxx-QyphiProtestant Hospital07-17-2023 15:36-0400Systolic blood mm[Hg]Adrien Rose 362-4051Uxcahi-LdfrnProtestant Hospital05-15-2023 15:28-0400Blood Pressure LocationTiarra GARY 026-9105Melofl-AfjrvOur [facility] Of [facility]05-15-2023 15:28-0400Body fiinfbyyajq97.88 [degF]Tiarra GARY 833-0927Zhowcs-VhvafOur Lady Of Mercy [facility]05-15-2023 15:28-0400Diastolic blood vygpanht14 mm[Hg]Tiarra GARY 372-2917Ffzmzd-Uzlzp[address] [place], [place] 0772405-15-2023 15:28-0400Heart rate70 /minTiarra GARY 027-0151Fbiuyy-Oyvbb[address] [place], [place] 0772405-15-2023 15:28-0400Systolic blood wfrjzhux912 mm[Hg]Tiarra GARY [address] [place], [place] 4104602-07-2023 14:04-0500Blood Pressure LocationJolawson GARY [address] [place], [place] 4104602-07-2023 14:04-0500Body rxkwcfumhlt51.06 [degF]Tiarra GARY [address] [place], [place] 4104602-07-2023 14:04-0500Diastolic blood uqabpvqn48 mm[Hg]Tiarra GARY [address] [place], [place] 4104602-07-2023 14:04-0500Heart rate68 /Annia GARY 331-8986Vkhodg-Hwldw[address] [place], [place] 0772402-07-2023 14:04-1281ThM1% (BldA) [Mass fraction]98 %iTarra GARY 830-4377Pegznz-Bzutg[address] [place], [place] 0772402-07-2023 14:04-0500Systolic blood pufzrtxt186 mm[Hg]Tiarra GARY 731-8891Doipri-Qmofn[address] [place], [place] 0772411-09-2022 11:00-0500Diastolic blood wwksonqh22 mm[Hg]Tiarra GARY 487-0076Mrbwdk-Jiqgi[address] [place], [place] 0772411-09-2022 11:00-0500Mean blood phkuyavb347 mm[Hg]Tiarra GARY 538-1868Zrojll-Pkxdl[address] [place], [place] 0772411-09-2022 10:53-0500Blood Pressure LocationTiarra GARY [address] [place], [place] 4104611-09-2022 10:53-0500Body bbmpldbwiop89.24 [degF]Tiarra GARY [address] [place], [place] 4104611-09-2022 10:53-0500Diastolic blood pcxlqbwa93 mm[Hg]Tiarra GARY 662-7559Erueeo-Xoyno[address] [place], [place] 0772411-09-2022 10:53-0500Heart rate54 /minTiarra FÁTIMA [address] [place], [place] 4104611-09-2022 10:53-3117MxO5% (BldA) [Mass fraction]99 %Tiarra GARY [address] [place], [place] 4104611-09-2022 10:53-0500Systolic blood mm[Hg]Tiarra GARY [address] [place], [place] 4104607-12-2022 11:03-0400Blood Pressure LocationJolawson FÁTIMA 022-6610Kjkosb-Rbvhu[address] [place] [address] Primary Care Work Phone: [phone] 11:03-0400Body tmqkmviziko83.06 [degF]Tiarra GARY 408-7673Cyzalw-Qmloj[address] [place] [address] Primary Care Work Phone: [phone] 11:03-0400Diastolic blood kufuxbni58 mm[Hg] Tiarra GARY 124-3489Ppftgk-Bvdwr[address] [place] [address] Primary Care Work Phone: [phone] 11:03-0400Heart rate65 /satinderTiarra FÁTIMA 946-6149Gmlbhz-Dganq[address] [place] [address] Primary Care Work Phone: [phone] 11:03-6059SiD9% (BldA) [Mass fraction]96 % Tiarra FÁTIMA 972-6032Lusekv-Btyjg[address] [place] [address] Primary Care Work Phone: [phone] 11:03-0400Systolic blood kvjfotgy294 mm[Hg] Tiarra GARY [phone]-DaqniAshtabula [facility] 06-10-2022 08:18-0400Blood Pressure LocationTiarra GARY 288-0999Gbhyer-MddgfAshtabula [facility] 06-10-2022 08:18-0400Body obibjlsdmqj45.88 [degF]Tiarra GARY 732-6807Mhplhv-OylioAshtabula [facility] 06-10-2022 08:18-0400Diastolic blood qonagqox43 mm[Hg] Tiarra GARY 400-9565Ssmrgd-OphchAshtabula [facility] Center [facility] 06-10-2022 08:18-0400Heart rate61 /minTiarra GARY 689-4858Ecazdg-MsuaoAshtabula [facility] 06-10-2022 08:18-0400Systolic blood mm[Hg] Tiarra GARY 638-3284Gbtklz-HiklxAshtabula County [facility] 03-29-2022 12:58-0400Blood Pressure LocationMiguel Angel Cerna [facility]03-29-2022 12:58-0400 Diastolic blood slibnetp95 mm[Hg]Miguel Angel Cerna [facility]03-29-2022 12:58-0400Heart rate65 /Horacio Cerna [facility]03-29-2022 12:58-0400 Respiratory rate18 /Horacio Cerna [facility]03-29-2022 12:58-3558TvO0% (BldA) [Mass fraction]98 %Miguel Angel Cerna [facility]03-29-2022 12:58-0400 Systolic blood qfiqdlqw096 mm[Hg]Miguel Angel Cerna [facility] Encounters Encounter DateEncounter TypeCare ProviderFacilityStart: [id number] Deidra GarciaFacility:[facility] [place]Start: 01-07-2025 End: 82-48-3030Amxnum flowsheetDavid A Pocos DO Work Phone: [facility]Start: 01-07-2025 End: 48-44-7012Lyfjsl flowsheetDavid A Pocos DO Work Phone: [facility]Start: 01-07-2025 End: 24-71-6270Krptgjo encounter procedureDavid A Pocos DO Work Phone: [facility]opaedicsComment on above:Primary osteoarthritis of left knee (Primary Dx)Start: 01-07-2025 End: 36-87-6404ocrsjtpqwqFTTZH A POCOSNot AvailableStart: 85-66-5823ixqlpvmzch ABRAHAM WILSONFacility:[facility] ueStart: 11-26-2024 End: 81-19-5412Wddama flowsheetDavid A Pocos DO Work Phone: [facility]icsStart: 11-26-2024 End: 24-15-8949Oemskc flowsheetDavid A Pocos DO Work Phone: [facility]icsStart: 11-26-2024 End: 53-68-6444zvobfncldpPKWYM A POCOSNot AvailableStart: 11-26-2024 End: 93-79-1426Ccjciot encounter procedureDavid A Pocos DO Work Phone: [facility]opaedicsComment on above:Primary osteoarthritis of left kneeStart: 11-19-2024 End: 82-62-0318Ohqcff flowsheetDavid A Pocos DO Work Phone: [facility]icsStart: 11-19-2024 End: 13-78-8372Ogrshq flowsheetDavid A Pocos DO Work Phone: [phone]edicsStart: 11-19-2024 End: 17-95-5362Zrrwdsp encounter procedureDavid A Pocos DO Work Phone: [facility] OrthopaedicsComment on above:Primary osteoarthritis of left kneeStart: 11-19-2024 End: 63-38-9884kbngyxpmetDCJTP A POCOSNot AvailableStart: 11-12-2024 End: 32-84-1689Pgpimi flowsheetDavid A Pocos DO Work Phone: [phone] [facility] OrthopaedicsStart: 11-12-2024 End: 20-63-5527Ewajln flowsheetDavid A Pocos DO Work Phone: [phone] Lizzie OrthopaedicsStart: 11-12-2024 End: 55-84-9343Mmianim encounter procedureDavid A Pocos DO Work Phone: NOMS Bernardo OrthopaedicsComment on above:Primary osteoarthritis of left knee (Primary Dx); Chronic pain of left kneeStart: 11-12-2024 End: 22-65-5754zqojebldduQLYEC A POCOSNot AvailableStart: 10-24-2024 End: 67-08-8110oxltfpmslkBqtyp AkkinaFacility:FTMCStart: 09-17-2024 End: 34-44-0597Kxhqsav encounter procedureDavid A Pocos DO Work Phone: [phone] NB ORTHOComment on above:Right knee pain, unspecified chronicity (Primary Dx); Primary osteoarthritis of left knee; Chronic pain of left kneeStart: 09-17-2024 End: 96-97-1181cznlijmxedGDBBB A POCOSNot AvailableStart: 09-09-2024 End: 96-38-8645Blwpux Divina Nicholas MD Work Phone: [facility] DERMStart: 09-09-2024 End: 05-65-1372Woejhj flowsJacqueline Nicholas MD Work Phone: noms SWS DERMStart: 09-09-2024 End: 56-35-2718Rystqb outpatient visit 15 minutesEmchuckie Nicholas MD Work Phone: noms SWS DERMComment on above:Seborrheic keratosis (Primary Dx); Neoplasm of unspecified behavior of bone, soft tissue, and skin; Actinic keratosis; History of SCC (squamous cell carcinoma) of skin; Personal history of malignant melanoma of skin; LentiginesStart: 09-09-2024 End: 53-76-7626qbtpuafbexHZDPK Jack Irving AvailableStart: 06-19-2024 End: 23-56-2824iqxhvcsxhpKipzep E. RossFacility:FT FM BellevueStart: 05-14-2024 End: 76-58-3887upobaerarsIthcq AkkinaFacility:FTMCStart: 05-14-2024 End: 15-14-4733Ljoskrr encounter procedureSunil Danette [facility] Start: 03-19-2024 End: 72-38-8023Iirguk flowsheetAlison Virginia MIRZA Work Phone: noms NB DERMStart: 03-19-2024 End: 89-44-0554Zmbfly flowsheetAlison Virginia MIRZA Work Phone: noms NB DERMStart: 03-19-2024 End: 61-63-1336Ojyzac outpatient visit 15 minutesAlison Virginia MIRZA Work Phone: noms NB DERMComment on above:Seborrheic keratosis (Primary Dx); Personal history of malignant melanoma of skin; Inflamed seborrheic keratosis; Melanocytic nevus of trunk; Lentigines; Bellamy angioma; Personal history of squamous cell carcinoma of skinStart: 03-19-2024 End: 60-28-3246venoizorlkXWRYCU Virginia Rocha AvailableStart: 02-19-2024 End: 07-56-0763qoziviemsdNjoucu Regulo GarciaFacility:[facility] FM BellevueStart: 02-15-2024 End: 85-43-7577qhuafendsrQYSDDN A LEHMANNFacility:[facility] FM BellevueStart: 12-31-2023 End: 00-99-6501ovwsrwvycnPnicod Regulo RossFacility:FTMCStart: 12-31-2023 End: 48-35-2327Bae Drop Marina Garcia [facility] Start: 12-20-2023 End: 09-09-0748uzffbpgcqlBdvvja E. RossFacility:FT FM BellevueStart: 11-08-2023 End: 26-21-8923ktzdtvmrofVsfhm AkkinaFacility:FTMCStart: 11-08-2023 End: 73-04-8378Eokaypn encounter procedureSunearl Samaniego [facility] Start: 10-11-2023 End: 82-27-7996nbnfbqlcnpROCQLJ A LEHMANNFacility:FT FM BellevueStart: 06-21-2023 End: 52-77-1937qngqeexvyuOluook E. RossFacility:FT FM BellevueStart: 05-01-2023 End: 95-66-2031sljhrgerrgCktaa AkkinaFacility:FTMCStart: 05-01-2023 End: 32-69-1406Xuussnx encounter procedureSunil Aislinna [facility] Start: 02-20-2023 End: 99-66-0547ushbhgumfkPllqxh E. RossFacility:FT FM BellevueStart: 02-19-2023 End: 43-67-6515Vrghwncou department patient visitAstrit BryceK[facility]tering Health [facility] Start: 10-24-2022 End: 98-63-9128Xrucsww encounter procedureTiarra GARY [phone]-VbjweAshtabula County Medical [facility] Start: 10-20-2022 End: 54-67-2331Sbbnmau encounter procedureTiarra GARY [facility] Start: 09-18-2022 End: 12-86-6120Zeeihni encounter procedureAdrien AronMichael Rose [phone]-QemiaAshtabula [facility] Start: 07-17-2022 End: 25-74-9205Vwaostb encounter procedureTiarra GARY [phone]-VytomAshtabula County Medical Center [facility] Start: 04-11-2022 End: 14-63-9909Ctropid encounter procedureTiarra GARY [phone]-MyhzhAshtabula County Medical Center [facility] Start: 01-17-2022 End: 96-33-8899Vqgnhrl encounter procedureTiarra GARY [facility] Start: 01-11-2022 End: 60-96-2720Okpgaqh encounter procedureTiarra GARY [phone]-YzbgkAshtabula County Medical Center [facility] Start: 09-13-2021 End: 72-06-6072Zqelzwm encounter procedureTiarra GARY [phone]-QvxucAshtabula County Medical Center [facility] Start: 08-12-2021 End: 08-21-4417Dzohpsg encounter procedureTiarra GARY [phone]-UwiqzAshtabula County Medical Center [facility] Start: 08-12-2021 End: 27-39-7699Rbnr adult monitoring check Giovanni GARY [phone]-YyqecAshtabula County Medical Center [facility] Start: 07-14-2021 End: 27-04-2043Apktuik encounter procedureSunearl Samaniego [facility] Start: 05-31-2021 End: 27-95-7112Vjzmfhj encounter procedureDadick Cerna [facility] Start: 12-29-2020 End: 03-26-1632mxefjaluauNK TIARRA GARYFacility:H1 Procedures DateProcedureProcedure DetailPerforming ClinicianStart: 86-78-8774Ngktfbowwjskvj aspir&/inj major jt/bursa w/o usDavid A Pocos DO Work Phone: Start: 09-64-0882Aknlubgtacslsi aspir&/inj major jt/bursa w/o usDavid A Pocos DO Work Phone: Start: 99-44-7424Swbfrmvsyrholt aspir&/inj major jt/bursa w/o usDavid A Pocos DO Work Phone: Start: 30-22-8147Clilkfnvgsdzqa aspir&/inj major jt/bursa w/o usDavid A Pocos DO Work Phone: Start: 20-24-1169Bfnqzopxwu examination knee 3 views German Pocos DO Work Phone: Start: 43-23-8127LYHSHLGONLN SKIN LESIONEmily Jack Nicholas MD Work Phone: Start: 13-00-7230DFJO / NAIL BIOPSYEmchuckie Nicholas MD Work Phone: Start: 00-61-8783LYADZMMDOEH SKIN LESIONAlison L Chucho MIRZA Work Phone: Start: 49-11-6507Qjnujotix - action (qualifier value) Tiarra GARY Start: 46-15-5472Uuqoyvkzc extraction of cataracts Miguel Angel Cerna Start: 15-62-3634Nzwtbtbox melanoma, 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)Miguel Angel Cerna Comgrlc on above:removed from back regionStart: 31-28-7964insqrizo removed from bottom left foot 2Ddanielle Cerna Comment on above:1.5 inch splinterStart: 03-05-1993 Biopsy of breastDadick Cerna Comzjul on above:benignleft knee scopeMiguel Angel Cerna Ligation of fallopian tubeMiguel Angel Cerna squamous cell cancer removed 4Ddanielle Cerna Comment on above:from face Plan of Treatment DateCare ActivityDetailAuthorStart: 03-17-2025 End: 48-75-3293Vhfnren encounter procedureNOMS SWS DERMStart: 01-07-2025 End: 60-52-2549Qgeepem encounter procedureNOMS Bernardo OrthopaedicsComment on above:ArrivedStart: 11-26-2024 End: 06-58-3205Bymnqvj encounter phoamodjk45/24/2025 1:00 PM EDT Procedure [facility] [address] [place] [id number] John Paris, DO [address] [place] [address] JERMAINE Chang OrthopaedicsStart: 11-19-2024 End: 35-79-2270Gntxzhb encounter procedureNOMS Bernardo OrthopaedicsComment on above:ArrivedStart: 11-12-2024 End: 56-26-3367Odjwqfc encounter procedureNOMS NB ORTHOComment on above:Arrived Start: 15-52-7385RNHLH-19 Vaccine ( season)COVID-19 Vaccine ( season)NOMS HealthcareStart: 70-17-4251Mznygeggh vaccinationInfluenza Vaccine (#1)NOM HealthcareStart: 09-17-2024 End: 67-44-3582Imvjvxq encounter kjtslawoh16/16/2025 8:45 AM EDT Office Visit [facility] [address] [place] [address] John Paris DO [address] [place] [address] NOMS ORTHOStart: 09-09-2024 End: 05-02-6776Oztxjrz encounter procedureNOMS SWS DERMComment on above:Arrived Start: 03-19-2024 End: 44-12-0914Uwrghgq encounter kkzaegzmw07/15/2025 10:40 AM EST Office Visit [facility] [address] [place] [address] Luli Ferris, PA [address] [place] [address] ArrivedNOMS NB DERMComment on above:ArrivedStart: 85-38-6232Heapheepw vaccinationInfluenza Vaccine (#1)[facility] Dermatopathology examDermatopathology exam Pathology and Cytology Timed Neoplasm of unspecified behavior of bone, soft tissue, and skin Release Upon Ordering for 1 Occurrences starting 09/09/2024[facility] Work Phone: comment on above:Release Upon Ordering for 1 Occurrences starting 09/09/2024XR Knee - left 3 ViewsXR knee 3 views left Imaging Routine Right knee pain, unspecified chronicity 09/17/2024 8:43 AM EDT [facility] Work Phone: Immunizations Immunization DateImmunizationNotesCare PcjymnbfBirgkzrm90-77-2756lvxefdyuq virus vaccine, unspecified formulationDavid Pocos DO Work Phone: NOAlvin J. Siteman Cancer CenterHfesiwpteu95-71-6552ndzntshcr virus vaccine, unspecified formulationSmilagros Garcia [phone]-AznrfSelect [facility] 69-04-3196fkjxtuuwr, injectable, quadrivalent, preservative freeAstrit Bryce GonzalezInspira Medical Center Elmer12-14-2023influenza, unspecified formulationSmilagros Garcia 376-2218Bwjfja-YvtlkSelect [facility]ty [facility] 36-84-6635awgxeoiaa virus vaccine, unspecified formulationJayasmeeneunice Milton 517-7030Jxhqok-MkxbbProtestant Hospital11-16-2021 influenza, high dose seasonal, preservative-Mark Cerna [facility]10-27-2021SARS-CoV-2 (COVID-19) mRNA-1273 vaccineTiarra GARY [phone]-GxcsfAshtabula County Medical Center [facility] 0776175-49-7938OBHBH-98, mRNA, LNP-S, PF, 100 mcg or 50 mcg dose; Translations: [Moderna COVID-19 Vaccine]Miguel Angel Cerna [facility]burgComment on above:Reason for Medication: Other (see comment)49-43-2835OUIZW-19, mRNA, LNP-S, PF, 100 mcg or 50 mcg dose; Translations: [Moderna COVID-19 Vaccine]Miguel Angel Cerna [facility]burgComment on above:Reason for Medication: Other (see comment)12-66-3036wdbecwlip, high dose seasonal, preservative-Mark Cerna [facility]10-22-2019influenza virus vaccine, unspecified formulationTiarra GARY [phone]-EmnufAshtabula [facility] 1157417-72-6237cuuctvfrm virus vaccine, unspecified formulationMiguel Angel Cerna [facility]10-30-2018influenza virus vaccine, unspecified formulationMiguel Angel Cerna [facility]04-24-2018pneumococcal polysaccharide vaccine, 23 valentKennethmadisoncarlos Nehemiah [facility]10-12-2017influenza virus vaccine, unspecified formulationTiarra GARY [phone]-UgflpAshtabula County Medical Center [facility] 0400021-29-7169cyntewtlfsru conjugate vaccine, 13 valent Miguel Angelcarlos Cerna [facility]12-28-2016pneumococcal polysaccharide vaccine, 23 valentTiarra GARY [phone]-TgzslAshtabula County Medical Center [facility] 10795124-81-7332bswnumrwp virus vaccine, unspecified formulationTiarra FÁTIMA [phone]-CsxmrAshtabula County Medical Center [facility] Payers DatePayer CategoryPayerPolicy [id number] Health InsuranceAARP [id number] 2008MedicareMEDICARE [id number] [id number] 65-12-8935Ipoi-[id number] 2.16.840.1.045392.3.579.2.727 [id number] 2.16.840.1.237780.3.57[id number] 2.16.840.1.118909.3.57[id number] 2.840.1.164886.3.579.2.[id number] 2.16.840.1.979074.3.57[id number] 2..840.1.353646.3.57[id number] 2..840.1.803929.3.57[id number] 2.16.840.1.719563.3.57[id number] 2.16.840.1.370625.3.57[id number] 2.16.840.1.756889.3.57[id number] 2.16.840.1.255798.3.57[id number] 2.16.840.1.183251.3.57[id number] 2.16.840.1.362344.3.57[id number] 2.16.840.1.715880.3.57[id number] 2.16.840.1.918739.3.57[id number] 2.16.840.1.289478.3.57[id number] 2..840.1.261492.3.579.2.[id number] 2..840.1.955548.3.57[id number] 2..840.1.093124.3.57[id number] 2..840.1.473962.3.57[id number] 2.840.1.617215.3.579.2.87[id number] 2.840.1.695257.3.579.2.509414-39-2981Nzpgaxn2651371 2..840.1.988965.3.579.2.4325Pxhqodc4429696 2.840.1.318805.3.579.2.593 Social History DateTypeDetailFacilityStart: 05-24-2021 End: 00-22-7410Qcqolll smoking statusEx-smoker (finding)[facility]burgComment on above:quit 35yrs. agoquit about 30 yrs agoquit in 1989denies current use.Start: 08-20-2347Tcivxyh smoking statusNeverKettering Health MiamisburgComment on above:quit 35yrs. agoquit about 30 yrs agoquit in tart: 05-23-2023 End: 28-51-4634Pjy Assigned At BirthFeHolzer Health SystemHistory of tobacco useCurrent smokerNOMS HealthcareHistory of tobacco useCigarette SmokerNOMS HealthcareStart: 59-06-0006Qksuhuc use and exposureSmokeless tobacco non-userNOMS HealthcareStart: 05-23-2023 End: 36-22-7431Kbcrzwpdu beverage intakeEx-drinker (finding)[facility] Start: 05-23-2023 End: 20-24-4584Zrgrxqk of Social functionNOMS HealthcareStart: 60-39-0300Nipbsal Commentcaffeine: 1-2 cups per dayNOMS HealthcareStart: 26-45-3628Mtf assigned at birthNot on [facility] centerNOS[facility] Functional Status YeygUdzjdwuxccKjortbPdzdahah64-07-1883Vvxnpajcus StatusN/[facility]08-22-2023Functional StatusN/[facility] 20-84-5482Ythlqjlbil StatusN/[facility] 56-51-1534Uuccbaadth StatusN/[facility] Primary Ecop56-81-3984 Functional StatusN/[facility] Primary Bfos36-59-2897Kvbappicfd StatusN/[facility] Primary Aycn52-25-8373Gwlcoiceja StatusN/A [facility] Clinical Notes 08-12-2021 to 01-07-2025 Note Date & NoxeDhhgSduhbtkp68-92-2731 History of Present illness Narrative* Arleen East - 01/07/2025 1:15 PM EST Images from the original note were not included. Shama Hart is a 79 y.o. female presents with chief complaint of left knee osteoarthritis, statuspost Gelsyn. HPI: Dori returns here today for repeat evaluation of the above. She is doing well. She reports no new or interval symptoms. She has been advancing her activities. She is very pleased with her result from the Gelsyn. SUBJECTIVE: MEDICATIONS: Current Outpatient Medications Medication Instructions amLODIPine (Norvasc) 5 MG tablet losartan (Cozaar) 100 MG tablet metoprolol succinate XL (Toprol-XL) 25 MG 24 hr tablet ALLERGIES: Allergies[1] SURGICAL HISTORY: Surgical History[2] FAMILY HISTORY: Family History[3] SOCIAL HISTORY: Social History[4] Depression: Not on file REVIEW OF SYMPTOMS: The review of systems, history and current medications list are all reviewed today. OBJECTIVE: Visit Vitals Ht 5' 3 Wt 162 lb BMI 28.70 kg/m Smoking Status Former BSA 1.81 m Physical Exam Her orthopedic exam here today reveals a near full painless arc of motion. Neurocirculatory status is overall grossly intact. The knee is fully stable. Examination of the contralateral right knee reveals arc of motion without difficulty. No tenderness. Neurocirculatory status is overall grossly intact. X-rays none new here today. ASSESSMENT AND PLAN: Assessment/Plan Left knee osteoarthritis, status post Gelsyn. The findings are discussed. The treatment alternatives are outlined. We did recommend she continue to progress her activities as is otherwise tolerated. The ultimate question would be the longevity of help for this. We will see her back here with myself only on an as necessary basis. All of her questions are otherwise answered. [1] Allergies Allergen Reactions Amoxicillin Other Reaction(s): Hives Ciprofloxacin Other Reaction(s): unknown Codeine Other Reaction(s): Unknown Other Reaction(s): Swelling of throat Metronidazole Other Reaction(s): unknown Morphine Other Reaction(s): unknown Penicillin G Other Reaction(s): Hives Penicillins Other Reaction(s): Unknown Sulfa Antibiotics Other Reaction(s): Unknown Sulfamethoxazole-Trimethoprim Other Reaction(s): Blisters Wound Dressing Adhesive Other Reaction(s): rash Latex Rash Other Reaction(s): Unknown [2] Past Surgical History: Procedure Laterality Date GANGLION CYST EXCISION Right MF OR ARTHROSCOPY KNEE DIAGNOSTIC W/WO SYNOVIAL BX SPX Right 2013 w/ bx TUBAL LIGATION VEIN LIGATION AND STRIPPING Right thigh [3] Family History Problem Relation Name Age of Onset Heart disease Mother Stroke Mother Heart disease Father Melanoma Neg Hx [4] Social History Tobacco Use Smoking status: Former Types: Cigarettes Smokeless tobacco: Never Vaping Use Vaping status: Never Used Substance Use Topics Alcohol use: Not Currently Comment: caffeine: 1-2 cups per day Drug use: Never Cosigned by John Paris DO at 01/08/2025 2:43 PM EST documented in this encounterEastern [facility] State HospitalCnideacsbp83-40-7734 History of Present illness Narrative* John Paris DO - 11/26/2024 1:00 PM EDTAssociated Order(s): L Inj/Asp: L knee Post-Procedure Diagnose(s): Primary osteoarthritis of left knee L Inj/Asp: L knee on 11/26/2024 1:16 PM Indications: pain Details: 22 G needle Medications: 2 mL sodium hyaluronate 16.8 MG/2ML Gelsyn 3 of 3 Injection Left knee Patient is seen and evaluated today for right knee pain and stiffness. Did well with last weeks injection. Physical Exam: The patient is examined in the office today. The left knee has mild aseptic swelling. Hypertrophic changes are noted. AROM is decreased with pain. Crepitance is present in multiple compartments. Tenderness is moderate to severe thru multiple compartments. Varus/valgus stable. Neurocirculatory intact bilaterally distal without footdrop. Calves and thighs are supple without sign of infection, ulceration or DVT. Xrays: None new. Assessment: Left knee Osteoarthritis-M17.12 Left knee pain-M25.562 Antalgic gait-R26 Treatment/Plan: Hyaluronic acid viscosupplementation options and expectations were once again discussed. Patient isaware results are not guaranteed. The patient elects to move forward with third viscosupplementation injection with Gelsyn to the left knee. Under sterile technique, 2 ml of Gelsyn was injected to the left knee. Needle was removed and adequate hemostasis was achieved. The patient tolerated the injection well. Patient was ambulatory and discharged in stable condition. Any reactions, concerns or continued pain will be reported via phone call or return visit. All questions were answered. Follow-upwill be 6 weeks for a recheck to define efficacy. documented in this encounterEastern Missouri State HospitalKhvchrvjfx60-25-1768 History of Present illness Narrative* John Paris DO - 11/19/2024 1:15 PM EDTAssociated Order(s): L Inj/Asp: L knee Post-Procedure Diagnose(s): Primary osteoarthritis of left knee L Inj/Asp: L knee on 11/19/2024 12:55 PM Indications: pain Details: 22 G needle Medications: 2 mL sodium hyaluronate 16.8 MG/2ML Gelsyn 3 of 3 Injection Left knee Patient is seen and evaluated today for right knee pain and stiffness. Did well with last weeks injection. Physical Exam: The patient is examined in the office today. The left knee has mild aseptic swelling. Hypertrophic changes are noted. AROM is decreased with pain. Crepitance is present in multiple compartments. Tenderness is moderate to severe thru multiple compartments. Varus/valgus stable. Neurocirculatory intact bilaterally distal without footdrop. Calves and thighs are supple without sign of infection, ulceration or DVT. Xrays: None new. Assessment: Left knee Osteoarthritis-M17.12 Left knee pain-M25.562 Antalgic gait-R26 Treatment/Plan: Hyaluronic acid viscosupplementation options and expectations were once again discussed. Patient isaware results are not guaranteed. The patient elects to move forward with third viscosupplementation injection with Gelsyn to the left knee. Under sterile technique, 2 ml of Gelsyn was injected to the left knee. Needle was removed and adequate hemostasis was achieved. The patient tolerated the injection well. Patient was ambulatory and discharged in stable condition. Any reactions, concerns or continued pain will be reported via phone call or return visit. All questions were answered. Follow-upwill be 6 weeks for a recheck to define efficacy. documented in this [facility]09-10-2025 History of Present illness Narrative* Kimebr Jimenez MA - 11/12/2024 10:00 AM EDTAssociated Order(s): L Inj/Asp: L knee Post-Procedure Diagnose(s): Primary osteoarthritis of left knee L Inj/Asp: L knee on 11/12/2024 10:54 AM Indications: pain Details: 22 G needle Medications: 2 mL sodium hyaluronate 16.8 MG/2ML * Arleen East - 11/12/2024 10:00 AM EDT Images from the original note were not included. Shama Hart is a 79 y.o. female presents with chief complaint of left knee pain and osteoarthritis. HPI: Shama Hutton returns here today for repeat evaluation of the above. She has had some relief and comfort with the corticosteroid injection, however, it does still persist and bother her. She is an active individual including exercising a couple times a week. She denies any new or interval injury. SUBJECTIVE: MEDICATIONS: Current Outpatient Medications Medication Instructions amLODIPine (Norvasc) 5 MG tablet losartan (Cozaar) 100 MG tablet metoprolol succinate XL (Toprol-XL) 25 MG 24 hr tablet ALLERGIES: Allergies Allergen Reactions Amoxicillin Other Reaction(s): Hives Ciprofloxacin Other Reaction(s): unknown Codeine Other Reaction(s): Unknown Other Reaction(s): Swelling of throat Metronidazole Other Reaction(s): unknown Morphine Other Reaction(s): unknown Penicillin G Other Reaction(s): Hives Penicillins Other Reaction(s): Unknown Sulfa Antibiotics Other Reaction(s): Unknown Sulfamethoxazole-Trimethoprim Other Reaction(s): Blisters Wound Dressing Adhesive Other Reaction(s): rash Latex Rash Other Reaction(s): Unknown SURGICAL HISTORY: Past Surgical History: Procedure Laterality Date GANGLION CYST EXCISION Right MF OR ARTHROSCOPY KNEE DIAGNOSTIC W/WO SYNOVIAL BX SPX Right 2013 w/ bx TUBAL LIGATION VEIN LIGATION AND STRIPPING Right thigh FAMILY HISTORY: Family History Problem Relation Name Age of Onset Heart disease Mother Stroke Mother Heart disease Father Melanoma Neg Hx SOCIAL HISTORY: Social History Tobacco Use Smoking status: Former Types: Cigarettes Smokeless tobacco: Never Vaping Use Vaping status: Never Used Substance Use Topics Alcohol use: Not Currently Comment: caffeine: 1-2 cups per day Drug use: Never Depression: Not on file REVIEW OF SYMPTOMS: The review of systems, history and current medications list are all reviewed today. OBJECTIVE: Visit Vitals Ht 5' 3 Wt 162 lb BMI 28.70 kg/m Smoking Status Former BSA 1.81 m Physical Exam Her orthopedic exam here today reveals gentle arc of motion without difficulty. A little bit of varus, but flexible. Minimal effusion. The knee is fully stable. The calf and thigh are supple. Examination of her contralateral right knee reveals arc of motion without difficulty. Fully stable.Neurocirculatory status is grossly intact. X-rays AP bilateral weight bearing, bilateral sunrise and left lateral knee total of five views with permanent images are saved to the record does show moderate to severe medial osteoarthritis on theleft side, to a lesser extent on the right. She does have patellofemoral arthrosis. No fracture or other osseous abnormality. ASSESSMENT AND PLAN: Assessment/Plan Left knee pain and osteoarthritis. The findings are discussed. We did outline the next step moving forward as Visco supplementation ifand when she feels like her pain is escalating again. She feels that this is the time for that. This does appear to be clinically indicated and cost effective. She is started with the first in the Gelsyn injection series here today. She is injected to the left knee with 2 cc, 16.8 mg, hyaluronic acid. She did tolerate that injection well under sterile prep. We will see her back here next week andthe week thereafter for the second and third injections respectively. We did discuss the expectations of this treatment plan. She does voice understanding of this. All of her questions are otherwise answered. Follow up letter sent to Dr. Gary. Cosigned by John Paris DO at 11/17/2024 7:29 AM EDT documented in this encounterEastern [facility] State [id number] History of Present illness Narrative* Kimber Jimenez MA - 09/17/2024 8:45 AM EDTAssociated Order(s): L Inj/Asp: R knee Post-Procedure Diagnose(s): Right knee pain, unspecified chronicity L Inj/Asp: R knee on 09/17/2024 9:58 AM Indications: pain Details: 22 G needle Medications: 1 mL betamethasone acetate-betamethasone sodium phosphate 6 (3-3) MG/ML * Arleen East - 09/17/2024 8:45 AM EDT Images from the original note were not included. Shama Hart is a 79 y.o. female presents with chief complaint of left knee pain, to a lesser extent right. HPI: Shama Hutton is an 79-year-old white female who presents complaining of pain and difficulty about her left knee primarily, lesser extent right. It has been going on for a couple of months. She has had no inciting factor. She does take one Tylenol on occasion. She does have chronic kidney disease. She hashad no other care or treatment to the area. SUBJECTIVE: MEDICATIONS: Current Outpatient Medications Medication Instructions amLODIPine (Norvasc) 5 MG tablet losartan (Cozaar) 100 MG tablet metoprolol succinate XL (Toprol-XL) 25 MG 24 hr tablet ALLERGIES: Allergies Allergen Reactions Amoxicillin Other Reaction(s): Hives Ciprofloxacin Other Reaction(s): unknown Codeine Other Reaction(s): Unknown Other Reaction(s): Swelling of throat Metronidazole Other Reaction(s): unknown Morphine Other Reaction(s): unknown Penicillin G Other Reaction(s): Hives Penicillins Other Reaction(s): Unknown Sulfa Antibiotics Other Reaction(s): Unknown Sulfamethoxazole-Trimethoprim Other Reaction(s): Blisters Wound Dressing Adhesive Other Reaction(s): rash Latex Rash Other Reaction(s): Unknown SURGICAL HISTORY: Past Surgical History: Procedure Laterality Date GANGLION CYST EXCISION Right MF OR ARTHROSCOPY KNEE DIAGNOSTIC W/WO SYNOVIAL BX SPX Right 2013 w/ bx TUBAL LIGATION VEIN LIGATION AND STRIPPING Right thigh FAMILY HISTORY: Family History Problem Relation Name Age of Onset Heart disease Mother Stroke Mother Heart disease Father Melanoma Neg Hx SOCIAL HISTORY: Social History Tobacco Use Smoking status: Former Types: Cigarettes Smokeless tobacco: Never Vaping Use Vaping status: Never Used Substance Use Topics Alcohol use: Not Currently Comment: caffeine: 1-2 cups per day Drug use: Never Depression: Not on file REVIEW OF SYMPTOMS: The review of systems, history and current medications list are all reviewed today. OBJECTIVE: Visit Vitals Ht 5' 3 Wt 162 lb BMI 28.70 kg/m Smoking Status Former BSA 1.81 m Physical Exam Her orthopedic exam here today reveals a pleasant 79-year-old white female in no acute distress. She answers all questions appropriately. She does have tenderness to palpation over the medial compartment bilaterally. She also has some tenderness over the patellofemoral articulation. There is no real defined swelling. The calf and thigh are supple. Hips internal and external rotation is without pain. No trochanteric tenderness. Back has a negative bench test. Patellar and Achilles deep tendon reflexes are 2/4 and symmetric. X-rays AP bilateral weight bearing, bilateral sunrise and left lateral knee total of five views with permanent images are saved to the record does show moderate to severe medial osteoarthritis on theleft side, to a lesser extent on the right. She does have patellofemoral arthrosis. No fracture or other osseous abnormality. ASSESSMENT AND PLAN: Assessment/Plan Left knee osteoarthritis with likely flare. The findings are discussed. The treatment alternatives are outlined. We did recommend supportive care for her and did suggest corticosteroid injection. She is not a candidate for nonsteroidals. She would like to go ahead with the injection here today. She is injected with 1 cc of Betamethasone and 3 cc of 1% Lidocaine plain (6 mg of Betamethasone with 3 ml of 1% Lidocaine plain). This is given per the office protocol under sterile technique to the left knee. She did tolerate the injection well under sterile prep. She believes she does have a knee brace from prior. She will look for this. If she cannot identify this, we could consider getting her a brace for her right knee which is painful as well. She does voice understanding of this. All of her questions are otherwise answered. She is discharged in stable condition here today. Follow up letter sent to Dr. Garcia. Cosigned by John Paris DO at 09/18/2024 3:57 PM EDT documented in this encounterEastern [facility] State [id number] History of Present illness Narrative* Sravan Nicholas MD - 09/09/2024 9:50 AM EDT Images from the original note were not included. Skin Check Location: Patient requests a full body skin examination Dermatologic history: history of Actinic Keratosis, history of Squamous Cell Carcinoma, history of Melanoma Last visit: 6 months ago Melanoma History: Date of Melanoma Dx: 07/12/2016 Melanoma Details: Type In situ Melanoma Treatment: Wide local excision Location: Right lower back Lesions: Location: right cheek Duration: months Quality: itchy Associated symptoms: enlarged, rough Treatments: none Established patient All pertinent medical history, medications, and allergies were reviewed. General Exam: alert, oriented to person, place, and time, normal affect, well appearing Unaccompanied Areas not examined despite medical recommendation: under sandals Scalp, Examined , exam limited by hair Right leg Examined Head, Face Examined Left leg Examined Neck Examined Right foot Not Examined Chest Examined Left foot Not Examined Back Examined Buttocks Examined Patient kept underwear on Abdomen Examined Digits,nails: Examined Right arm Examined Patient wearing nail prydeinig, Denies dark streaks under finger nails, Denies darkstreaks on toenails Left arm Examined Lymphatics: Not examined Hands Examined Skin Exam 1. SEBORRHEIC KERATOSIS (2) Head - Anterior (Face), Torso - Posterior (Back) Stuck on verrucous, cisse-brown papules and plaques. Patient was counseled regarding these benign growths. Removal is normally not necessary, but they may be removed if they are symptomatic or for cosmetic reasons. 2. NEOPLASM OF UNSPECIFIED BEHAVIOR OF BONE, SOFT TISSUE, AND SKIN Right Mandible Cobblestoned plaque Lesion biopsy Type of biopsy: tangential Informed consent: discussed and consent obtained Informed consent comment: The risks and benefits of the biopsy were discussed. Risks include but are not limited to bleeding, infection, scarring, pain, and nerve damage. An opportunity to ask questions prior to the procedure was permitted and all questions were answered. Patient was prepped and draped in usual sterile fashion: area cleansed with alcohol. Anesthesia: the lesion was anesthetized in a standard fashion Anesthetic: 1% lidocaine w/ epinephrine 1-100,000 buffered w/ 8.4% NaHCO3 Instrument used: DermaBlade Hemostasis achieved with: electrodesiccation Outcome: patient tolerated procedure well Outcome comment: The specimen was placed in a prelabeled formalin container to be sent for pathology Post-procedure details: sterile dressing applied and wound care instructions given Post-procedure details comment: Emphasized need to contact clinic for any signs of infection, uncontrollable bleeding, or complications. Dressing type: bandage Additional details: Photo taken Amount of lidocaine used: 2.0 cc Specimen A - Dermatopathology exam Differential Diagnosis: sebaceous hyperplasia vs sebaceous carcinoma vs BCC vs scar Check Margins: No Size of lesion: 1.1 x 1.1 cm 3. ACTINIC KERATOSIS Right Submandibular Area Erythematous scaly papules Patient was counseled regarding these sun-induced growths that can develop into squamous cell carcinoma if left untreated. Discussed treatment with cryotherapy. It was emphasized that any treated lesions that fail to resolve should be re- evaluated. Cryotherapy performed today; see procedure note Diagnosis: Actinic keratosis Indication: Precancerous Location: see skin exam Consent: Verbal consent was obtained and risks were discussed, including, but not limited to risks of scarring, darker or correctional counselor/case manager pigmentary changes, recurrence, incomplete removal and infection. Method: Liquid nitrogen was used to treat the lesion(s) with two 5-10 second freeze-thaw cycles. Number of lesions treated: 1 Post-procedure instructions: Instructions were given orally and in writing. The office will be contacted if the lesion fails to resolve despite treatment, or if a side effect develops such as abnormal crusting, scabbing, redness or tenderness Cryotherapy, skin lesion - Right Submandibular Area 4. HISTORY OF SCC (SQUAMOUS CELL CARCINOMA) OF SKIN (3) Right Cheek, Right Upper Arm, Upper Back No evidence of recurrence at SCC scar. The patient was counseled that scars from excisional sites of nonmelanoma skin cancers should be monitored closely for recurrence. The patient was instructed to contact the office for any new, changing, or symptomatic moles. The patient was also instructed to contact the office for any new lesions that develop within or around the previous surgery scar. 5. PERSONAL HISTORY OF MALIGNANT MELANOMA OF SKIN Right Lower Back No evidence of recurrence at melanoma scar. The patient was counseled that scars from excisional sites of melanoma should be monitored closely for recurrence. The patient was instructed to contact the office for any new, changing, or symptomatic moles. The patient was also instructed to contact the office for any new lesions that develop within or around the previous melanoma scar. 6. LENTIGINES Generalized Scattered cisse macules in sun-exposed areas. The patient was informed that lentigines are benign pigmented lesions that occur on sun-exposed andsun-damaged skin. No treatment is necessary. Recommended regular use of broad spectrum sunscreen SPF 30 or higher Next Visit: 6 months documented in this encounterEastern [facility] State [id number] NotePatient Education BMI for Adults Body mass index (BMI) is a number found using a person's weight and height. BMI can help tell how much of a person's weight is made up of fat. BMI does not measure body fat directly. It is used instead of tests that directly measure body fat, which can be difficult and expensive. What are BMI measurements used for? BMI is useful to: ??? Find out if your weight puts you at higher risk for medical problems. ??? Help recommend changes, such as in diet and exercise. This can help you reach a healthy weight.BMI screening can be done again to see if these changes are working. How is BMI calculated? Your height and weight are measured. The BMI is found from those numbers. This can be done with U.S. or metric measurements. Note that charts and online BMI calculators are available to help you findyour BMI quickly and easily without doing these calculations. To calculate your BMI in U.S. measurements: 1. Measure your weight in pounds (lb). 2. Multiply the number of pounds by 703. ??? So, for an adult who weighs 150 lb, multiply that number by 703: 150 x 703, which equals 105,450. 3. Measure your height in inches. Then multiply that number by itself to get a measurement called inches squared. ??? So, for an adult who is 70 inches tall, the inches squared measurement is 70 inches x 70 inches, which equals 4,900 inches squared. 4. Divide the total from step 2 (number of lb x 703) by the total from step 3 (inches squared): 105,450 ? 4,900 = 21.5. This is your BMI. To calculate your BMI in metric measurements: 1. Measure your weight in kilograms (kg). ??? For this example, the weight is 70 kg. 2. Measure your height in meters (m). Then multiply that number by itself to get a measurement called meters squared. ??? So, for an adult who is 1.75 m tall, the meters squared measurement is 1.75 m x 1.75 m, whichequals 3.1 meters squared. 3. Divide the number of kilograms (your weight) by the meters squared number. In this example: 70 ?3.1 = 22.6. This is your BMI. What do the results mean? BMI charts are used to see if you are underweight, normal weight, overweight, or obese. The following guidelines will be used: ??? Underweight: BMI less than 18.5. ??? Normal weight: BMI between 18.5 and 24.9. ??? Overweight: BMI between 25 and 29.9. ??? Obese: BMI of 30 or above. BMI is a tool and cannot diagnose a condition. Talk with your health care provider about what your BMI means for you. Keep these notes in mind: ??? Weight includes fat and muscle. Someone with a muscular build, such as an athlete, may have a BMI that is higher than 24.9. In cases like these, BMI is not a correct measure of body fat. ??? If you have a BMI of 25 or higher, your provider may need to do more testing to find out if excess body fat is the cause. ??? BMI is measured the same way for males and females. Females usually have more body fat than males of the same height and weight. Where to find more information For more information about BMI, including tools to quickly find your BMI, go to: ??? Centers for Disease Control and Prevention: cdc.gov ??? [place] Heart Association: heart.org ??? National Heart, Lung, and Blood [place]: nhlbi.nih.gov This information is not intended to replace advice given to you by your health care provider. Make sure you discuss any questions you have with your health care provider. Document Revised: 11/09/2022 Document Reviewed: 11/02/2022 [employer] Patient Education ? 2023 [employer] Nutrition BMI for Adults Body mass index (BMI) is a number found using a person's weight and height. BMI can help tell how much of a person's weight is made up of fat. BMI does not measure body fat directly. It is used instead of tests that directly measure body fat, which can be difficult and expensive. What are BMI measurements used for? BMI is useful to: ??? Find out if your weight puts you at higher risk for medical problems. ??? Help recommend changes, such as in diet and exercise. This can help you reach a healthy weight.BMI screening can be done again to see if these changes are working. How is BMI calculated? Your height and weight are measured. The BMI is found from those numbers. This can be done with U.S. or metric measurements. Note that charts and online BMI calculators are available to help you findyour BMI quickly and easily without doing these calculations. To calculate your BMI in U.S. measurements: 1. Measure your weight in pounds (lb). 2. Multiply the number of pounds by 703. ??? So, for an adult who weighs 150 lb, multiply that number by 703: 150 x 703, which equals 105,450. 3. Measure your height in inches. Then multiply that number by itself to get a measurement called inches squared. ??? So, for an adult who is 70 inches tall, the inches squared measurement is 70 inches x 70 inches, which equals 4,900 inches squared. 4. Divide the (more content not included)...[facility] 03-19-2024 History of Present illness Narrative* YUKI Braswell - 03/19/2024 10:40 AM EST Skin Check Location: Patient requests a full body skin examination Dermatologic history: history of Actinic Keratosis, history of Squamous Cell Carcinoma, history of Melanoma Last visit: 10 months ago Established patient Lesions: Location: right mandible Duration: months Quality: painful Modifying factors: aggravated by picking Associated symptoms: non-healing, rough, tender Treatments: none Melanoma History: Date of Melanoma Dx: 07/12/2016 Melanoma Details: Type In situ Melanoma Treatment: Wide local excision Location: Right lower back All pertinent medical history, medications, and allergies were reviewed. General Exam: alert, oriented to person, place, and time, normal affect, well appearing Unaccompanied Scalp, Examined , exam limited by hair Right leg Examined Head, Face Examined Left leg Examined Neck Examined Right foot Examined Chest Examined Left foot Examined Back Examined Buttocks Examined Abdomen Examined Digits,nails: Examined Right arm Examined Patient wearing nail prydeinig, Denies dark streaks under finger nails, Denies darkstreaks on toenails Left arm Examined Lymphatics: Not examined Hands Examined no cervical lymphadenopathy, no supraclavicular lymphadenopathy, no axillary lymphadenopathy 1. Seborrheic keratosis Stuck on verrucous, variably pigmented papules and plaques. Patient was counseled regarding these benign growths. Removal is normally not necessary, but they may be removed if they are symptomatic or for cosmetic reasons. 2. Personal history of malignant melanoma of skin Right Lower Back No evidence of recurrence at melanoma scar. The patient was counseled that scars from excisional sites of melanoma should be monitored closely for recurrence. The patient was instructed to contact the office for any new, changing, or symptomatic moles. The patient was also instructed to contact the office for any new lesions that develop within or around the previous melanoma scar. 3. Inflamed seborrheic keratosis (2) Right Anterior Mandible, Right Posterior Mandible Inflamed seborrheic keratoses: pink and brown stuck on verrucous scaly papule with surrounding erythema and bloody crust. The patient was informed that symptomatic seborrheic keratoses are benign growths that become inflamed, itchy, tender, traumatized, caught on clothing, or bleed. Symptomatic lesions can be treated with cryotherapy or curretage. Thicker lesions treated with cryotherapy may require more than one treatment. The patient was instructed to notify the office if abnormal redness or tenderness develops atthe treatment site. Cryotherapy today, see procedure note. Diagnosis: Inflamed seborrheic keratosis Indication: Inflamed Consent: Verbal consent was obtained and risks were discussed, including, but not limited to risks of scarring, darker or correctional counselor/case manager pigmentary changes, recurrence, incomplete removal and infection. Method: Liquid nitrogen was used to treat the lesion(s) with two 5-10 second freeze-thaw cycles Number of lesions treated: 2 Post-procedure instructions: Instructions were given orally and in writing. The office will be contacted if the lesion fails to resolve despite treatment, or if a side effect develops such as abnormal crusting, scabbing, redness or tenderness Cryotherapy, skin lesion - Right Anterior Mandible, Right Posterior Mandible 4. Melanocytic nevus of trunk Scattered benign appearing, regular brown to light brown melanocytic papules and macules with similar morphology Counseled regarding these benign growths. Rarely, a nevus can develop into malignant melanoma, so any changing nevi should be promptly re-evaluated. 5. Lentigines Scattered cisse macules in sun-exposed areas. The patient was informed that lentigines are benign pigmented lesions that occur on sun-exposed andsun-damaged skin. No treatment is necessary. Recommended regular use of broad spectrum sunscreen SPF 30 or higher 6. Bellamy angioma Scattered bellamy-red papule(s). The patient was informed that angiomas are benign growths on the the skin. No treatment is necessary. 7. Personal history of squamous cell carcinoma of skin Right Upper Arm No evidence of recurrence at SCC scar. The patient was counseled that scars from excisional sites of nonmelanoma skin cancers should be monitored closely for recurrence. The patient was instructed to contact the office for any new, changing, or symptomatic moles. The patient was also instructed to contact the office for any new lesions that develop within or around the previous surgery scar. Next Visit: 6 months documented in this encounterEastern [facility] State [id number] NotePatient Education Hypertension, Adult Hypertension is another name for high blood pressure. High blood pressure forces your heart to workharder to pump blood. This can cause problems [...] more likely to develop high blood pressure: ??? Smoking. ??? Not getting enough exercise or physical activity. ??? Being overweight. ??? Having too much fat, sugar, calories, or salt (sodium) in your diet. ??? Drinking too much alcohol. Other risk factors include: ??? Having any of these conditions: ? Heart disease. ? Diabetes. ? High cholesterol. ? Kidney disease. ? Obstructive sleep apnea. ??? Having a family history of high blood pressure and high cholesterol. ??? Age. The risk increases with age. ??? Stress. What are the signs or symptoms? High blood pressure may not cause symptoms. Very high blood pressure (hypertensive crisis) may cause: ??? Headache. ??? Fast or uneven heartbeats (palpitations). ??? Shortness of breath. ??? Nosebleed. ??? Vomiting or feeling like you may vomit (nauseous). ??? Changes in how you see. ??? Very bad chest pain. ??? Feeling dizzy. ??? Seizures. How is this treated? This condition is treated by making healthy lifestyle changes, such as: ? Eating healthy foods. ? Exercising more. ? Drinking less alcohol. ??? Your doctor may prescribe medicine if lifestyle changes do not help enough and if: ? Your top number is above 130. ? Your bottom number is above 80. ??? Your personal target blood pressure may vary. Follow these instructions at home: Eating and drinking ??? If told, follow the DASH eating plan. [...] at each meal with low-fat (lean) proteins. Low- fat proteins includefish, chicken without skin, eggs, beans, and tofu. ? Avoid fatty meat, cured and processed meat, or chicken with skin. ? Avoid pre-made or processed food. ??? Limit the amount of salt in your diet to less than 1,500 mg each day. ??? Do not drink alcohol if: ? Your doctor tells you not to drink. ? You are , may be , or are planning to become . ??? If you drink alcohol: ? Limit how [...] glass of hard liquor (44 mL). Lifestyle ??? Work with your doctor to stay at a healthy weight or to lose weight. Ask your doctor what the best weight is for you. ??? Get at least 30 minutes of exercise that causes your heart to beat faster (aerobic exercise) most days of the week. This may include walking, swimming, or biking. ??? Get at least 30 minutes of exercise that strengthens your muscles (resistance exercise) at least 3 days a week. This may include lifting weights or doing Pilates. ??? Do not smoke or use any products that contain nicotine or tobacco. If you need help quitting, ask your doctor. ??? Check your blood pressure at home as told by your doctor. ??? Keep all follow-up visits. Medicines ??? Take gueo-cru-xrssudy and prescription medicines only as told by your doctor. Follow directionscarefully. ??? Do not skip doses of blood pressure medicine. The medicine does not work as well if you skip doses. Skipping doses also puts you at risk for problems. ??? Ask your doctor about side effects or reactions to medicines that you should watch for. Contact a doctor if: ??? You think you are having a reaction to the medicine you are taking. ??? You have headaches that keep coming back. ??? You feel dizzy. ??? You have swelling in your ankles. ??? You have trouble with your vision. Get help right away if: ??? You get a very bad headache. ??? You start to feel mixed up (confused). ??? You feel weak or numb. ??? You feel faint. ??? You have very bad pain in your: ? Chest. ? Belly (abdomen). ??? You vomit more than once. ??? You have trouble breathing. These symptoms may be an emergency. Get help right away. Call 911. ??? Do not wait to see if the symptoms will go away. ??? Do not drive yourself to the hospital. Summary ??? Hypertension is another name for h (more content not included)...[facility]12-[facility]24 NotePatient Education ENT Cough, Adult A cough helps to clear your throat and lungs. It may be a sign of an illness or another condition. A short-term (acute) cough may last 2?3 weeks. A long-term (chronic) cough may last 8 or more weeks. Many things can cause a cough. They include: ??? Illnesses such as: ? An infection in your throat or lungs. ? Asthma or other heart or lung problems. ? Gastroesophageal reflux. This is when acid comes back up from your stomach. ??? Breathing in things that bother (irritate) your lungs. ??? Allergies. ??? Postnasal drip. This is when mucus runs down the back of your throat. ??? Smoking. ??? Some medicines. Follow these instructions at home: Medicines ??? Take itui-cce-iiozprh and prescription medicines only as told by your doctor. ??? Talk with your doctor before you take cough medicine (cough suppressants). Eating and drinking ??? Do not drink alcohol. ??? Do not drink caffeine. ??? Drink enough fluid to keep your pee (urine) pale yellow. Lifestyle ??? Stay away from cigarette smoke. ??? Do not smoke or use any products that contain nicotine or tobacco. If you need help quitting, ask your doctor. ??? Stay away from things that make you cough. These may include perfume, candles, cleaning products, or campfire smoke. General instructions ??? Watch for any changes to your cough. Tell your doctor about them. ??? Always cover your mouth when you cough. ??? If the air is dry in your home, use a cool mist vaporizer or humidifier. ??? If your cough is worse at night, try using extra pillows to raise your head up higher while yousleep. ??? Rest as needed. Contact a doctor if: ??? You have new symptoms. ??? Your symptoms get worse. ??? You cough up pus. ??? You have a fever that does not go away. ??? Your cough does not get better after 2?3 weeks. ??? Cough medicine does not help, and you are not sleeping well. ??? You have pain that gets worse or is not helped with medicine. ??? You are losing weight and do not know why. ??? You have night sweats. Get help right away if: ??? You cough up blood. ??? You have trouble breathing. ??? Your heart is beating very fast. These symptoms may be an emergency. Get help right away. Call 911. ??? Do not wait to see if the symptoms will go away. ??? Do not drive yourself to the hospital. This information is not intended to replace advice given to you by your health care provider. Make sure you discuss any questions you have with your health care provider. Document Revised: 10/20/2022 Document Reviewed: 10/20/2022 Eva Patient Education ? 2023 [employer] [facility] 12[facility]-2023 NoteNurse Consultation Note Reason for Visit Lab Draw Assessment/Plan 1. HLD (hyperlipidemia) (E78.5: Hyperlipidemia, unspecified) 2. Hyperglycemia (R73.9: Hyperglycemia, unspecified) Medications aspirin 81 mg oral tablet, 81 [...] (Swelling of throat) morphine (unknown) sulfamethoxazole (Blisters) Immunizations Vaccine Date Status Comments influenza virus vaccine, inactivated 11/20/2023 Recorded influenza virus vaccine, inactivated 02/15/2023 Given influenza, unspecified formulation 02/15/2023 Given influenza virus vaccine, inactivated 2022 Recorded influenza virus vaccine, inactivated 2021 Given SARS-CoV-2 (COVID-19) mRNA-1273 vaccine 12/29/2020 Recorded SARS-CoV-2 (COVID-19) mRNA-1273 vaccine 04/28/2020 Given Other (see comment) SARS-CoV-2 (COVID-19) mRNA-1273 vaccine 03/31/2020 Given Other (see comment) influenza virus vaccine, inactivated 12/09/2019 Given influenza virus vaccine, inactivated 12/24/2018 Recorded influenza virus vaccine, inactivated 12/21/2018 Recorded influenza virus vaccine, inactivated 01/01/2018 Recorded pneumococcal 23-valent vaccine 06/26/2017 Recorded influenza virus vaccine, inactivated 12/14/2016 Recorded pneumococcal 13-valent vaccine 03/06/2016 Recorded pneumococcal 23-valent vaccine 03/01/2016 Recorded influenza virus vaccine, inactivated 12/28/[facility] NotePatient Education Dermatology Pyogenic Granuloma Pyogenic granuloma is a growth (lesion) that forms on the skin or on the mucous membranes of the mouth. This type of lesion is a lump of very red tissue that bleeds easily, is usually a single lesion, and most often affects: ? The head and neck. ? The mucous membranes of the mouth or tongue. ? The upper body. ? The hands and feet. A pyogenic granuloma usually measures about 0.2 inches (0.5 cm), but lesions can be smaller or larger. This condition does not spread from person to person (is not contagious). The lesion is noncancerous (benign). What are the causes? The cause of pyogenic granulomas is unknown, but the lesions commonly occur after a minor injury, such as pricking your skin or biting your lip or tongue. A mound of tiny blood vessels (capillaries) forms to create a lesion. Sometimes the lesions occur without an injury. What increases the risk? You are more likely to develop this condition if: ? You are . ? You are a child or young adult. ? You take certain medicines, including: ? Medicines for acne. ? control pills. ? Some medicines used to treat cancer, HIV, or AIDS. What are the signs or symptoms? The main symptom of this condition is a raised or lumpy lesion that is very red. Your lesion may also: ? Have a crusty, broken, and irritated (ulcerated) surface. ? Bleed easily. ? Be slightly sore. How is this diagnosed? This condition is diagnosed based on your symptoms and medical history, especially if you recently had an injury. You may also have: ? A physical exam. ? A small piece of your granuloma removed for testing (biopsy) to rule out cancer. How is this treated? A small lesion may go away without treatment. You may have to stop or change any medicines that caused your lesion. Pyogenic granulomas caused by usually go away after delivery. This condition may also be treated by removing the lesion. This may be done if the lesion is large,irritated, or bleeds easily. Removal may involve: ? Curettage. This scrapes away the lesion. ? Using chemicals or electric energy to destroy the lesion. ? Surgical excision. This removes the lesion along with a small piece of normal skin or mucous membrane. This is the best treatment to prevent the lesion from coming back. Follow these instructions at home: ? Take kzvw-ykc-mqaurfy and prescription medicines only as told by your health care provider. ? Do not scratch or pick at your lesion. Cover your lesion area with a bandage (dressing) or gauze to avoid having anything rub against your lesion. ? Keep your lesion clean to avoid infection. ? Keep all follow-up visits. This is important. Contact a health care provider if: ? You have a fever. ? Your lesion bleeds. ? Your lesion comes back after treatment. ? You have a lesion that grows rapidly or hardens. Summary ? Pyogenic granuloma is a growth (lesion) that forms on the skin or on the mucous membranes of the mouth. This condition does not spread from person to person (is not contagious). ? A small lesion may go away without treatment. If your lesion is large, irritated, or bleeds easily, you may need to have it removed. ? Do not scratch or pick at your lesion. Cover your lesion area with a bandage (dressing) or gauze to avoid having anything rub against your lesion. ? Keep your lesion clean to avoid infection. This information is not intended to replace advice given to you by your health care provider. Make sure you discuss any questions you have with your health care provider. Document Revised: 06/16/2021 Document Reviewed: 06/16/2021 [employer] Patient Education ? 2022 [employer] 02-19-2023 Hospital Discharge instructions Patient Education 02/19/2023 [...] home: Managing pain, stiffness, and swelling Take qalz-jwg-uqlilla and prescription medicines only as told by [...] told by your health care provider. Use theheat source that your health care provider recommends, [...] each day. Do not sit, drive, or principal quality engineer one place for more than 30 minutes [...] provider. Exercising helps your back heal faster andhelps prevent back injuries by keeping muscles strong [...] lying on your side with your knees slightlybent. If you lie on your back, put a pillow under your knees. Keep your head and neck in a straight line with your spine (neutral position) when using electronicequipment like smartphones or pads. To do this: [...] put less stress on your back. Take wkcl-usu-okwgjsi and prescription medicines only as told by your health care provider, and apply heat or ice as told. This information is not intended to replace advice given to you by your health care provider. Make sure you discuss any questions you have with your health care provider. Document Revised: 05/13/2021 Document Reviewed: 05/13/2021 [employer] Patient Education 2022 [employer]. Follow Up Care 02/19/2023 09:25:55 With:Deidra Garcia Address:Unknown When:02/22/2023 10:57:15 [facility]08-22-2023 Hospital Discharge instructions Patient Education 10/24/2022 15:05:51 Hypertension, Adult, Poby-ce-Wuck Hypertension, Adult Hypertension is another name for high blood pressure. High blood pressure forces your heart to workharder to pump blood. This can cause problems [...] at each meal with low-fat (lean) proteins. Low- fat proteins include fish, chicken without skin, eggs, [...] doctor. Keep all follow-up visits. Medicines Take kfzl-erv-szwntea and prescription medicines only as told by your doctor. Follow directions carefully. Do not skip doses of blood pressure medicine. The medicine does not work as well if you skip doses.Skipping doses also puts you at risk for [...] provider. Document Revised: 12/08/2021 Document Reviewed: 12/08/2021 [employer]Change Patient Education 2022 [employer]. Follow Up Care 07/17/2022 16:04:34 With:FÁTIMA LIU, Tiarra Tate, MED Address: [address], [facility] [place] [address]- When:Within 3 Month(s) [facility] 07-17-2023 Hospital Discharge instructions Patient Education 09/18/2022 16:14:38 Carpal Tunnel Syndrome, Gjsx-ud-Tkob Carpal Tunnel Syndrome Carpal tunnel syndrome is [...] reduce stiffness and swelling. General instructions Take ogbt-qsh-fnlihyt and prescription medicines only as told by your doctor. Rest your wrist from any activity that may cause pain. If needed, talk with your boss at work aboutchanges that can help your wrist heal. Do [...] provider. Document Revised: 07/01/2020 Document Reviewed: 07/01/2020 [employer] Patient Education 2022 [employer]. Follow Up Care 09/18/2022 14:23:53 With:FÁTIMA LIU, Tiarra Tate, MED Address: [facility] [address] [place] [address] [address], [place] [address]- When: Unknown [facility] 05-15-2023 Hospital Discharge instructions Patient Education 07/17/2022 15:54:47 Hypertension, Adult, Wlae-pn-Slps Hypertension, Adult Hypertension is another name for high blood pressure. High blood pressure forces your heart to workharder to pump blood. This can cause problems [...] at each meal with low-fat (lean) proteins. Low- fat proteins include fish, chicken without skin, eggs, [...] doctor. Keep all follow-up visits. Medicines Take qlti-ivu-ehgnynz and prescription medicines only as told by your doctor. Follow directions carefully. Do not skip doses of blood pressure medicine. The medicine does not work as well if you skip doses.Skipping doses also puts you at risk for [...] provider. Document Revised: 12/08/2021 Document Reviewed: 12/08/2021 [employer] Patient Education 2022 [employer]. Follow Up Care 04/11/2022 14:31:46 With:FÁTIMA LIU, Tiarra Tate, [facility] Address: [facility] [address], [place] [address]- When:Within 3 Month(s) [facility] 02-07-2023 Hospital Discharge instructions Patient Education 04/11/2022 14:21:13 Hypertension, Adult, Ihmy-dn-Noms Hypertension, Adult Hypertension is another name for high blood pressure. High blood pressure forces your heart to workharder to pump blood. This can cause problems [...] at each meal with low-fat (lean) proteins. Low- fat proteins include fish, chicken without skin, eggs, [...] contain nicotine or tobacco, such as cigarettes, e- cigarettes, and chewing tobacco. If you need help quitting, ask your doctor. Check your blood pressure at home as told by your doctor. Keep all follow-up visits as told by your doctor. This is important. Medicines Take imhf-ynh-krzftqy and prescription medicines only as told by your doctor. Follow directions carefully. Do not skip doses of blood pressure medicine. The medicine does not work as well if you skip doses.Skipping doses also puts you at risk for [...] 08/07/2008 Document Revised: 10/30/2018 Document Reviewed: 10/30/2018 [employer]Change Patient Education 2020 [employer]. Follow Up Care 01/11/2022 11:18:36 With:FÁTIMA LIU, Tiarra Tate, MED Address: [facility] [address] [facility] [place] [address] [place] [address]- When:Within 3 Month(s) [facility] 11-09-2022 Hospital Discharge instructions Patient Education 01/11/2022 11:10:30 Hypertension, Adult, Eyji-ck-Xgfm Hypertension, Adult Hypertension is another name for high blood pressure. High blood pressure forces your heart to workharder to pump blood. This can cause problems [...] at each meal with low-fat (lean) proteins. Low- fat proteins include fish, chicken without skin, eggs, [...] contain nicotine or tobacco, such as cigarettes, e- cigarettes, and chewing tobacco. If you need help quitting, ask your doctor. Check your blood pressure at home as told by your doctor. Keep all follow-up visits as told by your doctor. This is important. Medicines Take ajso-nqo-shnmrwf and prescription medicines only as told by your doctor. Follow directions carefully. Do not skip doses of blood pressure medicine. The medicine does not work as well if you skip doses.Skipping doses also puts you at risk for [...] 08/07/2008 Document Revised: 10/30/2018 Document Reviewed: 10/30/2018 [employer]Change Patient Education 2020 [employer]. Follow Up Care 09/13/2021 11:30:16 With:FÁTIMA LIU, ERIKA Hines Address: [facility] [address], [place] [address]- When:Within 3 Month(s) [facility] 07-12-2022 Hospital Discharge instructions Patient Education 09/13/2021 11:21:57 Hypertension, Adult, Ubdq-rj-Pxqk Hypertension, Adult Hypertension is another name for high blood pressure. High blood pressure forces your heart to workharder to pump blood. This can cause problems [...] at each meal with low-fat (lean) proteins. Low- fat proteins include fish, chicken without skin, eggs, [...] contain nicotine or tobacco, such as cigarettes, e- cigarettes, and chewing tobacco. If you need help quitting, ask your doctor. Check your blood pressure at home as told by your doctor. Keep all follow-up visits as told by your doctor. This is important. Medicines Take ufss-eao-gxezrus and prescription medicines only as told by your doctor. Follow directions carefully. Do not skip doses of blood pressure medicine. The medicine does not work as well if you skip doses.Skipping doses also puts you at risk for [...] 08/07/2008 Document Revised: 10/30/2018 Document Reviewed: 10/30/2018 [employer]Change Patient Education 2020 [employer]. Follow Up Care 05/24/2021 12:23:59 With:FÁTIMA LIU, Tiarra Tate, [facility] Address: [address], [facility] [place] [address]- When:Within 3 Month(s) [facility] 06-10-2022 Hospital Discharge instructions Patient Education 08/12/2021 09:50:43 [...] that opens in the front. 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 Each breast [...] 02/16/2001 Document Revised: 10/10/2018 Document Reviewed: 10/10/2018 iChange Patient Education 2020 [employer]. 08/12/2021 09:50:35 Osteopenia Osteopenia Osteopenia is a loss of thickness (density) inside of the bones. Another name for osteopenia is lowbone mass. Mild osteopenia is a normal part [...] this condition with a special type of X- ray exam that measures bone density (dual-energy X-ray absorptiometry, DEXA). This test can measure bone density in yourhips, spine, and wrists. Osteopenia has no symptoms, [...] density. Follow these instructions at home: Take gjwx-rda-vvtwusa and prescription medicines only as told by [...] the bones. Another name for osteopenia is lowbone mass. Osteopenia is not a disease, but it may increase your risk for a condition that causes the bones tobecome thin and break more easily (osteoporosis). You may be at risk for osteopenia if you are older than age 50 or if you are a woman who went through early menopause. Osteopenia does not cause any symptoms, but it can be diagnosed with a bone density screening test. Dietary and lifestyle changes are the first treatment for osteopenia. These may lower your risk forosteoporosis. This information is not intended to replace advice given to you by your health care provider. Make sure you discuss any questions you have with your health care provider. Document Released: 11/28/2017 Document Revised: 02/01/2018 Document Reviewed: 11/28/2017 iChange Patient Education 2020 [employer] 08/12/2021 09:50:30 High Cholesterol High Cholesterol [...] henson of your blood vessels (arteries). Plaques makethe arteries narrower and stiffer. Cholesterol plaques increase [...] changes have failed to reduce your cholesterol tohealthy levels. Your health care provider may prescribe [...] gardening, walking, and taking the stairs. Take morz-jok-hfheyus and prescription medicines only as told by [...] 02/19/2006 Document Revised: 02/22/2018 Document Reviewed: 08/19/2016 iChange Patient Education 2020 [employer]. 08/12/2021 09:50:29 High Triglycerides Eating Plan High Triglycerides Eating Plan Triglycerides are a type of fat in the blood. High levels of triglycerides can increase your risk of heart disease and stroke. If your triglyceride levels are high, choosing the right foods can help lower your triglycerides and keep your heart healthy. Work with your health care provider or a diet and clinical nutritionist (dietitian) to develop an eating plan that [...] low-fat (1%) milk. Reduced fat (2%) and low- sodium cheese. Low-fat ricotta cheese. Low-fat cottage cheese. [...] meats. Dairy Whole or reduced-fat (2%) milk. Zcvz-aia-ptrm. Cream cheese. Full-fat or sweetened yogurt. Full-fatcheese. Nondairy creamers. Whipped toppings. Processed cheese or cheese spreads. Cheese curds. Beverages Alcohol. Sweetened drinks, such as soda, lemonade, fruit drinks, or punches. Fats and oils Butter. Stick margarine. Lard. Shortening. Ghee. [place] fat. Tropical oils, such as coconut, palm kernel, or palm oils. Sweets and desserts [place] syrup. Sugars. Honey. Molasses. Candy. Jam and jelly. Syrup. Sweetened cereals. Cookies. Pies.Cakes. Donuts. Muffins. Ice cream. Condiments Store-bought sauces, [...] food are good for you, talk with yourhealth care provider or a dietitian. This information is not intended to replace advice given to you by your health care provider. Make sure you discuss any questions you have with your health care provider. Document Released: 12/07/2004 Document Revised: 02/01/2018 Document Reviewed: 04/24/2017 iChange Patient Education 2020 [employer]. 08/12/2021 09:50:09 DASH Eating Plan DASH Eating Plan DASH stands for Dietary Approaches to Stop Hypertension. The DASH eating plan is a healthy eatingplan that has been shown to reduce high blood pressure (hypertension). It may also reduce your riskfor type 2 diabetes, heart disease, and stroke. [...] your health care provider or diet and clinical nutritionist (dietitian) to adjust your eating plan to [...] meal, try to fill half of your platewith fruits and vegetables. ?Up to 6 8 [...] each week. ?Heart-healthy fats. Healthy fats called Nicholson-3 fatty acids are found in foods such [...] Bulgur. Whole-grain and low-sodium cereals. Michelle bread. Low- fat, low-sodium crackers. Whole-wheat flour tortillas. Vegetables Fresh or frozen vegetables (raw, steamed, roasted, or grilled). Low-sodium or reduced-sodium tomatoand vegetable juice. Low-sodium or reduced-sodium tomato sauce [...] milk. Fat-free, low-fat, or reduced-fat cheeses. Nonfat, low-sodiumricotta or cottage cheese. Low-fat or nonfat yogurt. Low-fat, low-sodium cheese. Fats and oils Soft margarine without trans fats. Vegetable oil. Low-fat, reduced-fat, or light mayonnaise and salad dressings (reduced-sodium). Canola, safflower, olive, soybean, and sunflower oils. Avocado. Seasoning and other foods Herbs. Spices. Seasoning mixes without salt. Unsalted popcorn and pretzels. Fat- free sweets. What foods are not recommended? The [...] Dairy Whole or 2% milk, cream, and ylsa-byz-sbjo. Whole or full-fat cream cheese. Whole-fat or sweetened yogurt. Full-fat cheese. Nondairy creamers. Whipped toppings. Processed cheese and cheese spreads. Fats and oils Butter. Stick margarine. Lard. Shortening. Ghee. Mancuso fat. Tropical oils, such as coconut, palm kernel, or palm oil. Seasoning and other foods Salted popcorn and pretzels. Onion salt, garlic salt, seasoned salt, table salt, and sea salt. [facility] Hospital[facility] sauce. Tartar sauce. Barbecue sauce. Teriyaki sauce. Soy sauce, including reduced-sodium.Steak sauce. Canned and packaged gravies. Fish sauce. Oyster sauce. Cocktail sauce. Horseradish that you find on the shelf. Ketchup. Mustard. Meat flavorings and tenderizers. Bouillon cubes. Hot sauce and Tabasco sauce. Premade or packaged marinades. Premade or packaged taco seasonings. Relishes. Regular salad dressings. Where to find more information: National Heart, Lung, and Blood [place]: www.nhlbi.nih.gov [place] Heart Association: www.heart.org Summary The DASH eating [...] your health care provider or diet and clinical nutritionist (dietitian) to adjust your eating plan to your individual calorie needs. This information is not intended to replace advice given to you by your health care provider. Make sure you discuss any questions you have with your health care provider. Document Released: 02/08/2012 Document Revised: 02/01/2018 Document Reviewed: 02/12/2017 iChange Patient Education 2020 [employer]. 08/12/2021 09:50:07 BMI for Adults BMI for [...] problems. It is used to check whether aperson is obese, overweight, healthy weight, or underweight. How is BMI calculated? BMI measures your weight and compares it to your height. This can be done either in [place] or metric measurements. Note that charts are available to help you find your BMI quickly and easily without having to do these calculations yourself. To calculate your BMI in [place] measurements, your health care provider will: [...] muscular build, such as an athlete, may havea BMI that is higher than 24.9. In cases like these, BMI is not an accurate measure of body fat. To determine if excess body fat is the cause of a BMI of 25 or higher, further assessments may needto be done by a health care provider. [...] medical problems. BMI can be measured using [place] measurements or metric measurements. To interpret your [...] 10/31/2004 Document Revised: 02/01/2018 Document Reviewed: 01/02/2018 iChange Patient Education 2020 [employer] [facility] Evaluation + Plan note Future Appointments Appointment Date:08/12/2021 09:30:00 AM Scheduled Provider: Location:[facility] Appointment Type:FM Medicare Wellness Subsequent Appointment Date:09/13/2021 11:00:00 AM Scheduled Provider:Tiarra GARY MD Location:[facility] Appointment Type:FM Open Appointment Date:12/01/2021 01:30:00 PM Scheduled Provider:Radha ESPITIA CNP [facility]Cardiology Follow Up ([facility]) Future Scheduled Tests Laboratory* Lipid Panel 05/04/21 * [facility] Future [facility]ments Appointment Date:09/13/2021 11:00:00 AM Scheduled Provider:Tiarra GARY MD Location:[facility] Appointment Type:FM Open Appointment Date:12/01/2021 01:30:00 PM Scheduled Provider:Radha ESPITIA CNP [facility] Type:Cardiology Follow Up (FT) Appointment Date:08/04/2022 09:30:00 AM Scheduled Provider: Location:[facility] Appointment Type: Medicare Wellness Subsequent Future Scheduled Tests Laboratory* Lipid Panel 05/04/21 * Lipid Panel 06/27/21 Radiology* BD Bone Density DEXA 08/12/21 * MA Mamm Screen w/CAD if perf and 3D Kalyan 08/12/21 [facility] Primary Care Evaluation + Plan note Future Appointments Appointment Date:12/01/2021 01:30:00 PM Scheduled Provider:Radha ESPITIA CNP [facility] App[facility] Type:Cardiology Follow Up (FT) Appointment Date:12/26/2021 03:20:00 PM Scheduled Provider:Tiarra GARY MD Location:[facility] Appointment Type:FM Open Appointment Date:08/04/2022 09:30:00 AM Scheduled Provider: Location:[facility] Appointment Type:FM Medicare Wellness Subsequent Future Scheduled Tests Laboratory* HgbA1c 09/13/21 * CBC w/ Auto Diff 7/12/22 * Comprehensive Metabolic Panel 09/13/21 * Lipid Panel 3 * Lipid Panel 09/13/21 * Lipid Panel 06/27/21 Radiology* BD Bone Density DEXA 08/12/21 * MA Mamm Screen w/CAD if perf and 3D Kalyan 08/12/21 [facility] Primary Care Evaluation + Plan note Future Appointments Appointment Date:04/11/2022 02:00:00 PM Scheduled Provider:Tiarra GARY MD Location:[facility] Appointment Type: Open Appointment Date:08/04/2022 09:30:00 AM Scheduled Provider: Location:[facility] Appointment Type: Medicare Wellness Subsequent Future Scheduled Tests Laboratory* HgbA1c 09/13/21 * CBC w/ Auto Diff 09/13/21 * Comprehensive Metabolic Panel 09/13/21 * Lipid Panel 05/04/21 * Lipid Panel 09/13/21 * Lipid Panel 06/27/21 Radiology* BD Bone Density DEXA 08/12/21 * MA Mamm Screen w/CAD if perf and 3D Kalyan 08/12/21 [facility] Primary Care Evaluation + Plan note Future Appointments Appointment Date:04/11/2022 02:00:00 PM Scheduled Provider:Tiarra GARY MD Location:[facility] Appointment Type: Open Appointment Date:08/04/2022 09:30:00 AM Scheduled Provider: Location:[facility] Appointment Type:FM Medicare Wellness Subsequent Future Scheduled Tests Laboratory* Lipid Panel 05/04/21 * Lipid Panel 06/27/21 Radiology* BD Bone Density DEXA 08/12/21 * MA Mamm Screen w/CAD if perf and 3D Kalyan [facility] Appointment Date:07/17/2022 03:20:00 PM Scheduled Provider:Tiarra GARY MD Location:[facility] Appointment Type: Open Appointment Date:08/04/2022 09:30:00 AM Scheduled Provider: Location:[facility] Appointment Type: Medicare Wellness Subsequent Future Scheduled Tests Laboratory* HgbA1c 04/11/22 * PTH Intact 04/11/22 * Urinalysis 04/11/22 * Vitamin D 25 Hydroxy 04/11/22 * CBC w/ Auto Diff 04/11/22 * Comprehensive Metabolic Panel 04/11/22 * Lipid Panel 05/04/21 * Lipid Panel 06/27/21 * Lipid Panel 04/11/22 * Phosphorus Level 04/11/22 Radiology* BD Bone Density DEXA 08/12/21 * MA Mamm Screen w/CAD if perf and 3D Kalyan 08/12/21 [facility] Primary Care Evaluation + Plan note Future Appointments Appointment Date:08/04/2022 09:30:00 AM Scheduled Provider: Location:[facility] Appointment Type:FM Medicare Wellness Subsequent Appointment Date:10/24/2022 02:40:00 PM Scheduled Provider:Tiarra GARY MD Location:[facility] Appointment Type: Open Future Scheduled Tests Laboratory* Comprehensive Metabolic Panel 07/17/22 Radiology* BD Bone Density DEXA 08/12/21 * MA Mamm Screen w/CAD if perf and 3D Kalyan 08/12/21 [facility] Primary Care Evaluation + Plan note Future Appointments Appointment Date:10/24/2022 02:40:00 PM Scheduled Provider:Tiarra GARY MD Location:[facility] Appointment Type: Open Future Scheduled Tests Laboratory* Comprehensive Metabolic Panel 07/17/22 [facility] Evaluation + Plan note Future Appointments Appointment Date:10/24/2022 02:40:00 PM Scheduled Provider:Tiarra GARY MD Location:[facility] Appointment Type:FM Open Appointment Date:11/29/2022 09:30:00 AM Scheduled Provider: Location:[facility] Appointment Type:FM Medicare Wellness Subsequent [facility] Future App[facility]ments Appointment Date:11/29/2022 09:30:00 AM Scheduled Provider: Location:[facility] Appointment Type:FM Medicare Wellness Subsequent Appointment Date:02/15/2023 08:40:00 AM Scheduled Provider:iTarra GARY MD Location:[facility] Appointment Type:FM Open Future Scheduled Tests Laboratory* Vitamin D 25 Hydroxy 8/22/23 * CBC w/ Auto Diff 10/24/22 * Comprehensive Metabolic Panel 10/24/22 [facility] Primary Care Evaluation + Plan note Future Appointments Appointment Date:02/20/2023 03:40:00 PM Scheduled Provider:Deidra Garcia MD Location:[facility] Appointment Type: ER/Hospital Follow Up Appointment Date:08/23/2023 08:00:00 AM Scheduled Provider:Deidra Garcia MD Location:[facility] Appointment Type: Open Appointment Date:02/19/2024 11:00:00 AM Scheduled Provider: Location:[facility] Appointment Type:FM Medicare Wellness Subsequent Future Scheduled Tests Laboratory* Vitamin D 25 Hydroxy 02/15/23 * Vitamin D 25 Hydroxy 10/24/22 * CBC w/ Auto Diff 10/24/22 * Comprehensive Metabolic Panel 02/15/23 * Comprehensive Metabolic Panel 10/24/22 [facility] App[facility]ments Appointment Date:08/23/2023 10:15:00 AM Scheduled Provider:Deidra Garcia MD Location:[facility] Appointment Type: Open Appointment Date:02/19/2024 11:00:00 AM Scheduled Provider: Location:[facility] Appointment Type:FM Medicare Wellness Subsequent Future Scheduled Tests Laboratory* Vitamin D 25 Hydroxy 02/15/23 * Vitamin D 25 Hydroxy 10/24/22 * CBC w/ Auto Diff 10/24/22 * Comprehensive Metabolic Panel 02/15/23 * Comprehensive Metabolic Panel 10/24/22 [facility] Future App[facility]ments Appointment Date:12/20/2023 10:15:00 AM Scheduled Provider:Deidra Garcia MD Location:[facility] Appointment Type: Open Appointment Date:02/19/2024 11:00:00 AM Scheduled Provider: Location:[facility] Appointment Type:FM Medicare Wellness Subsequent Diagnostic Tests Pending * PTH Intact 11/08/23 Future Scheduled Tests Laboratory* Vitamin D 25 Hydroxy 02/15/23 * Comprehensive Metabolic Panel 02/15/23 [facility] Evaluation + Plan note Future Appointments Appointment Date:02/19/2024 11:00:00 AM Scheduled Provider: [facility] Type: Medicare Wellness Subsequent Appointment Date:06/19/2024 10:15:00 AM Scheduled Provider:Deidra Garcia MD [facility] Type: Open Future Scheduled Tests Laboratory* Vitamin D 25 Hydroxy 02/15/23 * Comprehensive Metabolic Panel 02/15/23 [facility] evaluation + Plan note Future Appointments Appointment Date:06/19/2024 10:15:00 AM Scheduled Provider:Deidra Garcia MD [facility] Type: Open Appointment Date:02/18/2025 08:00:00 AM Scheduled Provider: [facility] Type: Medicare Wellness Subsequent [facility] evaluation note* Diagnosis Seborrheic keratosis- Primary Personal history of malignant melanoma of skin Inflamed seborrheic keratosis Melanocytic nevus of trunk Benign neoplasm of skin of trunk, except scrotum Lentigines Bellamy angioma Personal history of squamous cell carcinoma of skin Personal history of other malignant neoplasm of skin documented [facility]* Diagnosis Seborrheic keratosis- Primary Neoplasm of unspecified behavior of bone, soft tissue, and skin Actinic keratosis History of SCC (squamous cell carcinoma) of skin Personal history of other malignant neoplasm of skin Personal history of malignant melanoma of skin Lentigines documented in [facility]* Diagnosis Right knee pain, unspecified chronicity- Primary Primary osteoarthritis of left knee Chronic pain of left knee documented in this encounter [facility]* Diagnosis Primary osteoarthritis of left knee- Primary Chronic pain of left knee documented [facility]* Diagnosis Primary osteoarthritis of left knee documented in this encounter [facility]* Diagnosis Primary osteoarthritis of left knee- Primary documented in this encounter [facility] Narrative No data available for this section [facility] No data available for this section [facility] No data available for this section [facility] Reason for referral (narrative) Referred by: FÁTIMA LIU, Tiarra Tate [facility] Primary [facility] Rewxye for referral (narrative) , Pt has seen Dr. Paris in the past for hip pain/arthritis Referred by: Milton NUNES, Adrien Salinas [facility] Summary Purpose Family History No Family History Records Found No data available for this section No data available for this section No Family History Records FoundNo Family History Records Found No data available for this section No Family History Records FoundNo Family History Records FoundNo Family History Records FoundNo Family History Records FoundNo Family History Records FoundNo Family History Records Found No data available for this section No Family History Records FoundNo Family History Records FoundNo Family History Records FoundNo Family History Records Found No data available for this section No Family History Records FoundNo Family History Records FoundNo Family History Records FoundNo Family History Records FoundNo Family History Records FoundNo Family History Records FoundNo Family History Records FoundNo Family History Records FoundNo Family History Records FoundNo Family History Records FoundNo Family History Records FoundNo Family History Records FoundNo Family History Records FoundNo Family History Records [...] section and content) DATE CREATED AUTHOR 01/17/2021 [facility] DATE CREATED AUTHOR AUTHOR'S ORGANIZ ATION 11/10/2023 [facility] DATE CREATED AUTHOR AUTHOR'S ORGANIZ ATION 01/01/2024 [facility] DATE CREATED AUTHOR AUTHOR'S ORGANIZ ATION 02/21/2024 [facility] DATE CREATED AUTHOR AUTHOR'S ORGANIZ ATION 05/17/2024 [facility] DATE CREATED AUTHOR AUTHOR'S ORGANIZ ATION 06/21/2024 [facility] DATE CREATED AUTHOR AUTHOR'S ORGANIZ ATION 10/26/2024 [facility] DATE CREATED AUTHOR AUTHOR'S ORGANIZ ATION 11/05/2024 [facility] DATE CREATED AUTHOR AUTHOR'S ORGANIZ ATION 11/07/2024 [facility] DATE CREATED AUTHOR AUTHOR'S ORGANIZ ATION 01/09/2025 [facility] EPIC Care Team (unrecognized sect ion and content) Team MemberRelationshipSpecialtyStart DateEnd Date Tiarra Gary MD [address] [place] [address] PCP - GeneralInternal Medicine09/22/22Team MemberRelationshipSpecialtyStart Date End Date Tiarra Gary MD [address] [place] [address] PCP - GeneralInternal Medicine09/22/22Team MemberRelationshipSpecialtyStart Date End Date Tiarra Gary MD [address] [place] [address] PCP - GeneralInternal Medicine09/22/22Team MemberRelationshipSpecialtyStart Date End Date Tiarra Gary MD [address] [place] [address] PCP - GeneralInternal Medicine09/22/22Team MemberRelationshipSpecialtyStart Date End Date Tiarra Gary MD [address] [place] [address] [facility] - [facility]Te MemberRelationshipSpecialtyStart Date End Date Tiarra Gary MD [address] [place] [address] [facility]09/22/22Te MemberRelationshipSpecialtyStart Date End Date Tiarra Gary MD [address] [place] [address] [facility]09/22/22Te MemberRelationshipSpecialtyStart Date End Date Tiarra Gary MD [address] [place] [address] [facility]09/22/22Te MemberRelationshipSpecialtyStart Date End Date Tiarra Gary MD [address] [place] [address] [facility]09/22/22Te MemberRelationshipSpecialtyStart Date End Date Tiarra Gary MD [address] [place] [address] [facility]09/22/22 Reason for Visit (unrecogniz ed section and content) ReasonCommentsSkin CheckReasonCommentsPainReasonCommentsOsteoarthritisReason CommentsOsteoarthritis FOR RECORDS PERTAINING TO PATIENTS WHO ARE [...] BE BASED ON THE PRIMARY CLINICAL RECORDS. [facility] [employer] [facility]. provides no warranty or guarantee of the accuracy or completeness of information in this document.
== END 2025-03-02 12:19 | disposition home or self-care (01) ==
LOC: RAD 12:19
PROVIDERS: PCP Student in an Organized Health Care Education/Training Program; Visit Provider Student in an Organized Health Care Education/Training Program
DX: M85.88 Other specified disorders of bone density and structure, other site (principal); M85.80 Other specified disorders of bone density and structure, unspecified site
CPT/HCPCS: 77080